=== PATIENT | female | born 1960 | race Caucasian/White ===

== ENCOUNTER 2022-10-23 11:01 | Emergency (ER) | payer OTHER, SELFPAY ==
[2022-10-23] VITALS (22 sets, daily range): BP systolic 88–121; BP diastolic 58–75; PULSE 78–121; RESP 14–24; O2SAT 92–97; BMI 24.0
--- NOTE | 2022-10-23 11:11 | ED_ITS ---
Documented by User: Flakito Monahan MD 11/04/22 01:55 HPI - Nausea/Vomiting/Diarrhea General: Chief complaint: Nausea/Vomiting/Diarrhea Stated complaint: weakness Time Seen by Provider: 10/23/22 11:06 History of Present Illness: Ms Vega is a 62-year-old lady with significant past medical history of colon cancer status post colon resection with ileostomy (reported date of service 10/11/22 LAR w DLI, positive lymph nodes, Dr Ant Gary MD [facility]) presenting to the emergency department for nausea and vomiting with generalized malaise. She reports somewhat complicated postoperative course. Shortly after her discharge she had nausea and vomiting with decreased ostomy and urine output and required return visit to the ER and was kept in the clinical decision unit for a few days for hydration. She had been doing improved however yesterday saw surgeon for staple removal and was given a oxycodone. She was doing well on the way home however subsequently developed nausea and vomiting again associated with generalized malaise and d ecreased urine output. Ostomy output has been on the higher end however had very very little yesterday prior to overnight. Intensity symptoms is moderate. Course has worsened. No other specific changes in health, exacerbating, or alleviating factors identified. Onset (ago): hour(s) Description of vomiting: watery Description of diarrhea: watery (ostomy) Associated nausea: Yes Associated abdominal pain: Yes (mild, unchanged) Location of pain: Diffuse Pain consistency: intermittent Severity: mild Quality: cramping and aching Context: recent surgery/procedure Associated symtoms: Reports fatigue, nausea, weakness and other Review of Systems 2 General: Reports: 10 or more systems reviewed and unremarkable except in HPI and below Const: Reports: fatigue GI: Reports: nausea PFSH ED PFSH: Medical History (Updated 11/01/22 @ 00:00 by IRMA Mayorga) Colon cancer Surgical History (Updated 10/23/22 @ 20:45 by Flakito Monahan MD) S/P colon resection S/P ileostomy Physical Exam Const: COMMON NORMALS: alert GENERAL APPEARANCE: cooperative, well developed and ill appearing (Somewhat) HENMT: COMMON NORMALS: normocephalic and atraumatic HEAD & SCALP: normocephalic and atraumatic Eye: COMMON NORMALS: conjunctivae normal CONJUNCTIVA: Yes conjunctivae normal SCLERA: sclerae normal Neck/C-Spine: COMMON NORMALS: supple GENERAL: Yes trachea midline Resp: COMMON NORMALS: clear to auscultation bilaterally EFFORT & INSPECTION: Yes able to speak in complete sentences AUSCULTATION: clear to auscultation bilaterally Cardio: COMMON NORMALS: regular rhythm RATE: tachycardic RHYTHM: regular rhythm GI: COMMON NORMALS: Soft to palpation PALPATION: Yes Soft to palpation, Yes Tenderness to palpation present (GI) (Mildly tender without evidence of peritonitis.), No Guarding due to palpation present (GI) and No Rigid due to palpation PERCUSSION: normal to percussion OTHER: Surgical incisions appear well-healing Extremity: GENERAL: Yes normal exam except as noted and No edema Neuro: COMMON NORMALS: moves all extremities SENSORIUM/ORIENTATION: Yes alert and No Orientation impaired Psych: COMMON NORMALS: mental status grossly normal and Normal thought process present THOUGHT PROCESS: Normal thought process present Course Vital Signs: Vital signs: Vital Signs Pulse Rate 69 10/24/22 11:13 Respiratory Rate 18 10/24/22 11:13 Blood Pressure 95/62 10/24/22 11:13 Pulse Oximetry 96 10/24/22 11:13 Oxygen Delivery Me thod 10/24/22 09:33 MDM - Nausea/Vomiting/Diarrhea Medical Decision Making 62-year-old lady with recent complex history of colon cancer s/p LAR with DLI on 10/11/2022. Patient had complicated postoperative course including requirement for hospitalization secondary to electrolyte abnormality and dehydration with JURGEN. Discharged yesterday feeling somewhat improved however worsened overnight. She endorses fairly significant volume of water output from her ostomy and on initial exam he is tachycardic. There is no evidence of acute surgical abdomen, and ostomy output is watery and volume is. Actual ostomy tissue appears pink and well-perfused. IV fluids ordered. Antiemetic ordered. Labs notable for leukocytosis, hemoconcentration with hemoglobin of 17.8, mild t hrombocytosis. Metabolic panel with evidence of metabolic stress including hyponatremia, decreased bicarb, increased anion gap, elevated creatinine and elevated lactic acid. No evidence of urinary tract infection CT imaging ordered with oral contrast and not IV contrast given renal function with reportedly normal baseline yesterday. There is proximal fluid-filled dilated bowel loops as well as extensive subcutaneous air. Surgical incisions appear well-healing as above without evidence of abdominal wall cellulitis. I discussed the case with Dr. Gary. Given overall clinical appearance and new leukocytosis as well as dehydration with JURGEN I believe that the patient requires inpatient observation for lab trending and symptom management as well as rehydration. Patient tentatively accepted as a transfer however no beds available at this time. We will continue to treat patient pending bed availability. Additional fluids and antibiotics ordered. Plan to repeat labs in the morning and we discussed with colorectal surgery regarding disposition if no bed becomes available. Most likely etiology of symptoms is unclear, may be related to high ostomy output. Given dramatic change in white blood cell count infection remains a consideration patient will be continued on IV antibiotics. Patient care handed off to Dr. Price overnight. Medical Records I reviewed the patient's medical records. Lab Data I reviewed the patient's lab results. 10/23/22 11:43 10/23/22 11:43 Radiology Impressions Abdomen/Pelvis CT 10/23/22 12:27 IMPRESSION: 1. Recent partial colectomy with ileostomy in the RIGHT lower quadrant. 2. Small bowel obstruction with transition point at the ileostomy at the level of the abdominal wall. Exiting small bowel loops are decompressed. 3. Extensive subcutaneous air in the lower chest wall and intercostal musculature and abdominal wall. This extends into the lower abdominal and pelvic soft tissues likely due to recent surgery. No significant intraperitoneal free air or portal venous air. 4. Small amount of free fluid in the pelvis. 5. No other acute findings. Notified Flakito Monahan MD at 10/23/2022 2:05 PM. Laboratory Results WBC 6.4 10^3/uL (4.0-10.0) 10/24/22 04:33 RBC 5.22 10^6/uL (4.1-5.3) 10/24/22 04:33 Hgb 14.9 g/dL (11.5-15.3) 10/24/22 04:33 Hct 43.9 % (37.0-47.0) 10/24/22 04:33 MCV 84.1 fl (81-99) 10/24/22 04:33 MCH 28.5 pg (28.0-34.0) 10/24/22 04:33 MCHC 33.9 g/dL (30.0-36.0) 10/24/22 04:33 RDW 12.0 % (12.1-15.1) L 10/24/22 04:33 Plt Count 315 10^3/cmm (130-400) 10/24/22 04:33 MPV 11.0 fL (7.4-10.4) H 10/24/22 04:33 Neut % (Auto) 67.5 % 10/24/22 04:33 Lymph % (Auto) 21.8 % 10/24/22 04:33 [place] % (Auto) 8.8 % 10/24/22 04:33 Eos % (Auto) 1.4 % 10/24/22 04:33 Baso % (Auto) 0.3 % 10/24/22 04:33 Neut # (Auto) 4.30 10^3/uL (1.8-7.7) 10/24/22 04:33 Lymph # (Auto) 1.4 10^3/uL (0.8-4.8) 10/24/22 04:33 [place] # (Auto) 0.6 10^3/uL (0.2-0.9) 10/24/22 04:33 Eos # (Auto) 0.1 10^3/uL (0.0-0.8) 10/24/22 04:33 Baso # (Auto) 0.0 10^3/uL (0.0-0.1) 10/24/22 04:33 Nucleated RBC % (auto) 0 % 10/24/22 04:33 Nucleated RBCs # 0.0 /100WBC 10/24/22 04:33 ESR 59 mm/hr (0-15) H 10/23/22 11:15 Sodium 128 mmol/L (136-145) L 10/24/22 04:33 Potassium 4.1 mmol/L (3.5-5.1) 10/24/22 04:33 Chloride 101 mmol/L (98-107) 10/24/22 04:33 Carbon Dioxide 16 mmol/L (22-29) L 10/24/22 04:33 Anion Gap 15.1 (5-19) 10/24/22 04:33 BUN 23 mg/dL (8-23) 10/24/22 04:33 Creatinine 1.2 mg/dL (0.5-0.9) H 10/24/22 04:33 GFR Calculation 45.5 mL/min (90-130) L 10/24/22 04:33 Glucose 119 mg/dL (65-115) H 10/24/22 04:33 Calculated Osmolality 271 mOsm/kg (285-295) L 10/24/22 04:33 Lactic Acid 3.0 mmol/L (0.5-2.2) H 10/23/22 12:25 Calcium 8.6 mg/dL (8.5-10.5) 10/24/22 04:33 Magnesium 1.9 mg/dL (1.7-2.3) 10/23/22 11:43 Total Bilirubin 0.4 mg/dL (0.15-1.2) 10/23/22 11:43 AST 17 U/L (0-32) 10/23/22 11:43 ALT 47 U/L (0-33) H 10/23/22 11:43 Alkaline Phosphatase 96 U/L (35-105) 10/23/22 11:43 C-Reactive Protein 3.5 mg/L (0.0-4.9) 10/23/22 11:15 Total Protein 8.6 g/dL (6.6-8.7) 10/23/22 11:43 Albumin 5.0 g/dL (3.5-5.2) 10/23/22 11:43 Globulin 3.6 g/dL (1.3-4.6) 10/23/22 11:43 Urine Color Dark yellow (Yellow) 10/23/22 14:01 Urine Appearance Hazy (CLEAR) A 10/23/22 14:01 Urine pH 5 (5-7) 10/23/22 14:01 Ur Specific [place] 1.020 (1.005-1.030) 10/23/22 14:01 Urine Protein 1+ (Negative) H 10/23/22 14:01 Urine Glucose (UA) Norm (Normal) 10/23/22 14:01 Urine Ketones 1+ (Negative) H 10/23/22 14:01 Urine Blood Neg (Negative) 10/23/22 14:01 Urine Nitrate Negative (Negative) 10/23/22 14:01 Urine Bilirubin 1+ (Negative) H 10/23/22 14:01 Urine Urobilinogen 1 mg/dL (Negative) H 10/23/22 14:01 Ur Leukocyte Esterase 2+ (Negative) H 10/23/22 14:01 Urine RBC Rare /hpf (0-2) 10/23/22 14:01 Urine WBC 0-4 /hpf (0-5) H 10/23/22 14:01 Ur Squamous Epith Cells 0-4 /hpf (0-5) H 10/23/22 14:01 Ur Renal Epithelial Cell 0-4 /hpf 10/23/22 14:01 Amorphous Sediment 2+ /hpf 10/23/22 14:01 Urine Bacteria 1+ /hpf (NONE) H 10/23/22 14:01 Hyaline Casts 5-10 /lpf H 10/23/22 14:01 Fine Granular Casts 5-10 /lpf H 10/23/22 14:01 Urine Mucus 2+ /hpf 10/23/22 14:01 Discharge Plan Discharge Patient Disposition: Xfer Short-Term Hosp Clinical Impression: JURGEN (acute kidney injury), Colon cancer, S/P colon resection, S/P ileostomy, Leukocytosis, Acidosis, lactic, Acute dehydration, Hyponatremia Condition: Stable Referrals: Shyann Tobias FNP [Primary Care Provider] - Coding Level of Care Code ED Optometrist President/Practice Owner for Chg Fwd Documented by User: Elie Copeland DO 11/04/22 07:04 HPI - Nausea/Vomiting/Diarrhea General: Chief complaint: Nausea/Vomiting/Diarrhea Stated complaint: weakness Time Seen by Provider: 10/23/22 11:06 PFSH ED PFSH: Medical History (Updated 11/01/22 @ 00:00 by IRMA Mayorga) Colon cancer Surgical History (Updated 10/23/22 @ 20:45 by Flakito Monahan MD) S/P colon resection S/P ileostomy Course Vital Signs: Vital signs: Vital Signs Pulse Rate 69 10/24/22 11:13 Respiratory Rate 18 10/24/22 11:13 Blood Pressure 95/62 10/24/22 11:13 Pulse Oximetry 96 10/24/22 11:13 Oxygen Delivery Me thod 10/24/22 09:33 MDM - Nausea/Vomiting/Diarrhea Medical Decision Making 62-year-old lady with recent complex history of colon cancer s/p LAR with DLI on 10/11/2022. Patient had complicated postoperative course including requirement for hospitalization secondary to electrolyte abnormality and dehydration with JURGEN. Discharged yesterday feeling somewhat improved however worsened overnight. She endorses fairly significant volume of water output from her ostomy and on initial exam he is tachycardic. There is no evidence of acute surgical abdomen, and ostomy output is watery and volume is. Actual ostomy tissue appears pink and well-perfused. IV fluids ordered. Antiemetic ordered. Labs notable for leukocytosis, hemoconcentration with hemoglobin of 17.8, mild thrombocytosis. Metabolic panel with evidence of metabolic stress including hyponatremia, decreased bicarb, increased anion gap, elevated creatinine and elevated lactic acid. No evidence of urinary tract infection CT imaging ordered with oral contrast and not IV contrast given renal function with reportedly normal baseline yesterday. There is proximal fluid-filled dilated bowel loops as well as extensive subcutaneous air. Surgical incisions appear well-healing as above without evidence of abdominal wall cellulitis. I discussed the case with Dr. Gary. Given overall clinical appearance and new leukocytosis as well as dehydration with JURGEN I believe that the patient requires inpatient observation for lab trending and symptom management as well as rehydration. Patient tentatively accepted as a transfer however no beds available at this time. We will continue to treat patient pending bed availability. Additional fluids and antibiotics ordered. Plan to repeat labs in the morning and we discussed with colorectal surgery regarding disposition if no bed becomes available. Most likely etiology of symptoms is unclear, may be related to high ostomy output. Given dramatic change in white blood cell count infection remains a consideration patient will be continued on IV antibiotics. Patient care handed off to Dr. Price overnight. Care assumed at change of shift. We are still waiting for bed placement. Dr. Price tells me they have accepted the patient at [facility] and we are waiting for a call for bed assignment before transferring. Later in the shift Dr. Lerma who had seen the patient last evening came back on shift and provided care and effective transfer. Lab Data 10/23/22 11:43 10/23/22 11:43 Radiology Impressions Abdomen/Pelvis CT 10/23/22 12:27 IMPRESSION: 1. Recent partial colectomy with ileostomy in the RIGHT lower quadrant. 2. Small bowel obstruction with transition point at the ileostomy at the level of the abdominal wall. Exiting small bowel loops are decompressed. 3. Extensive subcutaneous air in the lower chest wall and intercostal musculature and abdominal wall. This extends into the lower abdominal and pelvic soft tissues likely due to recent surgery. No significant intraperitoneal free air or portal venous air. 4. Small amount of free fluid in the pelvis. 5. No other acute findings. Notified Flakito Monahan MD at 10/23/2022 2:05 PM. Laboratory Results WBC 6.4 10^3/uL (4.0-10.0) 10/24/22 04:33 RBC 5.22 10^6/uL (4.1-5.3) 10/24/22 04:33 Hgb 14.9 g/dL (11.5-15.3) 10/24/22 04:33 Hct 43.9 % (37.0-47.0) 10/24/22 04:33 MCV 84.1 fl (81-99) 10/24/22 04:33 MCH 28.5 pg (28.0-34.0) 10/24/22 04:33 MCHC 33.9 g/dL (30.0-36.0) 10/24/22 04:33 RDW 12.0 % (12.1-15.1) L 10/24/22 04:33 Plt Count 315 10^3/cmm (130-400) 10/24/22 04:33 MPV 11.0 fL (7.4-10.4) H 10/24/22 04:33 Neut % (Auto) 67.5 % 10/24/22 04:33 Lymph % (Auto) 21.8 % 10/24/22 04:33 [place] % (Auto) 8.8 % 10/24/22 04:33 Eos % (Auto) 1.4 % 10/24/22 04:33 Baso % (Auto) 0.3 % 10/24/22 04:33 Neut # (Auto) 4.30 10^3/uL (1.8-7.7) 10/24/22 04:33 Lymph # (Auto) 1.4 10^3/uL (0.8-4.8) 10/24/22 04:33 [place] # (Auto) 0.6 10^3/uL (0.2-0.9) 10/24/22 04:33 Eos # (Auto) 0.1 10^3/uL (0.0-0.8) 10/24/22 04:33 Baso # (Auto) 0.0 10^3/uL (0.0-0.1) 10/24/22 04:33 Nucleated RBC % (auto) 0 % 10/24/22 04:33 Nucleated RBCs # 0.0 /100WBC 10/24/22 04:33 ESR 59 mm/hr (0-15) H 10/23/22 11:15 Sodium 128 mmol/L (136-145) L 10/24/22 04:33 Potassium 4.1 mmol/L (3.5-5.1) 10/24/22 04:33 Chloride 101 mmol/L (98-107) 10/24/22 04:33 Carbon Dioxide 16 mmol/L (22-29) L 10/24/22 04:33 Anion Gap 15.1 (5-19) 10/24/22 04:33 BUN 23 mg/dL (8-23) 10/24/22 04:33 Creatinine 1.2 mg/dL (0.5-0.9) H 10/24/22 04:33 GFR Calculation 45.5 mL/min (90-130) L 10/24/22 04:33 Glucose 119 mg/dL (65-115) H 10/24/22 04:33 Calculated Osmolality 271 mOsm/kg (285-295) L 10/24/22 04:33 Lactic Acid 3.0 mmol/L (0.5-2.2) H 10/23/22 12:25 Calcium 8.6 mg/dL (8.5-10.5) 10/24/22 04:33 Magnesium 1.9 mg/dL (1.7-2.3) 10/23/22 11:43 Total Bilirubin 0.4 mg/dL (0.15-1.2) 10/23/22 11:43 AST 17 U/L (0-32) 10/23/22 11:43 ALT 47 U/L (0-33) H 10/23/22 11:43 Alkaline Phosphatase 96 U/L (35-105) 10/23/22 11:43 C-Reactive Protein 3.5 mg/L (0.0-4.9) 10/23/22 11:15 Total Protein 8.6 g/dL (6.6-8.7) 10/23/22 11:43 Albumin 5.0 g/dL (3.5-5.2) 10/23/22 11:43 Globulin 3.6 g/dL (1.3-4.6) 10/23/22 11:43 Urine Color Dark yellow (Yellow) 10/23/22 14:01 Urine Appearance Hazy (CLEAR) A 10/23/22 14:01 Urine pH 5 (5-7) 10/23/22 14:01 Ur Specific [place] 1.020 (1.005-1.030) 10/23/22 14:01 Urine Protein 1+ (Negative) H 10/23/22 14:01 Urine Glucose (UA) Norm (Normal) 10/23/22 14:01 Urine Ketones 1+ (Negative) H 10/23/22 14:01 Urine Blood Neg (Negative) 10/23/22 14:01 Urine Nitrate Negative (Negative) 10/23/22 14:01 Urine Bilirubin 1+ (Negative) H 10/23/22 14:01 Urine Urobilinogen 1 mg/dL (Negative) H 10/23/22 14:01 Ur Leukocyte Esterase 2+ (Negative) H 10/23/22 14:01 Urine RBC Rare /hpf (0-2) 10/23/22 14:01 Urine WBC 0-4 /hpf (0-5) H 10/23/22 14:01 Ur Squamous Epith Cells 0-4 /hpf (0-5) H 10/23/22 14:01 Ur Renal Epithelial Cell 0-4 /hpf 10/23/22 14:01 Amorphous Sediment 2+ /hpf 10/23/22 14:01 Urine Bacteria 1+ /hpf (NONE) H 10/23/22 14:01 Hyaline Casts 5-10 /lpf H 10/23/22 14:01 Fine Granular Casts 5-10 /lpf H 10/23/22 14:01 Urine Mucus 2+ /hpf 10/23/22 14:01 Discharge Plan Discharge Patient Disposition: Xfer Short-Term Hosp Clinical Impression: JURGEN (acute kidney injury), Colon cancer, S/P colon resection, S/P ileostomy, Leukocytosis, Acidosis, lactic, Acute dehydration, Hyponatremia Condition: Stable Referrals: Shyann Tobias FNP [Primary Care Provider] - Coding Level of Care Code ED Optometrist President/Practice Owner for Miguel Fournier
--- NOTE | 2022-10-23 11:28 | ECG_ITS ---
[facility] Test Date: 2022-10-23 Pat Name: John Vega Department: Room: Gender: Female Capacity Management Specialist: : 1960 Requested By: Elie Martínez Order Number: [id number] Danyelle MD: Ej Sosa M.D. Measurements Intervals [place] Rate: 105 P: 53 UT: 131 QRS: 80 QRSD: 78 T: 63 QT: 325 QTc: 431 Interpretive Statements SINUS TACHYCARDIA POSSIBLE RIGHT VENTRICULAR CONDUCTION DELAY [RSR (QR) IN V1/V2] ABNORMAL RHYTHM ECG No previous ECG available for comparison Electronically Signed On 10-24-2022 0:06:34 DIGITAL CONTENT MARKETING MANAGER by Ej Sosa M.D. [email or web address]
[2022-10-23 11:54] LABS: Basophils # 0.1 10^3/uL (0.0-0.1); Basophils % 0.2 %; Hematocrit 51.3 % (37.0-47.0); Hemoglobin 17.8 g/dL (11.5-15.3); Lymphocytes # 0.8 10^3/uL (0.8-4.8); Lymphocytes % 3.7 %; Mean Corpuscular HGB Conc 34.7 g/dL (30.0-36.0); Mean Corpuscular Hemoglobin 28.7 pg (28.0-34.0); Mean Corpuscular Volume 82.7 fl (81-99); Mean Platelet Volume 11.1 fL (7.4-10.4); Monocytes # 0.8 10^3/uL (0.2-0.9); Monocytes % 3.4 %; Neutrophils # 20.55 10^3/uL (1.8-7.7); Neutrophils % 92.4 %; Nucleated Red Blood Cells % 0 %; Platelet Count 435 10^3/cmm (130-400); Red Cell Distribution Width 12.1 % (12.1-15.1); White Blood Count 22.2 10^3/uL (4.0-10.0)
[2022-10-23] MEDS: sodium chloride 0.9% 1,000 ML 999 ML IV ×2 (12:02→14:08)
[2022-10-23] MEDS: ondansetron 2 mg/ML SDV 2 mL 4 MG IVP ×2 (12:02→23:44)
[2022-10-23 12:15] LABS: Alanine Aminotransferase 47 U/L (0-33); Alkaline Phosphatase 96 U/L (35-105); Anion Gap 25.7 (5-19); Aspartate Amino Transferase 17 U/L (0-32); Blood Urea Nitrogen 21 mg/dL (8-23); Calcium 10.3 mg/dL (8.5-10.5); Carbon Dioxide 16 mmol/L (22-29); Chloride 93 mmol/L (98-107); Globulin 3.6 g/dL (1.3-4.6); Glomerular Filtration Rate 30.5 mL/min (90-130); Glucose 194 mg/dL (65-115); Magnesium 1.9 mg/dL (1.7-2.3); Osmolality Calculated 278 mOsm/kg (285-295); Potassium 4.7 mmol/L (3.5-5.1); Sodium 130 mmol/L (136-145); Total Bilirubin 0.4 mg/dL (0.15-1.2); Total Protein 8.6 g/dL (6.6-8.7)
--- NOTE | 2022-10-23 12:27 | CT_ITS ---
WS: [id number] CT ABDOMEN PELVIS TECHNIQUE: Noncontrast CT of the abdomen and pelvis with coronal and sagittal reformatted images. CLINICAL INFORMATION: n/v, leukocytosis, tachycardia COMPARISON: None. DLP: 492.[address] scans at [facility] use at least one of these dose optimization techniques: automated e xposure control; mA and/or kV adjustment per patient size (includes targeted exams where dose is matc hed to clinical indication); or iterative reconstruction. FINDINGS: History of recent partial colectomy with ileostomy in the RIGHT lower quadrant. Ileostomy loop is dec ompressed. Small bowel obstruction with dilated fluid-filled small bowel loops with air-fluid levels. Small estrada l loops measure up to 3.3 CM. Small amount of free fluid in the pelvis. Oral contrast remains in the stomach and duodenum extending into the proximal jejunum. Transition point to decompressed small estrada l at the abdominal wall ileostomy. Bowel loops in the loop ileostomy are decompressed. Exiting small bowel loops are decompressed. Extensive subcutaneous abdominal wall air is visualized likely due to recent surgery. No significant intraperitoneal air. No portal venous air. Lung bases are well aerated. Noncontrast liver and gallbla dder are normal. Splenic granulomas. Glands are normal. Normal caliber abdominal aorta. Disc space na rrowing worse L5-S1. CT/CT abdomen pelvis wo con [id number] IMPRESSION: 1. Recent partial colectomy with ileostomy in the RIGHT lower quadrant. 2. Small bowel obstruction with transition point at the ileostomy at the level of the abdominal wall. Exiting small bowel loops are decompressed. 3. Extensive subcutaneous air in the lower chest wall and intercostal musculat ure and abdominal wall. This extends into the lower abdominal and pelvic soft t issues likely due to recent surgery. No significant intraperitoneal free air or portal venous air. 4. Small amount of free fluid in the pelvis. 5. No other acute findings. Notified Flakito Monahan MD at 10/23/2022 2:05 PM.
[2022-10-23] MEDS: iohexol 350 mg/mL 500 mL Btl (per mL) PO (12:34)
--- NOTE | 2022-10-23 14:13 | PC.NURSE ---
750ML OUTPUT ILLEOSTOMY
--- NOTE | 2022-10-23 14:13 | PC.NURSE ---
PT PLACED ON CONTINUOUS NIBP, SPO2, AND CM
[2022-10-23 14:21] LABS: Reflex Lactate Order REFLEX LACTIC ORDERD
[2022-10-23 14:25] LABS: Erythrocyte Sedimentation Rate 59 mm/hr (0-15)
[2022-10-23 14:44] LABS: Add Urine Microscopic? YES; Bilirubin Urine 1+ (Negative); Blood Urine Neg (Negative); Glucose Urine UA Norm (Normal); Ketones Urine 1+ (Negative); Leukocyte Esterase Urine 2+ (Negative); Mucus Urine 2+ /hpf; Nitrate Urine Negative (Negative); Protein Urine 1+ (Negative); RBC Urine RARE /hpf (0-2); Squamous Epithelial Cell Urine 0-4 /hpf (0-5); Urine Appearance Hazy (CLEAR); Urine Color Dark Yellow (Yellow); Urobilinogen Urine 1 mg/dL (Negative); WBC Urine 0-4 /hpf (0-5); pH Urine 5 (5-7)
[2022-10-23 14:45] LABS: Amorphous Sediment Urine 2+ /hpf; Bacteria Urine 1+ /hpf; Renal Epithelial Cells Urine 0-4 /hpf
[2022-10-23 14:46] LABS: Add Urine Culture? No
[2022-10-23 14:50] LABS: C Reactive Protein 3.5 mg/L (0.0-4.9)
[2022-10-23] MEDS: cefepime 2,000 MG in sodium chloride 0.9% (plus) 50 ML 100 MG IV (16:06)
[2022-10-23] MEDS: sodium chloride 0.9% 1,000 ML 125 ML IV ×2 (16:06→23:45)
[2022-10-23] MEDS: loperamide 2 mg Capsule PO (16:06)
[2022-10-23] MEDS: vancomycin 1,500 MG/300 ML PIGGYBACK 200 MG IV (16:43)
--- NOTE | 2022-10-23 17:00 | PC.NURSE ---
650ML OUTPUT FROM ILLEOSTOMY
--- NOTE | 2022-10-23 18:13 | PC.NURSE ---
250ML OUTPUT BY ILLEOSTOMY
[2022-10-23] MEDS: psyllium powder Pkt 1 PACKET PO (20:52)
[2022-10-23] MEDS: enoxaparin 30 mg/0.3 mL Syringe SUBCUT (20:52)
--- NOTE | 2022-10-23 21:00 | PC.NURSE ---
Pt resting in bed. Pt's ileostomy bag emptied, and bedside commode emptied. Pt denies any other needs at this time. Son in law at bedside.
--- NOTE | 2022-10-23 22:47 | PC.NURSE ---
Pt asleep in bed. Pt's son in law at bedside, denies any needs for patient at this time.
[2022-10-24] VITALS (7 sets, daily range): BP systolic 89–102; BP diastolic 62–69; PULSE 64–76; RESP 18; O2SAT 93–97
--- NOTE | 2022-10-24 00:47 | PC.NURSE ---
Pt up to bedside commode with daughter at bedside. Pt is steady on her feet. Nurse emptied ileostomy bag.
[2022-10-24] MEDS: cefepime 2,000 MG in sodium chloride 0.9% (plus) 50 ML 100 MG IV (03:45)
[2022-10-24 04:38] LABS: Basophils % 0.3 %; Eosinophils # 0.1 10^3/uL (0.0-0.8); Eosinophils % 1.4 %; Hematocrit 43.9 % (37.0-47.0); Hemoglobin 14.9 g/dL (11.5-15.3); Lymphocytes # 1.4 10^3/uL (0.8-4.8); Lymphocytes % 21.8 %; Mean Corpuscular HGB Conc 33.9 g/dL (30.0-36.0); Mean Corpuscular Hemoglobin 28.5 pg (28.0-34.0); Mean Corpuscular Volume 84.1 fl (81-99); Monocytes # 0.6 10^3/uL (0.2-0.9); Monocytes % 8.8 %; Neutrophils % 67.5 %; Nucleated Red Blood Cells % 0 %; Platelet Count 315 10^3/cmm (130-400); Red Blood Count 5.22 10^6/uL (4.1-5.3); White Blood Count 6.4 10^3/uL (4.0-10.0)
[2022-10-24 04:55] LABS: Anion Gap 15.1 (5-19); Blood Urea Nitrogen 23 mg/dL (8-23); Calcium 8.6 mg/dL (8.5-10.5); Carbon Dioxide 16 mmol/L (22-29); Chloride 101 mmol/L (98-107); Glomerular Filtration Rate 45.5 mL/min (90-130); Glucose 119 mg/dL (65-115); Osmolality Calculated 271 mOsm/kg (285-295); Potassium 4.1 mmol/L (3.5-5.1); Sodium 128 mmol/L (136-145)
[2022-10-24 04:57] LABS: Creatinine Clr Calc Pharmacy 44.6767
[2022-10-24] MEDS: sodium chloride 0.9% 1,000 ML 125 ML IV ×2 (08:25→15:45)
[2022-10-24] MEDS: pantoprazole DR 40 mg Tablet PO (08:26)
[2022-10-24] MEDS: loperamide 2 mg Capsule PO (12:19)
--- NOTE | 2022-10-24 17:33 | PC.NURSE ---
Patients requests to transport his via POV to [facility]. Per bel Kidd to transport via POV with peripheral IV intact.
== END 2022-10-24 17:00 | disposition short-term general hospital (02) ==
PROVIDERS: Family Medicine; Emergency Provider Emergency Medicine; PCP Nurse Practitioner
DX: N17.9 Acute kidney failure, unspecified (principal); C18.9 Malignant neoplasm of colon, unspecified; D72.829 Elevated white blood cell count, unspecified; E87.20 Acidosis, unspecified; E86.0 Dehydration; E87.1 Hypo-osmolality and hyponatremia
CPT/HCPCS: 36415; 74176; 80048; 80053; 81001; 83605; 83735; 85025; 85651; 86140; 87040; 93005; 96365; 96367; 96372; 96375; 96376; 99285; J0692; J1650; J2405; J3370; J7030; Q9967

== ENCOUNTER 2022-11-27 10:24 | Day surgery (SDC) | payer OTHER, SELFPAY ==
[2022-11-26 08:24] VITALS: BMI 21.9
[2022-11-27] VITALS (9 sets, daily range): BP systolic 82–106; BP diastolic 50–73; PULSE 74–107; RESP 12–18; TEMP 36.2–36.4; O2SAT 93–99
--- NOTE | 2022-11-27 | XRR_ITS ---
PROCEDURE INFORMATION: Exam: XR Chest Exam date and time: 11/27/2022 1:09 PM Age: 62 years old Clinical indication: Device placement; Other: Port; Prior surgery; Surgery date: Post-operative (0-2 days); Additional info: Post op port TECHNIQUE: Imaging protocol: Radiologic exam of the chest. Views: 1 view. COMPARISON: OT XR chest 1V portable [id number] 11/27/2022 1:03 PM FINDINGS: Tubes, catheters and devices: Left chest port terminates in the proximal right atrium. Lungs: Unremarkable. No consolidation. Pleural spaces: Unremarkable. No pleural effusion. No pneumothorax. Heart/Mediastinum: Unremarkable. No cardiomegaly. Bones/joints: Unremarkable. XR/XR chest 1V portable [id number] IMPRESSION: Left chest port placement which terminates in the proximal right atrium. No acute findings.
--- NOTE | 2022-11-27 10:28 | XR_ITS ---
WS: [id number] XR chest 1V portable [id number] REASON FOR EXAM: postop mediport FINDINGS: Left chest chemotherapy port with left subclavian vein catheter. Tip at the catheter is beyond the ex tent of the image. No pneumothorax identified.
--- NOTE | 2022-11-27 10:28 | SC_ITS ---
WS: [id number] XR chest 1V portable [id number] REASON FOR EXAM: postop mediport FINDINGS: Left chest chemotherapy port with left subclavian vein catheter. Tip at the catheter is beyond the ex tent of the image. No pneumothorax identified. SC/C-arm FL for CVA [id number] IMPRESSION: Port placement as above.
[2022-11-27] MEDS: sodium chloride 0.9% 1,000 ML 30 ML IV (11:09)
--- NOTE | 2022-11-27 12:27 | W.PM.OPSUD ---
Surgery/Procedure H&P Update DATE OF PROCEDURE: November 27, 2022 DATE H&P PERFORMED: 11/15/22 H&P UPDATE INFORMATION: I have reviewed H&P completed within last 30 days, I have examined patient prior to procedure and No changes to prior documentation PREOP DIAGNOSIS: Colon Cancer PLANNED PROCEDURE: Operation Date: 11/27/22 12:00 Proposed Procedures p [id number] port placement C18.7(Not Applicable) - Juan Manuel Smith, DO
[2022-11-27] MEDS: ceFAZolin 2,000 MG in sodium chloride 0.9% (plus) 50 ML 100 MG IV (13:27)
[2022-11-27] MEDS: lidocaine-epi 2% 20 mL INJ INJECTION (13:39)
[2022-11-27] MEDS: heparin, porcine 1,000 unit/mL INJ 10 mL 10000 UNIT XX (13:57)
--- NOTE | 2022-11-27 14:01 | PM.OP ---
Operative Report Date of procedure: November 27, 2022 Pre-op diagnosis: Preop Diagnosis Colon Cancer Post-op diagnosis: same Procedure done: Mediport insertion Implants: PowerPort Surgeon: Dr. Juan Manuel Smith, DO Anesthesia: MAC Estimated blood loss (mL): 5 Complications: None apparent Brief History: Is a very pleasant 62-year-old female who was diagnosed with colon cancer. Chemotherapy access was required. The risks and benefits of Mediport insertion were explained and documented. Procedure: They put another order I will do right now things the patient was taken to the operating room and placed supine on the operating room table. All bony prominences were padded. She was given IV sedation and monitored throughout the case by the anesthesia personnel. SCDs were placed and turned on. The arms were tucked to the side. Patient received Ancef 2 g preoperatively IV. The bilateral chest wall was prepped and draped in usual sterile fashion using chlorhexidine base prep. Sterile drapes were applied. We did procedure pause prior to beginning. An 18 gauge needle was placed in the left subclavian vein. Dark, nonpulsatile blood was aspirated. A guidewire was placed through the needle centrally toward the atrial/vena caval junction. Fluoroscopy visualized good placement. The needle was removed and the guidewire was clipped to the drape with a hemostat. Further local anesthetic was infiltrated in the soft tissues of the left chest wall and a #15 blade was used to make a horizontal skin incision. A subcutaneous Mediport pocket was created using Bovie cautery, dissecting down through the skin and subcutaneous tissues. Meticulous hemostasis was achieved. The Mediport was sutured in position using 3-0 vicryl suture x2 stitches. A #15 blade was used to make a small skin miguel angel around the guidewire insertion area. The Mediport tubing was tunneled through the subcutaneous tissues up to the needle insertion location. A dilator with a peel-away sheath was placed over the guidewire and placed centrally. After measuring the Mediport tubing was cut to length so that the tip would end at the atrial/vena caval junction. The inner cannula and the guidewire were removed, leaving the dilator sheath in place. The Mediport was flushed. The tip of the catheter was inserted through the peel-away sheath and the peel-away sheath removed in the standard fashion. The Mediport was accessed with a straight Diaz needle and dark, nonpulsatile blood was aspirated and flushed using heparinized saline to hep-lock the Mediport. Final fluoroscopy visualization showed no kink in the catheter and the tip of the Mediport tubing near the atrial/vena caval junction. Both skin incisions were thoroughly irrigated and suctioned dry. Meticulous hemostasis noted. The dermis was approximated with 3-0 Vicryl in an interrupted fashion. Skin was closed with Dermabond. Patient was awakened from anesthesia and transferred via her cart to the recovery room in stable condition. All needle, sponge, and instrument counts were correct per the operating personnel x2 counts.
--- NOTE | 2022-11-27 14:27 | PC.NURSE ---
BP low on arrival. fluid bolus per COMMUNICATIONS INTERN. BP stable. Patient alert and oriented. Stated her BP does run in the 80s/50s. Xray completed @ bedside
--- NOTE | 2022-11-27 15:29 | P.ANESASSM_ITS ---
Pre-Anesthetic Assessment Height/Weight: Height 1.63 m Weight 58.06 kg Temp Pulse Resp BP Pulse Ox O2 Del Method 97.6 F 76 18 106/72 99 11/27/22 14:55 11/27/22 14:55 11/27/22 14:55 11/27/22 14:55 11/27/22 14:55 11/27/22 14:55 Preop Diagnosis: Colon Cancer Operation Date: 11/27/22 12:00 Proposed Procedures p 31305 port placement C18.7(Not Applicable) - Juan Manuel Smith DO Familial anesthetic complications: none Was Beta John taken within 24 hours: N/A Was Clonidine taken within 24 hours: N/A Last intake: Intake Last Liquid Date 11/26/22 Last Liquid Time 11:30 Last Solid Date 11/26/22 Last Solid Time 20:00 Social No alcohol and No tobacco Exam alert, oriented x 3, clear to auscultation bilaterally and regular rate & rhythm Airway Submandibular: within normal limits Cervical ROM: within normal limits Mallampati: Class II Dentition: false Pulmonary Chronic Obstructive Pulmonary Disease GI colon CA Anesthetic Plan ASA status: 3 Anesthesia: MAC Medications/Allergies Home Medications Medication Instructions Recorded Confirmed Last Taken Type oxycodone 5 mg tablet 5 mg PO Q6H PRN Pain 10/23/22 11/26/22 3 Weeks Ago History ~11/05/22 diphenoxylate-atropine 2.5 1 tab PO DAILY PRN Diarrhea 11/13/22 11/26/22 1 Week Ago History mg-0.025 mg tablet (Lomotil) ~11/19/22 loperamide 2 mg tablet (Imodium 2 mg PO BID PRN Diarrhea 11/13/22 11/26/22 1 Week Ago History A-D) ~11/19/22 wheat dextrin 3 gram/3.5 gram oral 1 packet PO DAILY PRN Diarrhea 11/13/22 11/26/22 11/26/22 History powder packet (Benefiber Clear Sugar Free(dextrin)) Allergies Allergy/AdvReac Type Severity Reaction Status Date / Time No Known Allergies Allergy Verified 11/26/22 08:19 [facility] Anesthesia Medical History Cancer of sigmoid colon Colon cancer Surgical History S/P colon resection S/P ileostomy Family History Father Cancer Lung Diabetes Lung disease Mother Dementia Denies family history of CAD (coronary artery disease) Clotting disorder Hyperlipidemia Psychiatric illness Chronic kidney disease (CKD) Suicide Anesthesia complication Bleeding disorder Hypertension Stroke Social History Smoking and tobacco status: former smoker Quit status (tobacco): has quit using tobacco Former quit date comment: smoked x 30 years Data Anesthesia Cardiac Studies: No Data to Display
--- NOTE | 2022-11-27 15:30 | ANE.PACU2 ---
Inpatient post-anesthesia follow up: Airway intact: Yes Vital signs: Temperature 97.6 F Pulse Rate 76 Respiratory Rate 18 Blood Pressure 106/72 Pulse Oximetry 99 Oxygen Delivery Me thod Room Air Oxygen Flow Rate Fraction of Inspir ed Oxygen Hydration adequate: Yes Nausea and vomiting: No Pain level: 2 Mental status: Baseline
== END 2022-11-27 15:11 | disposition home or self-care (01) ==
PROVIDERS: PCP Family Medicine; Visit Provider Surgery
PROC: (CPT 36561; principal; 2022-11-27 12:00)
DX: C18.7 Malignant neoplasm of sigmoid colon (principal); J44.9 Chronic obstructive pulmonary disease, unspecified; Z93.2 Ileostomy status; Z87.891 Personal history of nicotine dependence
CPT/HCPCS: 36561; 71045; 77001; C1788; J0690; J1644; J7030

== ENCOUNTER 2022-12-27 09:00 | Oncology outpatient (recurring) (ONCR) | payer OTHER, SELFPAY ==
[2022-12-26 11:19] VITALS: BP 104/68; PULSE 60; RESP 16; TEMP 36.5; O2SAT 99; BMI 22.8
[2022-12-26] MEDS: sodium chloride 0.9% 1,000 ML 500 ML IV (11:41)
[2022-12-26 13:46] VITALS: BP 122/76; PULSE 59; RESP 16; TEMP 36.7; O2SAT 99
[2022-12-27 09:36] VITALS: BP 90/54; PULSE 67; RESP 18; TEMP 37.1; O2SAT 97
[2022-12-27] MEDS: sodium chloride 0.9% 1,000 ML 500 ML IV (09:46)
[2022-12-27 11:56] VITALS: BP 103/60; PULSE 62; RESP 18; TEMP 36.6; O2SAT 99
== END 2023-01-12 23:59 | disposition home or self-care (01) ==
PROVIDERS: PCP Family Medicine; Visit Provider Internal Medicine Hematology & Oncology
DX: C18.7 Malignant neoplasm of sigmoid colon (principal); D64.9 Anemia, unspecified; R93.2 Abnormal findings on diagnostic imaging of liver and biliary tract; N83.202 Unspecified ovarian cyst, left side; R91.8 Other nonspecific abnormal finding of lung field
CPT/HCPCS: 96360; 96361; J7030

== ENCOUNTER 2023-02-07 09:01 | Outpatient (CLI) | payer OTHER, SELFPAY ==
--- NOTE | 2023-02-07 09:15 | USCV_ITS ---
Locke John Age: 62 Gender: F : 1960 Exam Date: 02/07/2023 09:50 Ordering Phys: Marcelo Escobar MD Technologist: CRISSY [place] [facility] [place]: Leg Swelling HISTORY: Lower extremity swelling. DVT. PROCEDURES: Venous duplex imaging was performed in only the left lower extremity. The following venous structures were evaluated: common femoral vein, profunda vein, proximal portion of the greater saphenous vein, superficial femoral vein, and the popliteal vein. In addition, the posterior tibial and peroneal trunk were evaluated. Serial compression, augmentation maneuvers, and spectral Doppler flow evaluation were performed. FINDINGS: DVT beginning in Lt pop through peroneals. CONCLUSIONS Partially occlusive DVT left popliteal extending into peroneal veins. Popliteal thrombus is somewhat echogenic and may be subacute but is partially occlusive and recommend anticoagulation if clinically appropriate. Peroneal thrombus has a more subacute to chronic appearance. Remainder of LLE veins are patent. Findings discussed with Nurse Chen at Dr. Charlton office [id number] on 02/07/23 Denny Herrera MD (Electronically Signed) Final Date: 07 Feb 2023 16:31 S
== END 2023-02-07 09:02 | disposition home or self-care (01) ==
PROVIDERS: PCP Family Medicine; Visit Provider Internal Medicine
DX: I82.432 Acute embolism and thrombosis of left popliteal vein (principal); I82.452 Acute embolism and thrombosis of left peroneal vein; R60.0 Localized edema; Z86.718 Personal history of other venous thrombosis and embolism
CPT/HCPCS: 93971

== ENCOUNTER 2023-02-07 10:00 | Oncology outpatient (recurring) (ONCR) | payer OTHER, SELFPAY ==
[2023-01-17] MEDS: sodium chloride 0.9% 1,000 ML 300 ML IV (08:56)
[2023-01-17 13:25] VITALS: BP 93/58; PULSE 61; TEMP 36.5; O2SAT 99
[2023-01-30 14:40] VITALS: BP 103/57; PULSE 55; RESP 16; TEMP 36.1; O2SAT 99
[2023-01-30] MEDS: sodium chloride 0.9% 1,000 ML 525 ML IV (14:44)
[2023-01-30 14:47] VITALS: BMI 22.4
[2023-01-30 16:49] VITALS: BP 118/72; PULSE 60; RESP 16; TEMP 36.1; O2SAT 99
[2023-01-31 08:05] VITALS: BP 86/52; PULSE 60; RESP 18; TEMP 36.4; O2SAT 92
[2023-01-31] MEDS: sodium chloride 0.9% 1,000 ML 500 ML IV (08:11)
[2023-01-31 10:28] VITALS: BP 110/64; PULSE 57; RESP 18; TEMP 36.2; O2SAT 97
[2023-02-03 12:42] VITALS: BP 85/56; PULSE 56; RESP 18; TEMP 36.6; O2SAT 95
[2023-02-03] MEDS: sodium chloride 0.9% 1,000 ML 999 ML IV (12:51)
[2023-02-03 14:04] VITALS: BP 134/70; PULSE 56; RESP 16; TEMP 36.6; O2SAT 99
[2023-02-07] MEDS: sodium chloride 0.9% 1,000 ML 999 ML IV (10:51)
[2023-02-07 11:08] VITALS: BP 89/50; PULSE 48; RESP 16; TEMP 36.3; O2SAT 98
[2023-02-07 12:32] VITALS: BP 117/67; PULSE 52; RESP 18; TEMP 36.6; O2SAT 98
[2023-02-07 12:50] VITALS: BP 117/78; PULSE 78; RESP 18; TEMP 36.1; O2SAT 98
== END 2023-02-12 23:59 | disposition home or self-care (01) ==
PROVIDERS: PCP Family Medicine; Visit Provider Internal Medicine Hematology & Oncology
DX: Z85.038 Personal history of other malignant neoplasm of large intestine (principal); R91.8 Other nonspecific abnormal finding of lung field; N83.202 Unspecified ovarian cyst, left side; R93.2 Abnormal findings on diagnostic imaging of liver and biliary tract; D64.9 Anemia, unspecified; E83.42 Hypomagnesemia; E86.0 Dehydration; N17.9 Acute kidney failure, unspecified
CPT/HCPCS: 96360; 96361; 96374; J1642; J3475; J7030

== ENCOUNTER 2023-03-11 14:54 | Oncology outpatient (recurring) (ONCR) | payer OTHER, SELFPAY ==
[2023-02-14 10:15] VITALS: BP 107/56; PULSE 61; RESP 16; TEMP 36.3; O2SAT 99
[2023-02-14] MEDS: sodium chloride 0.9% 1,000 ML 999 ML IV (10:34)
[2023-02-14 11:54] VITALS: BP 116/72; PULSE 61; RESP 16; TEMP 36.4; O2SAT 99
[2023-02-28] MEDS: sodium chloride 0.9% 1,000 ML 999 ML IV (10:51)
[2023-02-28 12:20] VITALS: BP 123/66; PULSE 56; TEMP 36.8; O2SAT 100
== END 2023-03-14 23:59 | disposition home or self-care (01) ==
PROVIDERS: PCP Family Medicine; Visit Provider Internal Medicine Hematology & Oncology
DX: C18.7 Malignant neoplasm of sigmoid colon (principal); C77.8 Secondary and unspecified malignant neoplasm of lymph nodes of multiple regions; Z90.49 Acquired absence of other specified parts of digestive tract; I82.432 Acute embolism and thrombosis of left popliteal vein; Z79.01 Long term (current) use of anticoagulants; Z79.899 Other long term (current) drug therapy; D70.1 Agranulocytosis secondary to cancer chemotherapy; T45.1X5A Adverse effect of antineoplastic and immunosuppressive drugs, initial encounter
CPT/HCPCS: 96360; 96361; 99214; J1642; J7030

== ENCOUNTER → 2023-03-26 07:35 | Outpatient (BNVA) | payer OTHER, SELFPAY | PROVIDERS: PCP Family Medicine; Visit Provider Nurse Practitioner Family | DX: C18.7 Malignant neoplasm of sigmoid colon (principal); Z90.49 Acquired absence of other specified parts of digestive tract; C77.8 Secondary and unspecified malignant neoplasm of lymph nodes of multiple regions; D70.1 Agranulocytosis secondary to cancer chemotherapy; T45.1X5A Adverse effect of antineoplastic and immunosuppressive drugs, initial encounter; Z79.899 Other long term (current) drug therapy; Z87.891 Personal history of nicotine dependence | CPT/HCPCS: 99214 ==

== ENCOUNTER → 2023-04-07 07:36 | Outpatient (BNVA) | payer OTHER, SELFPAY | PROVIDERS: PCP Family Medicine; Visit Provider Internal Medicine Hematology & Oncology | DX: Z53.9 Procedure and treatment not carried out, unspecified reason (principal) | CPT/HCPCS: 99214 ==

== ENCOUNTER 2023-04-10 11:00 | Oncology outpatient (recurring) (ONCR) | payer OTHER, SELFPAY ==
[2023-03-20 09:21] VITALS: BP 112/83; PULSE 61; RESP 18; TEMP 36; O2SAT 100
[2023-03-20 09:34] LABS: Basophils % 0.6 %; Eosinophils # 0.1 10^3/uL (0.0-0.8); Eosinophils % 2.5 %; Hematocrit 37.7 % (37.0-47.0); Hemoglobin 12.4 g/dL (11.5-15.3); Lymphocytes # 1.2 10^3/uL (0.8-4.8); Lymphocytes % 25.1 %; Mean Corpuscular HGB Conc 32.9 g/dL (30.0-36.0); Mean Corpuscular Hemoglobin 30.5 pg (28.0-34.0); Mean Corpuscular Volume 92.6 fl (81-99); Monocytes # 0.2 10^3/uL (0.2-0.9); Neutrophils # 3.22 10^3/uL (1.8-7.7); Neutrophils % 67.2 %; Nucleated Red Blood Cells % 0 %; Platelet Count 142 10^3/cmm (130-400); Red Blood Count 4.07 10^6/uL (4.1-5.3); Red Cell Distribution Width 15.6 % (12.1-15.1); White Blood Count 4.8 10^3/uL (4.0-10.0)
[2023-03-20 09:52] LABS: Alanine Aminotransferase 44 U/L (0-33); Albumin Level 4.4 g/dL (3.5-5.2); Alkaline Phosphatase 91 U/L (35-105); Anion Gap 17.5 (5-19); Aspartate Amino Transferase 44 U/L (0-32); Blood Urea Nitrogen 31 mg/dL (8-23); Calcium 9.5 mg/dL (8.5-10.5); Carbon Dioxide 21 mmol/L (22-29); Chloride 103 mmol/L (98-107); Glomerular Filtration Rate 41.4 mL/min (90-130); Glucose 114 mg/dL (65-115); Lactate Dehydrogenase 150 U/L (135-214); Magnesium 1.9 mg/dL (1.7-2.3); Osmolality Calculated 291 mOsm/kg (285-295); Potassium 4.5 mmol/L (3.5-5.1); Sodium 137 mmol/L (136-145); Total Bilirubin 0.3 mg/dL (0.15-1.2); Total Protein 7.4 g/dL (6.6-8.7)
[2023-03-26 07:56] VITALS: BP 100/67; PULSE 72; RESP 18; TEMP 36.7; O2SAT 98
[2023-03-26 08:08] LABS: Basophils % 0.3 %; Eosinophils # 0.2 10^3/uL (0.0-0.8); Eosinophils % 6.4 %; Hematocrit 32.3 % (37.0-47.0); Hemoglobin 10.7 g/dL (11.5-15.3); Lymphocytes # 1.3 10^3/uL (0.8-4.8); Lymphocytes % 39.8 %; Mean Corpuscular HGB Conc 33.1 g/dL (30.0-36.0); Mean Corpuscular Hemoglobin 30.5 pg (28.0-34.0); Mean Platelet Volume 10.4 fL (7.4-10.4); Monocytes # 0.3 10^3/uL (0.2-0.9); Monocytes % 8.9 %; Neutrophils % 44.6 %; Nucleated Red Blood Cells % 0 %; Platelet Count 101 10^3/cmm (130-400); Red Blood Count 3.51 10^6/uL (4.1-5.3); White Blood Count 3.1 10^3/uL (4.0-10.0)
[2023-03-26 08:29] LABS: Alanine Aminotransferase 27 U/L (0-33); Albumin Level 4.1 g/dL (3.5-5.2); Alkaline Phosphatase 83 U/L (35-105); Anion Gap 14.3 (5-19); Aspartate Amino Transferase 28 U/L (0-32); Blood Urea Nitrogen 20 mg/dL (8-23); Calcium 9.4 mg/dL (8.5-10.5); Carbon Dioxide 22 mmol/L (22-29); Chloride 102 mmol/L (98-107); Globulin 2.7 g/dL (1.3-4.6); Glomerular Filtration Rate 45.4 mL/min (90-130); Glucose 117 mg/dL (65-115); Osmolality Calculated 282 mOsm/kg (285-295); Potassium 4.3 mmol/L (3.5-5.1); Sodium 134 mmol/L (136-145); Total Bilirubin 0.2 mg/dL (0.15-1.2); Total Protein 6.8 g/dL (6.6-8.7)
[2023-03-31 08:08] VITALS: BP 94/62; PULSE 62; RESP 18; TEMP 36.3; O2SAT 95
[2023-03-31 08:24] LABS: Basophils % 1.1 %; Eosinophils # 0.2 10^3/uL (0.0-0.8); Eosinophils % 8.9 %; Hematocrit 34.9 % (37.0-47.0); Hemoglobin 11.3 g/dL (11.5-15.3); Lymphocytes % 53.7 %; Mean Corpuscular HGB Conc 32.4 g/dL (30.0-36.0); Mean Corpuscular Hemoglobin 31.3 pg (28.0-34.0); Mean Corpuscular Volume 96.7 fl (81-99); Monocytes # 0.3 10^3/uL (0.2-0.9); Monocytes % 16.8 %; Nucleated Red Blood Cells % 0 %; Platelet Count 143 10^3/cmm (130-400); Red Blood Count 3.61 10^6/uL (4.1-5.3); Red Cell Distribution Width 16.5 % (12.1-15.1); White Blood Count 1.9 10^3/uL (4.0-10.0)
[2023-03-31 08:40] LABS: Alanine Aminotransferase 28 U/L (0-33); Albumin Level 3.7 g/dL (3.5-5.2); Alkaline Phosphatase 69 U/L (35-105); Anion Gap 12.2 (5-19); Aspartate Amino Transferase 30 U/L (0-32); Blood Urea Nitrogen 23 mg/dL (8-23); Carbon Dioxide 25 mmol/L (22-29); Chloride 104 mmol/L (98-107); Globulin 2.8 g/dL (1.3-4.6); Glomerular Filtration Rate 45.4 mL/min (90-130); Glucose 110 mg/dL (65-115); Osmolality Calculated 288 mOsm/kg (285-295); Potassium 4.2 mmol/L (3.5-5.1); Sodium 137 mmol/L (136-145); Total Bilirubin 0.2 mg/dL (0.15-1.2); Total Protein 6.5 g/dL (6.6-8.7)
[2023-03-31 09:12] LABS: Slide Review Slide Review Perform
[2023-03-31 09:13] LABS: Neutrophils # 0.36 10^3/uL (1.8-7.7)
[2023-03-31 10:28] LABS: Basophils % 0.5 %; Eosinophils # 0.1 10^3/uL (0.0-0.8); Eosinophils % 6.9 %; Hematocrit 34.3 % (37.0-47.0); Hemoglobin 11.2 g/dL (11.5-15.3); Lymphocytes % 50.5 %; Mean Corpuscular HGB Conc 32.7 g/dL (30.0-36.0); Mean Corpuscular Hemoglobin 31.3 pg (28.0-34.0); Mean Corpuscular Volume 95.8 fl (81-99); Mean Platelet Volume 11.4 fL (7.4-10.4); Monocytes # 0.4 10^3/uL (0.2-0.9); Monocytes % 19.1 %; Neutrophils % 22.5 %; Nucleated Red Blood Cells % 0 %; Platelet Count 157 10^3/cmm (130-400); Red Blood Count 3.58 10^6/uL (4.1-5.3); Red Cell Distribution Width 16.3 % (12.1-15.1)
[2023-03-31 10:36] LABS: Neutrophils # 0.46 10^3/uL (1.8-7.7)
[2023-03-31] MEDS: filgrastim-sndz 300 mcg/0.5 mL Syringe SUBCUT (10:57)
[2023-04-01 14:37] VITALS: BP 118/66; PULSE 54; RESP 16; TEMP 36.5; O2SAT 100
[2023-04-01] MEDS: filgrastim-sndz 300 mcg/0.5 mL Syringe SUBCUT (14:45)
[2023-04-02] MEDS: filgrastim-sndz 300 mcg/0.5 mL Syringe SUBCUT (14:09)
[2023-04-02 14:10] VITALS: BP 106/69; PULSE 70; RESP 16; TEMP 36.7; O2SAT 99
[2023-04-07 07:43] VITALS: BMI 21.8
[2023-04-07 07:44] VITALS: BP 106/72; PULSE 70; RESP 18; TEMP 36.3; O2SAT 98
[2023-04-07 08:10] LABS: Basophils # 0.1 10^3/uL (0.0-0.1); Basophils % 0.9 %; Eosinophils # 0.1 10^3/uL (0.0-0.8); Eosinophils % 1.7 %; Hematocrit 37.4 % (37.0-47.0); Hemoglobin 11.9 g/dL (11.5-15.3); Lymphocytes # 1.8 10^3/uL (0.8-4.8); Lymphocytes % 26.5 %; Mean Corpuscular HGB Conc 31.8 g/dL (30.0-36.0); Mean Corpuscular Hemoglobin 30.4 pg (28.0-34.0); Mean Corpuscular Volume 95.7 fl (81-99); Mean Platelet Volume 11.2 fL (7.4-10.4); Monocytes # 0.9 10^3/uL (0.2-0.9); Neutrophils # 3.79 10^3/uL (1.8-7.7); Neutrophils % 55.3 %; Nucleated Red Blood Cells % 0 %; Platelet Count 186 10^3/cmm (130-400); Red Blood Count 3.91 10^6/uL (4.1-5.3); Red Cell Distribution Width 16.1 % (12.1-15.1); White Blood Count 6.9 10^3/uL (4.0-10.0)
[2023-04-07 08:49] LABS: Carcinoembryonic Antigen 1.3 ng/mL (0.0-4.7)
[2023-04-07 09:00] LABS: Alanine Aminotransferase 31 U/L (0-33); Alkaline Phosphatase 95 U/L (35-105); Anion Gap 15.3 (5-19); Aspartate Amino Transferase 34 U/L (0-32); Blood Urea Nitrogen 26 mg/dL (8-23); Calcium 9.3 mg/dL (8.5-10.5); Carbon Dioxide 25 mmol/L (22-29); Chloride 102 mmol/L (98-107); Globulin 2.5 g/dL (1.3-4.6); Glucose 96 mg/dL (65-115); Osmolality Calculated 291 mOsm/kg (285-295); Potassium 4.3 mmol/L (3.5-5.1); Sodium 138 mmol/L (136-145); Total Bilirubin 0.2 mg/dL (0.15-1.2); Total Protein 6.5 g/dL (6.6-8.7)
[2023-04-07] MEDS: palonosetron 0.25 mg/5 mL SDV IVP (10:24)
[2023-04-07] MEDS: dextrose 5% 250 ML 75 ML IV (10:24)
[2023-04-07] MEDS: leucovorin 650 MG in dextrose 5% 250 ML 78.75 MG IV (10:50)
[2023-04-07] MEDS: fluorouraciL 50 mg/ml MDV 100 mL 650 MG IVP (14:05)
[2023-04-07] MEDS: fluorouraciL 3,900 MG, elastomeric pump 1 PUMP in sodium chloride 0.9% (100 ml) 14 ML IV (14:15)
[2023-04-08 08:05] VITALS: BP 120/76; PULSE 75; RESP 18; TEMP 36.2; O2SAT 98
[2023-04-08] MEDS: sodium chloride 0.9% 1,000 ML 730 ML IV (08:20)
[2023-04-08] MEDS: LORazepam 2 mg/mL INJ 1 mL 1 MG IVP (08:21)
[2023-04-08 10:00] VITALS: BP 116/73; PULSE 76; RESP 16; TEMP 36.2; O2SAT 96
[2023-04-09] MEDS: sodium chloride 0.9% 1,000 ML 999 ML IV (13:05)
[2023-04-09] MEDS: LORazepam 2 mg/mL INJ 1 mL 1 MG IVP (13:06)
[2023-04-09 14:45] VITALS: BP 146/80; PULSE 77; TEMP 36.9; O2SAT 97
[2023-04-10] MEDS: pegfilgrastim-bmez 6 mg/0.6 mL SYR SUBCUT (11:37)
== END 2023-04-14 23:59 | disposition home or self-care (01) ==
PROVIDERS: Internal Medicine; Nurse Practitioner Family; PCP Family Medicine; Visit Provider Internal Medicine Hematology & Oncology
DX: D70.1 Agranulocytosis secondary to cancer chemotherapy (principal); C18.7 Malignant neoplasm of sigmoid colon
CPT/HCPCS: 36591; 80053; 82378; 83615; 83735; 85025; 96360; 96361; 96367; 96368; 96372; 96374; 96375; 96413; 96415; 96416; 96523; 99214; J0640; J1100; J1642; J2060; J2469; J7030; J7060; J9190; J9263; Q5101; Q5120

== ENCOUNTER 2023-05-14 09:30 | Oncology outpatient (recurring) (ONCR) | payer OTHER, SELFPAY ==
[2023-04-15 08:40] VITALS: BP 116/72; PULSE 74; RESP 18; TEMP 36.1; O2SAT 97
[2023-04-15] MEDS: sodium chloride 0.9% 1,000 ML 999 ML IV (09:15)
[2023-04-15 10:26] VITALS: BP 117/74; PULSE 76; RESP 18; TEMP 35.9; O2SAT 99
[2023-04-21 08:08] VITALS: BP 92/61; PULSE 69; RESP 18; TEMP 36.6; O2SAT 98
[2023-04-21 08:09] VITALS: BMI 21.1
[2023-04-21 08:32] LABS: Basophils # 0.1 10^3/uL (0.0-0.1); Basophils % 0.5 %; Eosinophils # 0.3 10^3/uL (0.0-0.8); Hematocrit 37.9 % (37.0-47.0); Hemoglobin 12.3 g/dL (11.5-15.3); Lymphocytes % 18.6 %; Mean Corpuscular HGB Conc 32.5 g/dL (30.0-36.0); Mean Corpuscular Hemoglobin 30.3 pg (28.0-34.0); Mean Corpuscular Volume 93.3 fl (81-99); Mean Platelet Volume 11.3 fL (7.4-10.4); Monocytes # 0.8 10^3/uL (0.2-0.9); Monocytes % 7.2 %; Neutrophils # 7.43 10^3/uL (1.8-7.7); Neutrophils % 68.6 %; Nucleated Red Blood Cells % 0 %; Platelet Count 155 10^3/cmm (130-400); Red Blood Count 4.06 10^6/uL (4.1-5.3); Red Cell Distribution Width 14.8 % (12.1-15.1); White Blood Count 10.8 10^3/uL (4.0-10.0)
[2023-04-21 08:53] LABS: Alanine Aminotransferase 35 U/L (0-33); Albumin Level 4.2 g/dL (3.5-5.2); Alkaline Phosphatase 127 U/L (35-105); Anion Gap 15.5 (5-19); Aspartate Amino Transferase 41 U/L (0-32); Blood Urea Nitrogen 21 mg/dL (8-23); Calcium 9.8 mg/dL (8.5-10.5); Carbon Dioxide 26 mmol/L (22-29); Chloride 100 mmol/L (98-107); Globulin 2.8 g/dL (1.3-4.6); Glomerular Filtration Rate 32.6 mL/min (90-130); Glucose 110 mg/dL (65-115); Osmolality Calculated 288 mOsm/kg (285-295); Potassium 4.5 mmol/L (3.5-5.1); Sodium 137 mmol/L (136-145); Total Bilirubin 0.2 mg/dL (0.15-1.2)
[2023-04-21] MEDS: sodium chloride 0.9% 1,000 ML 999 ML IV (10:15)
[2023-04-21 11:23] VITALS: BP 90/52; PULSE 56; RESP 18; TEMP 36.6; O2SAT 98
[2023-04-22 13:10] VITALS: BP 106/66; PULSE 56; RESP 16; TEMP 36.8; O2SAT 97
[2023-04-22] MEDS: sodium chloride 0.9% 1,000 ML 999 ML IV (13:15)
[2023-04-22 14:25] VITALS: BP 140/70; PULSE 53; RESP 16; TEMP 36.6; O2SAT 99
[2023-04-23 08:14] VITALS: BP 93/61; PULSE 70; RESP 18; TEMP 36.3; O2SAT 97
[2023-04-23 08:18] VITALS: BMI 21.9
[2023-04-23 08:23] LABS: Basophils # 0.1 10^3/uL (0.0-0.1); Basophils % 0.5 %; Eosinophils # 0.3 10^3/uL (0.0-0.8); Eosinophils % 2.8 %; Hematocrit 33.9 % (37.0-47.0); Hemoglobin 11.3 g/dL (11.5-15.3); Lymphocytes # 1.5 10^3/uL (0.8-4.8); Lymphocytes % 14.8 %; Mean Corpuscular HGB Conc 33.3 g/dL (30.0-36.0); Mean Corpuscular Hemoglobin 32.1 pg (28.0-34.0); Mean Corpuscular Volume 96.3 fl (81-99); Mean Platelet Volume 10.8 fL (7.4-10.4); Monocytes # 0.6 10^3/uL (0.2-0.9); Monocytes % 5.8 %; Neutrophils # 7.71 10^3/uL (1.8-7.7); Neutrophils % 74.6 %; Nucleated Red Blood Cells % 0 %; Platelet Count 113 10^3/cmm (130-400); Red Blood Count 3.52 10^6/uL (4.1-5.3); Red Cell Distribution Width 15.1 % (12.1-15.1); White Blood Count 10.3 10^3/uL (4.0-10.0)
[2023-04-23 08:53] LABS: Alanine Aminotransferase 32 U/L (0-33); Albumin Level 3.7 g/dL (3.5-5.2); Alkaline Phosphatase 97 U/L (35-105); Anion Gap 14.9 (5-19); Aspartate Amino Transferase 34 U/L (0-32); Blood Urea Nitrogen 21 mg/dL (8-23); Calcium 8.9 mg/dL (8.5-10.5); Carbon Dioxide 24 mmol/L (22-29); Chloride 103 mmol/L (98-107); Globulin 2.2 g/dL (1.3-4.6); Glomerular Filtration Rate 35.1 mL/min (90-130); Glucose 187 mg/dL (65-115); Osmolality Calculated 294 mOsm/kg (285-295); Potassium 3.9 mmol/L (3.5-5.1); Sodium 138 mmol/L (136-145); Total Bilirubin 0.2 mg/dL (0.15-1.2); Total Protein 5.9 g/dL (6.6-8.7)
[2023-04-23] MEDS: sodium chloride 0.9% 1,000 ML 999 ML IV (10:43)
[2023-04-23 11:50] VITALS: BP 119/70; PULSE 47; RESP 18; TEMP 36.6; O2SAT 99
[2023-04-24 07:55] VITALS: BP 87/62; PULSE 61; RESP 17; TEMP 36.1; O2SAT 99; BMI 21.6
[2023-04-24] MEDS: sodium chloride 0.9% 1,000 ML 999 ML IV (08:06)
[2023-04-24 09:02] VITALS: BP 124/73; PULSE 58; RESP 18; TEMP 36.6; O2SAT 98
[2023-04-25 09:38] VITALS: BP 126/69; PULSE 61; RESP 17; TEMP 36.3; O2SAT 97
[2023-04-25] MEDS: sodium chloride 0.9% 1,000 ML 999 ML IV (09:46)
[2023-04-25 11:00] VITALS: BP 134/77; PULSE 53; RESP 16; TEMP 36.4; O2SAT 99
[2023-04-28 08:25] VITALS: BP 90/60; PULSE 68; RESP 18; TEMP 36.4; O2SAT 97
[2023-04-28 08:27] VITALS: BMI 21.9
[2023-04-28 08:44] LABS: Basophils % 0.5 %; Eosinophils # 0.1 10^3/uL (0.0-0.8); Eosinophils % 2.1 %; Hematocrit 34.4 % (37.0-47.0); Hemoglobin 11.1 g/dL (11.5-15.3); Lymphocytes # 1.2 10^3/uL (0.8-4.8); Lymphocytes % 20.8 %; Mean Corpuscular HGB Conc 32.3 g/dL (30.0-36.0); Mean Corpuscular Hemoglobin 30.7 pg (28.0-34.0); Mean Corpuscular Volume 95.3 fl (81-99); Mean Platelet Volume 11.8 fL (7.4-10.4); Monocytes # 0.5 10^3/uL (0.2-0.9); Monocytes % 8.2 %; Neutrophils # 3.97 10^3/uL (1.8-7.7); Neutrophils % 68.2 %; Nucleated Red Blood Cells % 0 %; Platelet Count 149 10^3/cmm (130-400); Red Blood Count 3.61 10^6/uL (4.1-5.3); Red Cell Distribution Width 15.2 % (12.1-15.1); White Blood Count 5.8 10^3/uL (4.0-10.0)
[2023-04-28 09:01] LABS: Alanine Aminotransferase 70 U/L (0-33); Albumin Level 3.6 g/dL (3.5-5.2); Alkaline Phosphatase 93 U/L (35-105); Anion Gap 13.5 (5-19); Aspartate Amino Transferase 75 U/L (0-32); Blood Urea Nitrogen 13 mg/dL (8-23); Calcium 9.1 mg/dL (8.5-10.5); Carbon Dioxide 29 mmol/L (22-29); Chloride 102 mmol/L (98-107); Globulin 2.7 g/dL (1.3-4.6); Glomerular Filtration Rate 45.4 mL/min (90-130); Glucose 101 mg/dL (65-115); Osmolality Calculated 290 mOsm/kg (285-295); Potassium 4.5 mmol/L (3.5-5.1); Sodium 140 mmol/L (136-145); Total Bilirubin 0.2 mg/dL (0.15-1.2); Total Protein 6.3 g/dL (6.6-8.7)
[2023-04-28] MEDS: sodium chloride 0.9% 1,000 ML 999 ML IV (12:05)
[2023-04-28] MEDS: palonosetron 0.25 mg/5 mL SDV IVP (12:05)
[2023-04-28] MEDS: fosaprepitant 150 MG in sodium chloride 0.9% 50 ML, sodium chloride 0.9% (100 ml) 100 ML 300 MG IV (12:50)
[2023-04-28] MEDS: dextrose 5% 250 ML 75 ML IV (13:59)
[2023-04-28] MEDS: leucovorin 650 MG in dextrose 5% 250 ML 62.5 MG IV (14:02)
[2023-04-28] MEDS: fluorouraciL 50 mg/ml MDV 100 mL 650 MG IVP (17:27)
[2023-04-28] MEDS: fluorouraciL 3,900 MG, elastomeric pump 1 PUMP in sodium chloride 0.9% (100 ml) 14 ML IV (17:31)
[2023-04-28 17:55] VITALS: BP 123/79; PULSE 65; RESP 18; TEMP 36.1; O2SAT 96
--- OUTSIDE RECORDS SUMMARY | 2023-04-30 14:30 | XMS_ITS | Continuity of Care Document ---
Author Name Unknown Organization [facility] Address [address] [place] [address]- Care Team Providers Care Cigar Sorter Name Role Phone Ant Gary MD Primary Care Physician [phone] Encounter [employer] Number [id number] Date(s): 10/24/22 - 11/01/22 [facility] [address] [place] [address] [phone] Encounter Diagnosis Dehydration(Discharge Diagnosis) - 10/25/22 Ileostomy dysfunction(Discharge Diagnosis) - 11/01/22 Discharge Disposition: .Discharge to Home (Routine) Attending Physician: Anika Thomas MD Admitting Physician: Ant Gary MD Allergies, Adverse Reactions, Alerts No Known Allergies Assessment and Plan Extracted from: Title:Instructions to Patients Author:Gladys Alatorre RN Date:11/01/22 [facility] Rehydration, Adult Rehydration is the replacement of body fluids, salts, and minerals (electrolytes) that are lost during dehydration. Dehydration is when there is not enough water or other fluids in the body. This happens when you lose more fluids than you take in. Common causes of dehydration include: ? ? Not drinking enough fluids. This can occur when you are ill or doing activities that require a lot of energy, especially in hot weather. ? ? Conditions that cause loss of water or other fluids, such as diarrhea, vomiting, sweating, or urinating a lot. ? ? Other illnesses, such as fever or infection. ? ? Certain medicines, such as those that remove excess fluid from the body (diuretics). Symptoms of mild or moderate dehydration may include thirst, dry lips and mouth, and dizziness. Symptoms of severe dehydration may include increased heart rate, confusion, fainting, and not urinating. For severe dehydration, you may need to get fluids through an IV at the hospital. For mild or moderate dehydration, you can usually rehydrate at home by drinking certain fluids as told by your health care provider. What are the risks? Generally, rehydration is safe. However, taking in too much fluid (overhydration) can be a problem. This is rare. Overhydration can cause an electrolyte imbalance, kidney failure, or a decrease in salt (sodium) levels in the body. Supplies needed You will need an oral rehydration solution (ORS) if your health care provider tells you to use one. This is a drink to treat dehydration. It can be found in pharmacies and retail stores. How to rehydrate Fluids Follow instructions from your health care provider for rehydration. The kind of fluid and the amount you should drink depend on your condition. In general, you should choose drinks that you prefer. ? ? If told by your health care provider, drink an ORS. ? ? Make an ORS by following instructions on the package. ? ? Start by drinking small amounts, about ?? cup (120 mL) every 5? 10 minutes. ? ? Slowly increase how much you drink until you have taken the amount recommended by your health care provider. ? ? Drink enough clear fluids to keep your urine pale yellow. If you were told to drink an ORS, finish it first, then start slowly drinking other clear fluids. Drink fluids such as: ? ? Water. This includes sparkling water and flavored water. Drinking only water can lead to having too little sodium in your body (hyponatremia). Follow the advice of your health care provider. ? ? Water from ice chips you suck on. ? ? Fruit juice with water you add to it (diluted). ? ? Sports drinks. ? ? Hot or cold herbal teas. ? ? Broth-based soups. ? ? Milk or milk products. Food Follow instructions from your health care provider about what to eat while you rehydrate. Your health care provider may recommend that you slowly begin eating regular foods in small amounts. ? ? Eat foods that contain a healthy balance of electrolytes, such as bananas, oranges, potatoes, tomatoes, and spinach. ? ? Avoid foods that are greasy or contain a lot of sugar. In some cases, you may get nutrition through a feeding tube that is passed through your nose and into your stomach (nasogastric tube, or NG tube). This may be done if you have uncontrolled vomiting or diarrhea. Beverages to avoid Certain beverages may make dehydration worse. While you rehydrate, avoid drinking alcohol. How to tell if you are recovering from dehydration You may be recovering from dehydration if: ? ? You are urinating more often than before you started rehydrating. ? ? Your urine is pale yellow. ? ? Your energy level improves. ? ? You vomit less frequently. ? ? You have diarrhea less frequently. ? ? Your appetite improves or returns to normal. ? ? You feel less dizzy or less light-headed. ? ? Your skin tone and color start to look more normal. Follow these instructions at home: ? ? Take phze-kye-wgfbtqh and prescription medicines only as told by your health care provider. ? ? Do not take sodium tablets. Doing this can lead to having too much sodium in your body (hypernatremia). Contact a health care provider if: ? ? You continue to have symptoms of mild or moderate dehydration, such as: ? ? Thirst. ? ? Dry lips. ? ? Slightly dry mouth. ? ? Dizziness. ? ? Dark urine or less urine than normal. ? ? Muscle cramps. ? ? You continue to vomit or have diarrhea. Get help right away if you: ? ? Have symptoms of dehydration that get worse. ? ? Have a fever. ? ? Have a severe headache. ? ? Have been vomiting and the following happens: ? ? Your vomiting gets worse or does not go away. ? ? Your vomit includes blood or green matter (bile). ? ? You cannot eat or drink without vomiting. ? ? Have problems with urination or bowel movements, such as: ? ? Diarrhea that gets worse or does not go away. ? ? Blood in your stool (feces). This may cause stool to look black and tarry. ? ? Not urinating, or urinating only a small amount of very dark urine, within 6? 8 hours. ? ? Have trouble breathing. ? ? Have symptoms that get worse with treatment. These symptoms may represent a serious problem that is an emergency. Do not wait to see if the symptoms will go away. Get medical help right away. Call your local emergency services (911 in the [place] Do not drive yourself to the hospital. Summary ? ? Rehydration is the replacement of body fluids and minerals (electrolytes) that are lost during dehydration. ? ? Follow instructions from your health care provider for rehydration. The kind of fluid and amount you should drink depend on your condition. ? ? Slowly increase how much you drink until you have taken the amount recommended by your health care provider. ? ? Contact your health care provider if you continue to show signs of mild or moderate dehydration. This information is not intended to replace advice given to you by your health care provider. Make sure you discuss any questions you have with your health care provider. Document Revised: 11/01/2020 Document Reviewed: 09/11/2020 [employer] Patient Education ?? 2021 [email or web address] Hypomagnesemia Hypomagnesemia is a condition in which the level of magnesium in the blood is too low. Magnesium is a mineral that is found in many foods. It is used in many different processes in the body. Hypomagnesemia can affect every organ in the body. In severe cases, it can cause life-threatening problems. What are the causes? This condition may be caused by: ? ? Not getting enough magnesium in your diet or not having enough healthy foods to eat (malnutrition). ? ? Problems with magnesium absorption in the intestines. ? ? Dehydration. ? ? Excessive use of alcohol. ? ? Vomiting. ? ? Severe or long-term (chronic) diarrhea. ? ? Some medicines, including medicines that make you urinate more often (diuretics). ? ? Certain diseases, such as kidney disease, diabetes, celiac disease, and overactive thyroid. What are the signs or symptoms? Symptoms of this condition include: ? ? Loss of appetite, nausea, and vomiting. ? ? Involuntary shaking or trembling of a body part (tremor). ? ? Muscle weakness or tingling in the arms and legs. ? ? Sudden tightening of muscles (muscle spasms). ? ? Confusion. ? ? Psychiatric issues, such as: ? ? Depression and irritability. ? ? Psychosis. ? ? A feeling of fluttering of the heart (palpitations). ? ? Seizures. These symptoms are more severe if magnesium levels drop suddenly. How is this diagnosed? This condition may be diagnosed based on: ? ? Your symptoms and medical history. ? ? A physical exam. ? ? Blood and urine tests. How is this treated? Treatment depends on the cause and the severity of the condition. It may be treated by: ? ? Taking a magnesium supplement. This can be taken in pill form. If the condition is severe, magnesium is usually given through an IV. ? ? Making changes to your diet. You may be directed to eat foods that have a lot of magnesium, such as green leafy vegetables, peas, beans, and nuts. ? ? Not drinking alcohol. If you are struggling not to drink, ask your health care provider for help. Follow these instructions at home: Eating and drinking ? ? Make sure that your diet includes foods with magnesium. Foods that have a lot of magnesium in them include: ? ? Green leafy vegetables, such as spinach and broccoli. ? ? Beans and peas. ? ? Nuts and seeds, such as almonds and sunflower seeds. ? ? Whole grains, such as whole grain bread and fortified cereals. ? ? Drink fluids that contain salts and minerals (electrolytes), such as sports drinks, when you are active. ? ? Do not drink alcohol. General instructions ? ? Take nbpb-nxh-chqdobq and prescription medicines only as told by your health care provider. ? ? Take magnesium supplements as directed if your health care provider tells you to take them. ? ? Have your magnesium levels monitored as told by your health care provider. ? ? Keep all follow-up visits. This is important. Contact a health care provider if: ? ? You get worse instead of better. ? ? Your symptoms return. Get help right away if: ? ? You develop severe muscle weakness. ? ? You have trouble breathing. ? ? You feel that your heart is racing. These symptoms may represent a serious problem that is an emergency. Do not wait to see if the symptoms will go away. Get medical help right away. Call your local emergency services (911 in the [place] Do not drive yourself to the hospital. Summary ? ? Hypomagnesemia is a condition in which the level of magnesium in the blood is too low. ? ? Hypomagnesemia can affect every organ in the body. ? ? Treatment may include eating more foods that contain magnesium, taking magnesium supplements, and not drinking alcohol. ? ? Have your magnesium levels monitored as told by your health care provider. This information is not intended to replace advice given to you by your health care provider. Make sure you discuss any questions you have with your health care provider. Document Revised: 01/29/2022 Document Reviewed: 01/29/2022 [employer] Patient Education ?? 2021 [employer] Hyponatremia Hyponatremia is when the amount of salt (sodium) in a person's blood is too low. When sodium levels are low, the cells absorb extra water, which causes them to swell. The swelling happens throughout the body, but it mostly affects the brain. What are the causes? This condition may be caused by: ? ? Certain medical conditions, such as: ? ? Heart, kidney, or liver problems. ? ? Thyroid problems. ? ? Adrenal gland problems. ? ? Metabolic conditions, such as Bryan's disease or syndrome of inappropriate antidiuresis (SIAD). ? ? Excessive vomiting, diarrhea, or sweating. ? ? Certain medicines or illegal drugs. ? ? Fluids given through an IV. What increases the risk? You are more likely to develop this condition if you: ? ? Have certain medical conditions such as heart, kidney, or liver failure. ? ? Have a medical condition that causes frequent or excessive diarrhea. ? ? Participate in intense physical activities, such as marathon running. ? ? Take certain medicines that affect the sodium and fluid balance in the blood. Some of these medicine types include: ? ? Diuretics. ? ? NSAIDs, such as ibuprofen. ? ? Some opioid pain medicines. ? ? Some antidepressants. ? ? Some seizure prevention medicines. What are the signs or symptoms? Symptoms of this condition include: ? ? Headache. ? ? Nausea and vomiting. ? ? Being very tired (lethargic). ? ? Muscle weakness and cramping. ? ? Loss of appetite. ? ? Feeling weak or light-headed. Severe symptoms of this condition include: ? ? Confusion. ? ? Agitation. ? ? Having a rapid heart rate. ? ? Fainting. ? ? Seizures. ? ? Coma. How is this diagnosed? This condition is diagnosed based on: ? ? A physical exam. ? ? Your medical history. ? ? Tests, including: ? ? Blood tests. ? ? Urine tests. How is this treated? Treatment for this condition depends on the cause. Treatment may include: ? ? Getting fluids through an IV that is inserted into one of your veins. ? ? Medicines to correct the sodium imbalance. If medicines are causing the condition, the medicines will need to be adjusted. ? ? Limiting your water or fluid intake to get the correct sodium balance, in certain cases. ? ? Monitoring in the hospital to closely watch your symptoms for improvement. Follow these instructions at home: ? ? Take qrtx-qai-qsqstte and prescription medicines only as told by your health care provider. Many medicines can make this condition worse. Talk with your health care provider about any medicines that you are currently taking. ? ? Do not drink alcohol. ? ? Keep all follow-up visits. This is important. Contact a health care provider if: ? ? You develop worsening nausea, fatigue, headache, confusion, or weakness. ? ? Your symptoms go away and then return. Get help right away if: ? ? You have a seizure. ? ? You faint. ? ? You have ongoing diarrhea or vomiting. Summary ? ? Hyponatremia is when the amount of salt (sodium) in your blood is too low. ? ? When sodium levels are low, your cells absorb extra water, which causes them to swell. ? ? The swelling happens throughout the body, but it mostly affects the brain. ? ? Treatment for this condition depends on the cause. It may include receiving IV fluids, taking or adjusting medicines, limiting fluid intake, and monitoring in the hospital. This information is not intended to replace advice given to you by your health care provider. Make sure you discuss any questions you have with your health care provider. Document Revised: 03/12/2022 Document Reviewed: 03/12/2022 [email or web address] Patient Education ?? 2021 [employer]. Dehydration, Adult Dehydration is a condition in which there is not enough water or other fluids in the body. This happens when a person loses more fluids than he or she takes in. Important organs, such as the kidneys, brain, and heart, cannot function without a proper amount of fluids. Any loss of fluids from the body can lead to dehydration. Dehydration can be mild, moderate, or severe. It should be treated right away to prevent it from becoming severe. What are the causes? Dehydration may be caused by: ? ? Conditions that cause loss of water or other fluids, such as diarrhea, vomiting, or sweating or urinating a lot. ? ? Not drinking enough fluids, especially when you are ill or doing activities that require a lot of energy. ? ? Other illnesses and conditions, such as fever or infection. ? ? Certain medicines, such as medicines that remove excess fluid from the body (diuretics). ? ? Lack of safe drinking water. ? ? Not being able to get enough water and food. What increases the risk? The following factors may make you more likely to develop this condition: ? ? Having a long-term (chronic) illness that has not been treated properly, such as diabetes, heart disease, or kidney disease. ? ? Being 65 years of age or older. ? ? Having a disability. ? ? Living in a place that is high in altitude, where thinner, drum drier air causes more fluid loss. ? ? Doing exercises that put stress on your body for a long time (endurance sports). What are the signs or symptoms? Symptoms of dehydration depend on how severe it is. Mild or moderate dehydration ? ? Thirst. ? ? Dry lips or dry mouth. ? ? Dizziness or light-headedness, especially when standing up from a seated position. ? ? Muscle cramps. ? ? Dark urine. Urine may be the color of tea. ? ? Less urine or tears produced than usual. ? ? Headache. Severe dehydration ? ? Changes in skin. Your skin may be cold and clammy, blotchy, or pale. Your skin also may not return to normal after being lightly pinched and released. ? ? Little or no tears, urine, or sweat. ? ? Changes in vital signs, such as rapid breathing and low blood pressure. Your pulse may be weak or may be faster than 100 beats a minute when you are sitting still. ? ? Other changes, such as: ? ? Feeling very thirsty. ? ? Sunken eyes. ? ? Cold hands and feet. ? ? Confusion. ? ? Being very tired (lethargic) or having trouble waking from sleep. ? ? Short-term weight loss. ? ? Loss of consciousness. How is this diagnosed? This condition is diagnosed based on your symptoms and a physical exam. You may have blood and urine tests to help confirm the diagnosis. How is this treated? Treatment for this condition depends on how severe it is. Treatment should be started right away. Do not wait until dehydration becomes severe. Severe dehydration is an emergency and needs to be treated in a hospital. ? ? Mild or moderate dehydration can be treated at home. You may be asked to: ? ? Drink more fluids. ? ? Drink an oral rehydration solution (ORS). This drink helps restore proper amounts of fluids and salts and minerals in the blood (electrolytes). ? ? Severe dehydration can be treated: ? ? With IV fluids. ? ? By correcting abnormal levels of electrolytes. This is often done by giving electrolytes through a tube that is passed through your nose and into your stomach (nasogastric tube, or NG tube). ? ? By treating the underlying cause of dehydration. Follow these instructions at home: Oral rehydration solution If told by your health care provider, drink an ORS: ? ? Make an ORS by following instructions on the package. ? ? Start by drinking small amounts, about ?? cup (120 mL) every 5? 10 minutes. ? ? Slowly increase how much you drink until you have taken the amount recommended by your health care provider. Eating and drinking ? ? Drink enough clear fluid to keep your urine pale yellow. If you were told to drink an ORS, finish the ORS first and then start slowly drinking other clear fluids. Drink fluids such as: ? ? Water. Do not drink only water. Doing that can lead to hyponatremia, which is having too little salt (sodium) in the body. ? ? Water from ice chips you suck on. ? ? Fruit juice that you have added water to (diluted fruit juice). ? ? Low-calorie sports drinks. ? ? Eat foods that contain a healthy balance of electrolytes, such as bananas, oranges, potatoes, tomatoes, and spinach. ? ? Do not drink alcohol. ? ? Avoid the following: ? ? Drinks that contain a lot of sugar. These include high-calorie sports drinks, fruit juice that is not diluted, and soda. ? ? Caffeine. ? ? Foods that are greasy or contain a lot of fat or sugar. General instructions ? ? Take kabj-ihc-ccspeza and prescription medicines only as told by your health care provider. ? ? Do not take sodium tablets. Doing that can lead to having too much sodium in the body (hypernatremia). ? ? Return to your normal activities as told by your health care provider. Ask your health care provider what activities are safe for you. ? ? Keep all follow-up visits as told by your health care provider. This is important. Contact a health care provider if: ? ? You have muscle cramps, pain, or discomfort, such as: ? ? Pain in your abdomen and the pain gets worse or stays in one area (localizes). ? ? Stiff neck. ? ? You have a rash. ? ? You are more irritable than usual. ? ? You are sleepier or have a harder time waking than usual. ? ? You feel weak or dizzy. ? ? You feel very thirsty. Get help right away if you have: ? ? Any symptoms of severe dehydration. ? ? Symptoms of vomiting, such as: ? ? You cannot eat or drink without vomiting. ? ? Vomiting gets worse or does not go away. ? ? Vomit includes blood or green matter (bile). ? ? Symptoms that get worse with treatment. ? ? A fever. ? ? A severe headache. ? ? Problems with urination or bowel movements, such as: ? ? Diarrhea that gets worse or does not go away. ? ? Blood in your stool (feces). This may cause stool to look black and tarry. ? ? Not urinating, or urinating only a small amount of very dark urine, within 6? 8 hours. ? ? Trouble breathing. These symptoms may represent a serious problem that is an emergency. Do not wait to see if the symptoms will go away. Get medical help right away. Call your local emergency services (911 in the [place] Do not drive yourself to the hospital. Summary ? ? Dehydration is a condition in which there is not enough water or other fluids in the body. This happens when a person loses more fluids than he or she takes in. ? ? Treatment for this condition depends on how severe it is. Treatment should be started right away. Do not wait until dehydration becomes severe. ? ? Drink enough clear fluid to keep your urine pale yellow. If you were told to drink an oral rehydration solution (ORS), finish the ORS first and then start slowly drinking other clear fluids. ? ? Take qrwe-jwo-vaqjofi and prescription medicines only as told by your health care provider. ? ? Get help right away if you have any symptoms of severe dehydration. This information is not intended to replace advice given to you by your health care provider. Make sure you discuss any questions you have with your health care provider. Document Revised: 04/13/2020 Document Reviewed: 04/13/2020 [email or web address] Patient Education ?? 2021 [email or web address] Ileus Ileus is a condition that happens when the intestines, which are also called bowels, stop working correctly. The intestines are hollow organs that digest food after the food leaves the stomach. These organs are long, muscular tubes that connect the stomach to the rectum. When ileus occurs, the muscular contractions that cause food to move through the intestines do not happen as they normally would. If the intestines stop working, food cannot pass through to get digested. This condition is a serious problem that usually requires hospitalization. It can cause symptoms such as nausea, abdominal pain, and bloating. Ileus can last from a few hours to a few days. What are the causes? This condition may be caused by: ? ? Surgery on the abdomen. ? ? An infection or inflammation in the abdomen. This includes inflammation of the lining of the abdomen (peritonitis). ? ? Infection or inflammation in other parts of the body, such as pneumonia or pancreatitis. ? ? Passage of gallstones or kidney stones. ? ? Damage to the nerves or blood vessels that go to the intestines. ? ? A collection of blood within the abdominal cavity. ? ? Imbalance in the salts in the blood (electrolytes). ? ? Injury to the brain or spinal cord. ? ? Medicines. Many medicines, including strong pain medicines, can cause ileus or make it worse. If the intestines stop working because of a blockage, that is a different condition that is called a bowel obstruction. What are the signs or symptoms? Symptoms of this condition include: ? ? Bloating of the abdomen. ? ? Pain or discomfort in the abdomen. ? ? Poor appetite. ? ? Nausea and vomiting. ? ? Lack of normal bowel sounds, such as growling in the stomach. How is this diagnosed? This condition may be diagnosed with: ? ? A physical exam and medical history. ? ? X-rays or a CT scan of the abdomen. You may also have other tests to help find the cause of the condition. How is this treated? This condition may be treated by: ? ? Resting the intestines until they start to work again. This is often done by: ? ? Stopping oral intake of food and drink. You will be given fluid through an IV to prevent dehydration. ? ? Placing a small tube (nasogastric tube or NG tube) that is passed through your nose and into your stomach. The tube is attached to a suction device and keeps the stomach emptied out. This allows the bowels to rest and helps to reduce nausea and vomiting. ? ? Correcting any electrolyte imbalance by giving supplements in the IV fluid. ? ? Stopping any medicines that might make ileus worse. ? ? Treating any condition that may have caused ileus. Follow these instructions at home: Eating and drinking ? ? Follow instructions from your health care provider about: ? ? What to eat and drink. You may be told to start eating a bland diet. Over time, you may slowly resume a more normal, healthy diet. ? ? How much to eat and drink. You should eat small meals often and stop eating when you feel full. ? ? Avoid alcohol. General instructions ? ? Take [id number] and prescription medicines only as told by your health care provider. ? ? Rest as told by your health care provider. ? ? Avoid sitting for a long time without moving. Get up to take short walks every 1? 2 hours. Ask for help if you feel weak or unsteady. ? ? Keep all follow-up visits as told by your health care provider. This is important. Contact a health care provider if: ? ? You have nausea, vomiting, or abdominal discomfort. ? ? You have a fever. Get help right away if: ? ? You have severe abdominal pain or bloating. ? ? You cannot eat or drink without vomiting. Summary ? ? Ileus is a condition that happens when the intestines, which are also called bowels, stop working correctly. ? ? When ileus occurs, the muscular contractions that cause food to move through the intestines do not happen as they normally would. ? ? Ileus can cause symptoms such as nausea, abdominal pain, and bloating. ? ? Treatment may involve getting IV fluids and having a nasogastric tube placed to keep your stomach emptied out until the intestines start working again. This information is not intended to replace advice given to you by your health care provider. Make sure you discuss any questions you have with your health care provider. Document Revised: 03/13/2022 Document Reviewed: 03/13/2022 [email or web address] Patient Education ?? 2021 Viewsy. Medication Leaflets: Accessing??Just around Us??Express??Patient??Portal Access medications, test results, radiology reports, and more through [employer] secure patient portal. Please be patient if waiting on lab results, as these can take several days to process. [place] online at??[email or web address]??Use your community medical record number (CMRN) located below to verify your identity on the Self-Enrollment form.We also offer the ability for you to securely connect other health management apps to your health record. See the Health [facility] Connection link on the website above for more details. Watch [employer] Patient Education Videos and Access Resources anytime online! Visit [email or web address] Extracted from: Title:Discharge Summary (Just around Us) Author:Ant Gary MD Date:11/01/22 Discharge Information Discharge Summary Information: Discharge Information Admit date:10/24/2022 Discharge date:11/01/2022 Primary Care Physician:Atn Gary MD Admitting Physician:Ant Gary MD . Discharge diagnosis: Medical Diagnosis Dehydration , Ileostomy dysfunction - [id number] K94.13. Operations and procedures: No qualifying data available.. Discharge medications: Home Medications (7) Active enoxaparin 30 mg/0.3 mL subcutaneous solution 30 mg = 0.3 mL, SubQ, Daily guar gum oral powder for reconstitution 4 g, By mouth, Daily Imodium A-D 2 mg oral tablet 2 mg, PRN, By mouth, Q6H ostomy supplies See Instructions oxyCODONE 5 mg oral tablet 5 mg = 1 tab, PRN, By mouth, Q6H pantoprazole 40 mg oral delayed release tablet 40 mg = 1 tab, By mouth, Daily Zofran ODT 4 mg oral tablet, disintegrating 4 mg = 1 tab, PRN, By mouth, Q6H . Discharge Plan Discharge Summary Plan Discharge orders: . Extracted from: Title:Colorectal Surgery Author:Ant Gary MD Date:10/25/22 Impression and Plan Diagnosis Dehydration - [id number] E86.0. 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 She was resuscitated with IV fluids and was transferred to [facility] for further management. On examination abdomen is soft, nondistended nontender, ileostomy healthy viable semi-solid stool in bag. Her labs are essentially normal with normal WBC count noted mild hyponatremia of 134. I will admit for observation, start her on soft low residue diet, repeat labs in a.m. ostomy teaching possible discharge tomorrow. Future Appointments Appointment Date:11/07/2022 10:40:00 AM Scheduled Provider:Ant Gary MD [facility]:Established Patient Medications enoxaparin 30 mg/0.3 mL subcutaneous solution 30 mg = 0.3 mL, SubQ, Daily, X 21 Days, # 6.3 mL, Refill(s) 0, Pharmacy: [facility], [id number], INJ, 0.3 mL SUBQ Daily,x21 Days, 68.1, 10/11/22 10:11:00 FLORAL ASSISTANT, kg, Weight Start Date: 10/17/22 Stop Date: 11/07/22 Status: Ordered guar gum oral powder for reconstitution 4 = g, By mouth, Daily, # 155 g, Refill(s) 0, Route to Pharmacy Electronically, Pharmacy: [facility], [id number], POWDER, 4 g By mouth Daily, 68.1, 10/11/22 10:11:00 FLORAL ASSISTANT, kg, Weight Start Date: 10/16/22 Status: Ordered Imodium A-D 2 mg oral tablet 2 mg, By mouth, Q6H, PRN Diarrhea/Loose Stool, # 100 tab, Refill(s) 0, Pharmacy: [facility], [id number], TAB, 2 mg By mouth Q6H,PRN:Diarrhea/Loose Stool, 68.1, 10/11/22 10:11:00 FLORAL ASSISTANT, kg, Weight Start Date: 10/16/22 Status: Ordered ostomy supplies ostomy supplies, See Instructions, Demetra: barrier ring 0615 Pouch [address] [place] [address] odor drops 7850 adapt no sting wipes 7917 adhesive remover wipes 7760, # 1 EA, Refills(s) 99, Print Requisition, Supply Start Date: 10/16/22 Status: Ordered oxyCODONE 5 mg oral tablet 5 mg, = 1 tab, By mouth, Q6H, PRN Pain Moderate, 24 tab, 0, 0, Substitution Permitted, [facility], 64, Height, 10/11/22 10:11:00 FLORAL ASSISTANT, in, 68.1, Weight, 10/11/22 10:11:00 FLORAL ASSISTANT, kg Start Date: 10/16/22 Status: Ordered pantoprazole 40 mg oral delayed release tablet 40 mg = 1 tab, By mouth, Daily, # 30 tab, Refill(s) 0, Pharmacy: [facility], [id number], TAB, 1 tab By mouth Daily, 63.4, 10/20/22 1:44:00 FLORAL ASSISTANT, kg, Weight Start Date: 10/21/22 Status: Ordered Zofran ODT 4 mg oral tablet, disintegrating 4 mg = 1 tab, By mouth, Q6H, PRN for nausea & vomiting, # 20 tab, Refill(s) 0, Pharmacy: [facility], [id number], 1 tab By mouth Q6H,PRN:for nausea & vomiting, 68.1, 10/11/22 10:11:00 FLORAL ASSISTANT, kg, Weight Start Date: 10/18/22 Status: Ordered Problem List Condition Confirmation Course Effective Dates Status Health St atus Informant Dehydration Confirmed Active Ileostomy dysfunction Confirmed Active Ileostomy dysfunction Confirmed Active Ex-smoker Confirmed Active patient Tobacco use Confirmed Active Procedures Procedure Date Related Diagnosis Body Site Status Robotic Assisted Low Anterio r w/ Ileostomy - Cookie 10/11/22 Completed Flexible Sigmoidoscopy 1 10/07/22 Completed COLONOSCOPY FLX W/ENDOSCOPIC MUCOSAL RESECTION 2 Completed 1auto-populated from documented surgical case 2Done 09/05/2022 Results Laboratory List Name Date BMP 11/01/22 CBC-d 11/01/22 Magnesium Serum (Mg Serum) 11/01/22 Phosphorus 11/01/22 zCBC Automated Diff 11/01/22 BMP 10/31/22 CBC-d 10/31/22 Magnesium Serum (Mg Serum) 10/31/22 Phosphorus 10/31/22 zCBC Automated Diff 10/31/22 BMP 10/29/22 Magnesium Serum (Mg Serum) 10/29/22 Phosphorus 10/29/22 Hemogram (CBC(Hemogram)) 10/28/22 zCBC Automated Diff 10/25/22 Most recent to oldest [Reference Range]: 1 2 3 Bedside Glucose 93 mg/dL 1 (10/31/22 9:52 PM) 118 mg/dL 2 (10/31/22 5:06 PM) 90 mg/dL 3 (10/31/22 11:38 AM) Anion Gap [2-15 mEq/L] 3 mEq/L (11/01/22 12:52 AM) 7 mEq/L (10/31/22 12:52 AM) 14 mEq/L (10/29/22 8:18 AM) Glucose, Serum/Plasma [70-10 0 mg/dL] 94 mg/dL (11/01/22 12:52 AM) 78 mg/dL (10/31/22 12:52 AM) 112 mg/dL *HI* (10/29/22 8:18 AM) WBC [4.8-10.8 Thous/mm3] 6.5 Thous/mm3 (11/01/22 12:52 AM) 7.1 Thous/mm3 (10/31/22 12:52 AM) 8.2 Thous/mm3 (10/28/22 6:10 AM) Hct [37.0-47.0 %] 35.6 % *LOW* (11/01/22 12:52 AM) 34.3 % *LOW* (10/31/22 12:52 AM) 35.2 % *LOW* (10/28/22 6:10 AM) Hgb [12.0-16.0 g/dL] 11.8 g/dL *LOW* (11/01/22 12:52 AM) 11.2 g/dL *LOW* (10/31/22 12:52 AM) 11.9 g/dL *LOW* (10/28/22 6:10 AM) RBC [4.20-5.40 Million/mm3] 4.16 Million /mm3 *LOW* (11/01/22 12:52 AM) 3.94 Million/mm3 *LOW* (10/31/22 12:52 AM) 4.15 Million/mm3 *LOW* (10/28/22 6:10 AM) MCV [80.0-100.0 fl] 85.6 fl (11/01/22 12:52 AM) 87.1 fl (10/31/22 12:52 AM) 84.8 fl (10/28/22 6:10 AM) MCH [26.0-34.0 pg] 28.4 pg (11/01/22 12:52 AM) 28.4 pg (10/31/22 12:52 AM) 28.7 pg (10/28/22 6:10 AM) MCHC [31.0-36.5 g/dL] 33.1 g/dL (11/01/22 12:52 AM) 32.7 g/dL (10/31/22 12:52 AM) 33.8 g/dL (10/28/22 6:10 AM) RDW [10.4-14.4 %] 12.0 % (11/01/22 12:52 AM) 12.1 % (10/31/22 12:52 AM) 12.0 % (10/28/22 6:10 AM) Platelets [130-440 Thous/mm3] 255 Thous/ mm3 (11/01/22 12:52 AM) 258 Thous/mm3 (10/31/22 12:52 AM) 289 Thous/mm3 (10/28/22 6:10 AM) MPV [9.4-12.4 fl] 10.8 fl (11/01/22 12:52 AM) 11.2 fl (10/31/22 12:52 AM) 11.1 fl (10/28/22 6:10 AM) AutoNeutrophil [43.0-78.0 %] 58.2 % (11/01/22 12:52 AM) 57.4 % (10/31/22 12:52 AM) 44.5 % (10/25/22 6:30 AM) AutoLymphs [20.0-40.0 %] 29.0 % (11/01/22 12:52 AM) 29.5 % (10/31/22 12:52 AM) 38.6 % (10/25/22 6:30 AM) AutoMono [2.0-10.0 %] 7.3 % (11/01/22 12:52 AM) 7.6 % (10/31/22 12:52 AM) 9.9 % (10/25/22 6:30 AM) AutoEo [0.0-7.0 %] 4.6 % (11/01/22 12:52 AM) 4.8 % (10/31/22 12:52 AM) 6.3 % (10/25/22 6:30 AM) Sodium [136-145 mEq/L] 134 mEq/L *LOW* (11/01/22 12:52 AM) 134 mEq/L *LOW* (10/31/22 12:52 AM) 137 mEq/L (10/29/22 8:18 AM) Potassium [3.5-5.1 mEq/L] 3.4 mEq/L *LOW* (11/01/22 12:52 AM) 3.4 mEq/L *LOW* (10/31/22 12:52 AM) 3.6 mEq/L (10/29/22 8:18 AM) Chloride [98-107 mEq/L] 97 mEq/L *LOW* (11/01/22 12:52 AM) 94 mEq/L *LOW* (10/31/22 12:52 AM) 94 mEq/L *LOW* (10/29/22 8:18 AM) AbsNeut [2.0-8.0 Thous/mm3] 3.8 Thous/mm 3 (11/01/22 12:52 AM) 4.1 Thous/mm3 (10/31/22 12:52 AM) 2.7 Thous/mm3 (10/25/22 6:30 AM) CO2 [21-32 mEq/L] 34 mEq/L *HI* (11/01/22 12:52 AM) 33 mEq/L *HI* (10/31/22 12:52 AM) 29 mEq/L (10/29/22 8:18 AM) BUN [7-18 mg/dL] 7 mg/dL (11/01/22 12:52 AM) 14 mg/dL (10/31/22 12:52 AM) 11 mg/dL (10/29/22 8:18 AM) Creatinine [0.51-0.95 mg/dL] 0.86 mg/dL (11/01/22 12:52 AM) 0.88 mg/dL (10/31/22 12:52 AM) 1.00 mg/dL *HI* (10/29/22 8:18 AM) AbsLymph [1.0-4.0 Thous/mm3] 1.9 Thous/m m3 (11/01/22 12:52 AM) 2.1 Thous/mm3 (10/31/22 12:52 AM) 2.4 Thous/mm3 (10/25/22 6:30 AM) AbsMono [0.1-1.0 Thous/mm3] 0.5 Thous/mm 3 (11/01/22 12:52 AM) 0.5 Thous/mm3 (10/31/22 12:52 AM) 0.6 Thous/mm3 (10/25/22 6:30 AM) AbsEo [0.0-0.5 Thous/mm3] 0.3 Thous/mm3 (11/01/22 12:52 AM) 0.3 Thous/mm3 (10/31/22 12:52 AM) 0.4 Thous/mm3 (10/25/22 6:30 AM) AbsBaso [0.0-0.2 Thous/mm3] 0.0 Thous/mm 3 (11/01/22 12:52 AM) 0.0 Thous/mm3 (10/31/22 12:52 AM) 0.0 Thous/mm3 (10/25/22 6:30 AM) AutoBaso [0.0-2.5 %] 0.6 % (11/01/22 12:52 AM) 0.4 % (10/31/22 12:52 AM) 0.5 % (10/25/22 6:30 AM) Calcium [8.3-10.6 mg/dL] 8.1 mg/dL *LOW* (11/01/22 12:52 AM) 8.4 mg/dL (10/31/22 12:52 AM) 9.4 mg/dL (10/29/22 8:18 AM) Phosphorus [2.4-5.1 mg/dL] 2.9 mg/dL (11/01/22 12:52 AM) 3.4 mg/dL (10/31/22 12:52 AM) 3.6 mg/dL (10/29/22 8:18 AM) Magnesium [1.8-2.4 mg/dL] 2.3 mg/dL (11/01/22 12:52 AM) 1.6 mg/dL *LOW* (10/31/22 12:52 AM) 2.3 mg/dL (10/29/22 8:18 AM) eGFR [>=60 mL/min/1.73 m2] 67 mL/min/1.7 3 m2 (11/01/22 12:52 AM) 65 mL/min/1.73 m2 (10/31/22 12:52 AM) 56 mL/min/1.73 m2 *LOW* (10/29/22 8:18 AM) eGFR if [>= 60 mL/min/1.73 m2] 81 mL/min/1.73 m2 (11/01/22 12:52 AM) 79 mL/min/1.73 m2 (10/31/22 12:52 AM) 68 mL/min/1.73 m2 (10/29/22 8:18 AM) Imm. Grans % [0-5 %] <5 % (11/01/22 12:52 AM) <5 % (10/31/22 12:52 AM) <5 % (10/25/22 6:30 AM) Imm. Grans # [0.0-0.5 Thous/mm3] <0.5 Thous/mm3 (11/01/22 12:52 AM) <0.5 Thous/mm3 (10/31/22 12:52 AM) <0.5 Thous/mm3 (10/25/22 6:30 AM) ANC-AbsNeutCount 3.8 Thous/mm3 *NA* (11/01/22 12:52 AM) 4.1 Thous/mm3 *NA* (10/31/22 12:52 AM) 2.8 Thous/mm3 *NA* (10/25/22 6:30 AM) 1Result Comment: Notify RN/ Performed at:[address], [address] Reference Ranges: Age 0 - 24 hours: 45 - 115 mg/dL Age 24 hours - 30 days: 55 - 115 mg/dL Age > 30 days: 70 - 100 mg/dL Critical Results Requiring Immediate Notification: Age <72 Hours: <40 or >350 mg/dL Age >72 Hours: <50 or >400 mg/dL 2Result Comment: Notify RN/ Performed at:[facility], [address] [place] [address], [address] Reference Ranges: Age 0 - 24 hours: 45 - 115 mg/dL Age 24 hours - 30 days: 55 - 115 mg/dL Age > 30 days: 70 - 100 mg/dL Critical Results Requiring Immediate Notification: Age <72 Hours: <40 or >350 mg/dL Age >72 Hours: <50 or >400 mg/dL 3Result Comment: Notify RN/DR Performed at:[address], [address] Reference Ranges: Age 0 - 24 hours: 45 - 115 mg/dL Age 24 hours - 30 days: 55 - 115 mg/dL Age > 30 days: 70 - 100 mg/dL Critical Results Requiring Immediate Notification: Age <72 Hours: <40 or >350 mg/dL Age >72 Hours: <50 or >400 mg/dL Radiology Reports * Exam Date Time Procedure Performing Provider Status 10/31/22 10:17 AM US VL Venous LE Bilateral Alina Bustamante; Auth (Verified) Notes: (US VL Venous LE Bilateral) Reason For Exam: LLE calf pain, assess for dvt US VL Venous LE Bilateral READING LOCATION: [address] [address] PROCEDURE: US VL Venous LE Bilateral DIAGNOSIS CODES:E86.0 Dehydration CLINICAL HISTORY: LLE calf pain, assess for dvt, . COMPARISON: None FINDINGS: The deep veins are all completely compressible. There is no evidence for DVT. There is normal response to Valsalva. Phasicity and augmentation are normal. There is a short segment of occlusive thrombus in a superficial vein in the left calf. IMPRESSION: Negative for DVT. There is a short section of occlusive thrombus in a superficial vein in the left calf. Electronically signed by: Dr Akshat Garcia 10/31/2022 10:30 AM Akshat Garcia MD Signed 10/31/22 10:30:41 (Electronic Signature) Technologist BP REPORT * Exam Date Time Procedure Performing Provider Status 10/29/22 8:04 AM FL Small Bowel Series [place] RT(R) (CT ), Kianna; Auth (Verified) Notes: (FL Small Bowel Series) Reason For Exam: small bowel obstruction REPORT FL Small Bowel Series Reading location: [place] [address] \T\ [address] CLINICAL HISTORY: small bowel obstruction. Diagnosis Codes: E86.0 Dehydration COMPARISON: None FINDINGS: Survey image of the abdomen reveals an ostomy ring in the right lower quadrant. There are a couple loops of abnormally gas-distended small bowel in the mid and left abdomen. An NG tube extends into the stomach. At 20 minutes, there is filling of normal-appearing and normal-sized proximal jejunal bowel loops. These have a normal mucosal pattern. At 40 minutes, there is opacification of several abnormally distended small bowel loops in the leftlower abdomen and pelvis with slight progression of bowel distention on the 1 hour image. The largest loops measuring about 4.3 cm. At 1.5 hours, slight further opacification of abnormally dilated ileal bowel loops measuring a maximum of approximately 4.5 cm. At 2.5 hours and 4 hours 15 minutes, no significant change from the prior image with persistent mild diffuse dilatation of small bowel loops. At 11 hours, the pattern of diffuse abnormal distention of small bowel throughout the abdomen and pelvis is relatively unchanged with the largest segment of small bowel measuring about 4.3 cm. No definite contrast in the ostomy bag out to 22 hours. Reportedly, the patient had limited output from the ostomy bag. No transition zone identified over 22 hours to suggest a focal bowel obstruction. IMPRESSION: 1. Diffuse abnormal distention of small bowel loops throughout the abdomen and pelvis without a transition point identified to suggest small bowel obstruction. Markedly delayed transit through the small bowel. No definite contrast in the ostomy bag on the final 22 hour image. Although marked adynamic ileus is favored, the absence of contrast in the ostomy bag raises concern for small bowel obstruction near the ostomy site. If clinically indicated, a water soluble retrograde small bowel study through the ostomy site may be helpful in further evaluation. Further clinical information was provided by Dr. Sutton. Although the patient's output from the ostomy had decreased, she had been vomiting which would explain the decreased output. Apparently, the ostomy was functioning normally after surgery. Considering her surgery was within the last month, diffuse adynamic ileus is thought to be most likely. Consider follow-up KUBs as clinically indicated. If there is progressive clinical concern for small bowel obstruction at the ostomy site, a retrograde small bowel study through the ostomy may be helpful. If a retrograde study is performed, it wouldbe helpful to inform the radiologist performing the study that the area of concern is at the level of the ostomy site. Radiologist: Dr Attila Arroyo , 10/28/2022 10:32 AM / Edited by: Chelsea [id number] Rinku , :51 AM Electronically signed by: Dr Attila Arroyo 10/29/2022 12:53 PM Radiologist Attila Arroyo MD Signed 10/29/22 12:53:55 (Electronic Signature) Technologist CH,KRS,SLF,TC,CD * Exam Date Time Procedure Performing Provider Status 10/27/22 2:28 PM XR Abd AP and Up and or Decub and PA Lisa Anika Thomas MD; Modified Notes: (XR Abd AP and Up and or Decub and PA Lisa) Reason For Exam: nausea, vomiting XR Abd AP and Up and or Decub and PA Chest PROCEDURE INFORMATION: Exam: XR Complete Acute Abdomen Series Including Chest Exam date and time: 10/27/2022 2:28 PM Age: 62 years old Clinical indication: Dehydration; Nausea and vomiting; Additional info: Nausea, vomiting, abd distention , vomiting TECHNIQUE: Imaging protocol: Radiologic exam. Complete acute abdomen series, including 2 or more views of the abdomen and a single view chest. COMPARISON: CR XR Abd AP and Up and or Decub and PA Chest 10/20/2022 5:36 AM FINDINGS: Lungs: Normal. No consolidation. Pleural spaces: Normal. No pleural effusions. No pneumothorax. Heart/Mediastinum: Normal. No cardiomegaly. Gastrointestinal tract: That the there are multiple gas-filled distended loops of small bowel with air-fluid level of concern for small bowel obstruction. . there is an ostomy in the right mid abdomen. Intraperitoneal space: No free air seen in the abdomen. Bones/joints: Normal. No acute fracture. Soft tissues: Normal. IMPRESSION: 1. That the there are multiple gas-filled distended loops of small bowel with air-fluid level of concern for small bowel obstruction. 2. There is an ostomy in the right mid abdomen. 3. No free air seen in the abdomen. Electronically signed by: Jono Radford MD, [facility], 10/27/2022 14:49 Jono Radford MD Signed 10/27/22 14:49:59 (Electronic Signature) Technologist PER XR Abd AP and Up and or Decub and PA Chest Addendum Begin Findings were discussed with Anika Thomas at 10/27/2022 3:00 PM FLORAL ASSISTANT. Addendum End Jono Radford MD Signed 10/27/22 15:00:08 (Electronic Signature) Technologist PER REPORT Vital Signs Most recent to oldest [Reference Range]: 1 2 3 Blood Pressure 97/66mmHg (11/01/22 7:10 AM) 102/64mmHg (11/01/22 3:16 AM) 92/56mmHg (10/31/22 7:36 PM) Height (inches) (Clinical) 64 in (10/24/22 8:21 PM) Weight (kg) (Clinical) 66 kg (10/24/22 8:21 PM) BMI (Clinical) 24.9 kg/m2 (10/24/22 8:21 PM) Social History Social History Type Response Smoking Status Former smoker; Smoke less tobacco use: Never; Former smoker last 30 days Former smoker < 30 days; Has the patient smoked in the last 365 days, even once? No entered on: 10/20/22 Sex Female Implantable Device List Procedure Provider Procedure Date Device Type Site Unknown Unknown 10/11/22 Unknown Ureter, Right Device Identifier Serial Number Lot or Batch Number Manufacturing Date Expiration Date Distinct Identification Code MRI Safety Implantable Status 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 [id number] Unknown [id number] Unknown 07/08/25 Unknown Unknown Active GS1 [id number] Unknown [id number] Unknown 07/29/25 Unknown Unknown Active GS1 Hospital Discharge Instructions Patient Education 11/01/2022 09:22:22 Rehydration, Adult Rehydration, Adult Rehydration is the replacement of body fluids, salts, and minerals (electrolytes) that are lost during dehydration. Dehydration is when there is not enough water or other fluids in the body. This happens when you lose more fluids than you take in. Common causes of dehydration include: ??? Not drinking enough fluids. This can occur when you are ill or doing activities that require a lot of energy, especially in hot weather. ??? Conditions that cause loss of water or other fluids, such as diarrhea, vomiting, sweating, or urinating a lot. ??? Other illnesses, such as fever or infection. ??? Certain medicines, such as those that remove excess fluid from the body (diuretics). Symptoms of mild or moderate dehydration may include thirst, dry lips and mouth, and dizziness. Symptoms of severe dehydration may include increased heart rate, confusion, fainting, and not urinating. For severe dehydration, you may need to get fluids through an IV at the hospital. For mild or moderate dehydration, you can usually rehydrate at home by drinking certain fluids as told by your healthcare provider. What are the risks? Generally, rehydration is safe. However, taking in too much fluid (overhydration) can be a problem.This is rare. Overhydration can cause an electrolyte imbalance, kidney failure, or a decrease in salt (sodium) levels in the body. Supplies needed You will need an oral rehydration solution (ORS) if your health care provider tells you to use one.This is a drink to treat dehydration. It can be found in pharmacies and retail stores. How to rehydrate Fluids Follow instructions from your health care provider for rehydration. The kind of fluid and the amount you should drink depend on your condition. In general, you should choose drinks that you prefer. ??? If told by your health care provider, drink an ORS. ??? Make an ORS by following instructions on the package. ??? Start by drinking small amounts, about ?? cup (120 mL) every 5???10 minutes. ??? Slowly increase how much you drink until you have taken the amount recommended by your health care provider. ??? Drink enough clear fluids to keep your urine pale yellow. If you were told to drink an ORS, finish it first, then start slowly drinking other clear fluids. Drink fluids such as: ??? Water. This includes sparkling water and flavored water. Drinking only water can lead to havingtoo little sodium in your body (hyponatremia). Follow the advice of your health care provider. ??? Water from ice chips you suck on. ??? Fruit juice with water you add to it (diluted). ??? Sports drinks. ??? Hot or cold herbal teas. ??? Broth-based soups. ??? Milk or milk products. Food Follow instructions from your health care provider about what to eat while you rehydrate. Your health care provider may recommend that you slowly begin eating regular foods in small amounts. ??? Eat foods that contain a healthy balance of electrolytes, such as bananas, oranges, potatoes, tomatoes, and spinach. ??? Avoid foods that are greasy or contain a lot of sugar. In some cases, you may get nutrition through a feeding tube that is passed through your nose and into your stomach (nasogastric tube, or NG tube). This may be done if you have uncontrolled vomiting or diarrhea. Beverages to avoid Certain beverages may make dehydration worse. While you rehydrate, avoid drinking alcohol. How to tell if you are recovering from dehydration You may be recovering from dehydration if: ??? You are urinating more often than before you started rehydrating. ??? Your urine is pale yellow. ??? Your energy level improves. ??? You vomit less frequently. ??? You have diarrhea less frequently. ??? Your appetite improves or returns to normal. ??? You feel less dizzy or less light-headed. ??? Your skin tone and color start to look more normal. Follow these instructions at home: ??? Take sety-ivz-owonxho and prescription medicines only as told by your health care provider. ??? Do not take sodium tablets. Doing this can lead to having too much sodium in your body (hypernatremia). Contact a health care provider if: ??? You continue to have symptoms of mild or moderate dehydration, such as: ??? Thirst. ??? Dry lips. ??? Slightly dry mouth. ??? Dizziness. ??? Dark urine or less urine than normal. ??? Muscle cramps. ??? You continue to vomit or have diarrhea. Get help right away if you: ??? Have symptoms of dehydration that get worse. ??? Have a fever. ??? Have a severe headache. ??? Have been vomiting and the following happens: ??? Your vomiting gets worse or does not go away. ??? Your vomit includes blood or green matter (bile). ??? You cannot eat or drink without vomiting. ??? Have problems with urination or bowel movements, such as: ??? Diarrhea that gets worse or does not go away. ??? Blood in your stool (feces). This may cause stool to look black and tarry. ??? Not urinating, or urinating only a small amount of very dark urine, within 6???8 hours. ??? Have trouble breathing. ??? Have symptoms that get worse with treatment. These symptoms may represent a serious problem that is an emergency. Do not wait to see if the symptoms will go away. Get medical help right away. Call your local emergency services (911 in the [place] Do not drive yourself to the hospital. Summary ??? Rehydration is the replacement of body fluids and minerals (electrolytes) that are lost during dehydration. ??? Follow instructions from your health care provider for rehydration. The kind of fluid and amount you should drink depend on your condition. ??? Slowly increase how much you drink until you have taken the amount recommended by your health care provider. ??? Contact your health care provider if you continue to show signs of mild or moderate dehydration. This information is not intended to replace advice given to you by your health care provider. Make sure you discuss any questions you have with your health care provider. Document Revised: 11/01/2020 Document Reviewed: 09/11/2020 [email or web address] Patient Education ?? 2021 [email or web address] 11/01/2022 09:22:22 Hypomagnesemia Hypomagnesemia Hypomagnesemia is a condition in which the level of magnesium in the blood is too low. Magnesium yordy mineral that is found in many foods. It is used in many different processes in the body. Hypomagnesemia can affect every organ in the body. In severe cases, it can cause life-threatening problems. What are the causes? This condition may be caused by: ??? Not getting enough magnesium in your diet or not having enough healthy foods to eat (malnutrition). ??? Problems with magnesium absorption in the intestines. ??? Dehydration. ??? Excessive use of alcohol. ??? Vomiting. ??? Severe or long-term (chronic) diarrhea. ??? Some medicines, including medicines that make you urinate more often (diuretics). ??? Certain diseases, such as kidney disease, diabetes, celiac disease, and overactive thyroid. What are the signs or symptoms? Symptoms of this condition include: ??? Loss of appetite, nausea, and vomiting. ??? Involuntary shaking or trembling of a body part (tremor). ??? Muscle weakness or tingling in the arms and legs. ??? Sudden tightening of muscles (muscle spasms). ??? Confusion. ??? Psychiatric issues, such as: ??? Depression and irritability. ??? Psychosis. ??? A feeling of fluttering of the heart (palpitations). ??? Seizures. These symptoms are more severe if magnesium levels drop suddenly. How is this diagnosed? This condition may be diagnosed based on: ??? Your symptoms and medical history. ??? A physical exam. ??? Blood and urine tests. How is this treated? Treatment depends on the cause and the severity of the condition. It may be treated by: ??? Taking a magnesium supplement. This can be taken in pill form. If the condition is severe, magnesium is usually given through an IV. ??? Making changes to your diet. You may be directed to eat foods that have a lot of magnesium, such as green leafy vegetables, peas, beans, and nuts. ??? Not drinking alcohol. If you are struggling not to drink, ask your health care provider for help. Follow these instructions at home: Eating and drinking ??? Make sure that your diet includes foods with magnesium. Foods that have a lot of magnesium in them include: ??? Green leafy vegetables, such as spinach and broccoli. ??? Beans and peas. ??? Nuts and seeds, such as almonds and sunflower seeds. ??? Whole grains, such as whole grain bread and fortified cereals. ??? Drink fluids that contain salts and minerals (electrolytes), such as sports drinks, when you are active. ??? Do not drink alcohol. General instructions ??? Take tvlw-dwe-jrbrbho and prescription medicines only as told by your health care provider. ??? Take magnesium supplements as directed if your health care provider tells you to take them. ??? Have your magnesium levels monitored as told by your health care provider. ??? Keep all follow-up visits. This is important. Contact a health care provider if: ??? You get worse instead of better. ??? Your symptoms return. Get help right away if: ??? You develop severe muscle weakness. ??? You have trouble breathing. ??? You feel that your heart is racing. These symptoms may represent a serious problem that is an emergency. Do not wait to see if the symptoms will go away. Get medical help right away. Call your local emergency services (911 in the [place] Do not drive yourself to the hospital. Summary ??? Hypomagnesemia is a condition in which the level of magnesium in the blood is too low. ??? Hypomagnesemia can affect every organ in the body. ??? Treatment may include eating more foods that contain magnesium, taking magnesium supplements, and not drinking alcohol. ??? Have your magnesium levels monitored as told by your health care provider. This information is not intended to replace advice given to you by your health care provider. Make sure you discuss any questions you have with your health care provider. Document Revised: 01/29/2022 Document Reviewed: 01/29/2022 [email or web address] Patient Education ?? 2021 [employer] 11/01/2022 09:22:22 Hyponatremia Hyponatremia Hyponatremia is when the amount of salt (sodium) in a person's blood is too low. When sodium levelsare low, the cells absorb extra water, which causes them to swell. The swelling happens throughout the body, but it mostly affects the brain. What are the causes? This condition may be caused by: ??? Certain medical conditions, such as: ??? Heart, kidney, or liver problems. ??? Thyroid problems. ??? Adrenal gland problems. ??? Metabolic conditions, such as Bliss's disease or syndrome of inappropriate antidiuresis (SIAD). ??? Excessive vomiting, diarrhea, or sweating. ??? Certain medicines or illegal drugs. ??? Fluids given through an IV. What increases the risk? You are more likely to develop this condition if you: ??? Have certain medical conditions such as heart, kidney, or liver failure. ??? Have a medical condition that causes frequent or excessive diarrhea. ??? Participate in intense physical activities, such as marathon running. ??? Take certain medicines that affect the sodium and fluid balance in the blood. Some of these medicine types include: ??? Diuretics. ??? NSAIDs, such as ibuprofen. ??? Some opioid pain medicines. ??? Some antidepressants. ??? Some seizure prevention medicines. What are the signs or symptoms? Symptoms of this condition include: ??? Headache. ??? Nausea and vomiting. ??? Being very tired (lethargic). ??? Muscle weakness and cramping. ??? Loss of appetite. ??? Feeling weak or light-headed. Severe symptoms of this condition include: ??? Confusion. ??? Agitation. ??? Having a rapid heart rate. ??? Fainting. ??? Seizures. ??? Coma. How is this diagnosed? This condition is diagnosed based on: ??? A physical exam. ??? Your medical history. ??? Tests, including: ??? Blood tests. ??? Urine tests. How is this treated? Treatment for this condition depends on the cause. Treatment may include: ??? Getting fluids through an IV that is inserted into one of your veins. ??? Medicines to correct the sodium imbalance. If medicines are causing the condition, the medicines will need to be adjusted. ??? Limiting your water or fluid intake to get the correct sodium balance, in certain cases. ??? Monitoring in the hospital to closely watch your symptoms for improvement. Follow these instructions at home: ??? Take apzn-iua-mptdvqy and prescription medicines only as told by your health care provider. Many medicines can make this condition worse. Talk with your health care provider about any medicines that you are currently taking. ??? Do not drink alcohol. ??? Keep all follow-up visits. This is important. Contact a health care provider if: ??? You develop worsening nausea, fatigue, headache, confusion, or weakness. ??? Your symptoms go away and then return. Get help right away if: ??? You have a seizure. ??? You faint. ??? You have ongoing diarrhea or vomiting. Summary ??? Hyponatremia is when the amount of salt (sodium) in your blood is too low. ??? When sodium levels are low, your cells absorb extra water, which causes them to swell. ??? The swelling happens throughout the body, but it mostly affects the brain. ??? Treatment for this condition depends on the cause. It may include receiving IV fluids, taking or adjusting medicines, limiting fluid intake, and monitoring in the hospital. This information is not intended to replace advice given to you by your health care provider. Make sure you discuss any questions you have with your health care provider. Document Revised: 03/12/2022 Document Reviewed: 03/12/2022 [email or web address] Patient Education ?? 2021 [employer]. 11/01/2022 09:22:22 Dehydration, Adult Dehydration, Adult Dehydration is a condition in which there is not enough water or other fluids in the body. This happens when a person loses more fluids than he or she takes in. Important organs, such as the kidneys,brain, and heart, cannot function without a proper amount of fluids. Any loss of fluids from the body can lead to dehydration. Dehydration can be mild, moderate, or severe. It should be treated right away to prevent it from becoming severe. What are the causes? Dehydration may be caused by: ??? Conditions that cause loss of water or other fluids, such as diarrhea, vomiting, or sweating orurinating a lot. ??? Not drinking enough fluids, especially when you are ill or doing activities that require a lot of energy. ??? Other illnesses and conditions, such as fever or infection. ??? Certain medicines, such as medicines that remove excess fluid from the body (diuretics). ??? Lack of safe drinking water. ??? Not being able to get enough water and food. What increases the risk? The following factors may make you more likely to develop this condition: ??? Having a long-term (chronic) illness that has not been treated properly, such as diabetes, heart disease, or kidney disease. ??? Being 65 years of age or older. ??? Having a disability. ??? Living in a place that is high in altitude, where thinner, drum drier air causes more fluid loss. ??? Doing exercises that put stress on your body for a long time (endurance sports). What are the signs or symptoms? Symptoms of dehydration depend on how severe it is. Mild or moderate dehydration ??? Thirst. ??? Dry lips or dry mouth. ??? Dizziness or light-headedness, especially when standing up from a seated position. ??? Muscle cramps. ??? Dark urine. Urine may be the color of tea. ??? Less urine or tears produced than usual. ??? Headache. Severe dehydration ??? Changes in skin. Your skin may be cold and clammy, blotchy, or pale. Your skin also may not return to normal after being lightly pinched and released. ??? Little or no tears, urine, or sweat. ??? Changes in vital signs, such as rapid breathing and low blood pressure. Your pulse may be weak or may be faster than 100 beats a minute when you are sitting still. ??? Other changes, such as: ??? Feeling very thirsty. ??? Sunken eyes. ??? Cold hands and feet. ??? Confusion. ??? Being very tired (lethargic) or having trouble waking from sleep. ??? Short-term weight loss. ??? Loss of consciousness. How is this diagnosed? This condition is diagnosed based on your symptoms and a physical exam. You may have blood and urine tests to help confirm the diagnosis. How is this treated? Treatment for this condition depends on how severe it is. Treatment should be started right away. Do not wait until dehydration becomes severe. Severe dehydration is an emergency and needs to be treated in a hospital. ??? Mild or moderate dehydration can be treated at home. You may be asked to: ??? Drink more fluids. ??? Drink an oral rehydration solution (ORS). This drink helps restore proper amounts of fluids andsalts and minerals in the blood (electrolytes). ??? Severe dehydration can be treated: ??? With IV fluids. ??? By correcting abnormal levels of electrolytes. This is often done by giving electrolytes through a tube that is passed through your nose and into your stomach (nasogastric tube, or NG tube). ??? By treating the underlying cause of dehydration. Follow these instructions at home: Oral rehydration solution If told by your health care provider, drink an ORS: ??? Make an ORS by following instructions on the package. ??? Start by drinking small amounts, about ?? cup (120 mL) every 5???10 minutes. ??? Slowly increase how much you drink until you have taken the amount recommended by your health care provider. Eating and drinking ??? Drink enough clear fluid to keep your urine pale yellow. If you were told to drink an ORS, finish the ORS first and then start slowly drinking other clear fluids. Drink fluids such as: ??? Water. Do not drink only water. Doing that can lead to hyponatremia, which is having too littlesalt (sodium) in the body. ??? Water from ice chips you suck on. ??? Fruit juice that you have added water to (diluted fruit juice). ??? Low-calorie sports drinks. ??? Eat foods that contain a healthy balance of electrolytes, such as bananas, oranges, potatoes, tomatoes, and spinach. ??? Do not drink alcohol. ??? Avoid the following: ??? Drinks that contain a lot of sugar. These include high-calorie sports drinks, fruit juice that is not diluted, and soda. ??? Caffeine. ??? Foods that are greasy or contain a lot of fat or sugar. General instructions ??? Take luda-gzl-bdxpniy and prescription medicines only as told by your health care provider. ??? Do not take sodium tablets. Doing that can lead to having too much sodium in the body (hypernatremia). ??? Return to your normal activities as told by your health care provider. Ask your health care provider what activities are safe for you. ??? Keep all follow-up visits as told by your health care provider. This is important. Contact a health care provider if: ??? You have muscle cramps, pain, or discomfort, such as: ??? Pain in your abdomen and the pain gets worse or stays in one area (localizes). ??? Stiff neck. ??? You have a rash. ??? You are more irritable than usual. ??? You are sleepier or have a harder time waking than usual. ??? You feel weak or dizzy. ??? You feel very thirsty. Get help right away if you have: ??? Any symptoms of severe dehydration. ??? Symptoms of vomiting, such as: ??? You cannot eat or drink without vomiting. ??? Vomiting gets worse or does not go away. ??? Vomit includes blood or green matter (bile). ??? Symptoms that get worse with treatment. ??? A fever. ??? A severe headache. ??? Problems with urination or bowel movements, such as: ??? Diarrhea that gets worse or does not go away. ??? Blood in your stool (feces). This may cause stool to look black and tarry. ??? Not urinating, or urinating only a small amount of very dark urine, within 6???8 hours. ??? Trouble breathing. These symptoms may represent a serious problem that is an emergency. Do not wait to see if the symptoms will go away. Get medical help right away. Call your local emergency services (911 in the [place] Do not drive yourself to the hospital. Summary ??? Dehydration is a condition in which there is not enough water or other fluids in the body. Thishappens when a person loses more fluids than he or she takes in. ??? Treatment for this condition depends on how severe it is. Treatment should be started right away. Do not wait until dehydration becomes severe. ??? Drink enough clear fluid to keep your urine pale yellow. If you were told to drink an oral rehydration solution (ORS), finish the ORS first and then start slowly drinking other clear fluids. ??? Take flnr-rfl-kagegov and prescription medicines only as told by your health care provider. ??? Get help right away if you have any symptoms of severe dehydration. This information is not intended to replace advice given to you by your health care provider. Make sure you discuss any questions you have with your health care provider. Document Revised: 04/13/2020 Document Reviewed: 04/13/2020 [email or web address] Patient Education ?? 2021 [employer]. 11/01/2022 09:22:22 Ileus Ileus Ileus is a condition that happens when the intestines, which are also called bowels, stop working correctly. The intestines are hollow organs that digest food after the food leaves the stomach. Theseorgans are long, muscular tubes that connect the stomach to the rectum. When ileus occurs, the muscular contractions that cause food to move through the intestines do not happen as they normally would. If the intestines stop working, food cannot pass through to get digested. This condition is a serious problem that usually requires hospitalization. It can cause symptoms such as nausea, abdominal pain, and bloating. Ileus can last from a few hours to a few days. What are the causes? This condition may be caused by: ??? Surgery on the abdomen. ??? An infection or inflammation in the abdomen. This includes inflammation of the lining of the abdomen (peritonitis). ??? Infection or inflammation in other parts of the body, such as pneumonia or pancreatitis. ??? Passage of gallstones or kidney stones. ??? Damage to the nerves or blood vessels that go to the intestines. ??? A collection of blood within the abdominal cavity. ??? Imbalance in the salts in the blood (electrolytes). ??? Injury to the brain or spinal cord. ??? Medicines. Many medicines, including strong pain medicines, can cause ileus or make it worse. If the intestines stop working because of a blockage, that is a different condition that is called a bowel obstruction. What are the signs or symptoms? Symptoms of this condition include: ??? Bloating of the abdomen. ??? Pain or discomfort in the abdomen. ??? Poor appetite. ??? Nausea and vomiting. ??? Lack of normal bowel sounds, such as growling in the stomach. How is this diagnosed? This condition may be diagnosed with: ??? A physical exam and medical history. ??? X-rays or a CT scan of the abdomen. You may also have other tests to help find the cause of the condition. How is this treated? This condition may be treated by: ??? Resting the intestines until they start to work again. This is often done by: ??? Stopping oral intake of food and drink. You will be given fluid through an IV to prevent dehydration. ??? Placing a small tube (nasogastric tube or NG tube) that is passed through your nose and into your stomach. The tube is attached to a suction device and keeps the stomach emptied out. This allows the bowels to rest and helps to reduce nausea and vomiting. ??? Correcting any electrolyte imbalance by giving supplements in the IV fluid. ??? Stopping any medicines that might make ileus worse. ??? Treating any condition that may have caused ileus. Follow these instructions at home: Eating and drinking ??? Follow instructions from your health care provider about: ??? What to eat and drink. You may be told to start eating a bland diet. Over time, you may slowly resume a more normal, healthy diet. ??? How much to eat and drink. You should eat small meals often and stop eating when you feel full. ??? Avoid alcohol. General instructions ??? Take fdyu-hmt-iszxpzm and prescription medicines only as told by your health care provider. ??? Rest as told by your health care provider. ??? Avoid sitting for a long time without moving. Get up to take short walks every 1???2 hours. Askfor help if you feel weak or unsteady. ??? Keep all follow-up visits as told by your health care provider. This is important. Contact a health care provider if: ??? You have nausea, vomiting, or abdominal discomfort. ??? You have a fever. Get help right away if: ??? You have severe abdominal pain or bloating. ??? You cannot eat or drink without vomiting. Summary ??? Ileus is a condition that happens when the intestines, which are also called bowels, stop working correctly. ??? When ileus occurs, the muscular contractions that cause food to move through the intestines do not happen as they normally would. ??? Ileus can cause symptoms such as nausea, abdominal pain, and bloating. ??? Treatment may involve getting IV fluids and having a nasogastric tube placed to keep your stomach emptied out until the intestines start working again. This information is not intended to replace advice given to you by your health care provider. Make sure you discuss any questions you have with your health care provider. Document Revised: 03/13/2022 Document Reviewed: 03/13/2022 [email or web address] Patient Education ?? 2021 [employer] Follow Up Care 10/23/2022 19:15:36 With:Ant Gary Address: [address] [place] [id number] (2) When:11/07/2022 10:40:00 Progress note * Ant Gary MD: PERFORM, SIGN, VERIFY Event Display: Progress Notes Authored Date: Patient: MELVA CROUCH Age: 62 years Sex: Female : 1960 Associated Diagnoses: None Author: Ant Gary MD 10/07/22 - Robotic LAR, DLI 10/20/22 - Readmit dehydration 10/25/22 - Readmit FT Ostomy working very well, tolerated liquid diet, denies nausea or emesis Denies abdominal pain Afebrile ROS: Cardiac- no chest pain or palpitations Pulmonary- no shortness of breath or wheezing AF, VSS Hypomagnesemia, hypokalemia Exam: Alert, NAD Chest: non-labored, no distress Abd/Rectal: soft, NTND, ostomy semi-solid stool in bag Labs/Diagnostic results: Reviewed IMPRESSION: Rectosigmoid junction cancer Ileostomy dysfunction Dehydration Hyponatremia Hypomagnesemia PLAN: Regular diet Replete magnesium and potassium Out of bed, ambulation, incentive spirometer Discharge planning Electronically signed by:Ant Gary MD 10/31/22 11:19 * Ant Gary MD: PERFORM, SIGN, VERIFY Event Display: Progress Notes Authored Date: [id number] Patient: MELVA CROUCH Age: 62 years Sex: Female : 1960 Associated Diagnoses: None Author: Ant Gary MD 10/07/22 - Robotic LAR, DLI 10/20/22 - Readmit dehydration 10/25/22 - Readmit FT Feels much better, ostomy working, NG output reduced Denies abdominal pain Afebrile ROS: Cardiac- no chest pain or palpitations Pulmonary- no shortness of breath or wheezing AF, VSS Hypomagnesemia Exam: Alert, NAD Chest: non-labored, no distress Abd/Rectal: soft, NTND, ostomy thin output, red rubber catheter in situ in the ileostomy Labs/Diagnostic results: Reviewed IMPRESSION: Rectosigmoid junction cancer Ileostomy dysfunction Dehydration Hyponatremia Hypomagnesemia PLAN: Reglan 10 mg IV t.i.d. Clamp NG tube for 4 hours check residual if less than 100 cc remove NG tube and give clear liquid diet Out of bed, ambulation, incentive spirometer DVT prophylaxis A.m. labs Electronically signed by:Ant Gary MD 10/30/22 11:49 * Ant Gary MD: PERFORM, SIGN, VERIFY Event Display: Progress Notes Authored Date: [id number] Patient: MELVA CROUCH Age: 62 years Sex: Female : 1960 Associated Diagnoses: None Author: Ant Gary MD 10/07/22 - Robotic LAR, DLI 10/20/22 - Readmit dehydration 10/25/22 - Readmit FT Small-bowel follow-through no evidence of mechanical obstruction, ileus pattern Minimal ostomy output Continues to be nauseous Denies abdominal pain Afebrile ROS: Cardiac- no chest pain or palpitations Pulmonary- no shortness of breath or wheezing AF, VSS Hypomagnesemia Exam: Alert, NAD Chest: non-labored, no distress Abd/Rectal: soft, NTND, ostomy thin output Labs/Diagnostic results: Reviewed IMPRESSION: Rectosigmoid junction cancer Ileostomy dysfunction Dehydration Hyponatremia Hypomagnesemia PLAN: Reglan 10 mg IV t.i.d. NG tube to low intermittent wall suction Out of bed, ambulation, incentive spirometer DVT prophylaxis A.m. labs Electronically signed by:Ant Gary MD 10/29/22 09:07 History and physical note * Ant Gary MD: PERFORM, SIGN, VERIFY Event Display: History and Physicals Authored Date: Patient: MELVA CROUCH Age: 62 years Sex: Female : 1960 Associated Diagnoses: None Author: Ant Gary MD History of Present Illness 62-year-old female with rectosigmoid junction cancer status post robotic assisted low anterior resection with diverting loop ileostomy by me on 10/11/2022, discharged home on 10/16/2022 readmitted for observation on 10/20/2022 after she presented with decreased ileostomy output and dehydration, shewas adequately resuscitated with electrolyte replacement tolerated soft diet and was discharged home on 10/23/2022. After reaching home she took oxycodone following that she developed nausea and multiple episodes of emesis. She was taken to [facility], evaluation with CT scan of the abdomen pelvis did not show any acute process, she was noted to have hyponatremia and dehydration she was treated with IV fluids. Her ileostomy was functioning well. Patient was transferred to [facility] as hospitalist there are not comfortable taking care of this patient. She denies any fever chills. Upon arrival here the labs were normal, ileostomy functioning. Review of Systems Constitutional: Weakness, Fatigue. Eye: Negative. Ear/Nose/Mouth/Throat: Negative. Respiratory: Negative. Cardiovascular: Negative. Gastrointestinal: Negative except as documented in history of present illness. Genitourinary: Negative. Hematology/Lymphatics: Negative. Endocrine: Negative. Immunologic: Negative. Musculoskeletal: Negative. Integumentary: Negative. Neurologic: Negative. Psychiatric: Negative. Health Status Allergies: Allergic Reactions (Selected) No Known Allergies, Allergies (1) Active Severity Reaction No Known Allergies None Documented Current medications: (Selected) Inpatient Medications Ordered Lactated Ringers Injection intravenous solution 1,000 mL: Route: IV, Routine, Start Date: 10/23/22 19:28:00 FLORAL ASSISTANT, 90 Days, Stop date 01/21/23 19:27:00 CDT, Rate= 125 ml/hr, hr, Total Vol ml = 1,000, Disp Location: [address] NS, Populate Charting Weight From Order, GEN HALE, 1.7, m2 Normal Saline Flush: 5 mL, INJ, Route: IVP, Q10Min, PRN, See Comment Note, Start Date: 10/23/22 19:28:00 FLORAL ASSISTANT, Duration: 90 Days, Stop date: 01/21/23 20:27:00 CDT, Routine, Disp Location: [facility], GEN DISP Normal Saline Flush: 5 mL, INJ, Route: IVP, Q12H, Start Date: 10/23/22 21:00:00 FLORAL ASSISTANT, Duration: 90 Days, Stop date: 01/21/23 9:00:00 CDT, Routine, Disp Location: [facility], GEN GEOFFREY acetaminophen-hydrocodone 325 mg-5 mg oral tablet: 1 tab, TAB, By mouth, Q4H, PRN, Pain Moderate, Start Date: 10/23/22 19:28:00 FLORAL ASSISTANT, Duration: 14 Days, Stop date: 11/06/22 19:27:00 FLORAL ASSISTANT, Routine, DispLocation: [address] GEOFFREY diphenhydrAMINE: 25 mg = 0.5 mL, INJ, IVP, Q6H, PRN, See Comment Note, Start Date: 10/23/22 19:28:00 FLORAL ASSISTANT, Duration: 90 Days, Stop date 01/21/23 19:27:00 CDT, Routine, Disp Location: [address] diphenhydrAMINE: 25 mg = 1 cap, CAP, PO/per tube, Q6H, PRN, See Comment Note, Start Date: 10/23/22 19:28:00 FLORAL ASSISTANT, Duration: 90 Days, Stop date 01/21/23 19:27:00 CDT, Routine, Disp Location: [address] metoclopramide: 10 mg = 2 mL, INJ, IVP, Q6H, PRN, Nausea, Start Date: 10/23/22 19:28:00 FLORAL ASSISTANT, Duration: 90 Days, Stop date 01/21/23 19:27:00 CDT, Routine, Disp Location: [address] morphine INJ: 2 mg = 0.5 mL, INJ, IVP, Q1Hr, PRN, Pain Severe, Start Date: 10/23/22 19:28:00 FLORAL ASSISTANT, Stop date 10/26/22 8:00:00 FLORAL ASSISTANT, Routine, Disp Location: [address] ondansetron: 4 mg = 2 mL, INJ, IVP, Q8H, PRN, Nausea, Start Date: 10/23/22 19:28:00 FLORAL ASSISTANT, Duration: 90 Days, Stop date 01/21/23 19:27:00 CDT, Routine, Disp Location: [address] Prescriptions Prescribed Imodium A-D 2 mg oral tablet: 2 mg, By mouth, Q6H, PRN Diarrhea/Loose Stool, # 100 tab, Refill(s) 0, Pharmacy: [facility], [id number], TAB, 2 mg By mouth Q6H,PRN:Diarrhea/Loose Stool, 68.1, 10/11/22 10:11:00 FLORAL ASSISTANT, kg, Weight Zofran ODT 4 mg oral tablet, disintegratin mg = 1 tab, By mouth, Q6H, PRN for nausea & vomiting, # 20 tab, Refill(s) 0, Pharmacy: [facility], [id number], 1 tab By mouth Q6H,PRN:for nausea & vomiting, 68.1, 10/11/22 10:11:00 FLORAL ASSISTANT, kg, Weight enoxaparin 30 mg/0.3 mL subcutaneous solution: 30 mg = 0.3 mL, SubQ, Daily, X 21 Days, # 6.3 mL, Refill(s) 0, Pharmacy: [facility], [id number], INJ,0.3 mL SUBQ Daily,x21 Days, 68.1, 10/11/22 10:11:00 FLORAL ASSISTANT, kg, Weight guar gum oral powder for reconstitution: 4 = g, By mouth, Daily, # 155 g, Refill(s) 0, Route to Pharmacy Electronically, Pharmacy: [facility], [id number], POWDER, 4g By mouth Daily, 68.1, 10/11/22 10:11:00 FLORAL ASSISTANT, kg, Weight ostomy supplies: ostomy supplies, See Instructions, Demetra: barrier ring 8815 Pouch [address] [place] Wafer [address] odor drops 7850 adapt no sting wipes 7917 adhesive remover wipes 7760, # 1 EA, Refills(s) 99, Print Requisition, Supply oxyCODONE 5 mg oral tablet: 5 mg, = 1 tab, By mouth, Q6H, PRN Pain Moderate, 24 tab, 0, 0, Substitution Permitted, [facility], 64, Height, 10/11/22 10:11:00 FLORAL ASSISTANT, in, 68.1, Weight, 10/11/22 10:11:00 FLORAL ASSISTANT, kg pantoprazole 40 mg oral delayed release tablet: 40 mg = 1 tab, By mouth, Daily, # 30 tab, Refill(s)0, Pharmacy: [facility], [id number], TAB, 1 tab By mouth Daily, 63.4, 10/20/22 1:44:00 FLORAL ASSISTANT, kg, Weight Problem list: All Problems Ileostomy dysfunction / SNOMED CT 03529495 / Confirmed Ex-smoker / SNOMED CT 51953680 / Confirmed Tobacco use / SNOMED CT 0973497527 / Confirmed, Active Problems (3) Ex-smoker Ileostomy dysfunction Tobacco use Histories Family History: No family history items have been selected or recorded. Procedure history: Robotic Assisted Low Anterior w/ Ileostomy - Cookie on 10/11/2022 at 62 Years. Flexible Sigmoidoscopy on 10/07/2022 at 62 Years. Comments: 10/07/2022 11:49 Adwoa Luu RN auto-populated from documented surgical case COLONOSCOPY FLX W/ENDOSCOPIC MUCOSAL RESECTION ([id number]). Comments: 10/07/2022 10:29 VERONICA Lloyd RN, Jaja Ortega Done 09/05/2022 Social History Social & Psychosocial Habits Tobacco 10/20/2022 Smoking Status Former smoker Smokeless tobacco use: Never Former smoker last 30 days Former smoker < 30 days Has the patient smoked in the last 365 days, even once? No . Physical Examination General: Alert and oriented, No acute distress. Eye: Pupils are equal, round and reactive to light, Extraocular movements are intact, Normal conjunctiva, Vision unchanged. HENT: Normocephalic, Normal hearing, Oral mucosa is moist. Neck: Supple, Non-tender, No carotid bruit, No jugular venous distention, No lymphadenopathy, No thyromegaly. Trachea: Midline. Respiratory: Lungs are clear to auscultation, Respirations are non-labored, Breath sounds are equal, Symmetrical chest wall expansion, No chest wall tenderness. Cardiovascular: Normal rate, Regular rhythm, No murmur, No gallop, Good pulses equal in all extremities, Normal peripheral perfusion, No edema. Gastrointestinal: Soft, Non-tender, Non-distended, Normal bowel sounds, Ileostomy healthy viable, semi-solid stool in bag, incision sites clean and dry. m. Lymphatics: No lymphadenopathy neck, axilla, groin. Musculoskeletal Normal range of motion. Normal strength. No tenderness. No swelling. No deformity. Normal gait. Integumentary: Warm, [place]. Neurologic: Alert, Oriented, Normal sensory, Normal motor function, No focal deficits, Cranial Nerves II-XII are grossly intact, Normal deep tendon reflexes. Cognition and Speech: Oriented, Speech clear and coherent, Functional cognition intact. Psychiatric: Cooperative, Appropriate mood & affect, Normal judgment. Impression and Plan Diagnosis Dehydration - [id number]-[id number] E86.0. 62-year-old female with rectosigmoid junction cancer status post robotic assisted low anterior resection with diverting loop ileostomy on 10/11/2022, final pathology T4 a N2b, readmitted for observation after she presented with ileostomy dysfunction on 10/20/2022, discharged home after full resuscitation and she tolerated diet on 10/23/2022, developed nausea and emesis after she took oxycodone athome visited [facility] at [place], evaluation with CT scan of the abdomen pelvis did not show any acute process. She was resuscitated with IV fluids and was transferred to [facility] for further management. On examination abdomen is soft, nondistended nontender, ileostomy healthy viable semi-solid stool in bag. Her labs are essentially normal with normal WBC count noted mild hyponatremia of 134. I will admit for observation, start her on soft low residue diet,repeat labs in a.m. ostomy teaching possible discharge tomorrow. Electronically signed by:Ant Gary MD 10/25/22 11:16 Discharge summary * Ant Gary MD: VERIFY, PERFORM, SIGN Event Display: Discharge Summary Authored Date: [id number] Patient: MELVA CROUCH Age: 62 years Sex: Female : 1960 Associated Diagnoses: None Author: Ant Gary MD Discharge Information Discharge Summary Information: Discharge Information Admit date:10/24/2022 Discharge date:11/01/2022 Primary Care Physician:Ant Gary MD Admitting Physician:Ant Gary MD . Discharge diagnosis: Medical Diagnosis Dehydration , Ileostomy dysfunction - MYQ10-EP K94.13. Operations and procedures: No qualifying data available.. Discharge medications: Home Medications (7) Active enoxaparin 30 mg/0.3 mL subcutaneous solution 30 mg = 0.3 mL, SubQ, Daily guar gum oral powder for reconstitution 4 g, By mouth, Daily Imodium A-D 2 mg oral tablet 2 mg, PRN, By mouth, Q6H ostomy supplies See Instructions oxyCODONE 5 mg oral tablet 5 mg = 1 tab, PRN, By mouth, Q6H pantoprazole 40 mg oral delayed release tablet 40 mg = 1 tab, By mouth, Daily Zofran ODT 4 mg oral tablet, disintegrating 4 mg = 1 tab, PRN, By mouth, Q6H . Hospital Course 62-year-old female with rectosigmoid junction cancer status post robotic assisted low anterior resection with diverting loop ileostomy on 10/11/2022 was discharged home on 10/16/2022, she was discharged home with dehydration and ileostomy dysfunction on 10/20/2022 discharged home after resuscitation on 10/23/2022. She developed nausea and emesis after she took pain medication once she reached home and was taken to [facility] at [place], she underwent CT scan of the abdomen pelvisat that facility she did not show any acute process in the abdomen. She was transferred to [facility] for further management, she was admitted and resuscitated with IV fluids and electrolyte replacements bowel rest with NG tube placement. She underwent small- bowel follow-through with water-soluble contrast on 10/29/2021 showed ileus pattern. She improved with non operative management her NG output reduced, ileostomy started functioning. She was initially given liquid diet then advanced to regular diet which he tolerated. She is being discharged home on 11/01/2022 with instructions forileostomy care. She is advised to rehydrate herself take fiber supplementation and Imodium as needed to control the ileostomy output. She will follow up with Dr. Gary at colorectal surgery office in1 week. Physical Examination Vital Signs (last 24 hrs) Last Charted Minimum Maximum Temp 98.3 (NOV 01 07:10) 98 (OCT 31 19:36) 98.3 (NOV 01:16) Heart Rate 72 (NOV 01 07:10) 65 (NOV 01:16) 72 (NOV 01 07:10) Resp Rate 18 (NOV 01 07:10) 18 (B 16 15:10) 20 (B 16 19:36) SBP 97 (NOV 01 07:10) 91 (OCT 31 15:10) 102 (B 16 10:40) DBP 66 (NOV 01 07:10) 56 (B 16 19:36) 67 (B 16 10:40) SpO2 94 (NOV 01 07:10) 93 (NOV 01 03:16) 98 (OCT 16 10:40) O2 Room a (NOV 01 07:10) Room a (OCT 31 09:00) Room a (OCT 31 09:00) General: Alert and oriented, No acute distress. Respiratory: Lungs are clear to auscultation, Respirations are non-labored, Breath sounds are equal, Symmetrical chest wall expansion, No chest wall tenderness. Cardiovascular: Normal rate, Regular rhythm, No murmur, No gallop, Good pulses equal in all extremities, Normal peripheral perfusion, No edema. Gastrointestinal: Soft, Non-tender, Non-distended, Normal bowel sounds, No organomegaly, Ileostomy healthy viable semi-solid stool in bag.. Neurologic: Alert, Oriented, Normal sensory, Normal motor function, No focal deficits, Cranial Nerves II-XII are grossly intact, Gag reflex normal, Normal deep tendon reflexes. Discharge Plan Discharge Summary Plan Discharge orders: . Electronically signed by:Ant Gary MD 11/01/22 08:52 Note * Akshta Garcia MD: PERFORM, TRANSCRIBE, VERIFY, VERIFY Event Display: [employer] Read Authored Date: [id number] READING LOCATION: [address] [address] PROCEDURE: US VL Venous LE Bilateral DIAGNOSIS CODES:E86.0 Dehydration CLINICAL HISTORY: LLE calf pain, assess for dvt, . COMPARISON: None FINDINGS: The deep veins are all completely compressible. There is no evidence for DVT. There is normal response to Valsalva. Phasicity and augmentation are normal. There is a short segment of occlusive thrombus in a superficial vein in the left calf. IMPRESSION: Negative for DVT. There is a short section of occlusive thrombus in a superficial vein in the left calf. Electronically signed by: Dr Akshat Garcia 10/31/2022 10:30 AM Akshat Garcia MD Signed 10/31/22 10:30:41 (Electronic Signature) Technologist BP * Akshat Garcia MD: TRANSCRIBE, PERFORM, VERIFY, VERIFY Event Display: Report Authored Date: [id number] * Cruz ROMERO, Attila: PERFORM, VERIFY Cruz ROMERO, Attila: VERIFY, VERIFY Cruz ROMERO, Attila: VERIFY Chelsea Larson: TRANSCRIBE, TRANSCRIBE Chelsea Larson: TRANSCRIBE Event Display: [employer] Read Authored Date: [id number] Reading location: [place] [address] \T\ [address] CLINICAL HISTORY: small bowel obstruction. Diagnosis Codes: E86.0 Dehydration COMPARISON: None FINDINGS: Survey image of the abdomen reveals an ostomy ring in the right lower quadrant. There are a couple loops of abnormally gas-distended small bowel in the mid and left abdomen. An NG tube extends into the stomach. At 20 minutes, there is filling of normal-appearing and normal-sized proximal jejunal bowel loops. These have a normal mucosal pattern. At 40 minutes, there is opacification of several abnormally distended small bowel loops in the leftlower abdomen and pelvis with slight progression of bowel distention on the 1 hour image. The largest loops measuring about 4.3 cm. At 1.5 hours, slight further opacification of abnormally dilated ileal bowel loops measuring a maximum of approximately 4.5 cm. At 2.5 hours and 4 hours 15 minutes, no significant change from the prior image with persistent mild diffuse dilatation of small bowel loops. At 11 hours, the pattern of diffuse abnormal distention of small bowel throughout the abdomen and pelvis is relatively unchanged with the largest segment of small bowel measuring about 4.3 cm. No definite contrast in the ostomy bag out to 22 hours. Reportedly, the patient had limited output from the ostomy bag. No transition zone identified over 22 hours to suggest a focal bowel obstruction. IMPRESSION: 1. Diffuse abnormal distention of small bowel loops throughout the abdomen and pelvis without a transition point identified to suggest small bowel obstruction. Markedly delayed transit through the small bowel. No definite contrast in the ostomy bag on the final 22 hour image. Although marked adynamic ileus is favored, the absence of contrast in the ostomy bag raises concern for small bowel obstruction near the ostomy site. If clinically indicated, a water soluble retrograde small bowel study through the ostomy site may be helpful in further evaluation. Further clinical information was provided by Dr. Sutton. Although the patient's output from the ostomy had decreased, she had been vomiting which would explain the decreased output. Apparently, the ostomy was functioning normally after surgery. Considering her surgery was within the last month, diffuse adynamic ileus is thought to be most likely. Consider follow-up KUBs as clinically indicated. If there is progressive clinical concern for small bowel obstruction at the ostomy site, a retrograde small bowel study through the ostomy may be helpful. If a retrograde study is performed, it wouldbe helpful to inform the radiologist performing the study that the area of concern is at the level of the ostomy site. Radiologist: Dr Attila Arroyo , 10/28/2022 10:32 AM / Edited by: Chelsea [id number] Rinku , 38:51 AM Electronically signed by: Dr Attila Arroyo 10/29/2022 12:53 PM Radiologist Attila Arroyo MD Signed 10/29/22 12:53:55 (Electronic Signature) Technologist CH,KRS,SLF,TC,CD * Prabhakar ROMEROJono: PERFORM, VERIFY, VERIFY Event Display: [employer] Read Authored Date: PROCEDURE INFORMATION: Exam: XR Complete Acute Abdomen Series Including Chest Exam date and time: 10/27/2022 2:28 PM Age: 62 years old Clinical indication: Dehydration; Nausea and vomiting; Additional info: Nausea, vomiting, abd distention , vomiting TECHNIQUE: Imaging protocol: Radiologic exam. Complete acute abdomen series, including 2 or more views of the abdomen and a single view chest. COMPARISON: CR XR Abd AP and Up and or Decub and PA Chest 10/20/2022 5:36 AM FINDINGS: Lungs: Normal. No consolidation. Pleural spaces: Normal. No pleural effusions. No pneumothorax. Heart/Mediastinum: Normal. No cardiomegaly. Gastrointestinal tract: That the there are multiple gas-filled distended loops of small bowel with air-fluid level of concern for small bowel obstruction. . there is an ostomy in the right mid abdomen. Intraperitoneal space: No free air seen in the abdomen. Bones/joints: Normal. No acute fracture. Soft tissues: Normal. IMPRESSION: 1. That the there are multiple gas-filled distended loops of small bowel with air-fluid level of concern for small bowel obstruction. 2. There is an ostomy in the right mid abdomen. 3. No free air seen in the abdomen. Electronically signed by: Jono Radford MD, [employer], 10/27/2022 14:49 Jono Radford MD Signed 10/27/22 14:49:59 (Electronic Signature) Technologist PER * Jono Radford MD: PERFORM, VERIFY, MODIFY Event Display: [place] Addendum Authored Date: Addendum Begin Findings were discussed with Anika Thomas at 10/27/2022 3:00 PM FLORAL ASSISTANT. Addendum End Jono Radford MD Signed 10/27/22 15:00:08 (Electronic Signature) Technologist PER * Jono Radford MD: PERFORM, VERIFY, VERIFY Event Display: Report Authored Date: RF Small bowel Views W contrast PO * Attila Arroyo MD: PERFORM, VERIFY Attila Arroyo MD: VERIFY, VERIFY Attila Arroyo MD: VERIFY Chelsea Larson: TRANSCRIBE Event Display: Report Authored Date: [id number] Patient Care team information Care Team Personnel Name: Ant Gary MD Position: PX Physician - Colorectal Surgery Member Role: Primary Care Physician Address: Address: [address] Care Team Related Persons Name: PRIMO CROUCH Name: Gary Ba Name: MATILDE SCOTT Name: MATILDE NAVARRO Address: home [address] [place] [address] [place] [phone] [place] Address: mailing [address] [place], [place] [id number] [place] [address]
--- OUTSIDE RECORDS SUMMARY | 2023-04-30 14:30 | XMS_ITS | Continuity of Care Document ---
Author Name Unknown Organization [facility] Address [address] [place] [address]- Care Team Providers Care Railway Signal Technician Name Role Phone Cookie ROMERO, Ant Primary Care Physician Encounter [facility] Number [id number] Date(s): 01/23/23 - 01/25/23 [facility] [address] [place] [address]- Discharge Disposition: .Discharge to Home (Routine) Attending Physician: Irma Alves Allergies, Adverse Reactions, Alerts Substance Reaction Severity Status codeine Kidney Vomit Moderate Active Medications atorvastatin 40 mg oral tablet 40 mg = 1 tab, By mouth, QPM (every evening), # 30 tab, Refill(s) 0, Pharmacy: [facility], [id number], TAB, 1 tab By mouth QPM (every evening), 56.2, 12/18/22 9:56:00 CDT, kg, Weight Start Date: 12/22/22 Status: Ordered Cavilon Durable Barrier topical cream See Instructions, Topical, apply 2 - 3 times a week with appliance changes, # 30 g, Refill(s) 0, Route to Pharmacy Electronically, Pharmacy: [facility], [id number],Instructions Replace Required Details, Topical, reinaldo... Start Date: 11/22/22 Status: Ordered guar gum oral powder for reconstitution 4 = g, By mouth, Daily, # 155 g, Refill(s) 0, Route to Pharmacy Electronically, Pharmacy: [facility], [id number], POWDER, 4 g By mouth Daily, 68.1, 10/11/22 10:11:00 APPLICATIONS DEVELOPER, kg, Weight Start Date: 10/16/22 Status: Ordered Lomotil oral tablet 1 tab, By mouth, QID, PRN for loose stool, 24 tab, 0, 0, Substitution Permitted, [facility], 64, Height, 11/04/22 0:31:00 APPLICATIONS DEVELOPER, in, 61.9, Weight, 11/03/22 15:28:00 APPLICATIONS DEVELOPER, kg Start Date: 11/11/22 Status: Ordered loperamide 2 mg oral capsule 2 mg = 1 cap, By mouth, Q6H, Refill(s) 0, CAP Start Date: 12/22/22 Status: Ordered midodrine 5 mg oral tablet 10 mg = 2 tab, By mouth, TID, # 180 tab, Refill(s) 0, Pharmacy: [facility], [id number], TAB, 2 tab By mouth TID, 56.2, 12/18/22 9:56:00 CDT, kg, Weight Start Date: 12/22/22 Status: Ordered ondansetron 4 mg oral tablet, disintegrating = 1 tab, By mouth, Q6H, PRN NEEDED FOR NAUSEA AND VOMITING, # 20 tab, Refill(s) 0, Pharmacy: [facility], [id number], DISSOLVE 1 TABLET IN MOUTH EVERY 6 HOURS NEEDED FOR NAUSEA AND VOMITING, 56.2, 12/18/22 9:56:... Start Date: 01/13/23 Status: Ordered Ostomy supplies Ostomy supplies, See Instructions, Soft convex barrier wafer 69263, [id number], Adapt rings 7815, stoma powder 7906, 3M Cavilon skin barrier wipes. Adhesive remover 7737., # 1 pkt, Refills(s) 99, Print Requisition, Supply Start Date: 11/26/22 Status: Ordered ostomy supplies ostomy supplies, See Instructions, [place]: barrier ring 8815 Pouch 53669 [place] Wafer 15587 odor drops 7850 adapt no sting wipes 7917 adhesive remover wipes 7760, # 1 EA, Refills(s) 99, Print Requisition, Supply Start Date: 10/16/22 Status: Ordered oxyCODONE 5 mg oral tablet 5 mg, = 1 tab, By mouth, Q6H, PRN Pain Moderate, 24 tab, 0, 0, Substitution Permitted, [facility], 64, Height, 10/11/22 10:11:00 APPLICATIONS DEVELOPER, in, 68.1, Weight, 10/11/22 10:11:00 APPLICATIONS DEVELOPER, kg Start Date: 10/16/22 Status: Ordered pantoprazole 40 mg oral delayed release tablet 40 mg = 1 tab, By mouth, Daily, # 30 tab, Refill(s) 0, Pharmacy: [facility], [id number], TAB, 1 tab By mouth Daily, 63.4, 10/20/22 1:44:00 APPLICATIONS DEVELOPER, kg, Weight Start Date: 10/21/22 Status: Ordered sodium chloride 1 g oral tablet 1 g = 1 tab, By mouth, Daily, # 30 tab, Refill(s) 0, Pharmacy: [facility], [id number], TAB, 1 tab By mouth Daily, 56.2, 12/18/22 9:56:00 CDT, kg, Weight Start Date: 12/22/22 Status: Ordered Problem List Condition Confirmation Course Effective Dates Status H ealth Status Informant Dehydration Confirmed Active Ileostomy dysfunction Confirmed Active Ileostomy dysfunction Confirmed Active Ex-smoker Confirmed Active patient Increased stool volume Confirmed Active Ileostomy status Confirmed Active Hypoalbuminemia Confirmed Active Colon cancer Confirmed Active Tobacco use Confirmed Active Procedures Procedure Date Related Diagnosis Body Site Status Ileostomy Revision with Smal l Bowel Resection - Cookie 1 11/06/22 Completed Robotic Assisted Low Anterio r w/ Ileostomy - Cookie 10/11/22 Completed Flexible Sigmoidoscopy 2 10/07/22 Completed COLONOSCOPY FLX W/ENDOSCOPIC MUCOSAL RESECTION 3 Completed 1Ileostomy revision with small bowel resection. 2auto-populated from documented surgical case 3Done 09/05/2022 Results Radiology Reports * Exam Date Time Procedure Performing Provider Status 01/23/23 4:35 PM XR Chest PA Lateral Left Routine Francesca PAPER REWINDER OPERATOR, Irma L; Auth (Verified) Notes: (XR Chest PA Lateral Left Routine) Reason For Exam: Pain on inhalation, cough REPORT XR Chest PA Lateral Left Routine PROCEDURE INFORMATION: Exam: XR Chest Exam date and time: 01/23/2023 4:11 PM Age: 62 years old Clinical indication: Chest wall pain and left-sided; Prior surgery; Surgery date: 1-6 months; Surgery type: Port placed x2 months ago; Patient HX: Pain of left lateral chest wall on inhalation, SOB. PT denies cough. ; Additional info: Pain on inhalation, cough TECHNIQUE: Imaging protocol: Radiologic exam of the chest. Views: 2 views. COMPARISON: DX XR Chest 1 View 12/18/2022 10:41 AM FINDINGS: Tubes, catheters and devices: Port catheter tip remains in the lower superior vena cava. Lungs: Unremarkable. No consolidation. Pleural spaces: Unremarkable. No pleural effusion. No pneumothorax. Heart/Mediastinum: Unremarkable. No cardiomegaly. Bones/joints: Unremarkable. IMPRESSION: No acute findings. No change. Electronically signed by: Taurus Ceja MD, [facility], 01/24/2023 15:31 Taurus Ceja MD Signed 01/24/23 15:31:05 (Electronic Signature) Technologist KW Social History Social History Type Response Smoking Status Former smoker; Smoke less tobacco use: Never; Former smoker last 30 days Former smoker > 30 days; Has the patient smoked in the last 365 days, even once? Yes entered on: 12/18/22 Sex Female Implantable Device List Procedure Provider Procedure Date Device Type Site Unknown Unknown 10/11/22 Unknown Ureter, Right Device Identifier Serial Number Lot or Batch Number Manufacturing Date Expiration Date Distinct Identification Code MRI Safety Implantable Status 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 [id number] Unknown [id number] Unknown 07/08/25 Unknown Unknown Active GS1 [id number] 214 Unknown [id number] Unknown 07/29/25 Unknown Unknown Active GS1 XR Chest PA and Lateral * Taurus Ceja MD: PERFORM, VERIFY, VERIFY Event Display: Report Authored Date: [id number] Note * Taurus Ceja MD: PERFORM, VERIFY, VERIFY Event Display: Powerscribe Read Authored Date: PROCEDURE INFORMATION: Exam: XR Chest Exam date and time: 01/23/2023 4:11 PM Age: 62 years old Clinical indication: Chest wall pain and left-sided; Prior surgery; Surgery date: 1-6 months; Surgery type: Port placed x2 months ago; Patient HX: Pain of left lateral chest wall on inhalation, SOB. PT denies cough. ; Additional info: Pain on inhalation, cough TECHNIQUE: Imaging protocol: Radiologic exam of the chest. Views: 2 views. COMPARISON: DX XR Chest 1 View 12/18/2022 10:41 AM FINDINGS: Tubes, catheters and devices: Port catheter tip remains in the lower superior vena cava. Lungs: Unremarkable. No consolidation. Pleural spaces: Unremarkable. No pleural effusion. No pneumothorax. Heart/Mediastinum: Unremarkable. No cardiomegaly. Bones/joints: Unremarkable. IMPRESSION: No acute findings. No change. Electronically signed by: Taurus Ceja MD, [facility], 01/24/2023 15:31 Taurus Ceja MD Signed 01/24/23 15:31:05 (Electronic Signature) Technologist KW Patient Care team information Care Team Personnel Name: Samanta ROBERT, Joel Hatfield Position: Inpatient-Midlevel Member Role: Nurse Practitioner Address: Address: [address] Name: Radha Gary MDh Position: Physician - Colorectal Surgery Member Role: Primary Care Physician Address: Address: [address] Care Team Related Persons Name: PRIMO CROUCH Name: Gary Ba Name: MATILDE SCOTT Name: MATILDE NAVARRO Address: home [address] [place] [phone] [facility] Address: mailing [address] [place] [address] [address] [place] [phone] [place]
--- OUTSIDE RECORDS SUMMARY | 2023-04-30 14:30 | XMS_ITS | Continuity of Care Document ---
Author Name Unknown Organization [facility] Address [address] [place] [address]- Care Team Providers Care Dial Refinisher Name Role Phone Cookie ROMERO, [facility] Primary Care Physician [phone] Encounter [facility] Number [id number] Date(s): 12/11/22 - 12/13/22 [facility] [address] [place], [place] [address] Discharge Disposition: .Discharge to Home (Routine) Attending Physician: Luz ROMERO, Marcelo Allergies, Adverse Reactions, Alerts Substance Reaction Severity Status codeine Kidney Vomit Moderate Active Medications Cavilon Durable Barrier topical cream See Instructions, Topical, apply 2 - 3 times a week with appliance changes, # 30 g, Refill(s) 0, Route to Pharmacy Electronically, Pharmacy: [facility], [id number],Instructions Replace Required Details, Topical, reinaldo... Start Date: 11/22/22 Status: Ordered guar gum oral powder for reconstitution 4 = g, By mouth, Daily, # 155 g, Refill(s) 0, Route to Pharmacy Electronically, Pharmacy: [facility], [id number], POWDER, 4 g By mouth Daily, 68.1, 10/11/22 10:11:00 DEVULCANIZER OPERATOR, kg, Weight Start Date: 10/16/22 Status: Ordered Imodium A-D 2 mg oral tablet 2 mg, By mouth, Q6H, PRN Diarrhea/Loose Stool, # 100 tab, Refill(s) 0, Pharmacy: [facility], [id number], TAB, 2 mg By mouth Q6H,PRN:Diarrhea/Loose Stool, 68.1, 10/11/22 10:11:00 DEVULCANIZER OPERATOR, kg, Weight Start Date: 10/16/22 Status: Ordered Lomotil oral tablet 1 tab, By mouth, QID, PRN for loose stool, 24 tab, 0, 0, Substitution Permitted, [facility], 64, Height, 11/04/22 0:31:00 DEVULCANIZER OPERATOR, in, 61.9, Weight, 11/03/22 15:28:00 DEVULCANIZER OPERATOR, kg Start Date: 11/11/22 Status: Ordered Ostomy supplies Ostomy supplies, See Instructions, Soft convex barrier wafer 48323, [id number], Adapt rings 7815, stoma powder 7906, 3M Cavilon skin barrier wipes. Adhesive remover 7737., # 1 pkt, Refills(s) 99, Print Requisition, Supply Start Date: 11/26/22 Status: Ordered ostomy supplies ostomy supplies, See Instructions, [place]: barrier ring 8815 Pouch [address]140 [place] Wafer 38864 odor drops 7850 adapt no sting wipes 7917 adhesive remover wipes 7760, # 1 EA, Refills(s) 99, Print Requisition, Supply Start Date: 10/16/22 Status: Ordered oxyCODONE 5 mg oral tablet 5 mg, = 1 tab, By mouth, Q6H, PRN Pain Moderate, 24 tab, 0, 0, Substitution Permitted, [facility], 64, Height, 10/11/22 10:11:00 DEVULCANIZER OPERATOR, in, 68.1, Weight, 10/11/22 10:11:00 DEVULCANIZER OPERATOR, kg Start Date: 10/16/22 Status: Ordered pantoprazole 40 mg oral delayed release tablet 40 mg = 1 tab, By mouth, Daily, # 30 tab, Refill(s) 0, Pharmacy: [facility], [id number], TAB, 1 tab By mouth Daily, 63.4, 10/20/22 1:44:00 DEVULCANIZER OPERATOR, kg, Weight Start Date: 10/21/22 Status: Ordered Zofran ODT 4 mg oral tablet, disintegrating 4 mg = 1 tab, By mouth, Q6H, PRN for nausea & vomiting, # 20 tab, Refill(s) 0, Pharmacy: [facility], [id number], 1 tab By mouth Q6H,PRN:for nausea & vomiting, 68.1, 10/11/22 10:11:00 DEVULCANIZER OPERATOR, kg, Weight Start Date: 10/18/22 Status: Ordered [...] from documented surgical case 2Done 09/05/2022 Results Most recent to oldest [Reference Range]: 1 Bedside Glucose 99 mg/dL 1 (12/11/22 12:43 PM) 1Result Comment: Notify RN/DR Performed at:[facility], [facility] [place], [address] Reference Ranges: Age 0 - 24 hours: 45 - 115 mg/dL Age 24 hours - 30 days: 55 - 115 mg/dL Age > 30 days: 70 - 100 mg/dL Critical Results Requiring Immediate Notification: Age <72 Hours: <40 or >350 mg/dL Age >72 Hours: <50 or >400 mg/dL Radiology Reports * Exam Date Time Procedure Performing Provider Status 12/11/22 2:10 PM NM PET Initial Strat egy Eyes-Thighs Rock Dash; Auth (Verified) Notes: (NM PET Initial Strategy Eyes-Thighs) Reason For Exam: colon cancer REPORT Radiologist Cheng Michael MD Signed 12/11/22 16:01:37 (Electronic Signature) Information Technology Auditor WDS Technologist SAI,COOPER NM PET Initial Strategy Eyes-Thighs Radionuclide FDG PET-CT Imaging: Exam: NM PET Initial Strategy Eyes-Thighs Date/Time of Exam: 12/11/2022 2:10 PM CLINICAL HISTORY: colon cancer. Subsequent treatment strategy. Treatment History: Colonoscopy late August 2022 showed a large mass involving the rectum. Biopsy showed sigmoid colon cancer. Resection of mass was performed September 2022. In October 2022 ileostomy was revised. Patient is currently being evaluated for chemotherapy Diagnosis Codes: COMPARISON: MRI pelvis, 10/07/2022. CT chest abdomen and pelvis 10/07/2022. CT abdomen pelvis, 10/23/2022 and 11/03/2022. Reading Location: [place] [address] \T\ [address] RADIONUCLIDE: F-18 fluorodeoxyglucose (FDG) DOSE: 9.87 mCi IV TECHNIQUE: Following IV administration of FDG, synchronous PET/CT imaging was performed from orbitsto mid-thigh. The patient's blood glucose level at the time of this study was 99 mg/dL. Attenuationcorrected planar 3-D images and volumetric tomographic images in the coronal, transaxial, and parasagittal projections were reviewed. A low dose, noncontrast CT scan was performed as part of this examination primarily for the purposes of attenuation correction and anatomic localization. The qualityof this study is acceptable with regards to count density, processed images, data display and lack of important artifacts (including, but not limited to, motion and attenuation artifacts). Any series/slice references in the report below relate to the CT portion of today's study unless otherwise specified. SUV measurements are in units of g/ml, normalized to patient's body weight. FINDINGS: Head and Neck: Brain: Tracer uptake in visualized portions of the inferior brain is normal. Nasopharynx \T\ Oropharynx: Normal oropharyngeal mucosal uptake and salivary gland uptake is seen. Lymph Nodes: No abnormal lymph node uptake or mass uptake is seen. Chest: Lungs: No focal opacities, masses, or abnormalities. No abnormal pulmonary parenchymal uptake is seen. Prior noted lung nodules not readily apparent on this study. Heart and Mediastinum: Heart size normal. No adenopathy, masses, nor fluid collections.No abnormal lymph node uptake is seen. Left subclavian central venous catheter is seen with tip in the expected position of the SVC without complicating feature. Pleural Spaces: No pleural fluid nor pneumothorax. Chest Wall/MSK: No adenopathy nor masses. Bony structures intact. Degenerative disc and facet disease in the thoracic spine identified. Abdomen/Pelvis: Peritoneal Spaces: No free fluid nor gas. Retroperitoneum/Mesentery: Normally sized vascular structures. No adenopathy, mass, nor fluid collection. No abnormal retroperitoneal lymph node or mass uptake identified. Stomach/Bowel: Bowel excretion of tracer is normal. No obstruction. No focal inflammation. Appendixis not definitively seen but there is no focal inflammation in the cecal/right lower quadrant area.Ostomy right lower quadrant without complicating feature. Liver: Normal appearance. Liver distribution of tracer is normal. GB/Biliary: No inflammation nor biliary dilatation. Spleen: Normal appearance. Spleen distribution of tracer is normal. Pancreas: Normal appearance. Adrenals: Normal appearance. Kidneys, Ureters, Bladder: Normal appearance. Renal excretion of tracer is normal. Pelvis: Urinary bladder has normal configuration. Rectum shows evidence of tumor resection with rectal remnant. No complicating features. No masses nor adenopathy. No focal fluid collections. MSK/Bones: Normal appearance. Degenerative disc and facet disease in the lumbar spine identified. IMPRESSION: No evidence for metabolically active malignancy. Postsurgical changes involving pelvis/rectum consistent with tumor resection. Other incidental/non-acute findings are as described above. Electronically signed by: Dr. Cheng Michael 12/11/2022 4:01 PM Radiologist Cheng Michael MD Signed 12/11/22 16:01:37 (Electronic Signature) Information Technology Auditor WDS Technologist COOPER GIBBS Social History Social History Type Response Smoking [...] Code MRI Safety Implantable Status 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 [id number] 214 Unknown [id number] Unknown 07/08/25 Unknown Unknown Active GS1 [id number] 214 Unknown [id number] Unknown 07/29/25 Unknown Unknown Active GS1 Note * Cheng Michael MD: PERFORM, TRANSCRIBE, VERIFY, VERIFY Event Display: Report Authored Date: Radiologist Cheng Michael MD Signed 12/11/22 16:01:37 (Electronic Signature) Information Technology Auditor WDS Technologist COOPER GIBBS * Cheng Michael MD: PERFORM, TRANSCRIBE, VERIFY, VERIFY Event Display: Powerscribe Read Authored Date: [id number] Radionuclide FDG PET-CT Imaging: Exam: NM PET Initial Strategy Eyes-Thighs Date/Time of Exam: 12/11/2022 2:10 PM CLINICAL HISTORY: colon cancer. Subsequent treatment strategy. Treatment History: Colonoscopy late August 2022 showed a large mass involving the rectum. Biopsy showed sigmoid colon cancer. Resection of mass was performed September 2022. In October 2022 ileostomy was revised. Patient is currently being evaluated for chemotherapy Diagnosis Codes: COMPARISON: MRI pelvis, 10/07/2022. CT chest abdomen and pelvis 10/07/2022. CT abdomen pelvis, 10/23/2022 and 11/03/2022. Reading Location: [place] [address] \T\ [address] RADIONUCLIDE: F-18 fluorodeoxyglucose (FDG) DOSE: 9.87 mCi IV TECHNIQUE: Following IV administration of FDG, synchronous PET/CT imaging was performed from orbitsto mid-thigh. The patient's blood glucose level at the time of this study was 99 mg/dL. Attenuationcorrected planar 3-D images and volumetric tomographic images in the coronal, transaxial, and parasagittal projections were reviewed. A low dose, noncontrast CT scan was performed as part of this examination primarily for the purposes of attenuation correction and anatomic localization. The qualityof this study is acceptable with regards to count density, processed images, data display and lack of important artifacts (including, but not limited to, motion and attenuation artifacts). Any series/slice references in the report below relate to the CT portion of today's study unless otherwise specified. SUV measurements are in units of g/ml, normalized to patient's body weight. FINDINGS: Head and Neck: Brain: Tracer uptake in visualized portions of the inferior brain is normal. Nasopharynx \T\ Oropharynx: Normal oropharyngeal mucosal uptake and salivary gland uptake is seen. Lymph Nodes: No abnormal lymph node uptake or mass uptake is seen. Chest: Lungs: No focal opacities, masses, or abnormalities. No abnormal pulmonary parenchymal uptake is seen. Prior noted lung nodules not readily apparent on this study. Heart and Mediastinum: Heart size normal. No adenopathy, masses, nor fluid collections.No abnormal lymph node uptake is seen. Left subclavian central venous catheter is seen with tip in the expected position of the SVC without complicating feature. Pleural Spaces: No pleural fluid nor pneumothorax. Chest Wall/MSK: No adenopathy nor masses. Bony structures intact. Degenerative disc and facet disease in the thoracic spine identified. Abdomen/Pelvis: Peritoneal Spaces: No free fluid nor gas. Retroperitoneum/Mesentery: Normally sized vascular structures. No adenopathy, mass, nor fluid collection. No abnormal retroperitoneal lymph node or mass uptake identified. Stomach/Bowel: Bowel excretion of tracer is normal. No obstruction. No focal inflammation. Appendixis not definitively seen but there is no focal inflammation in the cecal/right lower quadrant area.Ostomy right lower quadrant without complicating feature. Liver: Normal appearance. Liver distribution of tracer is normal. GB/Biliary: No inflammation nor biliary dilatation. Spleen: Normal appearance. Spleen distribution of tracer is normal. Pancreas: Normal appearance. Adrenals: Normal appearance. Kidneys, Ureters, Bladder: Normal appearance. Renal excretion of tracer is normal. Pelvis: Urinary bladder has normal configuration. Rectum shows evidence of tumor resection with rectal remnant. No complicating features. No masses nor adenopathy. No focal fluid collections. MSK/Bones: Normal appearance. Degenerative disc and facet disease in the lumbar spine identified. IMPRESSION: No evidence for metabolically active malignancy. Postsurgical changes involving pelvis/rectum consistent with tumor resection. Other incidental/non-acute findings are as described above. Electronically signed by: Dr. Cheng Michael 12/11/2022 4:01 PM Radiologist Cheng Michael MD Signed 12/11/22 16:01:37 (Electronic Signature) Information Technology Auditor WDS Technologist SAI,COOPER Patient Care team information Care Team Personnel Name: Ant Gary MD Position: PX Physician - Colorectal Surgery Member Role: Primary Care Physician Address: Address: [facility] [address] [place], [place] [id number] [place] [address] Care Team Related Persons Name: PRIMO CROUCH Name: Gary Ba Name: MATILDE SCOTT Name: MATILDE NAVARRO Address: home [address] [place] [phone] [facility] Address: mailing [address] [place] [phone] [place]
--- OUTSIDE RECORDS SUMMARY | 2023-04-30 14:30 | XMS_ITS | Continuity of Care Document ---
Author Name Unknown Organization [facility] Address [address] [place] [address]- Care Team Providers Care Park Recreation Manager Name Role Phone Ant Gary MD Primary Care Physician Encounter 11/07/22 - 11/08/22 [facility] [address] [place] [address]- [place] Attending Physician: Ant Gary MD Allergies, Adverse Reactions, Alerts Substance Reaction Severity Status codeine Kidney Vomit Moderate Active Medications guar gum oral powder for reconstitution 4 = g, By mouth, Daily, # 155 g, Refill(s) 0, Route to Pharmacy Electronically, Pharmacy: [facility], [id number], POWDER, 4 g By mouth Daily, 68.1, 10/11/22 10:11:00 CONSULTING ANALYST, kg, Weight Start Date: 10/16/22 Status: Ordered Imodium A-D 2 mg oral tablet 2 mg, By mouth, Q6H, PRN Diarrhea/Loose Stool, # 100 tab, Refill(s) 0, Pharmacy: [facility], [id number], TAB, 2 mg By mouth Q6H,PRN:Diarrhea/Loose Stool, 68.1, 10/11/22 10:11:00 CONSULTING ANALYST, kg, Weight Start Date: 10/16/22 Status: Ordered ostomy supplies ostomy supplies, See Instructions, Demetra: barrier ring 8815 Pouch 45310 Demetra Wafer 11049 odor drops 7850 adapt no sting wipes 7917 adhesive remover wipes 7760, # 1 EA, Refills(s) 99, Print Requisition, Supply Start Date: 10/16/22 Status: Ordered oxyCODONE 5 mg oral tablet 5 mg, = 1 tab, By mouth, Q6H, PRN Pain Moderate, 24 tab, 0, 0, Substitution Permitted, [facility], 64, Height, 10/11/22 10:11:00 CONSULTING ANALYST, in, 68.1, Weight, 10/11/22 10:11:00 CONSULTING ANALYST, kg Start Date: 10/16/22 Status: Ordered pantoprazole 40 mg oral delayed release tablet 40 mg = 1 tab, By mouth, Daily, # 30 tab, Refill(s) 0, Pharmacy: [facility], [id number], TAB, 1 tab By mouth Daily, 63.4, 10/20/22 1:44:00 CONSULTING ANALYST, kg, Weight Start Date: 10/21/22 Status: Ordered Zofran ODT 4 mg oral tablet, disintegrating 4 mg = 1 tab, By mouth, Q6H, PRN for nausea & vomiting, # 20 tab, Refill(s) 0, Pharmacy: [facility], [id number], 1 tab By mouth Q6H,PRN:for nausea & vomiting, 68.1, 10/11/22 10:11:00 CONSULTING ANALYST, kg, Weight Start Date: 10/18/22 Status: Ordered [...] 1auto-populated from documented surgical case 2Done 09/05/2022 Social History Social History Type Response Smoking [...] Code MRI Safety Implantable Status 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 [id number] 214 Unknown [id number] Unknown 07/08/25 Unknown Unknown Active GS1 [id number] 214 Unknown [id number] Unknown 07/29/25 Unknown Unknown Active GS1 Patient Care team information Care Team Personnel Name: Ant Gary MD Position: PX Physician - Colorectal Surgery Member Role: Primary Care Physician Address: Address: [address] [place] [address] Care Team Related Persons Name: PRIMO CROUCH Name: Gary Ba Name: MATILDE SCOTT Name: MATILDE NAVARRO Address: home [address] [place] [address] [address] [place] [phone] [place] Address: mailing [address] [place], [place] [phone] [place] [address]
--- OUTSIDE RECORDS SUMMARY | 2023-04-30 14:30 | XMS_ITS | Continuity of Care Document ---
Author Name Unknown Organization [facility] Address [address] 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 Role Phone Ant Gary MD Primary Care Physician Encounter [facility] Number [id number] Date(s): 11/03/22 - 11/11/22 [facility] [address] [place] [facility] [place] [address]- [phone] Encounter Diagnosis Small bowel obstruction(Discharge Diagnosis) - 11/03/22 Discharge Disposition: .Discharge to Home (Routine) Attending Physician: Ant Gary MD Admitting Physician: Herberth Woo MD Allergies, Adverse Reactions, Alerts Substance Reaction Severity Status codeine Kidney Vomit Moderate Active Assessment and Plan Extracted from: Title:Instructions to Patients Author:Puja Morrison RN Date:11/11/22 [facility] New Ileostomy Guide Your Ostomy Resource Team Your Surgeon: Surgeon? s Office: [facility] Ostomy Nurse: [phone] [facility] Nutrition: [phone] [facility] Ostomy Family Support Group: Contact a Volunteer Sarah Dan [phone] or Jos Aquino [phone] What is an ileostomy? An ileostomy empties stool that comes from the bowel What will my stool look like? After surgery it will be watery, yellow/green stool. Over time, the stool will thicken and become more paste-like. Emptying Your Pouch ?Your pouch should be emptied when it is ? to ?? full ?Hold the pouch up and unclamp or un-Velcro the closed end while standing over the measuring cup given to you. ?Slowly empty contents into the measuring cup. ?Dry the bottom of the pouch & close the pouch ?Rinsing the inside of the pouch is not needed. How often should I change my pouch? ? ? The pouching system wear time is between 3-7 days. ? ? If the pouch is leaking you will need to change it to prevent the skin around your stoma from becoming irritated Ostomy Care Supplies ? ? You should always have 3 pouching systems available. ? ? Supplies are ordered from a surgical supply store/distributor. ? ? If you go home with Home Health Care Services, your Home Health Nurse can assist you in ordering your supplies. Bathing or Showering ?Water will not enter your stoma? think of it as a one-way pipe. ?Avoid bath oils and moisturizing soaps as this may prevent the pouching system from sticking to your skin ?You may bathe with your pouch on or off, be sure to towel dry the tape and skin around the pouching system afterward. Discharge from the Rectum Depending on your surgery, you may have left over stool, mucous or blood that passes from your rectum; this is normal. If you see a large amount of blood, please contact your surgeon. Adjusting to Life with an Ileostomy Each person? s adjustment to living with an ostomy is different. Allow yourself time to recover from surgery and not need help to take care of yourself. At first, you may feel scared or sad; there are no right or wrong feelings and most often people do feel better with time. This will happen as you feel better from surgery and get used to how your ostomy looks and how you care for it. You are not alone; thousands of people every year have ostomy surgery. You may want to talk to a family member, friend, professional counselor, or attend an ostomy support group in your area. Nutrition Tips to Prevent Complications ?Sip on liquids all day long to prevent dehydration. ?Each time you empty your ostomy, try drinking a cup of fluid. ?Avoid high fiber foods for the first 4-6 weeks after surgery. ?Low fiber foods will be more easily digested and may reduce your risk for developing a blockage or obstruction. ?Chew your food well. This will help prevent a blockage. ?Try eating 3 meals and 2-3 snacks to get enough calories to heal and prevent weight loss. ?Eat a source of protein at each meal and snack like meat, cheese, eggs, or yogurt. ?A chewable multivitamin supplement may be recommended. ?Foods like cauliflower, asparagus, fish, Brussel sprouts, cheeses, beans, broccoli, onions, cabbage and spicy foods may cause stool to have a strong odor. ?Eating foods with probiotics like yogurt each day may help to decrease odor. ?Avoid gas-causing foods like beans, broccoli, cauliflower, Brussel sprouts, onions & cabbage. ?Space your meals out every few hours during the day to help decrease gas. Signs of Blockage or Obstruction ? ? Intense cramping ? ? Stoma/stomach swelling or pain ? ? Nausea ? ? Vomiting ? ? No stoma output ? ? Increase in watery output from your stoma When Should You Call Your Doctor? ? ? Temperature over 101.0? Decrease in urine output ? Increase in nausea or vomiting ? ? Decrease in appetite ? ? Ostomy output over 1000mL after taking Imodium Skin Irritation It is important to keep the skin around your stoma healthy. The stool from your ostomy contains enzymes that can irritate your skin. ?Measure your stoma often to ensure the skin barrier opening fits close, but not on your stoma. ?Change the pouching system regularly, generally every 4-5 days. Do not wait until it leaks. ?If leaks do occur, change the pouching system. Do not attempt to patch with tape. Skin barrier is cut too large leaving too much skin exposed Skin barrier is cut to fit close but not on the stoma Additional Support & Resources ? ? Wound, Ostomy, Continence Nurses Society www.wocn.org ? ? Crohn? s & Colitis Foundation of [place] www.ccfa.org ? ? Cancer Care, [facility] www.ccfa.org ? ? [employer] Ost[employer] [place] www.uoaa.org Recommended Liquids to Keep Hydrated ? ? Water ? ? Flavored Water ? ? Gatorade ? ? Pediatric Electrolyte Solution ? ? Ensure High Protein Preventing Dehydration: Leading Cause of Complications with a New Ileostomy Signs and Symptoms of Dehydration ? ? Dry Mouth ? ? Increased Thirst ? ? Low Urine Output ? ? Feeling Tired ? ? Nausea ? ? Decreased Appetite Common Causes of Diarrhea & How Your Diet Can Help ??The thickness or thinness of your ostomy output depends on where your stoma is. Some foods may cause your output to be waterier which could lead to dehydration. ??Foods & Drinks That Thin Output Juice High Fiber Food Large Meals Hot Drinks Chocolate Spicy foods Soup Licorice Coffee Don? t drink more than 4 ounces of liquids with added sugars like juice, lemonade and sweet tea per day ??Foods That Help Thicken Output Applesauce White Rice Bananas Peanut Butter Yogurt Pasta Marshmallows Cheese Bread Take [id number] Imodium (loperamide) every 4-6 hours if your ostomy output is more than 1000 milliliters of in 24 hours. Tips for Preventing Dehydration ? ? Track your ostomy output everyday on the paper that is given to you. ? ? Drink at least 8-10 cups (64-80 ounces) of liquid each day, with half being something other than water. Talk to your doctor if you have been told to eat a low sodium or low potassium diet. ? ? Avoid alcohol, soda & fizzy drinks. ? ? Limit caffeine to one cup (8oz) per day - try decaf teas and coffees. If you have more than 1000 milliliters of output from your ostomy after taking Imodium (loperamide) as told: ? ? Call your surgeon? s office ? ? Measure ostomy output and drink more liquids ? ? Drink Gatorade, Pediatric Electrolyte Solution or an oral rehydration solution. ? ? Do not take more than 8 doses in 24 hours. Oral Rehydration Solution Recipes Mix all ingredients and chill *Do not add ice, this paulson it down Recipe 1 ?? 1 cup unsweet, no pulp orange juice ?? 1/2 teaspoon baking soda ?? 8 teaspoons sugar ?? 4 1/2 cups water Recipe 2 ?? 3/4 teaspoon salt ?? 1 tablespoon sugar ?? 1 teaspoon sugar ?? 16 ounces Sprite Zero ?? 1 envelope sugar free drink mix Recipe 3 ?? 1 cup apple juice ?? 3 cups water ?? 1/2 teaspoon salt Recipe 4 ?? 2 cups Gatorade ?? 2 cups water ?? 1/2 teaspoon salt Nutrition Guidelines for Patients with a New Ileostomy Foods for the First 4-6 Weeks after Surgery Group Recommended Foods Foods to Avoid Fruits Canned or Cooked fruits: fruit cocktail Applesauce, ripe bananas, honeydew & cantaloupe Raw or Canned fruits with seeds like: strawberries, blackberries or raspberries; dried fruit & coconut Vegetables Canned or Well-Cooked vegetables without seeds/skin. Cooked white or sweet potatoes, without skin Vegetable juice Raw vegetables or those with skin/seeds like: tomatoes, squash, or cucumbers. Breads, Cereals & Grains White rolls, muffins, biscuits, breads, crackers, waffles, pancakes, plain pastries, white rice & pastas. Refined cooked cereals: grits & cream of wheat. Refined cold cereals: Rice Krispies, puffed rice & wheat Canned or raw peas, corn or popcorn. Desserts Plain cakes and cookies, baked pastries Pies or jelly made with recommended fruits. Plain sherbet, fruit ice, frozen pops, yogurt, gelatin, custard Plain hard candy, and marshmallows Gas-causing raw or cooked vegetables like beans, broccoli, cauliflower, brussels sprouts, onions & cabbage Meats & Proteins Soft cooked chicken, beef, turkey, fish, pork, ground meats. Eggs & cheese; Smooth nut butters Whole-grain, bran, or rye breads Dairy Milk, cheese, cottage cheese, yogurt Try lactose free milk if you can? t tolerate regular milk Whole grain crackers or cereals After 4-6 weeks, foods from the avoid list may be added back into your diet in small amounts, one new food at a time and increase slowly as tolerated. June 2021 Ileostomy Output Log NOTE: Ileostomy output over 1 liter (1,000 mL) needs to be reported to the surgeon. Even with taking Imodium as/if prescribed. Incrase fluid intake with high ostomy output to prevent dehyddration and kidney failure. Monitor output until first visit with your surgeon. Call your surgeon's office, nurrsing station, or Ostomy Nurses ([phone]) for any questions. June 2021 Low-Fiber Eating Plan Fiber is found in fruits, vegetables, whole grains, and beans. Eating a diet low in fiber helps to reduce how often you have bowel movements and the amount of stool you produce. A low-fiber eating plan may help your digestive system heal if you: ? ? Have certain conditions, such as Crohn's disease, diverticulitis, or irritable bowel syndrome (IBS), and are having a flare-up. ? ? Recently had radiation therapy on your pelvis or bowel. ? ? Recently had intestinal surgery. ? ? Have a new surgical opening in your abdomen (colostomy or ileostomy). ? ? Have an intestine that has narrowed (stricture). Your health care provider will tell you how long to stay on this diet and may recommend that you work with a dietitian. What are tips for following this plan? Reading food labels ? ? Check the nutrition facts label on food products for the amount of dietary fiber. ? ? Choose foods that have less than 2 grams (g) of fiber per serving. Cooking ? ? Use white flour for baking and cooking. ? ? Cook meat using methods that keep it tender, such as braising or poaching. ? ? Cook eggs until the yolk is completely solid. ? ? Cook with healthy oils, such as olive oil or canola oil. Meal planning ? ? Eat 5? 6 small meals throughout the day instead of 3 large meals. ? ? If you are lactose intolerant: ? ? Choose low-lactose dairy foods. ? ? Do not eat dairy foods if told by your health care provider or dietitian. ? ? Limit fats and oils to less than 8 teaspoons (39 mL) a day. ? ? Eat small portions of desserts. ? ? Limit acidic, spicy, or fried foods to reduce gas, bloating, and discomfort. General information ? ? Follow instructions from your health care provider or dietitian about how much fiber you should have each day. ? ? Most people on a low-fiber eating plan should eat less than 10 g of fiber a day. Your daily fiber goal is g. ? ? Take vitamin and mineral supplements as told by your health care provider or dietitian. Chewable or liquid forms are best when on this eating plan. A gummy vitamin is not recommended. What foods should I eat? Fruits Soft-cooked or canned fruits without skin and seeds. Ripe banana. Applesauce. Fruit juice without pulp. Vegetables Well-cooked or canned vegetables without skin, seeds, or stems. Cooked potatoes without skins. Vegetable juice. Grains All bread and crackers made with white flour. Waffles, pancakes, and [place] toast. Bagels. Pretzels. Nini toast, zwieback, and matzoh. Cooked and dried cereals that do not have whole grains, added fiber, seeds, or dried fruit. [place]. Hot and cold cereals made with refined corn, rice, or oats. Plain pasta and noodles. White rice. Meats and other proteins Ground meat. Tender cuts of meat or poultry. Eggs. Fish, seafood, and shellfish. Smooth nut butters. Tofu. Dairy All milk products and drinks. Lactose-free milk, including rice, soy, and almond milk. Yogurt without fruit, nuts, chocolate, or granola mixed in. Sour cream. Cottage cheese. Cheese. Fats and oils [place] oil, canola oil, sunflower oil, flaxseed oil, avocado oil, and grapeseed oil. Mayonnaise. Cream cheese. Margarine. Butter. Beverages Decaf coffee. Fruit and vegetable juices. Smoothies (in small amounts, with no pulp or skins, and with fruits from the recommended list). Sports drinks. Herbal tea. Water. Sweets and desserts Plain cakes. Cookies. Cream pies and pies made with recommended fruits. Pudding. Custard. Fruit gelatin. Sherbet. Ice pops. Ice cream without nuts. Hard candy. Honey. Jelly. Molasses. Syrups. Chocolate. Marshmallows. Gumdrops. Seasonings and condiments Ketchup. Mild mustard. Mild salad dressings. Plain gravies. Vinegar. Spices in moderation. Salt. Sugar. Other foods Bouillon. Broth. Cream and strained soups made from recommended foods. Casseroles made with recommended foods. The items listed above may not be a complete list of foods and beverages you can eat. Contact a dietitian for more information. What foods should I avoid? Fruits Raw or dried fruit. Berries. Fruit juice with pulp. Prune juice. Vegetables Potato skins. Raw or undercooked vegetables. All beans and colon sprouts. Cooked greens. [place]. Peas. Cabbage. Beets. Broccoli. [place] sprouts. Cauliflower. Mushrooms. Onions. Peppers. Parsnips. Okra. Sauerkraut. Grains Whole-wheat, whole-grain, or multigrain breads, cereals, or crackers. [place] bread. Cereals with nuts, raisins, or coconut. Bran. Granola. High-fiber cereals. Cornmeal or corn bread. Whole-grain pasta. Wild or brown rice. Quinoa. Popcorn. Buckwheat. Wheat germ. Meats and other proteins Tough, fibrous meats with gristle. Fatty meat. Poultry with skin. Fried meat, poultry, or fish. Precooked or cured meat, such as sausages or meat loaves. [place]. Hot dogs. Nuts and chunky nut butter. Dried peas, beans, and lentils. Hummus. Dairy Yogurt with fruit, nuts, chocolate, or granola mixed in. Full-fat dairy such as whole milk, ice cream, or sour cream. Beverages Caffeinated coffee and teas. Fats and oils Avocado. Coconut. Butter. Sweets and desserts Desserts, cookies, or candies that contain nuts or coconut. Dried fruit. Jams and preserves with seeds. Marmalade. Any dessert made with fruits or grains that are not recommended. Seasonings and condiments Relish. Horseradish. Pickles. Olives. Other foods [place] tortilla chips. Soups made with vegetables or grains that are not recommended. The items listed above may not be a complete list of foods and beverages you should avoid. Contact a dietitian for more information. Summary ? ? Most people on a low-fiber eating plan should eat less than 10 grams of fiber a day. Follow recommendations from your health care provider or dietitian about how much fiber you should have each day. ? ? Always check nutrition facts labels to see the dietary fiber amount in packaged foods. A low-fiber food will have less than 2 grams of fiber per serving. ? ? Try to avoid whole grains, raw fruits and vegetables, dried fruit, tough cuts of meat, nuts, and seeds. ? ? Take a vitamin and mineral supplement as told by your health care provider or dietitian. This information is not intended to replace advice given to you by your health care provider. Make sure you discuss any questions you have with your health care provider. Document Revised: 01/04/2021 Document Reviewed: 01/04/2021 [employer] Patient Education ?? 2021 [employer]. Medication Leaflets: atropine and diphenoxylate (A troe peen and DYE fen OX i late) Chika What is the most important information I should know about atropine and diphenoxylate? Do not use this medicine if you have diarrhea that is caused by bacteria or by taking an antibiotic. You should not use atropine and diphenoxylate if you have a bile duct disorder causing jaundice (yellowing of your skin or eyes). Keep this medicine where a child cannot reach it. An overdose can be fatal to a child. What is atropine and diphenoxylate? Atropine affects the body in many different ways, such as reducing spasms in the bladder, stomach, and intestines. Diphenoxylate is an antidiarrheal medication. Atropine and diphenoxylate is a combination medicine used to treat diarrhea in adults and children who are at least 13 years old. Atropine and diphenoxylate may also be used for purposes not listed in this medication guide. What should I discuss with my healthcare provider before taking atropine and diphenoxylate? You should not use this medicine if you are allergic to atropine or diphenoxylate, or if you have: ? obstructive jaundice (a bile duct disorder that may cause yellowing of your skin or eyes); ? ? diarrhea that is caused by bacteria; or ? ? diarrhea caused by using antibiotic medication. Atropine and diphenoxylate is not approved for use by anyone younger than 6 years old. This medicine has not been proven safe or effective in children younger than 13 years old. Tell your doctor if you have ever had: ? a blockage in your intestines; ? ? ulcerative colitis; ? ? asthma or other breathing problems; ? ? glaucoma; ? ? urination problems; ? ? liver or kidney disease; ? ? Down's syndrome; or ? ? if you are dehydrated. It is not known whether this medicine will harm an unborn baby. Tell your doctor if you are . It may not be safe to breast-feed a baby while you are using this medicine. Ask your doctor about any risks. How should I take atropine and diphenoxylate? Follow all directions on your prescription label and read all medication guides or instruction sheets. Your doctor may occasionally change your dose. Use the medicine exactly as directed. Measure liquid medicine carefully. Use the dosing syringe provided, or use a medicine dose-measuring device (not a kitchen spoon). Drink plenty of liquids to keep from getting dehydrated while you have diarrhea. Your doctor may recommend an electrolyte supplement such as Gatorade or Pedialyte. Carefully follow all care instructions. It may take up to 48 hours before your symptoms improve. Keep using the medication as directed. Call your doctor if you still have diarrhea after 10 days, or if you have a fever. Store at room temperature away from moisture and heat. Keep this medicine where a child cannot reach it. An overdose of atropine and diphenoxylate can be fatal to a child. What happens if I miss a dose? Take the medicine as soon as you can, but skip the missed dose if it is almost time for your next dose. Do not take two doses at one time. What happens if I overdose? Seek emergency medical attention or call the Poison Help line at . An overdose of atropine and diphenoxylate can cause breathing problems and may result in or permanent brain damage. Early overdose symptoms include weakness, blurred vision, slurred speech, feeling hot, fast heartbeats, slowed breathing, fainting, seizure, or coma. Report any early overdose symptoms to your doctor as soon as possible. What should I avoid while taking atropine and diphenoxylate? Avoid driving or hazardous activity until you know how this medicine will affect you. Your reactions could be impaired. Avoid becoming overheated or dehydrated during exercise, in hot weather, or by not drinking enough fluids. Follow your doctor's instructions about the type and amount of liquids you should drink. Drinking alcohol with this medicine can cause side effects. What are the possible side effects of atropine and diphenoxylate? Get emergency medical help if you have signs of an allergic reaction: hives; difficult breathing; swelling of your face, lips, tongue, or throat. Some side effects may occur up to 30 hours after you take this medicine. Stop using this medicine and call your doctor at once if you have: ? severe constipation, stomach pain or bloating; ? ? ongoing or worsening diarrhea; ? ? diarrhea that is watery or bloody; ? ? severe pain in your upper stomach spreading to your back; ? ? fever, flushing (warmth, redness, or tingly feeling); ? ? hallucinations, seizure; ? ? rapid breathing, weak or shallow breathing; ? ? fast heart rate; or ? ? dehydration symptoms--feeling very thirsty or hot, being unable to urinate, heavy sweating, or hot and dry skin. Common side effects may include: ? drowsiness, dizziness, feeling restless; ? ? headache; ? ? numbness in your hands or feet; ? ? depression, not feeling well; ? ? confusion, feelings of extreme happiness; ? ? red or swollen gums; ? ? dry mouth, nose, or throat; ? ? nausea, vomiting, upset stomach, loss of appetite; or ? ? skin rash, dryness, or itching. This is not a complete list of side effects and others may occur. Call your doctor for medical advice about side effects. You may report side effects to FDA at 2-267-GSQ-8906. What other drugs will affect atropine and diphenoxylate? Using this medicine with other drugs that make you drowsy can worsen this effect. Ask your doctor before using opioid medication, a sleeping pill, a muscle relaxer, cold or allergy medicine, or medicine for anxiety, depression, or seizures. Tell your doctor about all your other medicines. Some may affect atropine and diphenoxylate, especially: ? medicine to treat Parkinson's disease; ? ? medicine to treat excess stomach acid, stomach ulcer, motion sickness, or irritable bowel syndrome; ? ? bladder or urinary medicines; ? ? a bronchodilator; or ? ? an MAO inhibitor--isocarboxazid, linezolid, methylene blue injection, phenelzine, rasagiline, selegiline, tranylcypromine, and others. This list is not complete. Other drugs may affect atropine and diphenoxylate, including prescription and [id number] medicines, vitamins, and herbal products. Not all possible drug interactions are listed here. Where can I get more information? Your pharmacist can provide more information about atropine and diphenoxylate. Remember, keep this and all other medicines out of the reach of children, never share your medicines with others, and use this medication only for the indication prescribed. Every effort has been made to ensure that the information provided by [employer]. [employer]') is accurate, up-to-date, and complete, but no guarantee is made to that effect. Drug information contained herein may be time sensitive. [employer] information has been compiled for use by healthcare practitioners and consumers in the [place] and therefore [employer] does not warrant that uses outside of the [place] are appropriate, unless specifically indicated otherwise. [employer] drug information does not endorse drugs, diagnose patients or recommend therapy. [employer] drug information is an informational resource designed to assist licensed healthcare practitioners in caring for their patients and/or to serve consumers viewing this service as a supplement to, and not a substitute for, the expertise, skill, knowledge and judgment of healthcare practitioners. The absence of a warning for a given drug or drug combination in no way should be construed to indicate that the drug or drug combination is safe, effective or appropriate for any given patient. [employer] does not assume any responsibility for any aspect of healthcare administered with the aid of information [employer] provides. The information contained herein is not intended to cover all possible uses, directions, precautions, warnings, drug interactions, allergic reactions, or adverse effects. If you have questions about the drugs you are taking, check with your doctor, nurse or pharmacist. Copyright 5740-1492 [employer]. Version: 4.01. Revision Date: 11/26/2017. Accessing??[facility]??Patient??Portal Access medications, test results, radiology reports, and more through [facility] secure patient portal. Please be patient if waiting on lab results, as these can take several days to process. [place] online at??[email or web address].??Use your community medical record number (CMRN) located below to verify your identity on the Self-Enrollment form.We also offer the ability for you to securely connect other health management apps to your health record. See the [facility] Connection link on the website above for more details. Watch [facility] Patient Education Videos and Access Resources anytime online! Visit [email or web address]. Extracted from: Title:Discharge Summary ([facility]) Author:Ant Gary MD Date:11/11/22 Discharge Information Discharge Summary Information: Discharge Information Admit date:11/03/2022 Discharge date:11/11/2022 Primary Care Physician:Ant Gary MD Attending Physician:Ant Gary MD Consulting Physician:Ant Bledsoe MD Admitting Physician:Herberth Woo MD . Discharge diagnosis: Medical Diagnosis Diarrhea Ileostomy obstruction Ileostomy dysfunction Acute kidney injury . Operations and procedures: SN - SgP - Procedure: Revision Ileostomy (11/06/22) Sn - SgP - Surgeon Preferred Procedure: with Resection of Small Bowel (11/06/22). Discharge medications: Home Medications (6) Active guar gum oral powder for reconstitution 4 [...] Discharge orders: . 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 readmitted with ileostomy dysfunction on 11/03/2022- ileostomy revision with small-bowel resection- Cookie 11/06 Feeling much better today; 1800 ostomy output, however only received 2 doses of Imodium Afebrile now, temp of 102.5 yesterday afternoon ROS: Cardiac - No CP or Palpitations Pulm - No SOB or Wheezing Exam: AF / VSS Alert / NAD Resp - Non-labored Abd - Soft / Non- distended, ileostomy healthy viable Labs / Diagnostics - reviewed Hypomagnesemia Impression: Rectosigmoid junction cancer Ileostomy dysfunction Dehydration Hypotension Hypomagnesemia Plan: Cont diet Imodium TID DC IVF Increase activity/SMI Supportive care Impression and Plan Orders Orders Pharmacy: magnesium sulfate (Order): 2 g, IVPB, IVPB, ONCE, Start Date: 11/10/2022 11:30 ELEVATOR ATTENDANT, Stop date 11/10/2022 11:30 ELEVATOR ATTENDANT, Routine, Infuse over: 2 hr D5 1/2NS 1000ml & 20mEq KCL 1000 mL (Discontinue): 11/10/2022 11:03 ELEVATOR ATTENDANT Patient Care: Saline Lock (Order): 11/10/2022 11:03 ELEVATOR ATTENDANT, When taking PO fluids Professional Fees: [facility] Post Operative Care [id number] (Order): 11/10/2022 11:02 ELEVATOR ATTENDANT, [facility], Small bowel obstruction. Addendum by Ramesh ROMERO, [facility] on November 10, 2022 12:01 ELEVATOR ATTENDANT I have seen, examined, and discussed the patient with Tammie Franco NP.?? I helped formulate and agree with the assessment and plan. 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 readmitted with ileostomy dysfunction on 11/03/2022- ileostomy revision with small-bowel resection- Cookie 11/06 Pushing PO intake; 2500 out of ostomy, no Imodium yesterday, but had Benefiber; some crampy pain right before output; febrile yesterday afternoon Afebrile now, temp of 102.5 yesterday afternoon ROS: Cardiac - No CP or Palpitations Pulm - No SOB or Wheezing Exam: AF / VSS Alert / NAD Resp - Non-labored Abd - Soft / Non- distended, ileostomy healthy viable thin stool in bag Labs / Diagnostics - reviewed Hypomagnesemia Impression: Rectosigmoid junction cancer Ileostomy dysfunction Dehydration Hypotension Hypomagnesemia Plan: Cont diet Scheduled Imodium, TID Cont Benefiber Cont IVF Increase activity/OOB Shower Supportive care Impression and Plan Orders Orders Pharmacy: D5 1/2NS 1000ml & 20mEq KCL 1,000 mL (Order): Route: IV, Routine, Start Date: 11/09/2022 11:16 ELEVATOR ATTENDANT, 90 Days, Stop date 02/07/2023 11:15 CDT, Rate= 75 ml/hr, hr, Total Vol ml = 1,000, 1.68, m2 Lactated Ringers Injection intravenous solution 1000 mL (Discontinue): 11/09/2022 11:16 ELEVATOR ATTENDANT Imodium A-D (Order): 2 mg, CAP, By mouth, TID, Start Date: 11/09/2022 14:00 ELEVATOR ATTENDANT, Duration: 90 Days, Stop date 02/07/2023 9:00 CDT, Routine Laboratory: Phosphorus (Order): Blood, Early AM, 11/10/2022 3:00 ELEVATOR ATTENDANT, Routine, 24, hr, 11/11/2022 2:59 ELEVATOR ATTENDANT, pp_rslts_call_set_order_encntr Magnesium Serum (Order): Blood, Early AM, 11/10/2022 3:00 ELEVATOR ATTENDANT, Routine, 24, hr, 11/11/2022 2:59 ELEVATOR ATTENDANT, pp_rslts_call_set_order_encntr CBC(Hemogram) (Order): Blood, Early AM, 11/10/2022 3:00 ELEVATOR ATTENDANT, Routine, 24, hr, 11/11/2022 2:59 ELEVATOR ATTENDANT, pp_rslts_call_set_order_encntr BMP (Order): Blood, Early AM, 11/10/2022 3:00 ELEVATOR ATTENDANT, Routine, 24, hr, 11/11/2022 2:59 ELEVATOR ATTENDANT, pp_rslts_call_set_order_encntr Patient Care: Shower (Order): 11/09/2022 11:15 ELEVATOR ATTENDANT, PRN Order Professional Fees: [facility] Post Operative Care [id number] (Order): 11/09/2022 11:14 ELEVATOR ATTENDANT, [facility], Small bowel obstruction. Addendum by Frank Chandler MD on November 09, 2022 12:21 ELEVATOR ATTENDANT I have reviewed his objective data and discussed with Tammie Franco NP. ??We collaborated to create the above mentioned assessment and plan. 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 readmitted with ileostomy dysfunction on 11/03/2022 Continues to have high ileostomy output, off pressors, tolerating soft diet Denies abdominal pain nausea or emesis Afebrile ROS: Cardiac - No CP or Palpitations Pulm - No SOB or Wheezing Exam: AF / VSS Alert / NAD Resp - Non-labored Abd - Soft / Non- distended, ileostomy healthy viable Major catheter in situ, semi-solid stool in bag Labs / Diagnostics - reviewed Hypomagnesemia Impression: Rectosigmoid junction cancer Ileostomy dysfunction Dehydration Hypotension Hypomagnesemia Plan: Continue IV fluid resuscitation Soft diet Ileostomy care Benefiber b.i.d. Imodium 2 mg p.o. q.6 hours Lomotil 2.5 mg p.o. q.6 hours Addendum by Ant Gray MD on November 06, 2022 16:26 ELEVATOR ATTENDANT Patient complained of abdominal distensi on and crampy abdominal pain with decreased ileostomy output piece after noon, intubated Major catheter would repeatedly clog resulting in decreased ostomy output. I had extensive discussion with the patient and her daughter regarding her condition considering she has recurrent of ileostomy likely at the fascial level. I advised her to undergo ileostomy revision under anesthesia. I discussed risks of the operation including but not limited to bleeding, perforation, heart attack, possible need for laparotomy, adjacent organ injury. Patient voiced understanding I will go ahead and schedule her for her ileostomy revision. Extracted from: Title:Colorectal Surgery Author:Ant Gary MD Date:11/04/22 Impression and Plan Diagnosis Diarrhea - PNED [id number]. Small bowel obstruction - [id number] K56.609. 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 On examination abdomen is soft nondistended nontender ileostomy healthy viable liquid stool in bag. Have independently reviewed her CT scan imaging and lab reports. Will remove her NG tube Q her full liquid diet advanced to soft diet as tolerated, patient is educated about intubation of stoma with red rubber catheter if she backs up. Repeat a.m. labs. Extracted from: Title:Diarrhea ED Author:Jeffrey Alfonso MD Date:11/03 Impression and Plan Diagnosis Small bowel obstruction ([id number] K56.609) Plan Condition: Improved. Disposition: Admit to Inpatient Unit, Herberth Woo MD. Counseled: Patient, Family, Regarding diagnosis, Regarding diagnostic results. Future Appointments Appointment Date:12/05/2022 11:40:00 AM Scheduled Provider:Ant Gary MD Location:-[facility] Appointment Type:Established Patient Medications guar gum oral powder for reconstitution 4 = g, By mouth, Daily, # 155 g, Refill(s) 0, Route to Pharmacy Electronically, Pharmacy: [facility], [id number], POWDER, 4 g By mouth Daily, 68.1, 10/11/22 10:11:00 ELEVATOR ATTENDANT, kg, Weight Start Date: 10/16/22 Status: Ordered Imodium A-D 2 mg oral tablet 2 mg, By mouth, Q6H, PRN Diarrhea/Loose Stool, # 100 tab, Refill(s) 0, Pharmacy: [facility], [id number], TAB, 2 mg By mouth Q6H,PRN:Diarrhea/Loose Stool, 68.1, 10/11/22 10:11:00 ELEVATOR ATTENDANT, kg, Weight Start Date: 10/16/22 Status: Ordered Lomotil oral tablet 1 tab, By mouth, QID, PRN for loose stool, 24 tab, 0, 0, Substitution Permitted, [facility], 64, Height, 11/04/22 0:31:00 ELEVATOR ATTENDANT, in, 61.9, Weight, 11/03/22 15:28:00 ELEVATOR ATTENDANT, kg Start Date: 11/11/22 Status: Ordered ostomy supplies ostomy supplies, See Instructions, Demetra: barrier ring 8815 Pouch [address] [place] 11930 odor drops 7850 adapt no sting wipes 7917 adhesive remover wipes 7760, # 1 EA, Refills(s) 99, Print Requisition, Supply Start Date: 10/16/22 Status: Ordered oxyCODONE 5 mg oral tablet 5 mg, = 1 tab, By mouth, Q6H, PRN Pain Moderate, 24 tab, 0, 0, Substitution Permitted, [facility], 64, Height, 10/11/22 10:11:00 ELEVATOR ATTENDANT, in, 68.1, Weight, 10/11/22 10:11:00 ELEVATOR ATTENDANT, kg Start Date: 10/16/22 Status: Ordered pantoprazole 40 mg oral delayed release tablet 40 mg = 1 tab, By mouth, Daily, # 30 tab, Refill(s) 0, Pharmacy: [facility], [id number], TAB, 1 tab By mouth Daily, 63.4, 10/20/22 1:44:00 ELEVATOR ATTENDANT, kg, Weight Start Date: 10/21/22 Status: Ordered Zofran ODT 4 mg oral tablet, disintegrating 4 mg = 1 tab, By mouth, Q6H, PRN for nausea & vomiting, # 20 tab, Refill(s) 0, Pharmacy: [facility], [id number], 1 tab By mouth Q6H,PRN:for nausea & vomiting, 68.1, 10/11/22 10:11:00 ELEVATOR ATTENDANT, kg, Weight Start Date: 10/18/22 Status: Ordered Problem List Condition Confirmation Course Effective Dates Status Health St atus Informant Dehydration Confirmed Active Ileostomy dysfunction Confirmed Active Ileostomy dysfunction Confirmed Active Ex-smoker Confirmed Active patient Tobacco use Confirmed Active Procedures Procedure Date Related Diagnosis Body Site Status REVJ ILEOSTOMY SIMPLE RLS GUTHRIE PERFICIAL SCAR SPX 11/06/22 Completed Robotic Assisted Low Anterio r w/ Ileostomy - Cookie 10/11/22 Completed Flexible Sigmoidoscopy 1 10/07/22 Completed COLONOSCOPY FLX W/ENDOSCOPIC MUCOSAL RESECTION 2 Completed 1auto-populated from documented surgical case 2Done 09/05/2022 Results Laboratory List Name Date BMP 11/10/22 Hemogram (CBC(Hemogram)) 11/10/22 Magnesium Serum (Mg Serum) 11/10/22 Phosphorus 11/10/22 BMP 11/09/22 CBC-d 11/09/22 zCBC Automated Diff 11/09/22 BMP 11/07/22 Magnesium Serum (Mg Serum) 11/07/22 Phosphorus 11/07/22 TSABS auto 11/06/22 TSType 11/06/22 Coronavirus (Ref Lab) 11/06/22 Magnesium Serum (Mg Serum) 11/06/22 CBC-d 11/05/22 Phosphorus 11/05/22 zCBC Automated Diff 11/05/22 zCBC Automated Diff 11/04/22 Urinalysis w/ microscopy (UA w/ micro) CMP 11/03/22 Lipase 11/03/22 Most recent to oldest [Reference Range]: 1 2 3 Type and RH Interp A Positive *Unknown* (11/06/22 4:56 PM) Bedside Glucose 94 mg/dL 1 (11/06/22 3:59 PM) 97 mg/dL 2 (11/05/22 3:56 PM) 98 mg/dL 3 (11/05/22 11:50 AM) Antibody Screen Interp a Negative (11/06/22 4:56 PM) Anion Gap [2-15 mEq/L] 7 mEq/L (11/10/22 5:41 AM) 7 mEq/L (11/09/22 12:45 AM) 8 mEq/L (11/07/22 4:31 AM) RTE Casts None Seen (11/03/22 3:42 PM) RTEs None Seen (11/03/22 3:42 PM) COVID-19 PCR Fischer Negative 4 *NA* (11/06/22 12:45 PM) Glucose, Serum/Plasma [70-10 0 mg/dL] 96 mg/dL (11/10/22 5:41 AM) 102 mg/dL *HI* (11/09/22 12:45 AM) 128 mg/dL *HI* (11/07/22 4:31 AM) WBC [4.8-10.8 Thous/mm3] 5.2 Thous/mm3 (11/10/22 5:41 AM) 7.4 Thous/mm3 (11/09/22 12:45 AM) 5.1 Thous/mm3 (11/05/22 2:09 AM) Hct [37.0-47.0 %] 33.9 % *LOW* (11/10/22 5:41 AM) 31.4 % *LOW* (11/09/22 12:45 AM) 35.7 % *LOW* (11/05/22 2:09 AM) Hgb [12.0-16.0 g/dL] 10.9 g/dL *LOW* (11/10/22 5:41 AM) 10.3 g/dL *LOW* (11/09/22 12:45 AM) 11.5 g/dL *LOW* (11/05/22 2:09 AM) RBC [4.20-5.40 Million/mm3] 3.83 Million /mm3 *LOW* (11/10/22 5:41 AM) 3.60 Million/mm3 *LOW* (11/09/22 12:45 AM) 4.06 Million/mm3 *LOW* (11/05/22 2:09 AM) MCV [80.0-100.0 fl] 88.5 fl (11/10/22 5:41 AM) 87.2 fl (11/09/22 12:45 AM) 87.9 fl (11/05/22 2:09 AM) MCH [26.0-34.0 pg] 28.5 pg (11/10/22 5:41 AM) 28.6 pg (11/09/22 12:45 AM) 28.3 pg (11/05/22 2:09 AM) MCHC [31.0-36.5 g/dL] 32.2 g/dL (11/10/22 5:41 AM) 32.8 g/dL (11/09/22 12:45 AM) 32.2 g/dL (11/05/22 2:09 AM) RDW [10.4-14.4 %] 12.9 % (11/10/22 5:41 AM) 12.8 % (11/09/22 12:45 AM) 12.2 % (11/05/22 2:09 AM) Platelets [130-440 Thous/mm3] 269 Thous/ mm3 (11/10/22 5:41 AM) 206 Thous/mm3 (11/09/22 12:45 AM) 221 Thous/mm3 (11/05/22 2:09 AM) MPV [9.4-12.4 fl] 11.5 fl (11/10/22:41 AM) 11.4 fl (11/09/22:45 AM) 11.3 fl (11/05/22 2:09 AM) AutoNeutrophil [43.0-78.0 %] 71.2 % (11/09/22 12:45 AM) 51.6 % (11/05/22 2:09 AM) 60.6 % (11/04/22 3:30 AM) AutoLymphs [20.0-40.0 %] 16.5 % *LOW* (11/09/22 12:45 AM) 35.7 % (11/05/22 2:09 AM) 27.1 % (11/04/22 3:30 AM) AutoMono [2.0-10.0 %] 8.2 % (11/09/22 12:45 AM) 8.4 % (11/05/22 2:09 AM) 8.6 % (11/04/22 3:30 AM) AutoEo [0.0-7.0 %] 3.4 % (11/09/22 12:45 AM) 3.9 % (11/05/22 2:09 AM) 2.8 % (11/04/22 3:30 AM) Sodium [136-145 mEq/L] 136 mEq/L (11/10/22 5:41 AM) 137 mEq/L (11/09/22 12:45 AM) 134 mEq/L *LOW* (11/07/22 4:31 AM) Potassium [3.5-5.1 mEq/L] 4.3 mEq/L (11/10/22 5:41 AM) 3.9 mEq/L (11/09/22 12:45 AM) 4.1 mEq/L (11/07/22 4:31 AM) Chloride [98-107 mEq/L] 101 mEq/L (11/10/22 5:41 AM) 101 mEq/L (11/09/22 12:45 AM) 100 mEq/L (11/07/22 4:31 AM) AbsNeut [2.0-8.0 Thous/mm3] 5.3 Thous/mm 3 (11/09/22 12:45 AM) 2.6 Thous/mm3 (11/05/22 2:09 AM) 3.5 Thous/mm3 (11/04/22 3:30 AM) CO2 [21-32 mEq/L] 28 mEq/L (11/10/22 5:41 AM) 29 mEq/L (11/09/22 12:45 AM) 26 mEq/L (11/07/22 4:31 AM) BUN [7-18 mg/dL] 5 mg/dL *LOW* (11/10/22 5:41 AM) 10 mg/dL (11/09/22 12:45 AM) 6 mg/dL *LOW* (11/07/22 4:31 AM) Creatinine [0.51-0.95 mg/dL] 0.84 mg/dL (11/10/22 5:41 AM) 0.83 mg/dL (11/09/22 12:45 AM) 0.77 mg/dL (11/07/22 4:31 AM) AbsLymph [1.0-4.0 Thous/mm3] 1.2 Thous/m m3 (11/09/22 12:45 AM) 1.8 Thous/mm3 (11/05/22 2:09 AM) 1.6 Thous/mm3 (11/04/22 3:30 AM) AbsMono [0.1-1.0 Thous/mm3] 0.6 Thous/mm 3 (11/09/22 12:45 AM) 0.4 Thous/mm3 (11/05/22 2:09 AM) 0.5 Thous/mm3 (11/04/22 3:30 AM) Bilirubin, Total [0.2-1.0 mg/dL] 0.7 mg/dL (11/03/22 3:38 PM) AbsEo [0.0-0.5 Thous/mm3] 0.2 Thous/mm3 (11/09/22 12:45 AM) 0.2 Thous/mm3 (11/05/22 2:09 AM) 0.2 Thous/mm3 (11/04/22 3:30 AM) AbsBaso [0.0-0.2 Thous/mm3] 0.0 Thous/mm 3 (11/09/22 12:45 AM) 0.0 Thous/mm3 (11/05/22 2:09 AM) 0.0 Thous/mm3 (11/04/22 3:30 AM) AutoBaso [0.0-2.5 %] 0.4 % (11/09/22 12:45 AM) 0.2 % (11/05/22 2:09 AM) 0.7 % (11/04/22 3:30 AM) Calcium [8.3-10.6 mg/dL] 9.0 mg/dL (11/10/22 5:41 AM) 8.5 mg/dL (11/09/22 12:45 AM) 8.6 mg/dL (11/07/22 4:31 AM) Protein Total [6.4-8.5 g/dL] 8.0 g/dL (11/03/22 3:38 PM) Albumin [3.4-5.0 g/dL] 4.5 g/dL (11/03/22 3:38 PM) AST [15-37 U/L] 74 U/L *HI* (11/03/22 3:38 PM) Alk Phos [45-117 U/L] 83 U/L (11/03/22 3:38 PM) Phosphorus [2.4-5.1 mg/dL] 4.3 mg/dL (11/10/22 5:41 AM) 4.5 mg/dL (11/07/22 4:31 AM) 3.6 mg/dL (11/05/22 2:09 AM) Magnesium [1.8-2.4 mg/dL] 1.7 mg/dL *LOW* (11/10/22 5:41 AM) 1.7 mg/dL *LOW* (11/07/22 4:31 AM) 2.2 mg/dL (11/06/22 12:29 AM) ALT [10-49 U/L] 128 U/L *HI* (11/03/22 3:38 PM) Appearance [Clear] Cloudy *ABN* (11/03/22 3:42 PM) Color [Yellow] Dark Yellow *NA* (11/03/22 3:42 PM) Sp. [place] [1.001-1.035] 1.012 (11/03/22 3:42 PM) Ketones [Negative] Trace *ABN* (11/03/22 3:42 PM) Glucose [Negative] Negative (11/03/22 3:42 PM) Protein [Negative] 1+ *ABN* (11/03/22 3:42 PM) Blood [Negative] Negative (11/03/22 3:42 PM) Nitrites UA [Negative] Negative (11/03/22 3:42 PM) Lipase, Serum/Plasma [12-53 U/L] 54 U/L *HI* (11/03/22 3:38 PM) Bilirubin UA [Negative] Negative (11/03/22 3:42 PM) Urobilinogen [1.0 mg/dL] 1.0 mg/dL (11/03/22 3:42 PM) Leuko Esterase UA [Negative] Trace (11/03/22 3:42 PM) pH UA [5.0-9.0] 5.0 (11/03/22 3:42 PM) RBC [0-2/hpf] 0-2/hpf (11/03/22 3:42 PM) WBC [0-5/hpf] 0-5/hpf (11/03/22 3:42 PM) Hyaline Casts [0-2/lpf] >20/lpf *ABN* (11/03/22 3:42 PM) Bacteria [None Seen] None Seen (11/03/22 3:42 PM) Crystals Ca Oxalate Present *ABN* (11/03/22 3:42 PM) Epithelium [None Seen] 1+ *ABN* (11/03/22 3:42 PM) Mucous Threads Present *NA* (11/03/22 3:42 PM) eGFR [>=60 mL/min/1.73 m2] 69 mL/min/1.7 3 m2 (11/10/22 5:41 AM) 70 mL/min/1.73 m2 (11/09/22 12:45 AM) 76 mL/min/1.73 m2 (11/07/22 4:31 AM) eGFR if [>=60 mL/min/1.73 m2] 83 mL/min/1.73 m2 (11/10/22 5:41 AM) 84 mL/min/1.73 m2 (11/09/22 12:45 AM) 92 mL/min/1.73 m2 (11/07/22 4:31 AM) Volume 3 mL *NA* (11/03/22 3:42 PM) Imm. Grans % [0-5 %] <5 % (11/09/22 12:45 AM) <5 % (11/05/22 2:09 AM) <5 % (11/04/22 3:30 AM) Imm. Grans # [0.0-0.5 Thous/mm3] <0.5 Thous/mm3 (11/09/22 12:45 AM) <0.5 Thous/mm3 (11/05/22 2:09 AM) <0.5 Thous/mm3 (11/04/22 3:30 AM) ANC-AbsNeutCount 5.3 Thous/mm3 *NA* (11/09/22 12:45 AM) 2.6 Thous/mm3 *NA* (11/05/22 2:09 AM) 3.5 Thous/mm3 *NA* (11/04/22 3:30 AM) 1Result Comment: Notify RN/DR Performed at:[facility], [facility] [address] [facility], [place], [address] Reference Ranges: Age 0 - 24 hours: 45 - 115 mg/dL Age 24 hours - 30 days: 55 - 115 mg/dL Age > 30 days: 70 - 100 mg/dL Critical Results Requiring Immediate Notification: Age <72 Hours: <40 or >350 mg/dL Age >72 Hours: <50 or >400 mg/dL 2Result Comment: Notify RN/DR Performed at:[facility], [facility] [place], [address] Reference Ranges: Age 0 - 24 hours: 45 - 115 mg/dL Age 24 hours - 30 days: 55 - 115 mg/dL Age > 30 days: 70 - 100 mg/dL Critical Results Requiring Immediate Notification: Age <72 Hours: <40 or >350 mg/dL Age >72 Hours: <50 or >400 mg/dL 3Result Comment: Notify RN/DR Performed at:[facility], [facility] [place], [address] Reference Ranges: Age 0 - 24 hours: 45 - 115 mg/dL Age 24 hours - 30 days: 55 - 115 mg/dL Age > 30 days: 70 - 100 mg/dL Critical Results Requiring Immediate Notification: Age <72 Hours: <40 or >350 mg/dL Age >72 Hours: <50 or >400 mg/dL 4Result Comment: Negative result based on Instrument result Negative result based on Instrument result Radiology Reports * Exam Date Time Procedure Performing Provider Status 11/03/22 5:[address] Abd Pelvis wo Contrast Contributor_ system, [facility]; Modified Notes: (CT Abd Pelvis wo Contrast) Reason For Exam: vomiting REPORT CT Abd Pelvis wo Contrast PROCEDURE INFORMATION: Exam: CT Abdomen And Pelvis Without Contrast Exam date and time: 11/03/2022 5:12 PM Age: 62 years old Clinical indication: Vomiting TECHNIQUE: Imaging protocol: Computed tomography of the abdomen and pelvis without contrast. Radiation optimization: All CT scans at this facility use at least one of these dose optimization techniques: automated exposure control; mA and/or kV adjustment per patient size (includes targeted exams where dose is matched to clinical indication); or iterative reconstruction. Other protocol: This patient has received 2 known CTs and 0 known cardiac nuclear medicine studies in the 12 months prior to the current study. COMPARISON: CT Chest Abd Pelvis w Contrast 10/07/2022 9:27 AM FINDINGS: Lungs: There is subpleural atelectasis of the dependent portions of the lungs. Liver: Unremarkable.No mass. Gallbladder and bile ducts: Normal. No calcified stones. No ductal dilation. Pancreas: The pancreas is normal. Spleen: The spleen is normal. Adrenal glands: The adrenal glands are normal. Kidneys and ureters: Normal. No hydronephrosis. Stomach and bowel: There is an ostomy exiting the right lower quadrant. Postoperative changes of partial colectomy and anastomosis in the pelvis is noted. There are dilated loops of small bowel with air-fluid levels compatible with a partial small bowel obstruction with the greatest transverse measurement of the dilated loops of small bowel measuring 4.4 cm. The stomach is partially collapsed in the duodenum and proximal jejunum are not distended. There is a swirled appearance to the mesenteric vessels and a collapsed loop of small bowel at the right lower quadrant ostomy site. Small bowel feces sign is noted in the left abdomen. No pneumatosis or free intraperitoneal air. Appendix: No evidence of appendicitis. A normal appendix is identified. Intraperitoneal space: No free air. No significant fluid collection. No abscess. Vasculature: No portal venous gas. The aorta is normal. Lymph nodes: Unremarkable.No enlarged lymph nodes. Urinary bladder: Unremarkable as visualized. Reproductive: Unremarkable as visualized. Incidental 1.6 cm left ovarian cyst. The uterus and right ovary are unremarkable. Bones/joints: Unremarkable. No acute fracture. Soft tissues: There is subcutaneous emphysema along the bilateral abdominal wall. Other findings: There is haziness of the presacral fat compatible with postoperative/post therapeutic changes. IMPRESSION: Closed loop obstruction. Stomach, duodenum and proximal jejunum are not distended and distal loops of small bowel are collapsed. There are dilated loops of small bowel with air-fluid levels compatible with a partial small bowel obstruction with the greatest transverse measurement of the dilated loops of small bowel measuring 4.4 cm. Electronically signed by: Macie Vazquez MD, [facility], 11/03/2022 17:40 Radiologist Macie Vazquez MD Signed 11/03/22 17:40:35 (Electronic Signature) Technologist CT Abd Pelvis wo Contrast Addendum Begin THIS REPORT CONTAINS FINDINGS THAT MAY BE CRITICAL TO PATIENT CARE. The findings were acknowledged by Jeffrey Alfonso at 5:53 PM ELEVATOR ATTENDANT on 11/03/2022. Addendum End Radiologist Macie Vazquez MD Signed 11/03/22 17:53:59 (Electronic Signature) Technologist Vital Signs Most recent to oldest [Reference Range]: 1 2 3 Blood Pressure 121/73mmHg (11/11/22 11:08 AM) 111/71mmHg (11/11/22 6:55 AM) 113/60mmHg (11/11/22 3:17 AM) Height (inches) (Clinical) 64 in (11/10/22 8:00 PM) 64 in (11/09/22 10:00 AM) 64 in (11/08/22 12:00 PM) Weight (kg) (Clinical) 60.9 kg (11/10/22 8:00 PM) 64.5 kg (11/09/22 10:00 AM) 64.5 kg (11/08/22 12:00 PM) BMI (Clinical) 23 kg/m2 (11/10/22 8:00 PM) 24.4 kg/m2 (11/09/22 10:00 AM) 24.4 kg/m2 (11/08/22 12:00 PM) Scale Type Bed (11/08/22 12:00 PM) Bed (11/07/22 6:00 PM) Bed (11/06/22 5:00 AM) Social History Social History Type Response Smoking [...] Code MRI Safety 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 Eating a diet low in fiber helps to reduce how often you have bowel movements and the amount of stool you produce. A low-fiber eating plan may help your digestive system heal if you: ??? Have certain conditions, such as Crohn's disease, diverticulitis, or irritable bowel syndrome (IBS), and are having a flare-up. ??? Recently had radiation therapy on your pelvis or bowel. ??? Recently had intestinal surgery. ??? Have a new surgical opening in your abdomen (colostomy or ileostomy). ??? Have an intestine that has narrowed (stricture). Your health care provider will tell you how long to stay on this diet and may recommend that you work with a dietitian. What are tips for following this plan? Reading food labels ??? Check the nutrition facts label on food products for the amount of dietary fiber. ??? Choose foods that have less than 2 grams (g) of fiber per serving. Cooking ??? Use white flour for baking and cooking. ??? Cook meat using methods that keep it tender, such as braising or poaching. ??? Cook eggs until the yolk is completely solid. ??? Cook with healthy oils, such as olive oil or canola oil. Meal planning ??? Eat 5???6 small meals throughout the day instead of 3 large meals. ??? If you are lactose intolerant: ??? Choose low-lactose dairy foods. ??? Do not eat dairy foods if told by your health care provider or dietitian. ??? Limit fats and oils to less than 8 teaspoons (39 mL) a day. ??? Eat small portions of desserts. ??? Limit acidic, spicy, or fried foods to reduce gas, bloating, and discomfort. General information ??? Follow instructions from your health care provider or dietitian about how much fiber you shouldhave each day. ??? Most people on a low-fiber eating plan should eat less than 10 g of fiber a day. Your daily fiber goal is g. ??? Take vitamin and mineral supplements as told by your health care provider or dietitian. Chewable or liquid forms are best when on this eating plan. A gummy vitamin is not recommended. What foods should I eat? Fruits Soft-cooked or canned fruits without skin and seeds. Ripe banana. Applesauce. Fruit juice without pulp. Vegetables Well-cooked or canned vegetables without skin, seeds, or stems. Cooked potatoes without skins. Vegetable juice. Grains All bread and crackers made with white flour. Waffles, pancakes, and [place] toast. Bagels. Pretzels. Nini toast, zwieback, and matzoh. Cooked and dried cereals that do not have whole grains, added fiber, seeds, or dried fruit. [place]. Hot and cold cereals made with refined corn, rice, or oats. Plain pasta and noodles. White rice. Meats and other proteins Ground meat. Tender cuts of meat or poultry. Eggs. Fish, seafood, and shellfish. Smooth nut butters. Tofu. Dairy All milk products and drinks. Lactose-free milk, including rice, soy, and almond milk. Yogurt without fruit, nuts, chocolate, or granola mixed in. Sour cream. Cottage cheese. Cheese. Fats and oils [place] oil, canola oil, sunflower oil, flaxseed oil, avocado oil, and grapeseed oil. Mayonnaise. Cream cheese. Margarine. Butter. Beverages Decaf coffee. Fruit and vegetable juices. Smoothies (in small amounts, with no pulp or skins, and with fruits from the recommended list). Sports drinks. Herbal tea. Water. Sweets and desserts Plain cakes. Cookies. Cream pies and pies made with recommended fruits. Pudding. Custard. Fruit gelatin. Sherbet. Ice pops. Ice cream without nuts. Hard candy. Honey. Jelly. Molasses. Syrups. Chocolate. Marshmallows. Gumdrops. Seasonings and condiments Ketchup. Mild mustard. Mild salad dressings. Plain gravies. Vinegar. Spices in moderation. Salt. Sugar. Other foods Bouillon. Broth. Cream and strained soups made from recommended foods. Casseroles made with recommended foods. The items listed above may not be a complete list of foods and beverages you can eat. Contact a dietitian for more information. What foods should I avoid? Fruits Raw or dried fruit. Berries. Fruit juice with pulp. Prune juice. Vegetables Potato skins. Raw or undercooked vegetables. All beans and colon sprouts. Cooked greens. [place]. Peas.Cabbage. Beets. Broccoli. [place] sprouts. Cauliflower. Mushrooms. Onions. Peppers. Parsnips. Okra. Sauerkraut. Grains Whole-wheat, whole-grain, or multigrain breads, cereals, or crackers. [place] bread. Cereals with nuts,raisins, or coconut. Bran. Granola. High-fiber cereals. Cornmeal or corn bread. Whole-grain pasta. Wild or brown rice. Quinoa. Popcorn. Buckwheat. Wheat germ. Meats and other proteins Tough, fibrous meats with gristle. Fatty meat. Poultry with skin. Fried meat, poultry, or fish. Precooked or cured meat, such as sausages or meat loaves. [place]. Hot dogs. Nuts and chunky nut butter. Dried peas, beans, and lentils. Hummus. Dairy Yogurt with fruit, nuts, chocolate, or granola mixed in. Full-fat dairy such as whole milk, ice cream, or sour cream. Beverages Caffeinated coffee and teas. Fats and oils Avocado. Coconut. Butter. Sweets and desserts Desserts, cookies, or candies that contain nuts or coconut. Dried fruit. Jams and preserves with seeds. Marmalade. Any dessert made with fruits or grains that are not recommended. Seasonings and condiments Relish. Horseradish. Pickles. Olives. Other foods [place] tortilla chips. Soups made with vegetables or grains that are not recommended. The items listed above may not be a complete list of foods and beverages you should avoid. Contact a dietitian for more information. Summary ??? Most people on a low-fiber eating plan should eat less than 10 grams of fiber a day. Follow recommendations from your health care provider or dietitian about how much fiber you should have each day. ??? Always check nutrition facts labels to see the dietary fiber amount in packaged foods. A low-fiber food will have less than 2 grams of fiber per serving. ??? Try to avoid whole grains, raw fruits and vegetables, dried fruit, tough cuts of meat, nuts, and seeds. ??? Take a vitamin and mineral supplement as told by your health care provider or dietitian. This information is not intended to replace advice given to you by your health care provider. Make sure you discuss any questions you have with your health care provider. Document Revised: 01/04/2021 Document Reviewed: 01/04/2021 [employer] Patient Education ?? 2021 [employer]. 11/11/2022 12:57:04 New Ileostomy Guide 2020 (Custom) New Ileostomy Guide Your Ostomy Resource Team Your Surgeon: Surgeon???s Office: Aaliyah Sumner Ostomy Nurse: [phone] Aaliyah Sumner Nutrition: [phone] [place] Family Support Group: Contact a Volunteer Sarah Dan [phone] or Jos Aquino [phone] What is an ileostomy? An ileostomy empties stool that comes from the bowel What will my stool look like? After surgery it will be watery, yellow/green stool. Over time, the stool will thicken and become more paste-like. Emptying Your Pouch ?Your pouch should be emptied when it is ??? to ?? full ?Hold the pouch up and unclamp or un-Velcro the closed end while standing over the measuring cup given to you. ?Slowly empty contents into the measuring cup. ?Dry the bottom of the pouch & close the pouch ?Rinsing the inside of the pouch is not needed. How often should I change my pouch? The pouching system wear time is between 3-7 days. ??? If the pouch is leaking you will need to change it to prevent the skin around your stoma from becoming irritated Ostomy Care Supplies ??? You should always have 3 pouching systems available. ??? Supplies are ordered from a surgical supply store/distributor. ??? If you go home with Home Health Care Services, your Home Health Nurse can assist you in ordering your supplies. Bathing or Showering ?Water will not enter your stoma???think of it as a one-way pipe. ?Avoid bath oils and moisturizing soaps as this may prevent the pouching system from sticking to your skin ?You may bathe with your pouch on or off, be sure to towel dry the tape and skin around the pouching system afterward. Discharge from the Rectum Depending on your surgery, you may have left over stool, mucous or blood that passes from your rectum; this is normal. If you see a large amount of blood, please contact your surgeon. Adjusting to Life with an Ileostomy Each person???s adjustment to living with an ostomy is different. Allow yourself time to recover from surgery and not need help to take care of yourself. At first, you may feel scared or sad; there are no right or wrong feelings and most often people do feel better with time. This will happen as you feel better from surgery and get used to how your ostomy looks and how you care for it. You are not alone; thousands of people every year have ostomy surgery. You may want to talk to a family member, friend, professional counselor, or attend an ostomy support group in your area. Nutrition Tips to Prevent Complications ?Sip on liquids all day long to prevent dehydration. ?Each time you empty your ostomy, try drinking a cup of fluid. ?Avoid high fiber foods for the first 4-6 weeks after surgery. ?Low fiber foods will be more easily digested and may reduce your risk for developing a blockage or obstruction. ?Chew your food well. This will help prevent a blockage. ?Try eating 3 meals and 2-3 snacks to get enough calories to heal and prevent weight loss. ?Eat a source of protein at each meal and snack like meat, cheese, eggs, or yogurt. ?A chewable multivitamin supplement may be recommended. ?Foods like cauliflower, asparagus, fish, Brussel sprouts, cheeses, beans, broccoli, onions, cabbage and spicy foods may cause stool to have a strong odor. ?Eating foods with probiotics like yogurt each day may help to decrease odor. ?Avoid gas-causing foods like beans, broccoli, cauliflower, Brussel sprouts, onions & cabbage. ?Space your meals out every few hours during the day to help decrease gas. Signs of Blockage or Obstruction ???Intense cramping ???Stoma/stomach swelling or pain ???Nausea ???Vomiting ???No stoma output ???Increase in watery output from your stoma When Should You Call Your Doctor?Temperature over 101.0? Decrease in urine output ?Increase in nausea or vomiting ???Decrease in appetite ???Ostomy output over 1000mL after taking Imodium Skin Irritation It is important to keep the skin around your stoma healthy. The stool from your ostomy contains enzymes that can irritate your skin. ?Measure your stoma often to ensure the skin barrier opening fits close, but not on your stoma. ?Change the pouching system regularly, generally every 4-5 days. Do not wait until it leaks. ?If leaks do occur, change the pouching system. Do not attempt to patch with tape. Skin barrier is cut too large leaving too much skin exposed Skin barrier is cut to fit close but not on the stoma Additional Support & Resources ??? Wound, Ostomy, Continence Nurses Society www.wocn.org ? ? Crohn? s & Colitis Foundation of [place] www.ccfa.org ??? [employer] www.ccfa.org ??? [employer] [place] www.uoaa.org Recommended Liquids to Keep Hydrated ??? Water ??? Flavored Water ??? Gatorade ??? Pediatric Electrolyte Solution ??? Ensure High Protein Preventing Dehydration: Leading Cause of Complications with a New Ileostomy Signs and Symptoms of Dehydration ??? Dry Mouth ??? Increased Thirst ??? Low Urine Output ??? Feeling Tired ??? Nausea ??? Decreased Appetite Common Causes of Diarrhea & How Your Diet Can Help ??The thickness or thinness of your ostomy output depends on where your stoma is. Some foods may cause your output to be waterier which could lead to dehydration. ??Foods & Drinks That Thin Output Juice High Fiber Food Large Meals Hot Drinks Chocolate Spicy foods Soup Licorice Coffee Don???t drink more than 4 ounces of liquids with added sugars like juice, lemonade and sweet tea per day ??Foods That Help Thicken Output Applesauce White Rice Bananas Peanut Butter Yogurt Pasta Marshmallows Cheese Bread Take [id number] Imodium (loperamide) every 4-6 hours if your ostomy output is more than 1000 milliliters of in 24 hours. Tips for Preventing Dehydration ??? Track your ostomy output everyday on the paper that is given to you. ??? Drink at least 8-10 cups (64-80 ounces) of liquid each day, with half being something other than water. Talk to your doctor if you have been told to eat a low sodium or low potassium diet. ? ? Avoid alcohol, soda & fizzy drinks. ??? Limit caffeine to one cup (8oz) per day - try decaf teas and coffees. If you have more than 1000 milliliters of output from your ostomy after taking Imodium (loperamide)as told: ??? Call your surgeon???s office ??? Measure ostomy output and drink more liquids ??? Drink Gatorade, Pediatric Electrolyte Solution or an oral rehydration solution. ??? Do not take more than 8 doses in 24 hours. Oral Rehydration Solution Recipes Mix all ingredients and chill *Do not add ice, this paulson it down Recipe 1 ?? 1 cup unsweet, no pulp orange juice ?? 1/2 teaspoon baking soda ?? 8 teaspoons sugar ?? 4 1/2 cups water Recipe 2 ?? 3/4 teaspoon salt ?? 1 tablespoon sugar ?? 1 teaspoon sugar ?? 16 ounces Sprite Zero ?? 1 envelope sugar free drink mix Recipe 3 ?? 1 cup apple juice ?? 3 cups water ?? 1/2 teaspoon salt Recipe 4 ?? 2 cups Gatorade ?? 2 cups water ?? 1/2 teaspoon salt Nutrition Guidelines for Patients with a New Ileostomy Foods for the First 4-6 Weeks after Surgery Group Recommended Foods Foods to Avoid Fruits Canned or Cooked fruits: fruit cocktail Applesauce, ripe bananas, honeydew & cantaloupe Raw or Canned fruits with seeds like: strawberries, blackberries or raspberries; dried fruit & coconut Vegetables Canned or Well-Cooked vegetables without seeds/skin. Cooked white or sweet potatoes, without skin Vegetable juice Raw vegetables or those with skin/seeds like: tomatoes, squash, or cucumbers. Breads, Cereals & Grains White rolls, muffins, biscuits, breads, crackers, waffles, pancakes, plain pastries, white rice & pastas. Refined cooked cereals: grits & cream of wheat. Refined cold cereals: Rice Krispies, puffed rice & wheat Canned or raw peas, corn or popcorn. Desserts Plain cakes and cookies, baked pastries Pies or jelly made with recommended fruits. Plain sherbet, fruit ice, frozen pops, yogurt, gelatin,custard Plain hard candy, and marshmallows Gas-causing raw or cooked vegetables like beans, broccoli, cauliflower, brussels sprouts, onions & cabbage Meats & Proteins Soft cooked chicken, beef, turkey, fish, pork, ground meats. Eggs & cheese; Smooth nut butters Whole-grain, bran, or rye breads Dairy Milk, cheese, cottage cheese, yogurt Try lactose free milk if you can???t tolerate regular milk Whole grain crackers or cereals After 4-6 weeks, foods from the avoid list may be added back into your diet in small amounts, one new food at a time and increase slowly as tolerated. June 2021 11/11/2022 12:57:04 Ileostomy output log 2020 (Custom) Ileostomy Output Log NOTE: Ileostomy output over 1 liter (1,000 mL) needs to be reported to the surgeon. Even with taking Imodium as/if prescribed. Incrase fluid intake with high ostomy output to prevent dehyddration and kidney failure. Monitor output until first visit with your surgeon. Call your surgeon's office, nurrsing station, or Ostomy Nurses ([phone]) for any questions. 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 readmitted with ileostomy dysfunction on 11/03/2022- ileostomy revision with small-bowel resection- Cookie 11/06 Feeling much better today; 1800 ostomy output, however only received 2 doses of Imodium Afebrile now, temp of 102.5 yesterday afternoon ROS: Cardiac - No CP or Palpitations Pulm - No SOB or Wheezing Exam: AF / VSS Alert / NAD Resp - Non-labored Abd - Soft / Non- distended, ileostomy healthy viable Labs / Diagnostics - reviewed Hypomagnesemia Impression: Rectosigmoid junction cancer Ileostomy dysfunction Dehydration Hypotension Hypomagnesemia Plan: Cont diet Imodium TID DC IVF Increase activity/SMI Supportive care Impression and Plan Orders Orders Pharmacy: magnesium sulfate (Order): 2 g, IVPB, IVPB, ONCE, Start Date: 11/10/2022 11:30 ELEVATOR ATTENDANT, Stop date 11/10/2022 11:30 ELEVATOR ATTENDANT, Routine, Infuse over: 2 hr D5 1/2NS 1000ml & 20mEq KCL 1000 mL (Discontinue): 11/10/2022 11:03 ELEVATOR ATTENDANT Patient Care: Saline Lock (Order): 11/10/2022 11:03 ELEVATOR ATTENDANT, When taking PO fluids Professional Fees: [facility] Post Operative Care [id number] (Order): 11/10/2022 11:02 ELEVATOR ATTENDANT, [facility], Hospital, Small bowel obstruction. Electronically signed by:Tammie Kramer 11/10/22 11:03 * Jacob Chandler MD: PERFORM Event Display: Progress Notes Authored Date: I have seen, examined, and discussed the patient with Tammie Franco, JAKOB.?? I helped formulate and agree with the assessment and plan. 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 readmitted with ileostomy dysfunction on 11/03/2022- ileostomy revision with small-bowel resection- Cookie 11/06 Pushing PO intake; 2500 out of ostomy, no Imodium yesterday, but had Benefiber; some crampy pain right before output; febrile yesterday afternoon Afebrile now, temp of 102.5 yesterday afternoon ROS: Cardiac - No CP or Palpitations Pulm - No SOB or Wheezing Exam: AF / VSS Alert / NAD Resp - Non-labored Abd - Soft / Non- distended, ileostomy healthy viable thin stool in bag Labs / Diagnostics - reviewed Hypomagnesemia Impression: Rectosigmoid junction cancer Ileostomy dysfunction Dehydration Hypotension Hypomagnesemia Plan: Cont diet Scheduled Imodium, TID Cont Benefiber Cont IVF Increase activity/OOB Shower Supportive care Impression and Plan Orders Orders Pharmacy: D5 1/2NS 1000ml & 20mEq KCL 1,000 mL (Order): Route: IV, Routine, Start Date: 11/09/2022 11:16 ELEVATOR ATTENDANT, 90 Days, Stop date 02/07/2023 11:15 CDT, Rate= 75 ml/hr, hr, Total Vol ml = 1,000, 1.68, m2 Lactated Ringers Injection intravenous solution 1000 mL (Discontinue): 11/09/2022 11:16 ELEVATOR ATTENDANT Imodium A-D (Order): 2 mg, CAP, By mouth, TID, Start Date: 11/09/2022 14:00 ELEVATOR ATTENDANT, Duration: 90 Days, Stop date 02/07/2023 9:00 CDT, Routine Laboratory: Phosphorus (Order): Blood, Early AM, 11/10/2022 3:00 ELEVATOR ATTENDANT, Routine, 24, hr, 11/11/2022 2:59 ELEVATOR ATTENDANT, pp_rslts_call_set_order_encntr Magnesium Serum (Order): Blood, Early AM, 11/10/2022 3:00 ELEVATOR ATTENDANT, Routine, 24, hr, 11/11/2022 2:59 ELEVATOR ATTENDANT, pp_rslts_call_set_order_encntr CBC(Hemogram) (Order): Blood, Early AM, 11/10/2022 3:00 ELEVATOR ATTENDANT, Routine, 24, hr, 11/11/2022 2:59 ELEVATOR ATTENDANT, pp_rslts_call_set_order_encntr BMP (Order): Blood, Early AM, 11/10/2022 3:00 ELEVATOR ATTENDANT, Routine, 24, hr, 11/11/2022 2:59 ELEVATOR ATTENDANT, pp_rslts_call_set_order_encntr Patient Care: Shower (Order): 11/09/2022 11:15 ELEVATOR ATTENDANT, PRN Order Professional Fees: [facility] Post Operative Care [id number] (Order): 11/09/2022 11:14 ELEVATOR ATTENDANT, [facility] Providers, Hospital, Small bowel obstruction. Electronically signed by:Tammie Kramer 11/09/22 11:18 * Jacob Chandler MD: PERFORM Event Display: Progress Notes Authored Date: I have reviewed his objective data and discussed with Tammie Franco, JAKOB. ??We collaborated to create the above mentioned assessment and plan. 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 intake, cannot chew solid food lack of denture Denies abdominal pain nausea or emesis Afebrile ROS: Cardiac - No CP or Palpitations Pulm - No SOB or Wheezing Exam: AF / VSS Alert / NAD Resp - Non-labored Abd - Soft / Non- distended, ileostomy healthy viable semi-solid stool in bag Labs / Diagnostics - reviewed Hypomagnesemia Impression: Rectosigmoid junction cancer Ileostomy dysfunction Dehydration Hypotension Hypomagnesemia Plan: Soft diet Ileostomy care Benefiber b.i.d. Imodium 2 mg p.o. q.6 hours Lomotil 2.5 mg p.o. q.6 hours p.r.n. high ostomy output Replete magnesium Stays weekend Electronically signed by:Ant Gary MD 11/08/22 07:28 Surgical operation note * Event Display: Operative Report Authored Date: [facility] Name: MELVA CROUCH Admitted: 11/03/2022 : 1960 Provider: Ant Gary MD No: [id number] Unit: [id number] DATE OF PROCEDURE: 11/06/2022 SURGEON: Ant Gary MD PREOPERATIVE DIAGNOSIS: Ileostomy obstruction. POSTOPERATIVE DIAGNOSIS: Ileostomy obstruction. PROCEDURE: Ileostomy revision with small bowel resection. RECOVERY ANALYST: injection molding technician. ANESTHESIA: General. ESTIMATED BLOOD LOSS: Minimal. COUNTS: Correct. COMPLICATIONS: None. SPECIMEN: Resected small bowel with ileostomy. FINDINGS: Ileostomy obstruction with adhesive band below the fascia, ileostomy revision with small bowel resection. INDICATION FOR SURGERY: This is a 62-year-old female with a history of rectosigmoid junction cancer, status post robotic-assisted low anterior resection with diverting loop ileostomy, presented with recurrent ileostomy dysfunction. CT scan of the abdomen, pelvis, and small bowel follow-through showed ileus pattern. The patient would complain of recurrent decreased ileostomy output. She was noted to have tightness at the fascia level. The patient is here for ileostomy revision. DESCRIPTION OF PROCEDURE: After obtaining informed consent, preop antibiotics were administered in the preop holding area. Then, the patient was brought to the operating room, correct patient was identified. The patient was placed supine on the operating table. Bilateral lower extremity SCDs were placed. General anesthesia was safely induced after endotracheal tube intubation. Now, parts were prepped and draped in sterile fashion. Appropriate timeout was taken. Using electrocautery, a circular incision was made at the previous ileostomy site. The incision wastaken down to the fascia. Afferent and efferent loop of ileostomy was mobilized from the abdominal wall. I noted adhesive band obstructing the efferent loop just below the fascia. The band was cut and the obstructed part of the ileostomy was transected with electrocautery. The mesentery was taken with the EnSeal device. Resected small bowel was passed off the table for histopathological examination. Now, the ileostomy was matured with 3-0 Vicryl pop-off suture in usual fashion. After making sure that there was good hemostasis, the ostomy appliance was applied at the ostomy site. The patient tolerated the procedure well. There were no complications. Needle, instrument, and sponge count was correct at the end of the procedure. The patient was extubated in the OR and then rolled to recovery in stable condition. Ant Gary MD Voice Job ID#: [id number] AQuity Copy to: Ant Gary MD Electronically signed by:Ant Gary MD 11/07/22 16:20 * Ant Gary MD: VERIFY, PERFORM, SIGN Event Display: Operative Report Authored Date: [id number] Patient: MELVA CROUCH Age: 62 years Sex: Female : 1960 Associated Diagnoses: None Author: Ant Gary MD Postoperative Information Preoperative Diagnosis: Preop Dx (ST) SN - GCD - Preop Diagnosis: Ileostomy Dysfunction (11/06/22 18:58:53). Postoperative Diagnosis: Postop Dx (ST) SN - GCD - Post Op Diagnosis: Ileostomy obstruction (11/06/22 18:58:53). Procedure: Procedure (ST) SN - SgP - Procedure: Revision Ileostomy (11/06/22) Sn - SgP - Surgeon Preferred Procedure: with Resection of Small Bowel (11/06/22). Performed by: Primary Surgeon (ST) Surgeon - Primary: Ant Gary MD . B2B Sales Professional: Physician's B2B Sales Professional (ST) No Conference Services Director Found . Anesthetic Used: Anesthesia Type (ST) SN - SgP - Anesthesia Type: 3-General (11/06/22). Findings: Ileostomy obstruction secondary to adhesion band below the fascia, ileostomy revision with small-bowel resection. Specimens Removed: Specimens (ST) SN - CS - Comments: Small bowel (11/06/22 19:27:16). Estimated Blood Loss: Minimal. Complications: None. Description of Techniques: Standard. Wound Class: Wound Class (ST) Sn - SgP - Wound Class: 3-Contaminated (11/06/22). Implants/Grafts: Implant (ST) No Implants/Grafts Used. Final Count Verification: SN - FCV (ST) SN - FCV - Instruments (Count Correct): Yes (11/06/22 19:32:44) SN - FCV - Sharps/Kiefer (Count Corre: Yes (11/06/22 19:32:44) SN - FCV - Sponges (Count Correct): Yes (11/06/22 19:32:44). 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 Upon evaluation in the emergency department with CT scan of the abdomen pelvis she was noted to have dilated small bowel loop concerning for partial small-bowel obstruction. After intubation of the ostomy with red rubber catheter 700 cc of enteric content was evacuated and patient's symptoms improved. After fluid resuscitation she was admitted to colorectal service for observation Review of Systems Constitutional: Negative. Eye: Negative. Ear/Nose/Mouth/Throat: Negative. Respiratory: Negative. Cardiovascular: Negative. Gastrointestinal: Negative except as documented in history of present illness. Genitourinary: Negative. Hematology/Lymphatics: Negative. Endocrine: Negative. Immunologic: Negative. Musculoskeletal: Negative. Integumentary: Negative. Neurologic: Negative. Psychiatric: Negative. Health Status Allergies: Allergic Reactions (Selected) Moderate Codeine- Vomit and kidney., Allergies (1) Active Severity Reaction codeine Moderate Vomit, Kidney Current medications: (Selected) Inpatient Medications Ordered Lactated Ringers Injection intravenous solution 1,000 mL: Route: IV, Routine, Start Date: 11/03/22 21:34:00 ELEVATOR ATTENDANT, 90 Days, Stop date 02/01/23 21:33:00 CDT, Rate= 150 ml/hr, hr, Total Vol ml = 1,000, Disp Location: ED CDU NS, Populate Charting Weight From Order, DISP, 1.68, m2 Normal Saline Flush: 5 mL, INJ, Route: IVP, Q10Min, PRN, See Comment Note, Start Date: 11/03/22 21:34:00 ELEVATOR ATTENDANT, Duration: 90 Days, Stop date: 02/01/23 22:33:00 CDT, Routine, Disp [facility] GEN Vamsi [facility] Normal Saline Flush: 5 mL, INJ, Route: IVP, Q12H, Start Date: 11/03/22 21:34:00 ELEVATOR ATTENDANT, Duration: 90 Days, Stop date: 02/01/23 9:00:00 CDT, Routine, Disp [facility] GEN Vamsi [facility] acetaminophen-hydrocodone 325 mg-5 mg oral tablet: 1 tab, TAB, By mouth, Q4H, PRN, Pain Moderate, Start Date: 11/03/22 21:34:00 ELEVATOR ATTENDANT, Duration: 14 Days, Stop date: 11/17/22 21:33:00 ELEVATOR ATTENDANT, Routine, DispLocation: [facility] acetaminophen: 650 mg = 2 tab, TAB, By mouth, Q4H, PRN, Pain Mild, Start Date: 11/03/22 21:34:00 ELEVATOR ATTENDANT, Duration: 90 Days, Stop date 02/01/23 21:33:00 CDT, Routine, Disp Location: [facility] [place] enoxaparin: 30 mg = 0.3 mL, INJ, SubQ, Daily, Start Date: 11/03/22 21:34:00 ELEVATOR ATTENDANT, Duration: 90 Days,Stop date 01/31/23 9:00:00 CDT, Routine, Disp Location: [facility] morphine INJ: 2 mg = 0.5 mL, INJ, IVP, Q1Hr, PRN, Pain Severe, Start Date: 11/03/22 21:34:00 ELEVATOR ATTENDANT, Stop date 11/06/22 8:00:00 ELEVATOR ATTENDANT, Routine, Disp Location: [facility] [place] ondansetron: 4 mg = 2 mL, INJ, IVP, Q8H, PRN, Nausea, Start Date: 11/03/22 21:34:00 ELEVATOR ATTENDANT, Duration: 90 Days, Stop date 02/01/23 21:33:00 CDT, Routine, Disp Location: [facility] [place] Prescriptions Prescribed Imodium A-D 2 mg oral tablet: 2 mg, By mouth, Q6H, PRN Diarrhea/Loose Stool, # 100 tab, Refill(s) 0, Pharmacy: [facility], [id number], TAB, 2 mg By mouth Q6H,PRN:Diarrhea/Loose Stool, 68.1, 10/11/22 10:11:00 ELEVATOR ATTENDANT, kg, Weight Zofran ODT 4 mg oral tablet, disintegratin mg = 1 tab, By mouth, Q6H, PRN for nausea & vomiting, # 20 tab, Refill(s) 0, Pharmacy: [facility], [id number], 1 tab By mouth Q6H,PRN:for nausea & vomiting, 68.1, 10/11/22 10:11:00 ELEVATOR ATTENDANT, kg, Weight enoxaparin 30 mg/0.3 mL subcutaneous solution: 30 mg = 0.3 mL, SubQ, Daily, X 21 Days, # 6.3 mL, Refill(s) 0, Pharmacy: [facility], [id number], INJ,0.3 mL SUBQ Daily,x21 Days, 68.1, 10/11/22 10:11:00 ELEVATOR ATTENDANT, kg, Weight guar gum oral powder for reconstitution: 4 = g, By mouth, Daily, # 155 g, Refill(s) 0, Route to Pharmacy Electronically, Pharmacy: [facility], [id number], POWDER, 4g By mouth Daily, 68.1, 10/11/22 10:11:00 ELEVATOR ATTENDANT, kg, Weight ostomy supplies: ostomy supplies, See Instructions, Demetra: barrier ring 8815 Pouch [address] [place] [address] odor drops 7850 adapt no sting wipes 7917 adhesive remover wipes 7760, # 1 EA, Refills(s) 99, Print Requisition, Supply oxyCODONE 5 mg oral tablet: 5 mg, = 1 tab, By mouth, Q6H, PRN Pain Moderate, 24 tab, 0, 0, Substitution Permitted, [facility], 64, Height, 10/11/22 10:11:00 ELEVATOR ATTENDANT, in, 68.1, Weight, 10/11/22 10:11:00 ELEVATOR ATTENDANT, kg pantoprazole 40 mg oral delayed release tablet: 40 mg = 1 tab, By mouth, Daily, # 30 tab, Refill(s)0, Pharmacy: [facility], [id number], TAB, 1 tab By mouth Daily, 63.4, 10/20/22 1:44:00 ELEVATOR ATTENDANT, kg, Weight Problem list: All Problems Dehydration / SNOMED CT 02230708 / Confirmed Ileostomy dysfunction / SNOMED CT 29244814 / Confirmed Ileostomy dysfunction / SNOMED CT 31721450 / Confirmed Ex-smoker / SNOMED CT 85987003 / Confirmed Tobacco use / SNOMED CT 9000951513 / Confirmed, Active Problems (5) Dehydration Ex-smoker Ileostomy dysfunction Ileostomy dysfunction Tobacco use Histories Family History: No family history items have been selected or recorded. Procedure history: Robotic Assisted Low Anterior w/ Ileostomy - Cookie on 10/11/2022 at 62 Years. Flexible Sigmoidoscopy on 10/07/2022 at 62 Years. Comments: 10/07/2022 11:49 Adwoa Luu RN auto-populated from documented surgical case COLONOSCOPY FLX W/ENDOSCOPIC MUCOSAL RESECTION (10130). Comments: 10/07/2022 10:29 VERONICA Lloyd RN, Jaja [...] Non-tender, Non-distended, Normal bowel sounds, Ileostomy healthy viable liquid brown stool in bag. Lymphatics: No lymphadenopathy neck, axilla, groin. Musculoskeletal Normal range of motion. Normal strength. No tenderness. No swelling. No deformity. Normal gait. Integumentary: Warm, [place]. Neurologic: Alert, Oriented, Normal sensory, Normal motor function, No focal deficits, Cranial Nerves II-XII are grossly intact, Normal deep tendon reflexes. Cognition and Speech: Oriented, Speech clear and coherent, Functional cognition intact. Psychiatric: Cooperative, Appropriate mood & affect, Normal judgment. Impression and Plan Diagnosis Diarrhea - PNED [id number]. Small bowel obstruction - [id number] K56.609. 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 On examination abdomen is soft nondistended nontender ileostomy healthy viable liquid stool in bag. Have independently reviewed her CT scan imaging and lab reports. Will remove her NG tube Q her full liquid diet advanced to soft diet as tolerated, patient is educated about intubation of stoma with red rubber catheter if she backs up. Repeat a.m. labs. Electronically signed by:Atn Gary MD 11/04/22 10:33 Discharge summary * Ant Gary MD: PERFORM, SIGN, VERIFY Event Display: Discharge Summary Authored Date: [id number] Patient: MELVA CROUCH Age: 62 years Sex: Female : 1960 Associated Diagnoses: None Author: Ant Gary MD Discharge Information Discharge Summary Information: Discharge Information Admit date:11/03/2022 Discharge date:11/11/2022 Primary Care Physician:Ant Gary MD Attending Physician:Ant Gary MD Consulting Physician:Ant Bledsoe MD Admitting Physician:Herberth Woo MD . Discharge diagnosis: Medical Diagnosis Diarrhea Ileostomy obstruction Ileostomy dysfunction Acute kidney injury . Operations and procedures: SN - SgP - Procedure: Revision Ileostomy (11/06/22) Sn - SgP - Surgeon Preferred Procedure: with Resection of Small Bowel (11/06/22). Discharge medications: Home Medications (6) Active guar gum oral powder for reconstitution 4 [...] with diverting loop ileostomy by me on 10/11/2021 was readmitted to times with ileostomy dysfunction requiring IV fluid resuscitation and electrolyte repletion. She was readmitted again on 11/03/2022 with nausea vomiting and decreased ileostomy output, acute kidney injury. CT scan of the abdomen pelvis showed dilated small bowel loops concerning for partial obstruction. Following resuscitation with IV fluids patient was not progressing very well. She was briefly transferred to ICU for hypotension, required intermittent was a pressors in adhesion to fluids. She underwent uneventful ileostomy revision on 11/06/2022, postoperatively patient was transferred to the floor she was given clearliquid diet, her pain was controlled, ileostomy was functioning well . She is tolerating regular diet comfortable taking care of her ileostomy. She is being discharged home on 11/11/2022 with instructions for ileostomy care. She is advised to take b.i.d. Benefiber, Imodium 1-2 tablets p.o. q.6 hours as needed for high ileostomy output. She can also take Lomotil 1 tablet p.o. q.6 hours as needed if there is high ileostomy output. He will follow up with Dr. Gray at colorectal surgery office in 2-3 weeks. She will follow up with her oncologist at [place]. Physical Examination Vital Signs (last 24 hrs) Last Charted Minimum Maximum Temp 97.7 (NOV 11 06:55) 97.7 (NOV 11 06:55) 99.1 (NOV 10 14:57) Heart Rate 63 (NOV 11 06:55) 63 (NOV 11 06:55) 74 (NOV 10 14:57) Resp Rate 18 (NOV 11 06:55) 16 (NOV 10 14:57) 18 (NOV 10 11:11) SBP 111 (NOV 11 06:55) 105 (NOV 10 23:27) 138 (NOV 10 19:57) DBP 71 (NOV 11 06:55) 56 (NOV 10:27) 75 (NOV 10 14:57) SpO2 97 (NOV 11 06:55) 91 (NOV 10 11:11) 97 (NOV 10 19:57) O2 Room a (NOV 11 07:40) Room a (NOV 10 11:11) Room a (NOV 10 11:11) Weight 60.9 (NOV 10 20:00) 60.9 (NOV 10 20:00) 60.9 (NOV 10:00) General: Alert and oriented, No acute distress. Respiratory: Lungs are clear to auscultation, Respirations are non-labored, Breath sounds are equal, Symmetrical chest wall expansion, No chest wall tenderness. Cardiovascular: Normal rate, Regular rhythm, No murmur, No gallop, Good pulses equal in all extremities, Normal peripheral perfusion, No edema. Gastrointestinal: Soft, Non-tender, Non-distended, Normal bowel sounds, No organomegaly, Ileostomy healthy viable semi-solid stool in bag. . Neurologic: Alert, Oriented, Normal sensory, Normal motor function, No focal deficits, Cranial Nerves II-XII are grossly intact, Gag reflex normal, Normal deep tendon reflexes. Discharge Plan Discharge Summary Plan Discharge orders: . Electronically signed by:Cookie ROMERO Rakesh 11/11/22 09:55 CT Abdomen and Pelvis WO contrast * Macie Vazquez MD: PERFORM, VERIFY, VERIFY Event Display: Report Authored Date: Note * Macie Vazquez MD: PERFORM, VERIFY, VERIFY Event Display: Powers[employer] Read Authored Date: PROCEDURE INFORMATION: Exam: CT Abdomen And Pelvis Without Contrast Exam date and time: 11/03/2022 5:12 PM Age: 62 years old Clinical indication: Vomiting TECHNIQUE: Imaging protocol: Computed tomography of the abdomen and pelvis without contrast. Radiation optimization: All CT scans at this facility use at least one of these dose optimization techniques: automated exposure control; mA and/or kV adjustment per patient size (includes targeted exams where dose is matched to clinical indication); or iterative reconstruction. Other protocol: This patient has received 2 known CTs and 0 known cardiac nuclear medicine studies in the 12 months prior to the current study. COMPARISON: CT Chest Abd Pelvis w Contrast 10/07/2022 9:27 AM FINDINGS: Lungs: There is subpleural atelectasis of the dependent portions of the lungs. Liver: Unremarkable.No mass. Gallbladder and bile ducts: Normal. No calcified stones. No ductal dilation. Pancreas: The pancreas is normal. Spleen: The spleen is normal. Adrenal glands: The adrenal glands are normal. Kidneys and ureters: Normal. No hydronephrosis. Stomach and bowel: There is an ostomy exiting the right lower quadrant. Postoperative changes of partial colectomy and anastomosis in the pelvis is noted. There are dilated loops of small bowel with air-fluid levels compatible with a partial small bowel obstruction with the greatest transverse measurement of the dilated loops of small bowel measuring 4.4 cm. The stomach is partially collapsed in the duodenum and proximal jejunum are not distended. There is a swirled appearance to the mesenteric vessels and a collapsed loop of small bowel at the right lower quadrant ostomy site. Small bowel feces sign is noted in the left abdomen. No pneumatosis or free intraperitoneal air. Appendix: No evidence of appendicitis. A normal appendix is identified. Intraperitoneal space: No free air. No significant fluid collection. No abscess. Vasculature: No portal venous gas. The aorta is normal. Lymph nodes: Unremarkable.No enlarged lymph nodes. Urinary bladder: Unremarkable as visualized. Reproductive: Unremarkable as visualized. Incidental 1.6 cm left ovarian cyst. The uterus and right ovary are unremarkable. Bones/joints: Unremarkable. No acute fracture. Soft tissues: There is subcutaneous emphysema along the bilateral abdominal wall. Other findings: There is haziness of the presacral fat compatible with postoperative/post therapeutic changes. IMPRESSION: Closed loop obstruction. Stomach, duodenum and proximal jejunum are not distended and distal loops of small bowel are collapsed. There are dilated loops of small bowel with air-fluid levels compatible with a partial small bowel obstruction with the greatest transverse measurement of the dilated loops of small bowel measuring 4.4 cm. Electronically signed by: Macie Vazquez MD, [employer], 11/03/2022 17:40 Radiologist Macie Vazquez MD Signed 11/03/22 17:40:35 (Electronic Signature) Technologist SS * Macie Vazquez MD: PERFORM, VERIFY, MODIFY Event Display: [employer] Addendum Authored Date: [id number] Addendum Begin THIS REPORT CONTAINS FINDINGS THAT MAY BE CRITICAL TO PATIENT CARE. The findings were acknowledged by Jeffrey Alfonso at 5:53 PM ELEVATOR ATTENDANT on 11/03/2022. Addendum End Radiologist Taylor ROMERO, Macie Eldridge Signed 11/03/22 17:53:59 (Electronic Signature) Technologist SS Patient Care team information Care Team Personnel Name: Ant Gary MD Position: PX Physician - Colorectal Surgery Member Role: Primary Care Physician Address: Address: [address] [place] [address]- Name: Gwen Barnes RN Position: ED-Clinical LP Member Role: ED Clinical Staff Name: Ashtyn Haynes Position: ED-Clinical LP Member Role: Emergency Room Nurse Name: Bettye Caraballo RN Position: Nurse (MAR) Member Role: Nurse Name: Jeffrey Alfonso MD Position: Physician-Emergency LP Member Role: Emergency Room Physician Address: Address: [address] [place] [address]- Care Team Related Persons Name: PRIMO CROUCH Name: Gary Ba Name: MATILDE SCOTT Name: MATILDE NAVARRO Address: home [address] [place] [phone] [place] Address: mailing [address] [place] [address] [phone] [place]
--- OUTSIDE RECORDS SUMMARY | 2023-04-30 14:31 | XMS_ITS | Continuity of Care Document ---
Author Name Unknown Organization [facility] Address [address] [place] [address]- Care Team Providers Care Patent Prosecution Paralegal Name Role Phone Cookie ROMERO, Ant Primary Care Physician Encounter [facility] Number [id number] Date(s): 12/18/22 - 12/22/22 [facility] [address] [place] [phone]- [phone] Encounter Diagnosis JURGEN (acute kidney injury)(Discharge Diagnosis) - 12/18/22 Ileostomy status(Discharge Diagnosis) - 12/18/22 Hypotension(Discharge Diagnosis) - 12/18/22 Metabolic acidemia(Discharge Diagnosis) - 12/18/22 Colon cancer(Discharge Diagnosis) - 12/18/22 Near syncope(Discharge Diagnosis) - 12/18/22 Acute renal failure(Discharge Diagnosis) - 12/18/22 Acute hyponatremia(Discharge Diagnosis) - 12/18/22 Hyponatremia(Discharge Diagnosis) - 12/18/22 Hyponatremia(Discharge Diagnosis) - 12/18/22 Volume depletion(Discharge Diagnosis) - 12/18/22 Hypoalbuminemia(Discharge Diagnosis) - 12/20/22 Increased stool volume(Discharge Diagnosis) - 12/20/22 Discharge Disposition: .Discharge to Home (Routine) Attending Physician: Lexi Olmos DO Admitting Physician: Bon Smith DO Allergies, Adverse Reactions, Alerts Substance Reaction Severity Status codeine Kidney Vomit Moderate Active Assessment and Plan Extracted from: Title:Discharge Note Author:Lexi Olmos DO Date:12/22/22 Discharge 12/22/22 7:23:00 CDT, Home/Self Care Discharge Follow Up 12/22/22 7:23:00 CDT, Provider/Time: PCP in 3-5 days. Oncology follow up with [facility] in 1-2 days, repeat BMP at that time to recheck sodium and kidney function Discharge Diet 12/22/22 7:23:00 CDT, Discharge Diet: Regular, encourage adequate hydration and sodium intake Discharge Activity 12/22/22 7:23:00 CDT, As tolerated ? Discharge time??greater than 35 minutes spent discussing??with??patient,??placing orders??and providing??documentation.?? Long discussion with??patient about??monitoring??of ostomy??output, urine??output, nutritional intake? Extracted from: Title:Instructions to Patients Author:Magnolia Hobbs RN Date:12/22/22 [facility] Hypotension As your heart beats, it forces blood through your body. This force is called blood pressure. If you have hypotension, you have low blood pressure. When your blood pressure is too low, you may not get enough blood to your brain or other parts of your body. This may cause you to feel weak, light-headed, have a fast heartbeat, or even faint. Low blood pressure may be harmless, or it may cause serious problems. What are the causes? ? ? Blood loss. ? ? Not enough water in the body (dehydration). ? ? Heart problems. ? ? Hormone problems. ? ? . ? ? A very bad infection. ? ? Not having enough of certain nutrients. ? ? Very bad allergic reactions. ? ? Certain medicines. What increases the risk? ? ? Age. The risk increases as you get older. ? ? Conditions that affect the heart or the brain and spinal cord (central nervous system). What are the signs or symptoms? ? ? Feeling: ? ? Weak. ? ? Light-headed. ? ? Dizzy. ? ? Tired (fatigued). ? ? Blurred vision. ? ? Fast heartbeat. ? ? Fainting, in very bad cases. How is this treated? ? ? Changing your diet. This may involve drinking more water or including more salt (sodium) in your diet by eating high-salt foods. ? ? Taking medicines to raise your blood pressure. ? ? Changing how much you take (the dosage) of some of your medicines. ? ? Wearing compression stockings. These stockings help to prevent blood clots and reduce swelling in your legs. In some cases, you may need to go to the hospital to: ? ? Receive fluids through an IV tube. ? ? Receive donated blood through an IV tube (transfusion). ? ? Get treated for an infection or heart problems, if this applies. ? ? Be monitored while medicines that you are taking wear off. Follow these instructions at home: Eating and drinking ? ? Drink enough fluids to keep your pee (urine) pale yellow. ? ? Eat a healthy diet. Follow instructions from your doctor about what you can eat or drink. A healthy diet includes: ? ? Fresh fruits and vegetables. ? ? Whole grains. ? ? Low-fat (lean) meats. ? ? Low-fat dairy products. ? ? If told, include more salt in your diet. Do not add extra salt to your diet unless your doctor tells you to. ? ? Eat small meals often. ? ? Avoid standing up quickly after you eat. Medicines ? ? Take lozh-hmp-kssqvcn and prescription medicines only as told by your doctor. ? ? Follow instructions from your doctor about changing how much you take of your medicines, if this applies. ? ? Do not stop or change any of your medicines on your own. General instructions ? ? Wear compression stockings as told by your doctor. ? ? Get up slowly from lying down or sitting. ? ? Avoid hot showers and a lot of heat as told by your doctor. ? ? Return to your normal activities when your doctor says that it is safe. ? ? Do not smoke or use any products that contain nicotine or tobacco. If you need help quitting, ask your doctor. ? ? Keep all follow-up visits. Contact a doctor if: ? ? You vomit. ? ? You have watery poop (diarrhea). ? ? You have a fever for more than 2? 3 days. ? ? You feel more thirsty than normal. ? ? You feel weak and tired. Get help right away if: ? ? You have chest pain. ? ? You have a fast or uneven heartbeat. ? ? You lose feeling (have numbness) in any part of your body. ? ? You cannot move your arms or your legs. ? ? You have trouble talking. ? ? You get sweaty or feel light-headed. ? ? You faint. ? ? You have trouble breathing. ? ? You have trouble staying awake. ? ? You feel mixed up (confused). These symptoms may be an emergency. Get help right away. Call 911. ? ? Do not wait to see if the symptoms will go away. ? ? Do not drive yourself to the hospital. Summary ? ? Hypotension is also called low blood pressure. It is when the force of blood pumping through your body is too weak. ? ? Hypotension may be harmless, or it may cause serious problems. ? ? Treatment may include changing your diet and medicines, and wearing compression stockings. ? ? In very bad cases, you may need to go to the hospital. This information is not intended to replace advice given to you by your health care provider. Make sure you discuss any questions you have with your health care provider. Document Revised: 04/22/2022 Document Reviewed: 04/22/2022 [employer] Patient Education ?? 2021 [employer]. Acute Kidney Injury, Adult Acute kidney injury is a sudden worsening of kidney function. The kidneys are organs that have several jobs. They filter the blood to remove waste products and extra fluid. They also maintain a healthy balance of minerals and hormones in the body, which helps control blood pressure and keep bones strong. With this condition, your kidneys do not do their jobs as well as they should. This condition ranges from mild to severe. Over time, it may develop into long-lasting (chronic) kidney disease. Early detection and treatment may prevent acute kidney injury from developing into a chronic condition. What are the causes? Common causes of this condition include: ? ? A problem with blood flow to the kidneys. This may be caused by: ? ? Low blood pressure (hypotension) or shock. ? ? Blood loss. ? ? Heart and blood vessel (cardiovascular) disease. ? ? Severe joshi. ? ? Liver disease. ? ? Direct damage to the kidneys. This may be caused by: ? ? Certain medicines. ? ? A kidney infection. ? ? Poisoning. ? ? Being around or in contact with toxic substances. ? ? A surgical wound. ? ? A hard, direct hit to the kidney area. ? ? A sudden blockage of urine flow. This may be caused by: ? ? Cancer. ? ? Kidney stones. ? ? An enlarged prostate in males. What increases the risk? You are more likely to develop this condition if you: ? ? Are older than age 65. ? ? Are female. ? ? Are hospitalized, especially if you are in critical condition. ? ? Have certain conditions, such as: ? ? Chronic kidney disease. ? ? Diabetes. ? ? Coronary artery disease and heart failure. ? ? Pulmonary disease. ? ? Chronic liver disease. What are the signs or symptoms? Symptoms of this condition may not be obvious until the condition becomes severe. Symptoms of this condition can include: ? ? Tiredness (lethargy) or difficulty staying awake. ? ? Nausea or vomiting. ? ? Swelling (edema) of the face, legs, ankles, or feet. ? ? Problems with urination, such as: ? ? Pain in the abdomen, or pain along the side of your stomach (flank). ? ? Producing little or no urine. ? ? Passing urine with a weak flow. ? ? Muscle twitches and cramps, especially in the legs. ? ? Confusion or trouble concentrating. ? ? Loss of appetite. ? ? Fever. How is this diagnosed? Your health care provider can diagnose this condition based on your symptoms, medical history, and a physical exam. You may also have other tests, such as: ? ? Blood tests. ? ? Urine tests. ? ? Imaging tests. ? ? A test in which a sample of tissue is removed from the kidneys to be examined under a microscope (kidney biopsy). How is this treated? Treatment for this condition depends on the cause and how severe the condition is. In mild cases, treatment may not be needed. The kidneys may heal on their own. In more severe cases, treatment will involve: ? ? Treating the cause of the kidney injury. This may involve changing any medicines you are taking or adjusting your dosage. ? ? Fluids. You may need specialized IV fluids to balance your body's needs. ? ? Having a catheter placed to drain urine and prevent blockages. ? ? Preventing problems from occurring. This may mean avoiding certain medicines or procedures that can cause further injury to the kidneys. In some cases, treatment may also require: ? ? A procedure to remove toxic wastes from the body (dialysis or continuous renal replacement therapy, CRRT). ? ? Surgery. This may be done to repair a torn kidney or to remove the blockage from the urinary system. Follow these instructions at home: Medicines ? ? Take jljt-wle-hnyudjx and prescription medicines only as told by your health care provider. ? ? Do not take any new medicines without your health care provider's approval. Many medicines can worsen your kidney damage. ? ? Do not take any vitamin and mineral supplements without your health care provider's approval. Many nutritional supplements can worsen your kidney damage. Lifestyle ? ? If your health care provider prescribed changes to your diet, follow them. You may need to decrease the amount of protein you eat. ? ? Achieve and maintain a healthy weight. If you need help with this, ask your health care provider. ? ? Start or continue an exercise plan. Try to exercise at least 30 minutes a day, 5 days a week. ? ? Do not use any products that contain nicotine or tobacco, such as cigarettes, e-cigarettes, and chewing tobacco. If you need help quitting, ask your health care provider. General instructions ? ? Keep track of your blood pressure. Report changes in your blood pressure as told by your health care provider. ? ? Stay up to date with your vaccines. Ask your health care provider which vaccines you need. ? ? Keep all follow-up visits as told by your health care provider. This is important. Where to find more information ? ? [place] [employer] Patients: www.aakp.org ? ? National Kidney Foundation: www.kidney.org ? ? [employer]: www.akfinc.org ? ? [employer] Program: ? ? www.lifeoptions.org ? ? www.kidneyschool.org Contact a health care provider if: ? ? Your symptoms get worse. ? ? You develop new symptoms. Get help right away if: ? ? You develop symptoms of worsening kidney disease, which include: ? ? Headaches. ? ? Abnormally dark or light skin. ? ? Easy bruising. ? ? Frequent hiccups. ? ? Chest pain. ? ? Shortness of breath. ? ? End of menstruation in women. ? ? Seizures. ? ? Confusion or altered mental status. ? ? Abdominal or back pain. ? ? Itchiness. ? ? You have a fever. ? ? Your body is producing less urine. ? ? You have pain or bleeding when you urinate. Summary ? ? Acute kidney injury is a sudden worsening of kidney function. ? ? Acute kidney injury can be caused by problems with blood flow to the kidneys, direct damage to the kidneys, and sudden blockage of urine flow. ? ? Symptoms of this condition may not be obvious until it becomes severe. Symptoms may include edema, lethargy, confusion, nausea or vomiting, and problems passing urine. ? ? This condition can be diagnosed with blood tests, urine tests, and imaging tests. Sometimes a kidney biopsy is done to diagnose this condition. ? ? Treatment for this condition often involves treating the underlying cause. It is treated with fluids, medicines, diet changes, dialysis, or surgery. This information is not intended to replace advice given to you by your health care provider. Make sure you discuss any questions you have with your health care provider. Document Revised: 07/11/2020 Document Reviewed: 07/11/2020 [employer] Patient Education ?? 2021 QWiPS. Medication Leaflets: atorvastatin (a TOR va sta tin) Lipitor What is the most important information I should know about atorvastatin? You should not take atorvastatin if you are or , or if you have liver disease. Tell your doctor about all your current medicines and any you start or stop using. Many drugs can interact, and some drugs should not be used together. Atorvastatin can cause the breakdown of muscle tissue, which can lead to kidney failure. Call your doctor right away if you have unexplained muscle pain, tenderness, or weakness especially if you also have fever, unusual tiredness, or dark urine. What is atorvastatin? Atorvastatin is used together with diet to lower blood levels of 'bad' cholesterol (low-density lipoprotein, or LDL), to increase levels of 'good' cholesterol (high-density lipoprotein, or HDL), and to lower triglycerides (a type of fat in the blood). Atorvastatin is used to treat high cholesterol, and to lower the risk of stroke, heart attack, or other heart complications in people with type 2 diabetes, coronary heart disease, or other risk factors. Atorvastatin is used in adults and children who are at least 10 years old. Atorvastatin may also be used for purposes not listed in this medication guide. What should I discuss with my healthcare provider before taking atorvastatin? You should not use atorvastatin if you are allergic to it, or if you have liver disease. Do not use if you are . This medicine can harm an unborn baby. Use effective control to prevent . Stop taking this medicine and tell your doctor at once if you become . Do not breastfeed while you are taking atorvastatin. Tell your doctor if you have ever had: ? liver problems; ? ? muscle pain or weakness; ? ? kidney disease; ? ? diabetes; ? ? a thyroid disorder; or ? ? if you drink more than 2 alcoholic beverages daily. Atorvastatin can cause the breakdown of muscle tissue, which can lead to kidney failure. This happens more often in women, in older adults, or people who have kidney disease or poorly controlled hypothyroidism (underactive thyroid). Atorvastatin is not approved for use by anyone younger than 10 years old. How should I take atorvastatin? Follow all directions on your prescription label and read all medication guides or instruction sheets. Your doctor may occasionally change your dose. Use the medicine exactly as directed. Take the medicine at the same time each day, with or without food. Do not break an atorvastatin tablet before taking it, unless your doctor has told you to. You may need to stop using atorvastatin for a short time if you have: ? uncontrolled seizures; ? ? an electrolyte imbalance (such as high or low potassium levels in your blood); ? ? severely low blood pressure; ? ? a severe infection or illness; or ? ? surgery or a medical emergency. It may take up to 2 weeks before your cholesterol levels improve, and you may need frequent blood tests. Even if you have no symptoms, tests can help your doctor determine if this medicine is effective. Atorvastatin is only part of a complete treatment program that may also include diet, exercise, and weight control. Follow your doctor's instructions very closely. Store at room temperature away from moisture, heat, and light. What happens if I miss a dose? Use the medicine as soon as you can, but skip the missed dose if you are more than 12 hours late for the dose. Do not use two doses at one time. What happens if I overdose? Seek emergency medical attention or call the Poison Help line at . What should I avoid while taking atorvastatin? Avoid eating foods high in fat or cholesterol, or atorvastatin will not be as effective. Avoid drinking alcohol. It can raise triglyceride levels and may increase your risk of liver damage. Grapefruit may interact with atorvastatin and lead to unwanted side effects. Avoid drinking more than 1 liter of grapefruit juice while taking atorvastatin. What are the possible side effects of atorvastatin? Get emergency medical help if you have signs of an allergic reaction: hives; difficulty breathing; swelling of your face, lips, tongue, or throat. In rare cases, atorvastatin can cause a condition that results in the breakdown of skeletal muscle tissue, leading to kidney failure. Call your doctor right away if you have unexplained muscle pain, tenderness, or weakness especially if you also have fever, unusual tiredness, and dark colored urine. Also call your doctor at once if you have: ? muscle weakness in your hips, shoulders, neck, and back; ? ? trouble lifting your arms, trouble climbing or standing; ? ? liver problems--upper stomach pain, weakness, tired feeling, loss of appetite, dark urine, jaundice (yellowing of the skin or eyes); or ? ? kidney problems--little or no urinating, swelling in your feet or ankles, feeling tired or short of breath. Common side effects may include: ? joint pain; ? ? stuffy nose, sore throat; ? ? diarrhea; or ? ? pain in your arms or legs. This is not a complete list of side effects and others may occur. Call your doctor for medical advice about side effects. You may report side effects to FDA at 5-269-MGR-1193. What other drugs will affect atorvastatin? Certain other drugs can increase your risk of serious muscle problems, and it is very important that your doctor knows if you are using any of them. Tell your doctor about all your current medicines and any you start or stop using, especially: ? other cholesterol-lowering medication; ? ? antibiotic or antifungal medicine; ? ? control pills; ? ? medicine to prevent organ transplant rejection; ? ? heart medication; or ? ? medicine to treat hepatitis C or HIV. This list is not complete and many other drugs may affect atorvastatin. This includes prescription and mcpi-lve-fgglswz medicines, vitamins, and herbal products. Not all possible drug interactions are listed here. Where can I get more information? Your pharmacist can provide more information about atorvastatin. Remember, keep this and all other medicines out of the reach of children, never share your medicines with others, and use this medication only for the indication prescribed. Every effort has been made to ensure that the information provided by [employer] is accurate, up-to-date, and complete, but no guarantee is made to that effect. Drug information contained herein may be time sensitive. [employer] information has been compiled for use by healthcare practitioners and consumers in the [place] and therefore [employer] does not warrant that uses outside of the [place] are appropriate, unless specifically indicated otherwise. [employer]'s drug information does not endorse drugs, diagnose patients or recommend therapy. [employer] drug information is an informational resource designed [...] effective or appropriate for any given patient. [facility] does not assume any responsibility for any aspect of healthcare administered with the aid of information [facility] provides. The information contained herein is not intended to cover all possible uses, directions, precautions, warnings, drug interactions, allergic reactions, or adverse effects. If you have questions about the drugs you are taking, check with your doctor, nurse or pharmacist. Copyright 6373-3426 [employer]. Version: .. Revision Date: 10/24/2020. midodrine (MY bailey drin) What is the most important information I should know about midodrine? You should not use midodrine if you have severe heart disease, overactive thyroid, an adrenal gland tumor, kidney disease, if you are unable to urinate, or if your blood pressure is high even while lying down. Midodrine can increase blood pressure even when you are at rest. This medicine should be used only if you have severely low blood pressure that affects your daily life. Midodrine may not improve your ability to perform daily activities. What is midodrine? Midodrine works by constricting (narrowing) the blood vessels and increasing blood pressure. Midodrine is used to treat low blood pressure (hypotension) that causes severe dizziness or a light-headed feeling, like you might pass out. This medicine is for use only when low blood pressure affects daily life. Midodrine may not improve your ability to perform daily activities. Midodrine may also be used for purposes not listed in this medication guide. What should I discuss with my healthcare provider before taking midodrine? You should not use midodrine if you are allergic to it, or if you have: ? severe heart disease; ? ? kidney disease, or if you are unable to urinate; ? ? pheochromocytoma (tumor of the adrenal gland); ? ? overactive thyroid; or ? ? high blood pressure even while lying down. To make sure midodrine is safe for you, tell your doctor if you have: ? diabetes; ? ? glaucoma or a history of vision problems; ? ? liver disease; or ? ? a history of kidney disease. It is not known whether this medicine will harm an unborn baby. Tell your doctor if you are or plan to become . It is not known whether midodrine passes into breast milk or if it could harm a nursing baby. Tell your doctor if you are breast-feeding a baby. How should I take midodrine? Follow all directions on your prescription label. Do not take this medicine in larger or smaller amounts or for longer than recommended. Midodrine is usually taken 3 times per day, with doses spaced at least 3 hours apart. Take your last dose of the day within 3 or 4 hours before bedtime. You may take midodrine with or without food. Take this medicine during your normal waking hours, when your are most likely to be upright and not lying down or napping. Ask your doctor about how to take this medicine if you normally lie down during the day. Midodrine can increase your blood pressure even while you are lying down or sleeping (when blood pressure is usually lowest). Long-term high blood pressure (hypertension) can lead to serious medical problems. Follow your doctor's instructions about the best way to position your body while you are laying down or sleeping. You may need to keep your head elevated to help prevent high blood pressure. Your blood pressure will need to be checked before and during treatment with midodrine. Check your blood pressure while you are lying down, and check it again with your head elevated. Your kidney and liver function may also need to be checked. Midodrine is only part of a treatment program that may also include lifestyle changes, wearing support stockings on your legs, and possibly special medical care. Follow your doctor's instructions very closely. Store at room temperature away from moisture and heat. What happens if I miss a dose? Take the missed dose as soon as you remember. Skip the missed dose if it is almost time for your next scheduled dose. Do not take extra medicine to make up the missed dose. You may need to skip a dose if you will be resting or lying down for a long period of time during your normal waking hours. Talk to your doctor about how to adjust your dose schedule if needed. What happens if I overdose? Seek emergency medical attention or call the Poison Help line at . Symptoms of a midodrine overdose may include increased blood pressure (flushing, headache, pounding heartbeat, blurred vision), goosebumps, feeling cold, or trouble urinating. What should I avoid while taking midodrine? Avoid taking a dose within less than 3 hours before your normal bedtime. Ask a doctor or pharmacist before using any pmdy-kfz-zssizvn diet pills, or cough/cold medicine that contains phenylephrine or pseudoephedrine. These medicines may raise your blood pressure. What are the possible side effects of midodrine? Get emergency medical help if you have any of these signs of an allergic reaction: hives; difficult breathing; swelling of your face, lips, tongue, or throat. Stop taking midodrine and call your doctor at once if you have: ? severely slowed heart rate--weak pulse, severe dizziness or light-headed feeling; or ? ? dangerously high blood pressure--severe headache, pounding sensation in your ears ('hearing' your heartbeats), blurred vision, buzzing in your ears, anxiety, confusion, chest pain, shortness of breath, uneven heartbeats, seizure. Common side effects may include: ? chills, goosebumps; ? ? numbness, tingling, or itching (especially in your scalp); ? ? headache, dizziness, tired feeling; ? ? nausea; or ? ? increased urination, painful or difficult urination, or sudden urge to urinate. This is not a complete list of side effects and others may occur. Call your doctor for medical advice about side effects. You may report side effects to FDA at 9-079-TKM-6971. What other drugs will affect midodrine? Taking midodrine with other drugs that constrict blood vessels can further increase your blood pressure. Tell your doctor about all your current medicines and any you start or stop using, especially: ? digoxin, digitalis, droxidopa, fludrocortisone ? ? an antidepressant; ? ? asthma medicine; ? ? heart or blood pressure medicine; ? ? migraine headache medicine; ? ? thyroid medicine such as levothyroid or Synthroid; ? ? drugs to treat high blood pressure or a prostate disorder--prazosin, terazosin, or doxazosin; or ? ? an MAO inhibitor--isocarboxazid, linezolid, methylene blue injection, phenelzine, rasagiline, selegiline, tranylcypromine. This list is not complete. Other drugs may interact with midodrine, including prescription and alcx-heo-qhfjmkr medicines, vitamins, and herbal products. Not all possible interactions are listed in this medication guide. Where can I get more information? Your pharmacist can provide more information about midodrine. Remember, keep this and all other medicines out of the reach of children, never share your medicines with others, and use this medication only for the indication prescribed. Every effort has been made to ensure that the information provided by [employer]. [employer]') is accurate, up-to-date, and complete, but no guarantee is made to that effect. Drug information contained herein may be time sensitive. [employer] information has been compiled for use by healthcare practitioners and consumers in the [place] and therefore [employer] does not warrant that uses outside of the [place] are appropriate, unless specifically indicated otherwise. [employer]s drug information does not endorse drugs, diagnose patients or recommend therapy. [employer]s drug information is an informational resource designed [...] effective or appropriate for any given patient. [employer] does not assume any responsibility for any aspect of healthcare administered with the aid of information [employer] provides. The information contained herein is not intended to cover all possible uses, directions, precautions, warnings, drug interactions, allergic reactions, or adverse effects. If you have questions about the drugs you are taking, check with your doctor, nurse or pharmacist. Copyright 0600-3412 [employer]. Version: 4.01. Revision Date: 10/30/2016. sodium chloride (oral) (GERBER hahn) Sodium Chloride What is the most important information I should know about sodium chloride? You should not take sodium chloride if you have ever had an allergic reaction to it, or if you have high sodium levels in your blood. Before you take sodium chloride, tell your doctor if you have high blood pressure, kidney or liver disease, fluid retention (especially around your legs or your lungs), congestive heart failure, preeclampsia of if you are on a low-salt diet, or if you are allergic to any foods or drugs. Tell your doctor if you are or breast-feeding. Stop using sodium chloride and call your doctor at once if you have stomach pain, nausea and vomiting, or swelling in your hands or feet. Call your doctor if your symptoms do not improve, or if they get worse while using sodium chloride. What is sodium chloride? Sodium chloride is the chemical name for salt. Sodium is an electrolyte that regulates the amount of water in your body. Sodium also plays a part in nerve impulses and muscle contractions. Sodium chloride is used to treat or prevent sodium loss caused by dehydration, excessive sweating, or other causes. Sodium chloride may also be used for purposes not listed in this medication guide. What should I discuss with my health care provider before taking sodium chloride? You should not take sodium chloride if you have ever had an allergic reaction to it, or if you have high sodium levels in your blood. To make sure you can safely take sodium chloride, tell your doctor if you have any of these other conditions: ? high blood pressure; ? ? kidney disease; ? ? liver disease (especially cirrhosis); ? ? a buildup of fluid around your lungs (also called pleural effusion); ? ? fluid retention (especially swelling in your ankles or feet ); ? ? congestive heart failure; ? ? if you are and you have high blood pressure and fluid retention (also called preeclampsia); ? ? if you are allergic to any foods or drugs; or ? ? if you are on a low-salt diet. FDA category C. It is not known whether sodium chloride will harm an unborn baby. Tell your doctor if you are or plan to become while using this medication. It is not known whether sodium chloride passes into breast milk or if it could harm a nursing baby. Do not use this medication without telling your doctor if you are breast-feeding a baby. How should I take sodium chloride? Take exactly as prescribed by your doctor. Do not take in larger or smaller amounts or for longer than recommended. Follow the directions on your prescription label. Take this medicine with a full glass (8 ounces) of water. Sodium chloride may be taken with or without food. To be sure this medication is helping your condition, your blood may need to be tested often. Visit your doctor regularly. Do not share this medication with another person, even if they have the same symptoms you have. Call your doctor if your symptoms do not improve, or if they get worse while using sodium chloride. Store at room temperature away from moisture, heat, and light. What happens if I miss a dose? Take the missed dose as soon as you remember. Skip the missed dose if it is almost time for your next scheduled dose. Do not take extra medicine to make up the missed dose. What happens if I overdose? Seek emergency medical attention or call the Poison Help line at . Overdose symptoms may include nausea, vomiting, stomach cramps, diarrhea, fast or uneven heart rate, weakness, swelling in your hands or feet, feeling restless or irritable, slow breathing, feeling short of breath, or seizure (convulsions). What should I avoid while taking sodium chloride? Avoid becoming overheated or dehydrated during exercise and in hot weather. Follow your doctor's instructions about the type and amount of liquids you should drink. In some cases, drinking too much liquid can be as unsafe as not drinking enough. What are the possible side effects of sodium chloride? Get emergency medical help if you have any of these signs of an allergic reaction: hives; difficult breathing; swelling of your face, lips, tongue, or throat. Stop using sodium chloride and call your doctor at once if you have a serious side effect such as: ? nausea and vomiting; ? ? stomach pain; or ? ? swelling in your hands, ankles, or feet. Less serious side effects are more likely, and you may have none at all. This is not a complete list of side effects and others may occur. Call your doctor for medical advice about side effects. You may report side effects to FDA at 6-591-LEP-4289. What other drugs will affect sodium chloride? There may be other drugs that can interact with sodium chloride. Tell your doctor about all medications you use. This includes prescription, cfpm-ain-weugtpy, vitamin, and herbal products. Do not start a new medication without telling your doctor. Where can I get more information? Your pharmacist can provide more information about sodium chloride. Remember, keep this and all other medicines out of the reach of children, never share your medicines with others, and use this medication only for the indication prescribed. Every effort has been made to ensure that the information provided by [employer]. [employer]') is accurate, up-to-date, and complete, but no guarantee is made to that effect. Drug information contained herein may be time sensitive. [employer] information has been compiled for use by healthcare practitioners and consumers in the [place] and therefore [employer] does not warrant that uses outside of the [place] are appropriate, unless specifically indicated otherwise. [employer]'s drug information does not endorse drugs, diagnose patients or recommend therapy. [employer]s drug information is an informational resource designed [...] effective or appropriate for any given patient. [employer] does not assume any responsibility for any aspect of healthcare administered with the aid of information [employer] provides. The information contained herein is not intended to cover all possible uses, directions, precautions, warnings, drug interactions, allergic reactions, or adverse effects. If you have questions about the drugs you are taking, check with your doctor, nurse or pharmacist. Copyright 1420-1240 [employer]. Version: 1.04. Revision Date: 08/09/2013. Accessing??[employer]??Express??Patient??Portal Access medications, test results, radiology reports, and more through [employer] secure patient portal. Please be patient if waiting on lab results, as these can take several days to process. [place] online at??[email or web address].??Use your community medical record number (CMRN) located below to verify your identity on the Self-Enrollment form.We also offer the ability for you to securely connect other health management apps to your health record. See the [facility] Connection link on the website above for more details. Watch [employer] Patient Education Videos and Access Resources anytime online! Visit [email or web address]. Extracted from: Title:Progress SOAP Note Author:Tigre Olmos DO Date:12/21/22 1.??JURGEN (acute kidney injury )(Acute kidney failure, unspecified: N17.9) 2.??Hypotension(Hypotension, unspecified: I95.9) 3.??Ileostomy status(Ileostomy status: Z93.2) 4.??Colon cancer(Malignant neoplasm of colon, unspecified: C18.9) 5.??Near syncope(Syncope and collapse: R55) 6.??Metabolic acidemia(Acidosis, unspecified: E87.20) 7.??Hyponatremia(Hypo-osmolality and hyponatremia: E87.1) 7.??Hyponatremia(Hypo-osmolality and hyponatremia: E87.1) 8.??Acute renal failure(Acute kidney failure, unspecified: N17.9) 9.??Acute hyponatremia(Hypo-osmolality and hyponatremia: E87.1) 10.??Volume depletion(Volume depletion, unspecified: E86.9) 11.??Hypoalbuminemia(Other disorders of plasma-protein metabolism, not elsewhere classified: E88.09) 12.??Increased stool volume(Other fecal abnormalities: R19.5) Acute??renal failure with hyponatremia:??improved, nephrology signed off.?Transfer out of ICU to medical floor ? Hyponatremia:?? Improved ?? Hypotension:?? Midodrine ?? Colon cancer status post??surgery??with??high-output ostomy:?? Lomotil??and Imodium and titrate further medications as indicated. Followed by Dr. Escobar with [facility] ? Diet:??Regular DVT ppx:??Heparin Code status:??Full Code ? Transfer out??of ICU.?? Strongly??encouraged??p.o. intake??and if continued??improvement??in ostomy??output??and??blood pressure stable potential discharge tomorrow ? Extracted from: Title:Progress SOAP Note Author:Karlee Hart MD Date:12/20/22 1.??JURGEN (acute kidney injury )(Acute kidney failure, unspecified: N17.9) 2.??Hypotension(Hypotension, unspecified: I95.9) 3.??Ileostomy status(Ileostomy status: Z93.2) 4.??Colon cancer(Malignant neoplasm of colon, unspecified: C18.9) 5.??Near syncope(Syncope and collapse: R55) 6.??Metabolic acidemia(Acidosis, unspecified: E87.20) 7.??Hyponatremia(Hypo-osmolality and hyponatremia: E87.1) 7.??Hyponatremia(Hypo-osmolality and hyponatremia: E87.1) 8.??Acute renal failure(Acute kidney failure, unspecified: N17.9) 9.??Acute hyponatremia(Hypo-osmolality and hyponatremia: E87.1) 10.??Volume depletion(Volume depletion, unspecified: E86.9) 11.??Hypoalbuminemia(Other disorders of plasma-protein metabolism, not elsewhere classified: E88.09) 12.??Increased stool volume(Other fecal abnormalities: R19.5) ?? Plan ?? Patient doing much better today and off vasopressors. Continue midodrine 10 mg t.i.d. for blood pressure support. Nephrology following for JURGEN, ??volume management and electrolyte abnormalities. Serum sodium normalized and at goal. Discontinue Q2 sodium checks and remove Ponce's catheter. ?? Still with high colostomy output, change to scheduled loperamide. Repeat BMP in a.m..?? Continue to monitor I&Os. Encouraged increase in oral intake. Out of bed, increase activity and PT eval ordered. ?? Recent ileostomy revision with small-bowel resection on 11/07 by colorectal surgery. History of stage IIIC colon cancer treated with diverting loop ileostomy and adjuvant FOLFOX She follows with Dr Escobar of [facility] She was seen in the office on 12/18 with plans of starting FOLFOX for 6 mos Subsequent admission to the hospital for hyponatremia and dehydration with JURGEN 12/18. ?? Stable for transfer out of ICU to the med surgical floor. ?? PCP : Dr Gary CODE : FULL DVT: Heparin ?? Dispo: Home ? in 1-??2 days ? Orders: loperamide, 2 mg = 1 cap, CAP, By mouth, Q6H, Start Date: 12/20/22 12:08:00 CDT, Duration: 3 Days, Stop date 12/23/22 6:00:00 CDT, Routine, Disp Location: [facility], GEN DISP BMP Occupational Therapy Evaluation and Treatment, Generalized weakness Physical Therapy Evaluation and Treatment, Generalized weakness Transfer Bed Request Urinary Catheter Removal, Today Extracted from: Title:Progress Note, Acute Care Author:Giovanni Doan Date:12/20/22 Impression and Plan Orders Orders Pharmacy: sodium chloride 1 g oral tablet (Order): 1 g, TAB, By mouth, BID, Start Date: 12/20/2022 12:30 CDT, Duration: 2 Dose(s), Stop date 12/20/2022 21:00 CDT, Routine Laboratory: CBC-d (Order): Blood, Early AM, 12/21/2022 3:00 CDT, Unit Collect, Routine, 24, hr, 12/22/2022 2:59 CDT, pp_rslts_call_set_order_encntr CMP (Order): Blood, Early AM, 12/21/2022 3:00 CDT, Unit Collect, Routine, 24, hr, 12/22/2022 2:59 CDT, pp_rslts_call_set_order_encntr. Extracted from: Title:Progress SOAP Note Author:Tigre Olmos DO Date:12/19/22 1.??JURGEN (acute kidney injury )(Acute kidney failure, unspecified: N17.9) 2.??Hypotension(Hypotension, unspecified: I95.9) 3.??Ileostomy status(Ileostomy status: Z93.2) 4.??Colon cancer(Malignant neoplasm of colon, unspecified: C18.9) 5.??Near syncope(Syncope and collapse: R55) 6.??Metabolic acidemia(Acidosis, unspecified: E87.20) Acute hyponatremia(Hypo-osmolality and hyponatremia: E87.1) Acute renal failure(Acute kidney failure, unspecified: N17.9) Hyponatremia(Hypo-osmolality and hyponatremia: E87.1) Hyponatremia(Hypo-osmolality and hyponatremia: E87.1) Volume depletion(Volume depletion, unspecified: E86.9) Orders: atropine-diphenoxylate, 2.5 mg, 1 tab, TAB, By mouth, QID, PRN, Diarrhea/Loose Stool, Start Date: 12/19/22 9:21:00 CDT, Duration: 14 Days, Stop date: 01/02/23 9:20:00 CDT, Routine, Disp Location: [facility] 5 CCU, [facility] emollients, topical, 1 application, CREAM, Route: Topical, Daily, PRN, See Comment Note, Start Date: 12/19/22 8:59:00 CDT, Duration: 90 Days, Stop date: 03/19/23 8:58:00 CDT, Routine, Disp Location: [facility] guar gum (Benefiber), 4 g, 1 pkt, POWDER, Route: By mouth, Daily, Start Date: 12/19/22 9:01:00 CDT, Duration: 90 Days, Stop date: 03/19/23 8:59:00 CDT, Routine, Disp Location: [facility] loperamide, 2 mg = 1 cap, CAP, By mouth, Q6H, PRN, as needed for loose stool, Start Date: 12/19/22 8:41:00 CDT, Duration: 90 Days, Stop date 03/19/23 8:40:00 CDT, Routine, Disp Location: [facility] oxyCODONE, 5 mg = 1 tab, TAB, By mouth, Q6H, PRN, Pain Severe, Start Date: 12/19/22 8:41:00 CDT, Duration: 14 Days, Stop date 01/02/23 8:40:00 CDT, Routine, Disp Location: [place] [address] CCU, [facility] pantoprazole, 40 mg = 1 tab, TAB, By mouth, Daily, Gastroesophageal Reflux Disease - Maint, Routine, Start Date: 12/20/22 6:00:00 CDT, Duration: 90 Days, Stop date 03/20/23 5:59:00 CDT, Disp Location: [facility] BMP Acute??renal failure with hyponatremia:?? Renal function improved today. I/O. Appreciate??Nephrology consultation, continue with??IV fluids.?? Allow renal perfusion Transition??from D5W to??NS??today??and continue to monitor serial sodium. ?? Hypotension:?? Midodrine, IV fluids, titrate off??of Levophed is able ?? Colon cancer status post??surgery??with??high-output ostomy:?? Will make??Colorectal surgery aware??of??admission, Dr. Gary.?? Restart??home Lomotil??and Imodium and titrate further medications as indicated. Followed by Dr. Escobar with [facility], has not yet started chemotherapy ? Diet:??Regular ?? DVT ppx:??Heparin ?? Code status:??Full Code ? Extracted from: Title:Progress Note, Acute Care Author:Giovanni Doan Date:12/19/22 Impression and Plan Orders Orders Pharmacy: midodrine (Order): 10 mg, TAB, By mouth, TID, Start Date: 12/19/2022 8:17 CDT, Duration: 90 Days, Stop date 03/18/2023 17:00 CDT, Routine. Orders Pharmacy: [facility] 1,000 mL (Order): Route: IV, Routine, Start Date: 12/19/2022 8:38 CDT, 90 Days, Stop date 03/19/2023 8:37 CDT, Rate= 100 ml/hr, hr, Total Vol ml = 1,000, 1.59, m2 D5W 1000 mL (Discontinue): 12/19/2022 8:38 CDT. Extracted from: Title:Admission H&P Note Author:Samanta ROBERT, Mu martinez I Date:12/18/22 1.??JURGEN (acute kidney injury )(Acute kidney failure, unspecified: N17.9) -increased ostomy??output??in the past few days reported??by the patient -appreciate??Nephrology assistance.?? DrStephanie??Kane??has??seen patient in the emergency department already-await further recommendations. -received??total??1.5 L fluid bolus??so far -hyponatremia-add on??osmolality urine??serum, urine??sodium ? 2.??Hypotension(Hypotension, unspecified: I95.9) -suspect secondary to??dehydration, GI loss -improved status post??IV fluid??bolus in the ED. -monitor in the step-down unit ? 3.??Ileostomy status(Ileostomy status: Z93.2) -noted. functioning ?? 4.??Colon cancer(Malignant neoplasm of colon, unspecified: C18.9) -status post colon??resection??in??September of 2022.?? Following up outpatient??with Dr.??Escobar.?? Has not started??chemotherapy yet ?? 5.??Near syncope(Syncope and collapse: R55) -suspect secondary??to hypotension.?? However,? also reports??right arm weakness??at the near syncopal??event??earlier this morning-that??has resolved??shortly.?? No other neuro deficit. -will go ahead??and check CT head without??contrast -aspirin statin -check lipids -check??echo, ultrasound??carotid ? 6.??Metabolic acidemia(Acidosis, unspecified: E87.20) Orders: CT Head wo Contrast Routine Osmolality Serum Osmolality Urine Sodium Random Urine Code status-discussed with the patient-full??code ?? DVT??prophylaxis-heparin subQ ?? Plan of care in collaboration??with ??Luis ? Addendum by Bon Smith DO on December 18, 2022 14:33:09 CDT Patient seen independently of Diane England ASSET PROTECTION OFFICER. Case and plan discussed and agreed upon. ??Patient resting in bed, currently??eating.?? Does have??intermittent high output ostomy.?? Notes output of around??2 L were greater over??the past??1-2 days.?? Notes??this improved with??p.r.n. Imodium.?? Has also??had issues with motility so p.r.n.??antidiarrheals are??used sparingly.?? Reviewed labs, plan??of treatment, and??interventions at bedside in detail??with patient and family at bedside.?? Upon further discussion??they note??that??the patient did??have some intermittent??unilateral??arm weakness??with her presyncopal??episode.?? Discussed further??workup for this as??well. ?? On exam:?? Patient alert oriented.?? No focal??deficits.?? No focal weakness??noted.?? Heart regular??rate and rhythm.?? Ostomy with output??noted.?? Lungs largely clear to auscultation bilaterally. ? Plan:?Appreciate??nephrology consultation.?? Plan??sodium??check every 2 hours.?? Blood pressure is still soft??so will upgrade to ICU??admission.?Repeat??sodium??has again risen.?? May need??to give??D5W.?? Maintain map??of 60 or above.?? If??not??will need to titrate Levophed.?? P.r.n. as??needed??for high output ostomy.?? Output thus??far today??has been okay.?? Agree with??CT??of the head and echocardiogram due??to syncopal episode??and possible focal??weakness. ? >50% of time spent??in patient care, counseling??at bedside,??chart review, and direction??of care??as above. ?? No changes to above. ?? Extracted from: Title:Hypotension Author:Ketan Amanda MD e:12/18/22 Impression and Plan Diagnosis Hyponatremia (UEQ05-RL E87.1) JURGEN (acute kidney injury) (EON76-LY N17.9) Colon cancer (DEM29-QN C18.9) Hyponatremia (EPK22-KH E87.1) Metabolic acidemia (XFX12-OD E87.20) Plan Condition: Guarded. Disposition: Admit. Medications atorvastatin 40 mg oral tablet 40 mg = 1 tab, By mouth, QPM (every evening), # 30 tab, Refill(s) 0, Pharmacy: [facility], [id number], TAB, 1 tab By mouth QPM (every evening), 56.2, 12/18/22 9:56:00 CDT, kg, Weight Start Date: 12/22/22 Status: Ordered Cavilon Durable Barrier topical cream See Instructions, Topical, apply 2 - 3 times a week with appliance changes, # 30 g, Refill(s) 0, Route to Pharmacy Electronically, Pharmacy: [facility], [id number],Instructions Replace Required Details, Topical, remedios... Start Date: 11/22/22 Status: Ordered guar gum oral powder for reconstitution 4 = g, By mouth, Daily, # 155 g, Refill(s) 0, Route to Pharmacy Electronically, Pharmacy: [facility], [id number], POWDER, 4 g By mouth Daily, 68.1, 10/11/22 10:11:00 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, kg, Weight Start Date: 10/16/22 Status: Ordered Lomotil oral tablet 1 tab, By mouth, QID, PRN for loose stool, 24 tab, 0, 0, Substitution Permitted, [facility], 64, Height, 11/04/22 0:31:00 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, in, 61.9, Weight, 11/03/22 15:28:00 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, kg Start Date: 11/11/22 Status: Ordered loperamide 2 mg oral capsule 2 mg = 1 cap, By mouth, Q6H, Refill(s) 0, CAP Start Date: 12/22/22 Status: Ordered midodrine 5 mg oral tablet 10 mg = 2 tab, By mouth, TID, # 180 tab, Refill(s) 0, [facility] [id number], TAB, 2 tab By mouth TID, 56.2, 12/18/22 9:56:00 CDT, kg, Weight Start Date: 12/22/22 Status: Ordered Ostomy supplies Ostomy supplies, See Instructions, Soft convex barrier wafer [id number], [id number], [employer] rings 7815, stoma powder 7906, 3M Cavilon skin barrier wipes. Adhesive remover 7737., # 1 pkt, Refills(s) 99, Print Requisition, Supply Start Date: 11/26/22 Status: Ordered ostomy supplies ostomy supplies, See Instructions, [place]: barrier ring 8815 Pouch [address] [place] Wafer [address] odor drops 7850 adapt no sting wipes 7917 adhesive remover wipes 7760, # 1 EA, Refills(s) 99, Print Requisition, Supply Start Date: 10/16/22 Status: Ordered oxyCODONE 5 mg oral tablet 5 mg, = 1 tab, By mouth, Q6H, PRN Pain Moderate, 24 tab, 0, 0, Substitution Permitted, [facility], 64, Height, 10/11/22 10:11:00 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, in, 68.1, Weight, 10/11/22 10:11:00 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, kg Start Date: 10/16/22 Status: Ordered pantoprazole 40 mg oral delayed release tablet 40 mg = 1 tab, By mouth, Daily, # 30 tab, Refill(s) 0, Pharmacy: [facility], [id number], TAB, 1 tab By mouth Daily, 63.4, 10/20/22 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, kg, 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 Start Date: 10/21/22 Status: Ordered sodium chloride 1 g oral tablet 1 g = 1 tab, By mouth, Daily, # 30 tab, Refill(s) 0, Pharmacy: [facility], [id number], TAB, 1 tab By mouth Daily, 56.2, 12/18/22 9:56:00 CDT, kg, Weight Start Date: 12/22/22 Status: Ordered Zofran ODT 4 mg oral tablet, disintegrating 4 mg = 1 tab, By mouth, Q6H, PRN for nausea & vomiting, # 20 tab, Refill(s) 0, Pharmacy: [facility], [id number], 1 tab By mouth Q6H,PRN:for nausea & vomiting, 68.1, 10/11/22 10:11:00 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, kg, Weight Start Date: 10/18/22 Status: [...] from documented surgical case 3Done 09/05/2022 Results Laboratory List Name Date BMP 12/22/22 CBC-d 12/21/22 CMP 12/21/22 zCBC Automated Diff 12/21/22 BMP 12/20/22 CMP 12/20/22 Lipid Panel with calculated LDL (lipid p rofile) 12/19/22 Gene Xpert CV-19 (Gene Xpert, Asymptomat ic/Pre-Procedure) (Gene X Pre) 12/18/22 Osmolality Serum (OsmolSerum) 12/18/22 zTroponin I - HS 2 Hr (zTrop I HS 2Hr) Electrolytes Random Urine (LytesUrRandom ) 12/18/22 Osmolality Urine (OsmolUrine) 12/18/22 Sodium Random Urine (Sodium Urine) 3 Urinalysis w/ microscopy (UA w/ micro) CBC-d 12/18/22 CMP 12/18/22 Cortisol Serum (CortisolSerum) 12/18/22 Magnesium Serum (Mg Serum) 12/18/22 TSH w Reflex FT4 (TSH&RfxFT4) 12/18/22 Troponin I - Series High-Sensitivity (Tr op I SeriesHS) 12/18/22 zCBC Automated Diff 12/18/22 Most recent to oldest [Reference Range]: 1 2 3 Bedside Glucose 144 mg/dL 1 (12/18/22 3:18 PM) COVID-19 Fischer PCR [Negative] Negative (12/18/22 1:11 PM) Anion Gap [2-15 mEq/L] 5 mEq/L (12/22/22 4:05 AM) 8 mEq/L (12/21/22 2:40 AM) 6 mEq/L (12/20/22 10:00 AM) Troponin I HS Delta 0-2 hr [<=3 ng/L] 1 ng/L 2 (12/18/22 1:11 PM) Troponin I HS [<=10 ng/L] 10 ng/L (12/18/22 1:11 PM) 9 ng/L (12/18/22 10:43 AM) RTE Casts None Seen (12/18/22 11:30 AM) RTEs None Seen (12/18/22 11:30 AM) hTSH [0.358-3.740 uIU/mL] 1.498 uIU/mL (12/18/22 10:43 AM) Glucose, Serum/Plasma [70-10 0 mg/dL] 96 mg/dL (12/22/22 4:05 AM) 92 mg/dL (12/21/22 2:40 AM) 109 mg/dL *HI* (12/20/22 10:00 AM) WBC [4.8-10.8 Thous/mm3] 8.7 Thous/mm3 (12/21/22 2:40 AM) 8.9 Thous/mm3 (12/18/22 10:43 AM) Hct [37.0-47.0 %] 32.0 % *LOW* (12/21/22 2:40 AM) 32.0 % *LOW* (12/18/22 10:43 AM) Hgb [12.0-16.0 g/dL] 10.7 g/dL *LOW* (12/21/22 2:40 AM) 11.1 g/dL *LOW* (12/18/22 10:43 AM) RBC [4.20-5.40 Million/mm3] 3.83 Million /mm3 *LOW* (12/21/22 2:40 AM) 3.94 Million/mm3 *LOW* (12/18/22 10:43 AM) MCV [80.0-100.0 fl] 83.6 fl (12/21/22 2:40 AM) 81.2 fl (12/18/22 10:43 AM) MCH [26.0-34.0 pg] 27.9 pg (12/21/22 2:40 AM) 28.2 pg (12/18/22 10:43 AM) MCHC [31.0-36.5 g/dL] 33.4 g/dL (12/21/22 2:40 AM) 34.7 g/dL (12/18/22 10:43 AM) RDW [10.4-14.4 %] 12.7 % (12/21/22 2:40 AM) 12.1 % (12/18/22 10:43 AM) Platelets [130-440 Thous/mm3] 293 Thous/ mm3 (12/21/22 2:40 AM) 209 Thous/mm3 (12/18/22 10:43 AM) MPV [9.4-12.4 fl] 10.0 fl (12/21/22 2:40 AM) 10.4 fl (12/18/22 10:43 AM) AutoNeutrophil [43.0-78.0 %] 68.2 % (12/21/22 2:40 AM) 80.8 % *HI* (12/18/22 10:43 AM) AutoLymphs [20.0-40.0 %] 23.4 % (12/21/22 2:40 AM) 13.7 % *LOW* (12/18/22 10:43 AM) AutoMono [2.0-10.0 %] 5.8 % (12/21/22 2:40 AM) 4.9 % (12/18/22 10:43 AM) AutoEo [0.0-7.0 %] 2.1 % (12/21/22 2:40 AM) 0.3 % (12/18/22 10:43 AM) Sodium [136-145 mEq/L] 128 mEq/L *LOW* (12/22/22 4:05 AM) 133 mEq/L *LOW* (12/21/22 2:40 AM) 130 mEq/L *LOW* (12/20/22 10:00 AM) Potassium [3.5-5.1 mEq/L] 4.3 mEq/L (12/22/22 4:05 AM) 4.2 mEq/L (12/21/22 2:40 AM) 4.0 mEq/L (12/20/22 10:00 AM) Chloride [98-107 mEq/L] 100 mEq/L (12/22/22 4:05 AM) 102 mEq/L (12/21/22 2:40 AM) 103 mEq/L (12/20/22 10:00 AM) AbsNeut [2.0-8.0 Thous/mm3] 5.9 Thous/mm 3 (12/21/22 2:40 AM) 7.2 Thous/mm3 (12/18/22 10:43 AM) CO2 [21-32 mEq/L] 23 mEq/L (12/22/22 4:05 AM) 23 mEq/L (12/21/22 2:40 AM) 21 mEq/L (12/20/22 10:00 AM) BUN [7-18 mg/dL] 16 mg/dL (12/22/22 4:05 AM) 16 mg/dL (12/21/22 2:40 AM) 13 mg/dL (12/20/22 10:00 AM) Creatinine [0.55-1.02 mg/dL] 1.15 mg/dL *HI* (12/22/22 4:05 AM) 1.32 mg/dL *HI* (12/21/22 2:40 AM) 1.06 mg/dL *HI* (12/20/22 10:00 AM) AbsLymph [1.0-4.0 Thous/mm3] 2.0 Thous/m m3 (12/21/22 2:40 AM) 1.2 Thous/mm3 (12/18/22 10:43 AM) AbsMono [0.1-1.0 Thous/mm3] 0.5 Thous/mm 3 (12/21/22 2:40 AM) 0.4 Thous/mm3 (12/18/22 10:43 AM) Bilirubin, Total [0.2-1.0 mg/dL] 0.3 mg/dL (12/21/22 2:40 AM) 0.3 mg/dL (12/20/22 3:20 AM) 0.5 mg/dL (12/18/22 10:43 AM) AbsEo [0.0-0.5 Thous/mm3] 0.2 Thous/mm3 (12/21/22 2:40 AM) 0.0 Thous/mm3 (12/18/22 10:43 AM) AbsBaso [0.0-0.2 Thous/mm3] 0.0 Thous/mm 3 (12/21/22 2:40 AM) 0.0 Thous/mm3 (12/18/22 10:43 AM) AutoBaso [0.0-2.5 %] 0.3 % (12/21/22 2:40 AM) 0.1 % (12/18/22 10:43 AM) Calcium [8.3-10.6 mg/dL] 9.1 mg/dL (12/22/22 4:05 AM) 9.5 mg/dL (12/21/22 2:40 AM) 8.6 mg/dL (12/20/22 10:00 AM) Cholesterol Total [<=200 mg/dL] 102 mg/dL (12/19/22 12:30 AM) HDL Chol [>=40 mg/dL] 36 mg/dL *LOW* (12/19/22 12:30 AM) Protein Total [6.4-8.5 g/dL] 6.5 g/dL (12/21/22 2:40 AM) 6.1 g/dL *LOW* (12/20/22 3:20 AM) 6.7 g/dL (12/18/22 10:43 AM) Albumin [3.4-5.0 g/dL] 3.2 g/dL *LOW* (12/21/22 2:40 AM) 3.0 g/dL *LOW* (12/20/22 3:20 AM) 3.5 g/dL (12/18/22 10:43 AM) AST [15-37 U/L] 13 U/L *LOW* (12/21/22 2:40 AM) 16 U/L (12/20/22 3:20 AM) 15 U/L (12/18/22 10:43 AM) Alk Phos [45-117 U/L] 65 U/L (12/21/22 2:40 AM) 65 U/L (12/20/22 3:20 AM) 67 U/L (12/18/22 10:43 AM) Cortisol 22.63 mcg/dL *NA* (12/18/22 10:43 AM) Magnesium [1.8-2.4 mg/dL] 1.8 mg/dL (12/18/22 10:43 AM) ALT [10-49 U/L] 18 U/L (12/21/22 2:40 AM) 21 U/L (12/20/22 3:20 AM) 20 U/L (12/18/22 10:43 AM) Appearance [Clear] Clear (12/18/22 11:30 AM) Color [Yellow] Yellow *NA* (12/18/22: AM) Sp. [place] [1.001-1.035] 1.009 (12/18/22 11: AM) Ketones [Negative] Negative (12/18/22 AM) Glucose [Negative] Negative (12/18/22 AM) Protein [Negative] Negative (12/18/22 AM) Blood [Negative] Negative (12/18/22 AM) Nitrites UA [Negative] Negative (12/18/22) Triglycerides [<=150 mg/dL] 134 mg/dL (12/19/22 12:30 AM) LDL Chol Calculated [<=130 mg/dL] 39 mg/dL (12/19/22 12:30 AM) Osmolality Serum [275-295 mOsm/kg] 276 mOsm/kg (12/18/22 1:11 PM) Sodium Urine <20 mEq/L *NA* (12/18/22 AM) <20 mEq/L *NA* (12/18/22: AM) Bilirubin UA [Negative] Negative (12/18/22) Urobilinogen [1.0 mg/dL] 0.2 mg/dL (12/18/22 11:30 AM) Leuko Esterase UA [Negative] Negative (12/18/22 AM) Potassium Urine 12.6 mEq/L *NA* (12/18/22: AM) pH UA [5.0-9.0] 5.5 (12/18/22 11:30 AM) RBC [0-2/hpf] 0-2/hpf (12/18/22 11:30 AM) WBC [0-5/hpf] 0-5/hpf (12/18/22 11:30 AM) Hyaline Casts [0-2/lpf] 3-5/lpf *ABN* (12/18/22 11:30 AM) Bacteria [None Seen] None Seen (12/18/22 11:30 AM) Chloride Urine <20 mEq/L *NA* (12/18/22 11:30 AM) Epithelium [None Seen] None Seen (12/18/22 11:30 AM) Osmolality Urine [250-900 mOsm/kg] 264 mOsm/kg (12/18/22 11:30 AM) eGFR [>=60 mL/min/1.73 m2] 48 mL/min/1.7 3 m2 *LOW* (12/22/22 4:05 AM) 41 mL/min/1.73 m2 *LOW* (12/21/22 2:40 AM) 53 mL/min/1.73 m2 *LOW* (12/20/22 10:00 AM) eGFR if [>=60 mL/min/1.73 m2] 58 mL/min/1.73 m2 *LOW* (12/22/22 4:05 AM) 49 mL/min/1.73 m2 *LOW* (12/21/22 2:40 AM) 64 mL/min/1.73 m2 (12/20/22 10:00 AM) Volume 3 mL *NA* (12/18/22 11:30 AM) Imm. Grans % [0-5 %] <5 % (12/21/22 2:40 AM) <5 % (12/18/22 10:43 AM) Imm. Grans # [0.0-0.5 Thous/mm3] <0.5 Thous/mm3 (12/21/22 2:40 AM) <0.5 Thous/mm3 (12/18/22 10:43 AM) ANC-AbsNeutCount 5.9 Thous/mm3 *NA* (12/21/22 2:40 AM) 7.2 Thous/mm3 *NA* (12/18/22 10:43 AM) 1Result Comment: Notify RN/DR Performed at:[facility], [address] [place] [address], [place], [address] Reference Ranges: Age 0 - 24 hours: 45 - 115 mg/dL Age 24 hours - 30 days: 55 - 115 mg/dL Age > 30 days: 70 - 100 mg/dL Critical Results Requiring Immediate Notification: Age <72 Hours: <40 or >350 mg/dL Age >72 Hours: <50 or >400 mg/dL 2Result Comment: Calculated by rule: [id number] Radiology Reports * Exam Date Time Procedure Performing Provider Status 12/19/22 9:35 AM US VL Carotid Duplex Doppler Bilateral Magdalena Montana; Auth (Verified) Notes: (US VL Carotid Duplex Doppler Bilateral) Reason For Exam: near syncope US VL Carotid Duplex Doppler Bilateral READING LOCATION: [place], [place] REASON FOR EXAM: near syncope. Diagnosis Codes: E87.1 Hypo-osmolality and hyponatremia E87.1 Hypo-osmolality and hyponatremia N17.9 Acute kidney failure, unspecified E86.9 Volume depletion, unspecified E87.1 Hypo-osmolality and hyponatremia COMPARISON: None TECHNIQUE: Color Doppler and spectral waveform analysis were performed of the carotid and vertebralvasculature. FINDINGS: Minimal atherosclerotic plaque visualized within the right and left common carotid bulbs and the proximal left internal carotid artery. MEASUREMENTS: (Absolute values should be used; +/- relates to transducer position relative to vessel flow. Every field may not be reported on all exams.) RIGHT Vertebral artery flow: antegrade flow Subclavian PSV: cm/s ECA Prox PSV: -112.0 cm/s ECA Prox EDV: -17.1 cm/s CCA Prox PSV: 80.2 cm/s CCA Prox EDV: 18.3 cm/s CCA Mid PSV: cm/s CCA Mid EDV: cm/s CCA Distal PSV: 66.6 cm/s CCA Distal EDV: 14.3 cm/s ICA Prox PSV: -74.1 cm/s ICA Prox EDV: -21.1 cm/s ICA Mid PSV: -76.8 cm/s ICA Mid EDV: -20.4 cm/s ICA Distal PSV: -94.4 cm/s ICA Distal EDV: -27.9 cm/s ICA/CCA Ratio: -1.2 LEFT Vertebral artery flow: antegrade flow Subclavian PSV: cm/s ECA Prox PSV: -90.0 cm/s ECA Prox EDV: 0.0 cm/s CCA Prox PSV: 87.6 cm/s CCA Prox EDV: 18.6 cm/s CCA Mid PSV: cm/s CCA Mid EDV: cm/s CCA Distal PSV: 78.0 cm/s CCA Distal EDV: 19.8 cm/s ICA Prox PSV: -63.0 cm/s ICA Prox EDV: -22.2 cm/s ICA Mid PSV: -79.2 cm/s ICA Mid EDV: -26.4 cm/s ICA Distal PSV: -114.0 cm/s ICA Distal EDV: -36.0 cm/s ICA/CCA Ratio: -1.3 NOTE: Report of measurements also part of image record for this exam. PEAK SYSTOLIC END DIASTOLIC ICA/CCA VELOCITY cm/sec VELOCITY cm/sec RATIO < 125 <45 <2 No hemodynamically significant stenosis NASCET stenosis below 40% 125-170 45-65 2-2.5 No hemodynamically significant stenosis NASCETstenosis is likely in the 40-60% range 170-300 65-90 2.5-4 Suspicious for hemodynamically significant stenosis over 60% > 300 > 90 > 4 Hemodynamically significant stenosis over 60% suggestive of the most severe stenosis over 80% >140 Suggestive of severe stenosis over 80% Estimates of carotid stenosis in this report are determined by the NASCET method. Percentage diameter NASCET stenosis equals (1-A/B) x 100%, where A is the diameter of the residual lumen and B isthe diameter of the normal distal internal carotid artery lumen. IMPRESSION: 1. No hemodynamically significant stenosis in either carotid artery system. The velocities and ratios probably correspond to a NASCET stenosis below 40%. 2. Antegrade flow in both vertebral arteries. 3. Minimal atherosclerosis as described above. Electronically signed by: Dr Gaurang Urbina 12/19/2022 9:39 AM Radiologist Gaurang Urbina MD Signed 12/19/22 09:39:18 (Electronic Signature) Automotive Alignment Specialist FLAVIO Technologist RW REPORT * Exam Date Time Procedure Performing Provider Status 12/18/22 1:[address] Head wo Contrast Yeimi Culver cca; Auth (Verified) Notes: (CT Head wo Contrast) Reason For Exam: near syncope, right-sided weakness transient REPORT CT Head wo Contrast Clinical indication: near syncope, right-sided weakness transient. Syncopal low blood pressure, right-sided weakness. Diagnosis Codes: E87.1 Hypo-osmolality and hyponatremia E87.1 Hypo-osmolality and hyponatremia N17.9 Acute kidney failure, unspecified I95.9 Hypotension, unspecified Z93.2 Ileostomy status READING LOCATION: [place] [address] Comparison:None. Technique:This CT study used one or more of the following dose reduction techniques: Automated exposure control, Adjustment of the mA and/or kV according to patient size, Use of iterative reconstruction technique. Patient radiation dose is recorded for each exam using dose tracking software. Findings: The brain is normal in volume and morphology. Ventricles, sulci, and cisterns are unremarkable. There is no intracranial area of abnormal increased attenuation or mass effect. There is no loss of naylor-white differentiation.. White matter attenuation is homogeneous. Orbits are unremarkable. The paranasal sinuses are unremarkable. Extracranial soft tissues are unremarkable. IMPRESSION: 1. No acute intracranial process identified. Radiologist: Dr Vishal Lynch , 12/18/2022 4:24 PM / Edited by: Maribel [id number] [email or web address] , 12/18/2022 4:30 PM Electronically signed by: Dr Vishal Lynch 12/19/2022 9:16 AM Vishal Lycnh MD Signed 12/19/22 09:16:16 (Electronic Signature) Automotive Alignment Specialist DORI Technologist RS * Exam Date Time Procedure Performing Provider Status 12/18/22 6:05 PM ECHO Adult Complete Contributor_ system, LUMEDX_RESULTS; Auth (Verified) Notes: (ECHO Adult Complete) Reason For Exam: near-syncope [facility] [place] [address] Transthoracic Echocardiogram Patient (Last, First, Middle): MELVA CROUCH H Gender: Female CMRN: [id number] Date of : 1960 [age] Procedure Date: 12/18/2022 Location: Height: 162.00 cm Weight: 56.00 kg BSA: 1.59 m2 Heart Rate: bpm Emt I/85: SHELL Referring MD: Joel England NP [employer] Packer: Robby Jenkins MD Indications: Near sycope Conclusions: - The left ventricular systolic function is normal. The visually estimated ejection fraction is >50%. The calculated ejection fraction is 55% by biplane method. Unable to assess diastolic function on the basis of available data. - There is trace tricuspid valve regurgitation. Findings Left Ventricle Normal left ventricular cavity size. There is normal left ventricular wall thickness. The left ventricular systolic function is normal. The visually estimated ejection fraction is >50%. The calculated ejection fraction is 55% by biplane method. Unable to assess diastolic function on the basis of available data. Right Ventricle Normal right ventricular cavity size and systolic function. Atria The left atrium is normal in size. The right atrium is normal in size. Aortic Valve Normal aortic valve structure and function. Mitral Valve Normal mitral valve structure and function. Pulmonic Valve The pulmonic valve is likely normal. Tricuspid Valve There is trace tricuspid valve regurgitation. Tricuspid regurgitation envelope is inadequate for calculation of right ventricular systolic pressure. Great Vessels No dilatation of the aortic root measuring 2.80 cm and no dilatation of the ascending aorta measuring 3.00 cm. Venous The inferior vena cava was not well visualized. Pericardium/Pleural There is no evidence of pericardial effusion. Measurements 2D Linear Measurements RVIDd: 2.70 RVIDd Mid: 1.60 RVIDd Index: 1.70 IVSd: 0.80 0.6-0.9/0.6-1.0 cm LVIDd: 4.70 3.9-5.3/4.2-5.9 cm LVIDd Index: 2.96 2.4-3.2/2.2-3.1 cm/m2 LVIDs: 2.70 2.0-3.6 cm LVPWd: 0.80 0.7-1.1 cm Ao Root: 2.80 2.1-3.5 cm LA Diam: 2.60 2.7-3.8/3.0-4.0 cm LAIDs Index: 1.64 1.5-2.3 cm/m2 LV Mass: 152.07 67-162/88-224 g LV Mass Index: 95.64 43-95/49-115 g/m2 LVOT Diam: 2.00 3.0+(-)1.3 cm RA Area,s: 11.80 LA Area,s: 10.60 2D Volumes LA ESV BP: 23.40 LA ESV BP Index: 14.70 LA ESV MOD A2C: 23.40 LA ESV MOD A2C Index: 14.70 LA ESV MOD A4C: 20.70 LA ESV MOD A4C Index: 13.00 2D Systolic Function EF 4C: 56.80 >55% EF 2C: 52.90 >55% EF BiP: 55.30 >55% Mitral Valve MV VTI: 0.24 MV Mn Ishaan: 0.40 MV Mn Grad: 0.80 MV Pk E: 0.74 MV PK A: 0.92 MV Decel Time: 262.00 E/A: 0.80 E'Lateral: 9.20 E/E' Lat: 8.00 PHT: 77.00 MVA PHT: 2.86 MVA Continuity: 3.08 Decel Greene: 2.81 Aortic Valve AoV Pk Ishaan: 1.62 AoV Mn Ishaan: 1.02 AoV VTI: 0.30 AoV Pk Grad: 11.00 Aov Mn Grad: 5.00 MARISSA Cont.VTI: 2.40 Dimensionless Index: 0.67 LVOT LVOT Pk Ishaan: 1.13 LVOT Mn Ishaan: 0.73 LVOT VTI: 0.24 LVOT Pk Grad: 5.00 LVOT Mn Grad: 2.00 LVOT Diam: 2.00 LVOT Area: 3.14 Diastolic Function MV Pk E: 0.74 MV Pk A: 0.92 E/A: 0.80 E' Laterial: 9.20 E/E' Lat: 8.00 Tricuspid Valve TR Pk Ishaan: 2.34 TR Pk Grad: 24.00 Great Vessels Aorta Ao Root-2D: 2.80 2.0-3.7 cm Ao Asc: 3.00 2.1-3.4 cm Pulmonary Valve PV Pk Ishaan: 0.89 Peak PV Grad: 3.00 Updated by Robby Jenkins MD on 9:09 PM with Status of Final [id number] electronically signed on 12/18/2022 9:09:19 PM with status of Final * Exam Date Time Procedure Performing Provider Status 12/18/22 2:57 PM US Kidney Bilateral Lul Bustamante; Mee (Verified) Notes: (US Kidney Bilateral) Reason For Exam: ARF REPORT US Kidney Bilateral Diagnosis Codes:E87.1 Hypo-osmolality and hyponatremia,E87.1 Hypo-osmolality and hyponatremia Reading location: [place], [place]. +++++++++++ US Kidney Bilateral Clinical history: ARF COMPARISON: CT exam 11/03/2022Findings: Right kidney: Right renal length 10.0 x width 5.2 x height 5.4 cm. There is a small amount of fluid within the central collecting system/central renal pelvis. Left kidney: Left renal length 9.8 x width 5.2 x 6.8 height cm. There is a small amount of fluid within the central collecting system/central renal pelvis. Urinary bladder: A Ponce catheter is in the bladder which is collapsed and not well evaluated. IMPRESSION: 1. Small amount of fluid within the central collecting system/central renal pelvis. No hydronephrosis. Ponce catheter within the decompressed bladder. Electronically signed by: Dr Concepcion Gallegos 12/18/2022 3:15 PM Concepcion Gallegos MD Signed 12/18/22 15:15:46 (Electronic Signature) Automotive Alignment Specialist CEW Technologist BP * Exam Date Time Procedure Performing Provider Status 12/18/22 11:10 AM XR Chest 1 View Vasiliy ROMERO Ketan; [facility] (Verified) Notes: (XR Chest 1 View) Reason For Exam: hypotension REPORT XR Chest 1 View PROCEDURE INFORMATION: Exam: XR Chest Exam date and time: 12/18/2022 10:41 AM Age: 62 years old Clinical indication: Other: Hypotension; Patient HX: Syncope TECHNIQUE: Imaging protocol: Radiologic exam of the chest. Views: 1 view. COMPARISON: CR XR Abd AP and Up and or Decub and PA Chest 10/27/2022 2:28 PM FINDINGS: Tubes, catheters and devices: Left-sided Port-A-Cath terminates in the region of the superior cavoatrial junction. Lungs: Unremarkable. No consolidation. Pleural spaces: Unremarkable. No pleural effusion. No pneumothorax. Heart/Mediastinum: Unremarkable. No cardiomegaly. Bones/joints: Unremarkable. IMPRESSION: No acute cardiopulmonary abnormality. Electronically signed by: Cindy Alberto MD, [facility], 12/18/2022 11:33 Remy ROMERO, Cindy Ortega Signed 12/18/22 11:33:15 (Electronic Signature) Technologist HB,SY Vital Signs Most recent to oldest [Reference Range]: 1 2 3 Blood Pressure 100/64mmHg (12/22/22 7:11 AM) 99/63mmHg (12/22/22 3:25 AM) 100/59mmHg (12/21/22 11:11 PM) Height (inches) (Clinical) 64 in (12/21/22 5:00 AM) 64 in (12/20/22 5:00 AM) 64 in (12/19/22 5:00 AM) Weight (kg) (Clinical) 57.4 kg (12/21/22 5:00 AM) 57.3 kg (12/20/22 5:00 AM) 58.4 kg (12/19/22 5:00 AM) BMI (Clinical) 21.7 kg/m2 (12/21/22 5:00 AM) 21.6 kg/m2 (12/20/22 5:00 AM) 22.1 kg/m2 (12/19/22 5:00 AM) Scale Type Bed (12/21/22 5:00 AM) Bed (12/20/22 5:00 AM) Bed (12/19/22 5:00 AM) Social History Social History Type [...] Code MRI Safety Implantable Status 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 [id number] Unknown [id number] Unknown 07/08/25 Unknown Unknown Active GS1 [id number] Unknown [id number] Unknown 07/29/25 Unknown Unknown Active GS1 Hospital Discharge Instructions Patient Education 12/22/2022 09:26:33 Hypotension, [id number] Hypotension As your heart beats, it forces blood through your body. This force is called blood pressure. If youhave hypotension, you have low blood pressure. When your blood pressure is too low, you may not get enough blood to your brain or other parts of your body. This may cause you to feel weak, light-headed, have a fast heartbeat, or even faint. Low blood pressure may be harmless, or it may cause serious problems. What are the causes? Blood loss. ??? Not enough water in the body (dehydration). ??? Heart problems. ??? Hormone problems. ??? . ??? A very bad infection. ??? Not having enough of certain nutrients. ??? Very bad allergic reactions. ??? Certain medicines. What increases the risk? Age. The risk increases as you get older. ??? Conditions that affect the heart or the brain and spinal cord (central nervous system). What are the signs or symptoms? Feeling: ??? Weak. ??? Light-headed. ??? Dizzy. ??? Tired (fatigued). ??? Blurred vision. ??? Fast heartbeat. ??? Fainting, in very bad cases. How is this treated? Changing your diet. This may involve drinking more water or including more salt (sodium) in your diet by eating high-salt foods. ??? Taking medicines to raise your blood pressure. ??? Changing how much you take (the dosage) of some of your medicines. ??? Wearing compression stockings. These stockings help to prevent blood clots and reduce swelling in your legs. In some cases, you may need to go to the hospital to: ??? Receive fluids through an IV tube. ??? Receive donated blood through an IV tube (transfusion). ??? Get treated for an infection or heart problems, if this applies. ??? Be monitored while medicines that you are taking wear off. Follow these instructions at home: Eating and drinking ??? Drink enough fluids to keep your pee (urine) pale yellow. ??? Eat a healthy diet. Follow instructions from your doctor about what you can eat or drink. A healthy diet includes: ??? Fresh fruits and vegetables. ??? Whole grains. ??? Low-fat (lean) meats. ??? Low-fat dairy products. ??? If told, include more salt in your diet. Do not add extra salt to your diet unless your doctor tells you to. ??? Eat small meals often. ??? Avoid standing up quickly after you eat. Medicines ??? Take [id number] and prescription medicines only as told by your doctor. ??? Follow instructions from your doctor about changing how much you take of your medicines, if this applies. ??? Do not stop or change any of your medicines on your own. General instructions ??? Wear compression stockings as told by your doctor. ??? Get up slowly from lying down or sitting. ??? Avoid hot showers and a lot of heat as told by your doctor. ??? Return to your normal activities when your doctor says that it is safe. ??? Do not smoke or use any products that contain nicotine or tobacco. If you need help quitting, ask your doctor. ??? Keep all follow-up visits. Contact a doctor if: ??? You vomit. ??? You have watery poop (diarrhea). ??? You have a fever for more than 2???3 days. ??? You feel more thirsty than normal. ??? You feel weak and tired. Get help right away if: ??? You have chest pain. ??? You have a fast or uneven heartbeat. ??? You lose feeling (have numbness) in any part of your body. ??? You cannot move your arms or your legs. ??? You have trouble talking. ??? You get sweaty or feel light-headed. ??? You faint. ??? You have trouble breathing. ??? You have trouble staying awake. ??? You feel mixed up (confused). These symptoms may be an emergency. Get help right away. Call 911. ??? Do not wait to see if the symptoms will go away. ??? Do not drive yourself to the hospital. Summary ??? Hypotension is also called low blood pressure. It is when the force of blood pumping through your body is too weak. ??? Hypotension may be harmless, or it may cause serious problems. ??? Treatment may include changing your diet and medicines, and wearing compression stockings. ??? In very bad cases, you may need to go to the hospital. This information is not intended to replace advice given to you by your health care provider. Make sure you discuss any questions you have with your health care provider. Document Revised: 04/22/2022 Document Reviewed: 04/22/2022 [employer] Patient Education ?? 2021 QWiPS. 12/22/2022 09:26:33 Acute Kidney Injury, Adult Acute Kidney Injury, Adult Acute kidney injury is a sudden worsening of kidney function. The kidneys are organs that have several jobs. They filter the blood to remove waste products and extra fluid. They also maintain a healthy balance of minerals and hormones in the body, which helps control blood pressure and keep bones strong. With this condition, your kidneys do not do their jobs as well as they should. This condition ranges from mild to severe. Over time, it may develop into long- lasting (chronic) kidney disease. Early detection and treatment may prevent acute kidney injury from developing into a chronic condition. What are the causes? Common causes of this condition include: ??? A problem with blood flow to the kidneys. This may be caused by: ??? Low blood pressure (hypotension) or shock. ??? Blood loss. ??? Heart and blood vessel (cardiovascular) disease. ??? Severe joshi. ??? Liver disease. ??? Direct damage to the kidneys. This may be caused by: ??? Certain medicines. ??? A kidney infection. ??? Poisoning. ??? Being around or in contact with toxic substances. ??? A surgical wound. ??? A hard, direct hit to the kidney area. ??? A sudden blockage of urine flow. This may be caused by: ??? Cancer. ??? Kidney stones. ??? An enlarged prostate in males. What increases the risk? You are more likely to develop this condition if you: ??? Are older than age 65. ??? Are female. ??? Are hospitalized, especially if you are in critical condition. ??? Have certain conditions, such as: ??? Chronic kidney disease. ??? Diabetes. ??? Coronary artery disease and heart failure. ??? Pulmonary disease. ??? Chronic liver disease. What are the signs or symptoms? Symptoms of this condition may not be obvious until the condition becomes severe. Symptoms of this condition can include: ??? Tiredness (lethargy) or difficulty staying awake. ??? Nausea or vomiting. ??? Swelling (edema) of the face, legs, ankles, or feet. ??? Problems with urination, such as: ??? Pain in the abdomen, or pain along the side of your stomach (flank). ??? Producing little or no urine. ??? Passing urine with a weak flow. ??? Muscle twitches and cramps, especially in the legs. ??? Confusion or trouble concentrating. ??? Loss of appetite. ??? Fever. How is this diagnosed? Your health care provider can diagnose this condition based on your symptoms, medical history, and a physical exam. You may also have other tests, such as: ??? Blood tests. ??? Urine tests. ??? Imaging tests. ??? A test in which a sample of tissue is removed from the kidneys to be examined under a microscope (kidney biopsy). How is this treated? Treatment for this condition depends on the cause and how severe the condition is. In mild cases, treatment may not be needed. The kidneys may heal on their own. In more severe cases, treatment will involve: ??? Treating the cause of the kidney injury. This may involve changing any medicines you are takingor adjusting your dosage. ??? Fluids. You may need specialized IV fluids to balance your body's needs. ??? Having a catheter placed to drain urine and prevent blockages. ??? Preventing problems from occurring. This may mean avoiding certain medicines or procedures thatcan cause further injury to the kidneys. In some cases, treatment may also require: ??? A procedure to remove toxic wastes from the body (dialysis or continuous renal replacement therapy, CRRT). ??? Surgery. This may be done to repair a torn kidney or to remove the blockage from the urinary system. Follow these instructions at home: Medicines ??? Take lsmy-rba-ffnzajf and prescription medicines only as told by your health care provider. ??? Do not take any new medicines without your health care provider's approval. Many medicines can worsen your kidney damage. ??? Do not take any vitamin and mineral supplements without your health care provider's approval. Many nutritional supplements can worsen your kidney damage. Lifestyle ??? If your health care provider prescribed changes to your diet, follow them. You may need to decrease the amount of protein you eat. ??? Achieve and maintain a healthy weight. If you need help with this, ask your health care provider. ??? Start or continue an exercise plan. Try to exercise at least 30 minutes a day, 5 days a week. ??? Do not use any products that contain nicotine or tobacco, such as cigarettes, e-cigarettes, andchewing tobacco. If you need help quitting, ask your health care provider. General instructions ??? Keep track of your blood pressure. Report changes in your blood pressure as told by your healthcare provider. ??? Stay up to date with your vaccines. Ask your health care provider which vaccines you need. ??? Keep all follow-up visits as told by your health care provider. This is important. Where to find more information ??? [place] [employer]: www.aakp.org ??? National Kidney Foundation: www.kidney.org ??? [employer]: www.akfinc.org ??? [employer] [facility]: ??? www.lifeoptions.org ??? www.kidneyschool.org Contact a health care provider if: ??? Your symptoms get worse. ??? You develop new symptoms. Get help right away if: ??? You develop symptoms of worsening kidney disease, which include: ??? Headaches. ??? Abnormally dark or light skin. ??? Easy bruising. ??? Frequent hiccups. ??? Chest pain. ??? Shortness of breath. ??? End of menstruation in women. ??? Seizures. ??? Confusion or altered mental status. ??? Abdominal or back pain. ??? Itchiness. ??? You have a fever. ??? Your body is producing less urine. ??? You have pain or bleeding when you urinate. Summary ??? Acute kidney injury is a sudden worsening of kidney function. ??? Acute kidney injury can be caused by problems with blood flow to the kidneys, direct damage to the kidneys, and sudden blockage of urine flow. ??? Symptoms of this condition may not be obvious until it becomes severe. Symptoms may include edema, lethargy, confusion, nausea or vomiting, and problems passing urine. ??? This condition can be diagnosed with blood tests, urine tests, and imaging tests. Sometimes a kidney biopsy is done to diagnose this condition. ??? Treatment for this condition often involves treating the underlying cause. It is treated with fluids, medicines, diet changes, dialysis, or surgery. This information is not intended to replace advice given to you by your health care provider. Make sure you discuss any questions you have with your health care provider. Document Revised: 07/11/2020 Document Reviewed: 07/11/2020 [employer] Patient Education ?? 2021 QWiPS. Follow Up Care 12/18/2022 09:49:55 With:Follow up with your PCP in 3-5 days. Follow up with oncology in 1-2 days with [facility], repeat BMP at that time to recheck sodium and kidney function. Address:Unknown When: Unknown Nephrology Consult note * Kane ROMERO, El S: PERFORM, MODIFY Kendal SCIENTIFIC PROCESS OPERATOR, Ashtyn Kennedy: MODIFY Event Display: Sash Installer Consultation Authored Date: Chief Complaint Syncope at home this am, low BP, seen at Oncology. sent for eval . Hx colon CA stage 3 General Information Nurse Intake General Information?? Pain Information Nurse Intake Pain Information?? History of Present Illness Requesting Provider: Dr. Smith Reason for Consultation: Acute renal failure/hyponatremia ?? 62-year-old female with??PMH significant??for colon cancer status post resection with ileostomy,tobacco use, admitted for acute??renal failure, hypertension, syncope,??hyponatremia ?? Baseline serum??creatinine 0.7-0.8 mg/dL with eGFR 60-70 ml/min. ??She presented to Oncologist office on day of admission for scheduled chemotherapy; noted to be hypotensive and outside labs reportedly showing serum sodium 117 mEq/L; received 1L NS at Oncologist office and sent to ER for further evaluation and treatment.??Upon evaluation in ER; SBP 80s.??Repeat labs in ER included serum creatinine??1.7, BUN??42 EGFR 29. Serum sodium??122, chloride??94, CO2 18.??Hemoglobin 11.1. ??UA with bland urine. ??Urine sodium??< 20.??Urine osmolality 264.??Received??500 mL bolus of??normal saline in ER. ?? Today, patient is seen and evaluated at bedside in ER. Reports increasing ostomy output over thelast several days. Near syncopal events at home. ??No fevers??no chills.?? No lower extremity edema, dyspnea, orthopnea. She has noticed slight decrease in urine output; but no dysuria, urgency, etc. Review of Systems GENERAL: +fatigue, dizziness CV: Patient??denies??palpitations, chest pain,??orthopnea, or??worsening??edema. RESP: Patient denies dyspnea or cough. GI: +increased ostomy output : Patient denies dysuria, urinary incontinence or obstruction MS: Patient denies muscle pain, joint pain SKIN: Patient denies new rashes, lesions, or pruritus. Physical Exam Vitals & Measurements T:??98.0?F?? HR:??69?? RR:??16?? BP:??86/51?? SpO2:??92%?? WT:??56.2??kg?? WT:??124??lb?? General: In no acute distress. Alert & oriented x3.?? Skin: Warm and dry. HEENT: Normocephalic. CV: Regular rate and rhythm. Chest: Respirations even and unlabored. Lungs clear to auscultation. No wheezing. ABD: Normoactive bowel sounds. Soft; No tenderness to palpation. Ostomy present. Neurologic: No obvious focal deficit. Cooperative Extremities: No peripheral edema. Assessment/Plan 1.??JURGEN (acute kidney injury)(Acute kidney failure, unspecified: N17.9) 2.??Hypotension(Hypotension, unspecified: I95.9) 3.??Ileostomy status(Ileostomy status: Z93.2) 4.??Colon cancer(Malignant neoplasm of colon, unspecified: C18.9) 5.??Near syncope(Syncope and collapse: R55) 6.??Metabolic acidemia(Acidosis, unspecified: E87.20) Hyponatremia(Hypo-osmolality and hyponatremia: E87.1) Hyponatremia(Hypo-osmolality and hyponatremia: E87.1) ?? 62-year-old female with??PMH significant??for colon cancer status post resection with ileostomy, tobacco use, admitted for acute??renal failure, hypertension,??hyponatremia. Acute renal failure secondary to volume depletion (high ostomy output) and ATN (hypotension). GN unlikely; bland urine sediments. Renal US is pending. ?? Acute??renal failure Volume depletion Azotemia Hypotension Hyponatremia Metabolic Acidosis?? Anemia/colon cancer Presence of ileostomy ?? Plan of acute renal failure: Continue volume resuscitation based upon serum sodium trend/repeat labs Renal ultrasound Avoid NSAIDs, DARIO inhibitors, angiotensin receptor blockers, and IV contrast. Place ponce catheter, strict I's and O's and daily weights Avoid hypotension, maintain MAP >65; start Midodrine as warranted ?? Plan for hyponatremia: Initial labs at [facility] included serum sodium 117 mEq/L at around 8am this morning Received??total of 1.5L NS; repeat labs are pending. Further augmentation??of??IV fluids based upon results of labs High risk for over-correction; check serum sodium q.2 hours in ICU setting Goal serum sodium??124-125 mEq/L by 8:00 a.m. 12/19 Will adjust fluid restriction according to serum Na Other I, Ashtyn Edmonds NP-, am acting as a scribe for Dr. Middleton.?? The patient???s history, exam findings, diagnostics, and a summary of any interventions or procedures were reviewed in detail with my Nurse Practitioner. I have seen this patient and performed history and physical examination independently;?I agree with HPI as documented. My personal exam reveals findings consistent with those documented. All diagnostic studies were reviewed and discussed. I confirm diagnosis as documented by the??ASSET PROTECTION OFFICER. The care plan articulated was made after review of all data and??consistent with our discussion of the patient???s care. ?? El Middleton?MD ? Problem List/Past Medical History Dehydration: ?? Ileostomy dysfunction: ?? Ileostomy dysfunction: ?? Ileostomy status: ?? Colon cancer: ?? Tobacco use: ?? Procedure/Surgical History ???Ileostomy Revision with Small Bowel Resection - Cookie (11/06/2022)???Robotic Assisted Low Anterior w/ Ileostomy - Cookie (10/11/2022)???Flexible Sigmoidoscopy (10/07/2022)???COLONOSCOPY FLX W/ENDOSCOPIC MUCOSAL RESECTION Medications Home Cavilon Durable Barrier topical cream, See Instructions guar gum oral powder for reconstitution, 4 g, By mouth, Daily Imodium A-D 2 mg oral tablet, 2 mg, By mouth, Q6H, PRN Lomotil oral tablet, 1 tab, By mouth, QID, PRN Ostomy supplies, See Instructions, 99 refills ostomy supplies, See Instructions, 99 refills oxyCODONE 5 mg oral tablet, 5 mg= 1 tab, By mouth, Q6H, PRN pantoprazole 40 mg oral delayed release tablet, 40 mg= 1 tab, By mouth, Daily Zofran ODT 4 mg oral tablet, disintegrating, 4 mg= 1 tab, By mouth, Q6H, PRN Allergies codeine??(Kidney, Vomit) Social History Alcohol Denies Tobacco Smoking Status: Former smoker. Smokeless tobacco use: Never. Former smoker last 30 days: Former smoker > 30 days. Has the patient smoked in the last 365 days, even once? Yes. Family History Family history is negative Other Respiratory Oxygen Delivery: Room air Respiratory Effort: Regular, Unlabored, Even, Symmetrical Shortness of Breath: None Left Upper Breath Sounds: Clear, Equal bilaterally Right Upper Breath Sounds: Clear, Equal bilaterally Electronically signed by:El Middleton MD 12/18/22 15:35 Progress note * Lexi Olmos DO: PERFORM Event Display: Progress Notes Authored Date: [id number] Hospital Course Patient is a??62-year-old??female with??medical history??of??stage III colon status post resection with ileostomy??that was??admitted to the hospital due??to concern??for??near syncopal episode, hypotension, acute??renal failure and hyponatremia.?? Patient??admitted to ICU started on Levophed, nephr ology??consult due to concern??for acute??kidney??injury and hyponatremia. Subjective Patient awake??in bed??at??time of exam today.?? Reported the ostomy output??has slowed some, no abdominal pain??or nausea, no fevers??or??chills. ?? RN??at bedside??during??exam, denied any acute concerns??overnight. Review of Systems As above Objective Vitals & Measurements ??Vital Signs (last 24 hrs)?Last Charted?Minimum?Maximum?Temp?98.1 (APR 07:30)?97.7 (DEC 21 02:47)?98.8 (DEC 20 19:45)?Heart Rate?C??48(DEC 21 07:30)?C??47(DEC 21 06:45)?C??129(APR 18:45)?Resp Rate?22 (APR 07:30)?C??11(APR 01:00)?C??44(APR 21:00)?SBP?119 (APR 08 07:00)?C??79(APR 12:00)?119 (DEC 21 06:45)?DBP?59 (APR 08 07:00)?51 (APR 12:00)?67 (APR 19:00)?SpO2?99 (DEC 21 07:30)?90 (APR 12:00)?100 (APR 11:00)?O2?Room a (DEC 21 07:30)?Room a (DEC 20 11:00)?Room a (DEC 20 11:00)?Weight?57.4 (APR 08 05:00)?57.4 (APR 05:00)?57.4 (APR 05:00)?? Physical Exam General:?? Awake??and alert HEENT:?? Head??normocephalic, atraumatic Cardiovascular:?? Regular rate??and rhythm, no appreciable??murmur Respiratory:?? On room air, lungs??clear??auscultation without??wheezing or??rhonchi Abdomen:?? Soft, nontender, ostomy??in place Neurologic:?? Cranial nerves 2-12 grossly intact??without??focal deficit Psychiatric:?? Calm, cooperative Assessment/Plan 1.??JURGEN (acute kidney injury)(Acute kidney failure, unspecified: N17.9) 2.??Hypotension(Hypotension, unspecified: I95.9) 3.??Ileostomy status(Ileostomy status: Z93.2) 4.??Colon cancer(Malignant neoplasm of colon, unspecified: C18.9) 5.??Near syncope(Syncope and collapse: R55) 6.??Metabolic acidemia(Acidosis, unspecified: E87.20) 7.??Hyponatremia(Hypo-osmolality and hyponatremia: E87.1) 7.??Hyponatremia(Hypo-osmolality and hyponatremia: E87.1) 8.??Acute renal failure(Acute kidney failure, unspecified: N17.9) 9.??Acute hyponatremia(Hypo-osmolality and hyponatremia: E87.1) 10.??Volume depletion(Volume depletion, unspecified: E86.9) 11.??Hypoalbuminemia(Other disorders of plasma-protein metabolism, not elsewhere classified: E88.09) 12.??Increased stool volume(Other fecal abnormalities: R19.5) Acute??renal failure with hyponatremia:??improved, nephrology signed off.?Transfer out of ICU tomedical floor ?? Hyponatremia:?? Improved ?? Hypotension:?? Midodrine ?? Colon cancer status post??surgery??with??high-output ostomy:?? Lomotil??and Imodium and titrate further medications as indicated. Followed by Dr. Escobar with [facility] ? Diet:??Regular DVT ppx:??Heparin Code status:??Full Code ?? Transfer out??of ICU.?? Strongly??encouraged??p.o. intake??and if continued??improvement??in ostomy??output??and??blood pressure stable potential discharge tomorrow Medications Medications (7) Active Scheduled: (7) atorvastatin 40 mg TAB ??40 mg 1 tab, By mouth, QPM (every evening) guar gum (BeneFIBer/Nutrisource) 0.14 oz ??PACKET ??4 g 1 pkt, By mouth, Daily HEParin 5,000 units/1 mL INJ ??5,000 Units 1 mL, SubQ, BID loperamide 2 mg CAP ??2 mg 1 cap, By mouth, Q6H midodrine 5 mg TAB ??10 mg 2 tab, By mouth, TID pantoprazole 40 mg TAB ??40 mg 1 tab, By mouth, Daily sodium chloride 0.9% INJ SYR 5 mL ??5 mL, IVP, Q12H Continuous: (0) Lab Results Labs??(Last two charted values on this encounter) WBC 8.7 ??(DEC 21) 8.9 ??(DEC 18) Hgb 10.7 ??(DEC 21) 11.1 ??(DEC 18) Hct 32.0 ??(DEC 21) 32.0 ??(DEC 18) Platelets 293 ??(DEC 21) 209 ??(DEC 18) Na 133 ??(DEC 21) 130 ??(DEC 20) K 4.2 ??(DEC 21) 4.0 ??(DEC 20) Cl 102 ??(DEC 21) 103 ??(DEC 20) CO2 23 ??(DEC 21) 21 ??(DEC 20) BUN 16 ??(DEC 21) 13 ??(DEC 20) Cr 1.32 ??(DEC 21) 1.06 ??(DEC 20) Ca ?9.5 ??(DEC 21) ?8.6 ??(DEC 20) ProteinT ?6.5 ??(DEC 21) ?6.1 ??(DEC 20) Albumin ?3.2 ??(DEC 21) ?3.0 ??(DEC 20) Bilirubin ,Total ??0.3 ??(DEC 21) ??0.3 ??(DEC 20) Alk Phos ?65 ??(DEC 21) ?65 ??(DEC 20) ALT ?18 ??(DEC 21) ?21 ??(DEC 20) AST ?13 ??(DEC 21) ?16 ??(DEC 20) Mag ?1.8 ??(DEC 18) ?? Bedside Glucose 144 ??(DEC 18) ?? Glucose,Plasma 92 ??(DEC 21) 109 ??(DEC 20) Electronically signed by:Lexi Olmos DO 12/21/22 09:13 * Hailey ROMERO, Karlee Christianson: PERFORM Event Display: Progress Notes Authored Date: [id number] Hospital Course Patient is a??62-year-old??female with??medical history??of??stage III colon status post resection with ileostomy??that was??admitted to the hospital due??to concern??for??near syncopal episode, hypotension, acute??renal failure and hyponatremia.?? Patient??admitted to ICU started on Levophed, nephr ology??consult due to concern??for acute??kidney??injury and hyponatremia. Subjective Patient seen and examined today, she is doing okay and has no complaints. Denies abdominal pain, nausea and vomiting. Has been off vasopressors for about 24 hours. High colostomy output about 2.025 L negative balance of 1.174 L. No frequency, urgency or dysuria. Wants to know if she can discontinue the catheter. ATBx??= 0? Review of Systems See HPI. All other ROS reviewed as negative or not pertinent. Objective Vitals & Measurements ??Vital Signs (last 24 hrs)?Last Charted?Minimum?Maximum?Temp?98.4 (DEC 20:)?97.9 (DEC 19:00)?98.4 (DEC 20:)?Heart Rate?53 (DEC 20:00)?C??47(DEC 20:)?71 (DEC 20 05:)?Resp Rate?18 (DEC 20 11:00)?12 (DEC 20 06:)?C??31(DEC 20 08:)?SBP?94 (DEC 20:00)?C??82(DEC 20 04:00)?111 (DEC 19 20:00)?DBP?56 (DEC 20 11:00)?50 (DEC 19 18:00)?73 (DEC 19 20:00)?SpO2?100 (DEC 20 11:00)?92 (DEC 20 03:00)?100 (DEC 19 14:00)?O2?Room a (DEC 20 11:00)?Room a (DEC 19 15:00)?Room a (DEC 19 15:00)?Weight?57.3 (DEC 20 05:00)?57.3 (DEC 20 05:00)?57.3 (DEC 20 05:00)?? Physical Exam ? General: ??Alert and oriented, No acute distress.?HEENT:?PERRL, moist oral mucosa.?Neck: ??Supple ?Respiratory:??Lungs are clear to??auscultation bilaterally, no wheezing, rales or rhonchi ?Cardiovascular: ??Normal S1-S2, regular rate and rhythm. ?Gastrointestinal: ??Soft, Non-tender, Non distended, Normal bowel sounds. ??Colostomy bag??in place with??brown??liquid??stool. ?Musculoskeletal: ??No swelling, No deformity ? : Foleys catheter??in place ?Neurologic: ??Alert, Oriented, Normal sensory, No focal deficits, Cranial Nerves II-XII are grossly intact. ?Psychiatric: ??Cooperative Assessment/Plan 1.??JURGEN (acute kidney injury)(Acute kidney failure, unspecified: N17.9) 2.??Hypotension(Hypotension, unspecified: I95.9) 3.??Ileostomy status(Ileostomy status: Z93.2) 4.??Colon cancer(Malignant neoplasm of colon, unspecified: C18.9) 5.??Near syncope(Syncope and collapse: R55) 6.??Metabolic acidemia(Acidosis, unspecified: E87.20) 7.??Hyponatremia(Hypo-osmolality and hyponatremia: E87.1) 7.??Hyponatremia(Hypo-osmolality and hyponatremia: E87.1) 8.??Acute renal failure(Acute kidney failure, unspecified: N17.9) 9.??Acute hyponatremia(Hypo-osmolality and hyponatremia: E87.1) 10.??Volume depletion(Volume depletion, unspecified: E86.9) 11.??Hypoalbuminemia(Other disorders of plasma-protein metabolism, not elsewhere classified: E88.09) 12.??Increased stool volume(Other fecal abnormalities: R19.5) ?? Plan Patient doing much better today and off vasopressors. Continue midodrine 10 mg t.i.d. for blood pressure support. Nephrology following for JURGEN, ??volume management and electrolyte abnormalities. Serum sodium normalized and at goal. Discontinue Q2 sodium checks and remove Ponce's catheter. ?? Still with high colostomy output, change to scheduled loperamide. Repeat BMP in a.m..?? Continue to monitor I&Os. Encouraged increase in oral intake. Out of bed, increase activity and PT eval ordered. ?? Recent ileostomy revision with small-bowel resection on 11/07 by colorectal surgery. History of stage IIIC colon cancer treated with diverting loop ileostomy and adjuvant FOLFOX She follows with Dr Escobar of [facility] She was seen in the office on 12/18 with plans of starting FOLFOX for 6 mos Subsequent admission to the hospital for hyponatremia and dehydration with JURGEN /5. ?? Stable for transfer out of ICU to the med surgical floor. ?? PCP : Dr Gary CODE : FULL DVT: Heparin ?? Dispo: Home ? in 1-??2 days Orders: loperamide, 2 mg = 1 cap, CAP, By mouth, Q6H, Start Date: 12/20/22 12:08:00 CDT, Duration: 3 Days, Stop date 12/23/22 6:00:00 CDT, Routine, Disp Location: [facility], GEN DISP BMP Occupational Therapy Evaluation and Treatment, Generalized weakness Physical Therapy Evaluation and Treatment, Generalized weakness Transfer Bed Request Urinary Catheter Removal, Today Medications Medications (7) Active Scheduled: (7) atorvastatin 40 mg TAB ??40 mg 1 tab, By mouth, QPM (every evening) guar gum (BeneFIBer/Nutrisource) 0.14 oz ??PACKET ??4 g 1 pkt, By mouth, Daily HEParin 5,000 units/1 mL INJ ??5,000 Units 1 mL, SubQ, BID loperamide 2 mg CAP ??2 mg 1 cap, By mouth, Q6H midodrine 5 mg TAB ??10 mg 2 tab, By mouth, TID pantoprazole 40 mg TAB ??40 mg 1 tab, By mouth, Daily sodium chloride 0.9% INJ SYR 5 mL ??5 mL, IVP, Q12H Continuous: (0) Lab Results Labs??(Last two charted values on this encounter) WBC 8.9 ??(DEC 18) ?? Hgb 11.1 ??(DEC 18) ?? Hct 32.0 ??(DEC 18) ?? Platelets 209 ??(DEC 18) ?? Na 130 ??(DEC 20) 131 ??(DEC 20) K 4.0 ??(DEC 20) 4.0 ??(DEC 20) Cl 103 ??(DEC 20) 103 ??(DEC 20) CO2 21 ??(DEC 20) 21 ??(DEC 20) BUN 13 ??(DEC 20) 16 ??(DEC 20) Cr 1.06 ??(DEC 20) 1.10 ??(DEC 20) Ca ?8.6 ??(DEC 20) ?8.8 ??(DEC 20) ProteinT ?6.1 ??(DEC 20) ?6.7 ??(DEC 18) Albumin ?3.0 ??(DEC 20) ?3.5 ??(DEC 18) Bilirubin ,Total ??0.3 ??(DEC 20) ??0.5 ??(DEC 18) Alk Phos ?65 ??(DEC 20) ?67 ??(DEC 18) ALT ?21 ??(DEC 20) ?20 ??(DEC 18) AST ?16 ??(DEC 20) ?15 ??(DEC 18) Mag ?1.8 ??(DEC 18) ?? Bedside Glucose 144 ??(DEC 18) ?? Glucose,Plasma 109 ??(DEC 20) 108 ??(DEC 20) Electronically signed by:Karlee Hart MD 12/20/22 12:18 * Giovanni Callahan: MODIFY, SIGN, VERIFY, PERFORM, MODIFY, SIGN Timi Sammy Campa MD: SIGN Event Display: Progress Notes Authored Date: [id number] Patient: MELVA CROUCH Age: 62 years Sex: Female : 1960 Associated Diagnoses: None Author: Giovanni Callahan Chief Complaint: Syncope at home this am, low BP, seen at Oncology. sent for eval . Hx colon CA stage 3 Requesting Provider: Dr. Smith Reason for Consultation: Acute renal failure/hyponatremia Admit History: 62-year-old female with PMH significant for colon cancer status post resection with ileostomy, tobacco use, admitted for acute renal failure, hypertension, syncope, hyponatremia Baseline serum creatinine 0.7-0.8 mg/dL with eGFR 60-70 ml/min. She presented to Oncologist office on day of admission for scheduled chemotherapy; noted to be hypotensive and outside labs reportedly showing serum sodium 117 mEq/L; received 1L NS at Oncologist office and sent to ER for further evaluation and treatment. Upon evaluation in ER; SBP 80s. Repeat labs in ER included serum creatinine 1.7, BUN 42 EGFR 29. Serum sodium 122, chloride 94, CO2 18. Hemoglobin 11.1. UA with bland urine. Urinesodium < 20. Urine osmolality 264. Received 500 mL bolus of normal saline in ER. On consult, patient is seen and evaluated at bedside in ER. Reports increasing ostomy output over the last several days. Near syncopal events at home. No fevers no chills. No lower extremity edema, dyspnea, orthopnea. She has noticed slight decrease in urine output; but no dysuria, urgency, etc. TODAY INFO: Chart reviewed; events noted, the patient was seen and evaluated at bedside. --Remains in CCU. Levo weaned off. Midodrine on board --D5W ongoing to ensure appropriate correction of serum Na. --Continued good UOP Basic Information See HPI. All other ROS reviewed as negative or not pertinent. Health Status Allergies: Allergic Reactions (Selected) Moderate Codeine- Vomit and kidney., Allergies (1) Active Severity Reaction codeine Moderate Vomit, Kidney Current medications: (Selected) Inpatient Medications Ordered Cavilon Durable Barrier topical cream: 1 application, CREAM, Route: Topical, Daily, PRN, See Comment Note, Start Date: 12/19/22 8:59:00 CDT, Duration: 90 Days, Stop date: 03/19/23 8:58:00 CDT, Routine, Disp Location: [facility] Critic-Aid Clear: 1 application, OINT, Route: Topical, as needed, PRN, Skin Protection, Start Date:12/18/22 16:07:00 CDT, Duration: 90 Days, Stop date: 03/18/23 16:06:00 CDT, Routine, Disp Location:[facility] D5NS 1,000 mL: Route: IV, Routine, Start Date: 12/19/22 14:22:00 CDT, 90 Days, Stop date 03/19/23 14:21:00 CDT, Rate= 70 ml/hr, hr, Total Vol ml = 1,000, Disp Location: [facility] 5 CCU, Populate Charting Weight From Order, [facility], 1.59, m2 Imodium A-D: 2 mg = 1 cap, CAP, By mouth, Q6H, PRN, as needed for loose stool, Start Date: 238:41:00 CDT, Duration: 90 Days, Stop date 03/19/23 8:40:00 CDT, Routine, Disp Location: [facility] Lomotil: 2.5 mg, 1 tab, TAB, By mouth, QID, PRN, Diarrhea/Loose Stool, Start Date: 12/19/22 9:21:00CDT, Duration: 14 Days, Stop date: 01/02/23 9:20:00 CDT, Routine, Disp Location: [address] Melatonin: 3 mg = 1 tab, TAB, By mouth, at bedtime, PRN, Sleep, Start Date: 12/18/22 16:07:00 CDT, Duration: 90 Days, Stop date 03/18/23 16:06:00 CDT, Routine, Disp Location: [place] [address] CCU, [facility] Norepinephrine (for additive) 4 mg [1 mcg/min] + Premix Diluent D5W Cardiac (t) 250 mL: MAP greaterthan 65, Route: IV, Routine, Start Date: 12/18/22 19:52:00 CDT, 90 Days, Stop date 03/18/23 19:51:00 CDT, Rate= 3.75 ml/hr, hr, Total Vol ml = 250, Disp Location[address], Populate Charting Weight From Order, [facility] Normal Saline Flush: 5 mL, INJ, Route: IVP, Q10Min, PRN, See Comment Note, Start Date: 12/18/22 16:07:00 CDT, Duration: 90 Days, Stop date: 03/18/23 16:06:00 CDT, Routine, Disp Location: [address], [facility] Normal Saline Flush: 5 mL, INJ, Route: IVP, Q12H, Start Date: 12/18/22 21:00:00 CDT, Duration: 90 Days, Stop date: 03/18/23 9:00:00 CDT, Routine, Disp Location: [address], [facility] Senna: 17.2 mg, 2 tab, TAB, Route: By mouth, at bedtime, PRN, Constipation, Start Date: 12/18/22 16:07:00 CDT, Duration: 90 Days, Stop date: 03/18/23 16:06:00 CDT, Routine, Disp Location: [address], [facility] acetaminophen: 650 mg = 2 tab, TAB, PO/per tube, Q6H, PRN, Temp, Mild Pain, Headache, Start Date: 12/18/22 16:07:00 CDT, Duration: 90 Days, Stop date 03/18/23 16:06:00 CDT, Routine, Disp Location: [address], [facility] atorvastatin: 40 mg = 1 tab, TAB, By mouth, QPM (every evening), Start Date: 12/18/22 21:00:00 CDT,Duration: 90 Days, Stop date 03/17/23 21:00:00 CDT, Routine, Disp Location: [facility] guar gum oral powder for reconstitution: 4 g, 1 pkt, POWDER, Route: By mouth, Daily, Start Date: 12/19/22 9:01:00 CDT, Duration: 90 Days, Stop date: 03/19/23 8:59:00 CDT, Routine, Disp Location: [facility] heparin: 5,000 Units = 1 mL, INJ, SubQ, BID, Start Date: 12/18/22 21:00:00 CDT, Duration: 90 Days, Stop date 03/18/23 9:00:00 CDT, Routine, Disp Location: [address] miconazole topical 2% cream (ROSS): 1 application, CREAM, Route: Topical, Q8H, PRN, Skin Protection, Start Date: 12/18/22 16:07:00 CDT, Duration: 90 Days, Stop date: 03/18/23 16:06:00 CDT, Routine, Disp Location: [facility] midodrine: 10 mg = 2 tab, TAB, By mouth, TID, Start Date: 12/19/22 8:31:00 CDT, Duration: 90 Days, Stop date 03/19/23 6:59:00 CDT, Routine, Disp Location: [address] nystatin topical: 1 application, CREAM, Route: Topical, BID, PRN, Skin Protection, Start Date: 12/18/22 16:07:00 CDT, Duration: 90 Days, Stop date: 03/18/23 16:06:00 CDT, Routine, Disp Location: [facility] nystatin topical: 1 application, POWDER, Route: Topical, BID, PRN, Skin Protection, Start Date: 12/18/22 16:07:00 CDT, Duration: 90 Days, Stop date: 03/18/23 16:06:00 CDT, Routine, Disp Location: [address], [facility] ondansetron: 4 mg = 2 mL, INJ, IVP, Q8H, PRN, Nausea and Vomiting, Start Date: 12/18/22 16:07:00 CDT, Duration: 90 Days, Stop date 03/18/23 16:06:00 CDT, Routine, Disp Location: [address], [facility] oxyCODONE 5 mg oral tablet: 5 mg = 1 tab, TAB, By mouth, Q6H, PRN, Pain Severe, Start Date: 12/19/22 8:41:00 CDT, Duration: 14 Days, Stop date 01/02/23 8:40:00 CDT, Routine, Disp Location: [address], [facility] pantoprazole: 40 mg = 1 tab, TAB, By mouth, Daily, Gastroesophageal Reflux Disease - Maint, Routine, Start Date: 12/20/22 6:00:00 CDT, Duration: 90 Days, Stop date 03/20/23 5:59:00 CDT, Disp [facility] polyethylene glycol 3350 (Miralax): 17 g, 1 pkt, POWDER, Route: By mouth, Daily, PRN, Constipation,Start Date: 12/18/22 16:07:00 CDT, Duration: 90 Days, Stop date: 03/18/23 16:06:00 CDT, Routine, Disp Location: [address] sodium chloride nasal 0.65% spray: 1 spray, SPRAY, Route: Both Nostrils, as needed, PRN, Dry Nose/Congestion, Start Date: 12/18/22 16:07:00 CDT, Duration: 90 Days, Stop date: 03/18/23 16:06:00 CDT, Routine, Disp Location: [facility] Prescriptions Prescribed Cavilon Durable Barrier topical cream: See Instructions, Topical, apply 2 - 3 times a week with appliance changes, # 30 g, Refill(s) 0, Route to Pharmacy Electronically, Pharmacy: [facility], [id number], Instructions Replace Required Details, Topical, remedios... Imodium A-D 2 mg oral tablet: 2 mg, By mouth, Q6H, PRN Diarrhea/Loose Stool, # 100 tab, Refill(s) 0, Pharmacy: [facility], [id number], TAB, 2 mg By mouth Q6H,PRN:Diarrhea/Loose Stool, 68.1, 10/11/22 10:11:00 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, kg, Weight Lomotil oral tablet: 1 tab, By mouth, QID, PRN for loose stool, 24 tab, 0, 0, Substitution Permitted, [facility], 64, Height, 11/04/22 0:31:00 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, in, 61.9, Weight, 11/03/22 15:28:00 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, kg Ostomy supplies: Ostomy supplies, See Instructions, Soft convex barrier wafer 57568, [id number], Adapt rings 7815, stoma powder 7906, 3M Cavilon skin barrier wipes. Adhesive remover 7737., # 1 pkt, Refills(s) 99, Print Requisition, Supply Zofran ODT 4 mg oral tablet, disintegratin mg = 1 tab, By mouth, Q6H, PRN for nausea & vomiting, # 20 tab, Refill(s) 0, Pharmacy: [facility], [id number], 1 tab By mouth Q6H,PRN:for nausea & vomiting, 68.1, 10/11/22 10:11:00 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, kg, Weight guar gum oral powder for reconstitution: 4 = g, By mouth, Daily, # 155 g, Refill(s) 0, Route to Pharmacy Electronically, Pharmacy: [facility], [id number], POWDER, 4g By mouth Daily, 68.1, 10/11/22 10:11:00 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, kg, Weight ostomy supplies: ostomy supplies, See Instructions, Demetra: barrier ring 8815 Pouch 24615 Demetra Wafer 44935 odor drops 7850 adapt no sting wipes 7917 adhesive remover wipes 7760, # 1 EA, Refills(s) 99, Print Requisition, Supply oxyCODONE 5 mg oral tablet: 5 mg, = 1 tab, By mouth, Q6H, PRN Pain Moderate, 24 tab, 0, 0, Substitution Permitted, [facility], 64, Height, 10/11/22 10:11:00 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, in, 68.1, Weight, 10/11/22 10:11:00 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, kg pantoprazole 40 mg oral delayed release tablet: 40 mg = 1 tab, By mouth, Daily, # 30 tab, Refill(s)0, Pharmacy: [facility], [id number], TAB, 1 tab By mouth Daily, 63.4, 10/20/22 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, kg, Weight, Medications (23) Active Scheduled: (6) atorvastatin 40 mg TAB 40 mg 1 tab, By mouth, QPM (every evening) guar gum (BeneFIBer/Nutrisource) 0.14 oz PACKET 4 g 1 pkt, By mouth, Daily HEParin 5,000 units/1 mL INJ 5,000 Units 1 mL, SubQ, BID midodrine 5 mg TAB 10 mg 2 tab, By mouth, TID pantoprazole 40 mg TAB 40 mg 1 tab, By mouth, Daily sodium chloride 0.9% INJ SYR 5 mL 5 mL, IVP, Q12H Continuous: (2) IVF Dextrose 5% in 0.9% NaCl 1000ml 1,000 mL 1,000 mL, IV, 70 ml/hr NORepinephrine 4 mg/250 mL D5W (p) 4 mg [1 mcg/min] + Premix Diluent D5 250 mL 250 mL, IV, 3.75 ml/hr PRN: (15) acetaminophen 325 mg TAB 650 mg 2 tab, PO/per tube, Q6H Cavilon/Remedy (dimethicone) durable barrier CREAM 1 EA* 1 application, Topical, Daily diphenoxylate-atropine 2.5 mg-0.025 mg TAB 2.5 mg 1 tab, By mouth, QID loperamide 2 mg CAP 2 mg 1 cap, By mouth, Q6H melatonin 3 mg TAB 3 mg 1 tab, By mouth, at bedtime miconazole nitrate 2% CREAM 1 application, Topical, Q8H nystatin 100,000 units/g topical CREAM 15g 1 application, Topical, BID nystatin 100,000 units/g topical POWDER (1=1 bottle) 1 application, Topical, BID ondansetron 4 mg/2 mL (2 mg/mL) INJ 4 mg 2 mL, IVP, Q8H OxyCODONE IR 5mg TAB 5 mg 1 tab, By mouth, Q6H petrolatum (Critic-Aid Clear) OINT 1 application, Topical, as needed polyethylene glycol 17 g PACKET 17 g 1 pkt, By mouth, Daily senna 8.6 mg TAB 17.2 mg 2 tab, By mouth, at bedtime sodium chloride 0.65% NASAL SPRAY 1 spray, Both Nostrils, as needed sodium chloride 0.9% INJ SYR 5 mL 5 mL, IVP, Q10Min Problem list: All Problems Colon cancer / SNOMED CT 217249886 / Confirmed Dehydration / SNOMED CT 90322211 / Confirmed Ex-smoker / SNOMED CT 33389273 / Confirmed Ileostomy dysfunction / SNOMED CT 75087633 / Confirmed Ileostomy dysfunction / SNOMED CT 08018742 / Confirmed Ileostomy status / SNOMED CT 450810445 / Confirmed Tobacco use / SNOMED CT 8736908486 / Confirmed, Active Problems (7) Colon cancer Dehydration Ex-smoker Ileostomy dysfunction Ileostomy dysfunction Ileostomy status Tobacco use Physical Examination Vital Signs (last 24 hrs) Last Charted Minimum Maximum Temp 98.2 (DEC 20 03:00) 97.9 (DEC 19 23:00) 98.2 (DEC 19 11:00) Heart Rate C 47(DEC 20 07:00) C 47(DEC 20 07:00) 71 (DEC 20 05:00) Resp Rate 13 (DEC 20 07:00) 12 (DEC 20 06:00) C 31(DEC 19 11:00) SBP 107 (DEC 20 07:00) C 82(DEC 20 04:00) 111 (DEC 19 20:00) DBP 58 (DEC 20 07:00) 50 (DEC 19 18:00) 73 (DEC 19 20:00) SpO2 98 (DEC 20 07:00) 92 (DEC 20 03:00) 100 (DEC 19 09:00) O2 Room a (DEC 20:00) Room a (DEC 19:00) Room a (DEC 19:00) Weight 57.3 (DEC 20 05:00) 57.3 (DEC 20 05:00) 57.3 (DEC 20 05:00) Review / Management Results review: Labs (Last four charted values) WBC 8.9 (DEC 18) Hgb L 11.1 (DEC 18) Hct L 32.0 (DEC 18) Plt 209 (DEC 18) Na L 131 (DEC 20) L 132 (DEC 20) L 130 (DEC 20) L 131 (DEC 20) K 4.0 (DEC 20) 4.0 (DEC 20) 4.0 (DEC 20) 4.0 (DEC 20) CO2 21 (DEC 20) L 20 (DEC 20) L 20 (DEC 20) 21 (DEC 20) Cl 103 (DEC 20) 103 (DEC 20) 103 (DEC 20) 103 (DEC 20) Cr H 1.10 (DEC 20) H 1.11 (DEC 20) H 1.09 (DEC 20) H 1.11 (DEC 20) BUN 16 (DEC 20) 16 (DEC 20) 17 (DEC 20) 18 (DEC 20) Glucose Negative (DEC 18) Glucose Random H 108 (DEC 20) H 104 (DEC 20) H 110 (DEC 20) H 106 (DEC 20) Mg 1.8 (DEC 18) Ca 8.8 (DEC 20) 9.0 (DEC 20) 9.1 (DEC 20) 8.7 (DEC 20) . 62-year-old female with PMH significant for colon cancer status post resection with ileostomy, tobacco use, admitted for acute renal failure, hypertension, hyponatremia. Acute renal failure secondaryto volume depletion (high ostomy output) and ATN (hypotension). GN unlikely; bland urine sediments.Renal US is pending. Acute renal failure --Avoid NSAIDs, DARIO inhibitors, angiotensin receptor blockers, and IV contrast. Need Strict I???s and O???s; renal dose medications --Would not aggressively treat HTN so as not to reduce renal perfusion pressure. --Renal US without hydronephrosis. Ponce in place. Large UOP with 3.5 L in last 24 hrs and creatinine trending down. --Stop IVF. Follow labs Volume depletion: Sodium level stable. Continue current composition another 24 hrs. May start salt tab and increase PO intake Azotemia Hypotension: Add midodrine Hyponatremia: near goal and will stop q2 hr sodium checks Metabolic Acidosis: Resolved Anemia/colon cancer Presence of ileostomy Nephrology will sign off. Please call back if needed. Impression and Plan Orders Orders Pharmacy: sodium chloride 1 g oral tablet (Order): 1 g, TAB, By mouth, BID, Start Date: 12/20/2022 12:30 CDT, Duration: 2 Dose(s), Stop date 12/20/2022 21:00 CDT, Routine Laboratory: CBC-d (Order): Blood, Early AM, 12/21/2022 3:00 CDT, Unit Collect, Routine, 24, hr, 12/22/2022 2:59 CDT, [email or web address] CMP (Order): Blood, Early AM, 12/21/2022 3:00 CDT, Unit Collect, Routine, 24, hr, 12/22/2022 2:59 CDT, [email or web address]. Professional Services Critical Care time: > 35 mins Time spent providing direct care (systems and physical examinations review of laboratory data, review of imaging studies, review of medications, fluid and electrolytes management, hemodynamic monitoring, optimization of blood pressure, review of previous records, solar project coordination specialist rdination of care with other consulting services and assigned nurse) The patient???s history, exam findings, diagnostics, and a summary of any interventions or procedures were reviewed in detail with my Physician Physician Assistant Surgery. I have seen this patient and performed history and physical examination independently;?? I agree with HPI as documented. My personal exam reveals findings consistent with those documented. All diagnostic studies were reviewed and discussed. I confirm diagnosis as documented by the Physician Physician Assistant Surgery. The care plan articulated was made after review of all data and??consistent with our discussion of the patient???s care. Timi Katheryn ROMERO Electronically signed by:Giovanni Callahan 12/20/22 12:32 Electronically cosigned by: Giovanni Callahan 12/20/22 12:36 Electronically cosigned by: Timi Sammy Campa MD 12/20/22 15:33 History and physical note * oJel England NP I: PERFORM Event Display: History and Physicals Authored Date: [id number] Chief Complaint Syncope at home this am, low BP, seen at Oncology. sent for eval . Hx colon CA stage 3 Care Team Primary Care Physician??- Cookie ROMERO, Ant Admitting Physician - Bon Smith DO Attending Physician - Luis REYNA, Bon Bhatia Consulting Physician - El Middleton MD Arrival Date/Time??- 12/18/2022 09:49:00 History of Present Illness The patient is a??62-year-old female??with past??medical history significant??for colon cancer??status post partial resection with??ostomy placement??on??October 07??of 2022 (following up with?outpatient) who initially presented??to the??oncology office this morning for??chemotherapy??initiation.?? However, noted??to be??hypotensive systolic blood pressure??in 80 range, referred to ER??by her oncologist.?? The patient also reports??near-syncopal??episode earlier today.?? Reports she was changing??her ileostomy??back, got dizzy, sat down??on the commode.?She does not think??she passed??out.?? She??did not fall.? states??the patient was sitting??with her eyes closed??and he??found her in the bathroom.?? Reports??she was able??to respond??to his??questions, answered his questions appropriately.?However, reports??she did??have some right arm weakness??at that??time that slowly resolved over a few minutes.?Also, hyponatremia sodium level??122 and JURGEN-creatinine??1.75 GFR 29 BUN 42 noted??on ED labs.?Reportedly, her sodium??level was??at 117??at NMA earlier today??and she??was treated 1 L??normal saline prior??to arrival??to the ED.?? Received??another??0.5 L fluid??bolus in the emergency department.?? Hospitalist services requested??for admission.?? Nephrology services consulted by??the ED provider. ?? The patient??was examined??in the emergency department.?? She is resting in the hospital bed with out??distress??noted.?Admits??increased??liquid??ileostomy??output in the last??2-3 days, takes??Lomotil p.r.n.??at home.?? Reports??decreased urinary??output in the past couple days.?? Denies dysuria.?? She denies??dizziness??at this time.?? She denies fever, chills, cough, congestion, chest??pain, palpitations,??shortness??of breath,??any notable??blood in the stool. Review of Systems Twelve point system??review is complete and??negative unless??stated??otherwise in HPI above. ?? Physical Exam Vitals & Measurements T:??98.0?F?? HR:??67?? RR:??16?? BP:??104/62?? SpO2:??100%?? WT:??56.2??kg?? WT:??124??lb?? Physical Examination General: Alert and orientedx4, No acute distress. Eye: Pupils are equal, round and reactive to light, Extraocular movements are intact, Normal conjunctiva, Vision Unchanged. HENT: Normocephalic,??Normal hearing, Oral mucosa is moist, No Pharyngeal erythema Neck: Supple, Non-tender, No carotid bruit, No jugular venous distention, No lymphadenopathy, No thyromegaly. Respiratory: Lungs are clear to auscultation, Respirations are non-labored, Breath sounds are equal, Symmetrical chest wall expansion, No chest wall tenderness.?? On room air Cardiovascular: Normal rate, Regular rhythm, No murmur, No gallop, Good pulses equal in all extremities, Normal peripheral perfusion, No edema. Gastrointestinal: Soft, Non-tender, Non-distended, Normal bowel sounds, No organomegaly.?? Ileostomy bag??is intact with??dark??green??liquid??drainage. Musculoskeletal: Normal range of motion, Normal strength, No tenderness, No swelling, No deformity Integumentary: Warm, Dry, [place], Intact, No pallor, No rash. Neurologic: Alert, Oriented, Normal sensory, Normal motor function, No focal deficits, Cranial Nerves II-XII are grossly intact Psychiatric: Cooperative, Appropriate mood & affect, Normal judgment, Non-suicidal. Assessment/Plan 1.??JURGEN (acute kidney injury)(Acute kidney failure, unspecified: N17.9) -increased ostomy??output??in the past few days reported??by the patient -appreciate??Nephrology assistance.?? Dr.??Kane??has??seen patient in the emergency department already-await further recommendations. -received??total??1.5 L fluid bolus??so far -hyponatremia-add on??osmolality urine??serum, urine??sodium ?? 2.??Hypotension(Hypotension, unspecified: I95.9) -suspect secondary to??dehydration, GI loss -improved status post??IV fluid??bolus in the ED. -monitor in the step-down unit ?? 3.??Ileostomy status(Ileostomy status: Z93.2) -noted. functioning ?? 4.??Colon cancer(Malignant neoplasm of colon, unspecified: C18.9) -status post colon??resection??in??September of 2022.?? Following up outpatient??with DrStephanie??Escobar.?? Has not started??chemotherapy yet ?? 5.??Near syncope(Syncope and collapse: R55) -suspect secondary??to hypotension.?? However,? also reports??right arm weakness??at the near syncopal??event??earlier this morning-that??has resolved??shortly.?? No other neuro deficit. -will go ahead??and check CT head without??contrast -aspirin statin -check lipids -check??echo, ultrasound??carotid ?? 6.??Metabolic acidemia(Acidosis, unspecified: E87.20) Orders: CT Head wo Contrast Routine Osmolality Serum Osmolality Urine Sodium Random Urine Code status-discussed with the patient-full??code ?? DVT??prophylaxis-heparin subQ ?? Plan of care in collaboration??with ??Luis Problem List/Past Medical History Ongoing Colon cancer Dehydration Ex-smoker Ileostomy dysfunction Ileostomy dysfunction Ileostomy status Tobacco use Historical No qualifying data Procedure/Surgical History ???Ileostomy Revision with Small Bowel Resection - Cookie (11/06/2022)???Robotic Assisted Low Anterior w/ Ileostomy - Cookie (10/11/2022)???Flexible Sigmoidoscopy (10/07/2022)???COLONOSCOPY FLX W/ENDOSCOPIC MUCOSAL RESECTION Medications Home Medications (9) Active Cavilon Durable Barrier topical cream??See Instructions guar gum oral powder for reconstitution??4 g, By mouth, Daily Imodium A-D 2 mg oral tablet??2 mg, PRN, By mouth, Q6H Lomotil oral tablet??1 tab, PRN, By mouth, QID ostomy supplies??See Instructions Ostomy supplies??See Instructions oxyCODONE 5 mg oral tablet??5 mg = 1 tab, PRN, By mouth, Q6H pantoprazole 40 mg oral delayed release tablet??40 mg = 1 tab, By mouth, Daily Zofran ODT 4 mg oral tablet, disintegrating??4 mg = 1 tab, PRN, By mouth, Q6H Allergies codeine??(Kidney, Vomit) Social History Social History Alcohol ??Denies Tobacco ??Smoking Status: Former smoker. ??Smokeless tobacco use: Never. ??Former smoker last 30 days: Former smoker > 30 days. Family History Family history is negative Lab Results Labs??(Last two charted values on this encounter) WBC 8.9 ??(DEC 18) ?? Hgb 11.1 ??(DEC 18) ?? Hct 32.0 ??(DEC 18) ?? Platelets 209 ??(DEC 18) ?? Na 122 ??(DEC 18) ?? K 3.8 ??(DEC 18) ?? Cl 94 ??(DEC 18) ?? CO2 18 ??(DEC 18) ?? BUN 42 ??(DEC 18) ?? Cr 1.75 ??(DEC 18) ?? Ca ?8.5 ??(DEC 18) ?? ProteinT ?6.7 ??(DEC 18) ?? Albumin ?3.5 ??(DEC 18) ?? Bilirubin ,Total ??0.5 ??(DEC 18) ?? Alk Phos ?67 ??(DEC 18) ?? ALT ?20 ??(DEC 18) ?? AST ?15 ??(DEC 18) ?? Mag ?1.8 ??(DEC 18) ?? Glucose,Plasma 107 ??(DEC 18) ?? Diagnostic Results Radiology Results:?? XR Chest 1 View - ??Auth (Verified) - 12/18/22 10:41 ( Remy ROMERO, Cindy Ortega )?? IMPRESSION: No acute cardiopulmonary abnormality. ??Electronically signed by: Cindy Alberto MD, ??[facility], 12/18/2022 11:33 Electronically signed by:Joel England NP, I 12/18/22 13:58 * Luis REYNA, Bon W: PERFORM Event Display: History and Physicals Authored Date: [id number] Patient seen independently of Diane England NP. Case and plan discussed and agreed upon. ??Patient resting in bed, currently??eating.?? Does have??intermittent high output ostomy.?? Notes output of around??2 L were greater over??the past??1-2 days.?? Notes??this improved with??p.r.n. Imodium.?? Has also??had issues with motility so p.r.n.??antidiarrheals are??used sparingly.?? Reviewed labs, plan??of treatment, and??interventions at bedside in detail??with patient and family at bedside.?? Upon further discussion??they note??that??the patient did??have some intermittent??unilateral??arm weakness??with her presyncopal??episode.?? Discussed further??workup for this as??well. ?? On exam:?? Patient alert oriented.?? No focal??deficits.?? No focal weakness??noted.?? Heart regular??rate and rhythm.?? Ostomy with output??noted.?? Lungs largely clear to auscultation bilaterally. ? Plan:?Appreciate??nephrology consultation.?? Plan??sodium??check every 2 hours.?? Blood pressureis still soft??so will upgrade to ICU??admission.?Repeat??sodium??has again risen.?? May need??to give??D5W.?? Maintain map??of 60 or above.?? If??not??will need to titrate Levophed.?? P.r.n. as??needed??for high output ostomy.?? Output thus??far today??has been okay.?? Agree with??CT??of the head and echocardiogram due??to syncopal episode??and possible focal??weakness. ? >50% of time spent??in patient care, counseling??at bedside,??chart review, and direction??of care??as above. ?? No changes to above. ?? Electronically signed by:Bon Smith DO 12/18/22 14:36 Discharge summary * Lexi Olmos DO: PERFORM Event Display: Discharge Summary Authored Date: [id number] Discharge Information Admit date:12/18/2022 Discharge date:12/22/2022 Primary Care Physician:Ant Gary MD Attending Physician:Lexi Olmos DO Admitting Physician:Bon Smith DO Discharge Diagnosis Acute renal failure Hypotension Ileostomy status Colon cancer Near syncope Metabolic acidemia Hyponatremia Hyponatremia Acute renal failure Acute hyponatremia Volume depletion Hypoalbuminemia Increased stool volume Procedures During Visit No qualifying data available Admission History Patient is a??62-year-old??female with??medical history??of??stage III colon status post resection with ileostomy??that was??admitted to the hospital due??to concern??for??near syncopal episode, hypotension, acute??renal failure and hyponatremia.?? Hospital Course Patient is a??62-year-old??female with??medical history??of??stage III colon status post resection with ileostomy??that was??admitted to the hospital due??to concern??for??near syncopal episode, hypotension, acute??renal failure and hyponatremia.?? Patient??admitted to ICU started on Levophed, nephr ology??consult due to concern??for acute??kidney??injury and hyponatremia.?? Patient was started??on scheduled??loperamide??and her ostomy output??continued to decrease.?? Renal function??improved and sodium??level improved.?? Nephrology signed off and??patient was transferred??out of the ICU.?? Patient continued??on midodrine??and??blood pressures remained stable.?? Patient??had improvement??in renal function??did have mild??decrease in her??sodium level but??reported??decreased??p.o. intake but denies??any??nausea or vomiting, patient reported??that??she would continue to??work??on p.o. intake, stated that??she??was feeling??significantly better,??blood pressure stable,??renal function??improved and??patient discharged to home with recommendation??for??close outpatient??follow-up with??Oncology, Colorectal??surgery and primary care provider.?? Repeat??blood work in 2-3 days. Vitals & Measurements ??Vital Signs (last 24 hrs)?Last Charted?Minimum?Maximum?Temp?97.9 (APR 07:11)?97.6 (DEC 21 19:57)?98.4 (DEC 21 11:30)?Heart Rate?61 (DEC 22 07:11)?59 (DEC 22 03:25)?78 (DEC 21 13:00)?Resp Rate?16 (APR 07:11)?13 (APR 15:00)?C??25(APR 12:00)?SBP?100 (DEC 22 07:11)?C??84(APR 14:00)?119 (APR 16:56)?DBP?64 (DEC 22 07:11)?50 (DEC 21 11:00)?75 (DEC 21 19:57)?SpO2?100 (DEC 22 07:11)?95 (DEC 21 12:30)?100 (DEC 21 10:00)?O2?Room a (DEC 22 07:11)?Room a (DEC 21 11:30)?Room a (DEC 21 11:30)?? Physical Exam General:?? Awake??and alert HEENT:?? Head??normocephalic, atraumatic Cardiovascular:?? Regular rate??and rhythm, no appreciable??murmur Respiratory:?? On room air, lungs??clear??auscultation without??wheezing or??rhonchi Abdomen:?? Soft, nontender, ostomy??in place with thickened stool Neurologic:?? Cranial nerves 2-12 grossly intact??without??focal deficit Psychiatric:?? Calm, cooperative Patient Discharge Condition stable General Results as noted Discharge Orders Discharge 12/22/22 7:23:00 CDT, Home/Self Care Discharge Follow Up 12/22/22 7:23:00 CDT, Provider/Time: PCP in 3-5 days. Oncology follow up with [facility] in 1-2 days, repeat BMP at that time to recheck sodium and kidney function Discharge Diet 12/22/22 7:23:00 CDT, Discharge Diet: Regular, encourage adequate hydration and sodium intake Discharge Activity 12/22/22 7:23:00 CDT, As tolerated ?? Discharge time??greater than 35 minutes spent discussing??with??patient,??placing orders??and providing??documentation.?? Long discussion with??patient about??monitoring??of ostomy??output, urine??output, nutritional intake? Medications Home Medications (12) Active atorvastatin 40 mg oral tablet??40 mg = 1 tab, By mouth, QPM (every evening) Cavilon Durable Barrier topical cream??See Instructions guar gum oral powder for reconstitution??4 g, By mouth, Daily Lomotil oral tablet??1 tab, PRN, By mouth, QID loperamide 2 mg oral capsule??2 mg = 1 cap, By mouth, Q6H midodrine 5 mg oral tablet??10 mg = 2 tab, By mouth, TID ostomy supplies??See Instructions Ostomy supplies??See Instructions oxyCODONE 5 mg oral tablet??5 mg = 1 tab, PRN, By mouth, Q6H pantoprazole 40 mg oral delayed release tablet??40 mg = 1 tab, By mouth, Daily sodium chloride 1 g oral tablet??1 g = 1 tab, By mouth, Daily Zofran ODT 4 mg oral tablet, disintegrating??4 mg = 1 tab, PRN, By mouth, Q6H Medication reconciliation completed on this patient today Pending Labs PENDING LABS No Laboratory Orders Pending ? Lab Results Labs??(Last two charted values on this encounter) WBC 8.7 ??(DEC 21) 8.9 ??(DEC 18) Hgb 10.7 ??(DEC 21) 11.1 ??(DEC 18) Hct 32.0 ??(DEC 21) 32.0 ??(DEC 18) Platelets 293 ??(DEC 21) 209 ??(DEC 18) Na 128 ??(DEC 22) 133 ??(DEC 21) K 4.3 ??(DEC 22) 4.2 ??(DEC 21) Cl 100 ??(DEC 22) 102 ??(DEC 21) CO2 23 ??(DEC 22) 23 ??(DEC 21) BUN 16 ??(DEC 22) 16 ??(DEC 21) Cr 1.15 ??(DEC 22) 1.32 ??(DEC 21) Ca ?9.1 ??(DEC 22) ?9.5 ??(DEC 21) ProteinT ?6.5 ??(DEC 21) ?6.1 ??(DEC 20) Albumin ?3.2 ??(DEC 21) ?3.0 ??(DEC 20) Bilirubin ,Total ??0.3 ??(DEC 21) ??0.3 ??(DEC 20) Alk Phos ?65 ??(DEC 21) ?65 ??(DEC 20) ALT ?18 ??(DEC 21) ?21 ??(DEC 20) AST ?13 ??(DEC 21) ?16 ??(DEC 20) Mag ?1.8 ??(DEC 18) ?? Bedside Glucose 144 ??(DEC 18) ?? Glucose,Plasma 96 ??(DEC 22) 92 ??(DEC 21) Diagnostic Results Radiology Results:?? US VL Carotid Duplex Doppler Bilateral - 12/19/22 09:39 ( Carlitos ROMERO, Gaurang )?? IMPRESSION:1. No hemodynamically significant stenosis in either carotid artery system. ?? The velocities and ratios probably correspond to a NASCET stenosis below 40%. ??2. Antegrade flow in both vertebral arteries. ??3. Minimal atherosclerosis as described above. ??Electronically signed by: Dr Gaurang Urbina ??12/19/2022 9:39 AM ?? CT Head wo Contrast - 12/19/22 09:16 ( Cris ROMERO, Vishal )?? IMPRESSION:1. ??No acute intracranial process identified. Radiologist: Dr Vishal Lynch , 12/18/2022 4:24 PM / Edited by: ??Maribel [id number] [facility]_F[facility]enc[facility] , 12/18/2022 4:30 PMElectronically signed by: Dr Vishal Lynch ??12/19/2022 9:16 AM ?? ECHO Adult Complete - 12/18/22 18:17 ( Gregory ROMERO, Robby Christianson )?? Conclusions:- The left ventricular systolic function is normal. ??The visually estimated ?? ejection fraction is >50%. ??The calculated ejection fraction is 55% by biplane method. ??Unable to assess diastolic function on the basis of ?? available data. ??- There is trace tricuspid valve regurgitation. ?? FindingsLeft VentricleNormal left ventricular cavity size. ??There is normal left ventricular wallthickness. ??The left ventricular systolic function is normal. ??The visuallyestimated ejection fraction is >50%. ??The calculated ejection fraction is55% by biplane method. ??Unable to assess diastolic function on the basis ofavailable data. ?? Right VentricleNormal right ventricular cavity size and systolic function. ?? AtriaThe left atrium is normal in size. ??The right atrium is normal in size. ?? Aortic ValveNormal aortic valve structure and function. ?? Mitral ValveNormal mitralvalve structure and function. ?? Pulmonic ValveThe pulmonic valve is likely normal. ?? Tricuspid ValveThere is trace tricuspid valve regurgitation. ??Tricuspid regurgitationenvelope is inadequate forcalculation of right ventricular systolicpressure. ?? Great VesselsNo dilatation of the aortic rootmeasuring 2. ?? 80 cm and no dilatation of theascending aorta measuring 3. ?? 00 cm. ?? VenousThe inferior vena cava was not well visualized. ?? Pericardium/PleuralThere is no evidence of pericardial effusion. ? Measurements ??2D Linear MeasurementsRVIDd: ?? 2. ?? 70RVIDd Mid: ??1. ?? 60RVIDd Index: ?? 1. ?? 70IVSd: 0. ?? 80 0. ?? 6-0. ?? 9/0. ?? 6-1. ?? 0 cmLVIDd: ?? 4. ?? 70 3. ?? 9-5. ?? 3/4. ?? 2-5. ?? 9 cmLVIDd Index: ?? 2. ?? 96 2. ?? 4-3. ?? 2/2. ?? 2-3. ?? 1 cm/y1DXPXh: ?? 2. ?? 70 2. ?? 0-3. ?? 6 cmLVPWd: ?? 0. ?? 80 0. ?? 7-1. ?? 1 cmAo Root: 2. ?? 80 2. ?? 1-3. ?? 5 cmLA Diam: 2. ?? 60 2. ?? 7-3. ?? 8/3. ?? 0-4. ?? 0 cmLAIDs Index: ?? 1. ?? 64 1. ?? 5-2. ?? 3 cm/i0GOBcqv: 152. ?? 07 ??67-162/88-224 gLV Mass Index: 95. ?? 64 ?? 43-95/49-115 g/m2LVOT Diam: ??2. ?? 00 3. ?? 0+(-)1. ?? 3 cmRA Area,s: ??11. ?? 80LA Area,s: ??10. ?? 60 ?? 2D VolumesLA ESV BP: ??23. ??40LA ESV BP Index: ??14. ?? 70LA ESV MOD A2C: ?? 23. ?? 40LA ESV MOD A2C Index: ?? 14. ?? 70LA ESV MOD A4C: ?? 20. ?? 70LA ESV MOD A4C Index: ?? 13. ?? 00 ?? 2D Systolic FunctionEF 4C: ?? 56. ?? 80 ?? >55%EF 2C: ?? 52. ?? 90 ?? >55%EF BiP: ??55. ?? 30 ?? >55% ? Mitral ValveMV VTI: ??0.?? 24MV Mn Ishaan: ??0. ?? 40MV Mn Grad: 0. ?? 80MV Pk E: 0. ?? 74MV PK A: 0. ?? 92MV Decel Time: 262.?? 00E/A: ??0. ?? 80E'Lateral: ??9. ?? 20E/E' Lat: ?? 8. ?? 00PHT: ??77. ?? 00MVA PHT: 2. ?? 86MVA Continuity: ?? 3. ?? 08Decel Greene: ?? 2. ?? 81 ?? Aortic ValveAoV Pk Ishaan: 1. ?? 62AoV Mn Ishaan: 1. ??02AoV VTI: 0. ?? 30AoV Pk Grad: ?? 11. ?? 00Aov Mn Grad: ?? 5. ?? 00AVA Cont. ?? VTI: ??2. ?? 40Dimensionless Index: 0. ?? 67 ??LVOTLVOT Pk Ishaan: ?? 1. ?? 13LVOT Mn Ishaan: ?? 0. ?? 73LVOT VTI: ?? 0. ?? 24LVOT Pk Grad: ??5. ?? 00LVOT Mn Grad: ??2. ?? 00LVOT Diam: ??2. ?? 00LVOT Area: ??3. ?? 14 ??Diasto lic FunctionMV Pk E: 0. ?? 74MV Pk A: 0. ?? 92E/A: ??0. ?? 80E' Laterial: ?? 9. ?? 20E/E' Lat: ?? 8. ?? 00 ??Tricuspid ValveTR Pk Ishaan: ??2. ?? 34TR Pk Grad: 24. ?? 00 ?? Great VesselsAortaAo Root-2D:2. ?? 80 2. ?? 0-3. ?? 7 cmAo Asc: ??3. ?? 00 2. ?? 1-3. ?? 4 cm ?Pulmonary ValvePV Pk Ishaan: ??0. ?? 89Peak PV Grad: ??3. ?? 00 ? Updated by Robby Jenkins MD on 9:09 PM with Status of Fin al ??[id number] electronically signed on 12/18/2022 9:09:19 PM with status ofFinal ?? US Kidney Bilateral - 12/18/22 15:15 ( Rosy ROMERO, Concepcion West )?? IMPRESSION:1. Small amount of fluid within the central collecting system/central renal pelvis. ?? No hydronephrosis. ?? Ponce catheter within the decompressed bladder. ??Electronically signed by: Dr Concepcion Gallegos ??12/18/2022 3:15 PM ?? XR Chest 1 View - 12/18/22 10:41 ( Remy ROMERO, Cindy Ortega )?? IMPRESSION: No acute cardiopulmonary abnormality. ??Electronically signed by: Cindy Alberto MD, ??[facility], 12/18/2022 11:33 Other No qualifying data available. Airway Management No Data Available Electronically signed by:Lexi Olmos DO 12/22/22 09:59 Note * Carlitos ROMERO, Gaurang: PERFORM, TRANSCRIBE, VERIFY, VERIFY Event Display: [employer] Read Authored Date: [id number] READING LOCATION: [place], [place] REASON FOR EXAM: near syncope. Diagnosis Codes: E87.1 Hypo-osmolality and hyponatremia E87.1 Hypo-osmolality and hyponatremia N17.9 Acute kidney failure, unspecified E86.9 Volume depletion, unspecified E87.1 Hypo-osmolality and hyponatremia COMPARISON: None TECHNIQUE: Color Doppler and spectral waveform analysis were performed of the carotid and vertebralvasculature. FINDINGS: Minimal atherosclerotic plaque visualized within the right and left common carotid bulbs and the proximal left internal carotid artery. MEASUREMENTS: (Absolute values should be used; +/- relates to transducer position relative to vessel flow. Every field may not be reported on all exams.) RIGHT Vertebral artery flow: antegrade flow Subclavian PSV: cm/s ECA Prox PSV: -112.0 cm/s ECA Prox EDV: -17.1 cm/s CCA Prox PSV: 80.2 cm/s CCA Prox EDV: 18.3 cm/s CCA Mid PSV: cm/s CCA Mid EDV: cm/s CCA Distal PSV: 66.6 cm/s CCA Distal EDV: 14.3 cm/s ICA Prox PSV: -74.1 cm/s ICA Prox EDV: -21.1 cm/s ICA Mid PSV: -76.8 cm/s ICA Mid EDV: -20.4 cm/s ICA Distal PSV: -94.4 cm/s ICA Distal EDV: -27.9 cm/s ICA/CCA Ratio: -1.2 LEFT Vertebral artery flow: antegrade flow Subclavian PSV: cm/s ECA Prox PSV: -90.0 cm/s ECA Prox EDV: 0.0 cm/s CCA Prox PSV: 87.6 cm/s CCA Prox EDV: 18.6 cm/s CCA Mid PSV: cm/s CCA Mid EDV: cm/s CCA Distal PSV: 78.0 cm/s CCA Distal EDV: 19.8 cm/s ICA Prox PSV: -63.0 cm/s ICA Prox EDV: -22.2 cm/s ICA Mid PSV: -79.2 cm/s ICA Mid EDV: -26.4 cm/s ICA Distal PSV: -114.0 cm/s ICA Distal EDV: -36.0 cm/s ICA/CCA Ratio: -1.3 NOTE: Report of measurements also part of image record for this exam. PEAK SYSTOLIC END DIASTOLIC ICA/CCA VELOCITY cm/sec VELOCITY cm/sec RATIO < 125 <45 <2 No hemodynamically significant stenosis NASCET stenosis below 40% 125-170 45-65 2-2.5 No hemodynamically significant stenosis NASCETstenosis is likely in the 40-60% range 170-300 65-90 2.5-4 Suspicious for hemodynamically significant stenosis over 60% > 300 > 90 > 4 Hemodynamically significant stenosis over 60% suggestive of the most severe stenosis over 80% >140 Suggestive of severe stenosis over 80% Estimates of carotid stenosis in this report are determined by the NASCET method. Percentage diameter NASCET stenosis equals (1-A/B) x 100%, where A is the diameter of the residual lumen and B isthe diameter of the normal distal internal carotid artery lumen. IMPRESSION: 1. No hemodynamically significant stenosis in either carotid artery system. The velocities and ratios probably correspond to a NASCET stenosis below 40%. 2. Antegrade flow in both vertebral arteries. 3. Minimal atherosclerosis as described above. Electronically signed by: Dr Gaurang Urbina 12/19/2022 9:39 AM Radiologist Gaurang Urbina MD Signed 12/19/22 09:39:18 (Electronic Signature) Automotive Alignment Specialist KB Technologist RW * Gaurang Urbina MD: PERFORM, TRANSCRIBE, VERIFY, VERIFY Event Display: Report Authored Date: [id number] * Vishal Lynch MD: PERFORM, VERIFY Vishal Lynch MD: VERIFY, VERIFY Vishal Lynch MD: VERIFY Maribel Nicolas: TRANSCRIBE Event Display: Powerscribe Read Authored Date: [id number] Clinical indication: near syncope, right-sided weakness transient. Syncopal low blood pressure, right-sided weakness. Diagnosis Codes: E87.1 Hypo-osmolality and hyponatremia E87.1 Hypo-osmolality and hyponatremia N17.9 Acute kidney failure, unspecified I95.9 Hypotension, unspecified Z93.2 Ileostomy status READING LOCATION: [address] [address] Comparison:None. Technique:This CT study used one or more of the following dose reduction techniques: Automated exposure control, Adjustment of the mA and/or kV according to patient size, Use of iterative reconstruction technique. Patient radiation dose is recorded for each exam using dose tracking software. Findings: The brain is normal in volume and morphology. Ventricles, sulci, and cisterns are unremarkable. There is no intracranial area of abnormal increased attenuation or mass effect. There is no loss of naylor-white differentiation.. White matter attenuation is homogeneous. Orbits are unremarkable. The paranasal sinuses are unremarkable. Extracranial soft tissues are unremarkable. IMPRESSION: 1. No acute intracranial process identified. Radiologist: Dr Vishal Lynch , 12/18/2022 4:24 PM / Edited by: Maribel [id number] [facility]id[facility] , 12/18/2022 4:30 PM Electronically signed by: Dr Vishal Lynch 12/19/2022 9:16 AM Vishal Lynch MD Signed 12/19/22 09:16:16 (Electronic Signature) Automotive Alignment Specialist LM Technologist GRETCHEN Alberto MD, Cindy Ortega: PERFORM, VERIFY, VERIFY Event Display: [employer] Read Authored Date: [id number] PROCEDURE INFORMATION: Exam: XR Chest Exam date and time: 12/18/2022 10:41 AM Age: 62 years old Clinical indication: Other: Hypotension; Patient HX: Syncope TECHNIQUE: Imaging protocol: Radiologic exam of the chest. Views: 1 view. COMPARISON: CR XR Abd AP and Up and or Decub and PA Chest 10/27/2022 2:28 PM FINDINGS: Tubes, catheters and devices: Left-sided Port-A-Cath terminates in the region of the superior cavoatrial junction. Lungs: Unremarkable. No consolidation. Pleural spaces: Unremarkable. No pleural effusion. No pneumothorax. Heart/Mediastinum: Unremarkable. No cardiomegaly. Bones/joints: Unremarkable. IMPRESSION: No acute cardiopulmonary abnormality. Electronically signed by: Cindy Alberto MD, [facility], 12/18/2022 11:33 Cindy Alberto MD Signed 12/18/22 11:33:15 (Electronic Signature) Technologist BRENDA,Concepcion Riggins MD: PERFORM, TRANSCRIBE, VERIFY, VERIFY Event Display: [employer] Read Authored Date: [id number] Diagnosis Codes:E87.1 Hypo-osmolality and hyponatremia,E87.1 Hypo-osmolality and hyponatremia Reading location: [place], [place]. +++++++++++ US Kidney Bilateral Clinical history: ARF COMPARISON: CT exam 11/03/2022Findings: Right kidney: Right renal length 10.0 x width 5.2 x height 5.4 cm. There is a small amount of fluid within the central collecting system/central renal pelvis. Left kidney: Left renal length 9.8 x width 5.2 x 6.8 height cm. There is a small amount of fluid within the central collecting system/central renal pelvis. Urinary bladder: A Ponce catheter is in the bladder which is collapsed and not well evaluated. IMPRESSION: 1. Small amount of fluid within the central collecting system/central renal pelvis. No hydronephrosis. Ponce catheter within the decompressed bladder. Electronically signed by: Dr Concepcion Gallegos 12/18/2022 3:15 PM Concepcion Gallegos MD Signed 12/18/22 15:15:46 (Electronic Signature) Automotive Alignment Specialist CEW Technologist BP XR Chest Single view * Remy ROMERO, Cindy S: PERFORM, VERIFY, VERIFY Event Display: Report Authored Date: US Kidney - bilateral * Concepcion Gallegos MD: PERFORM, TRANSCRIBE, VERIFY, VERIFY Event Display: Report Authored Date: CT Head WO contrast * Vishal Lynch MD: PERFORM, VERIFY Vishal Lynch MD: VERIFY, VERIFY Vishal Lynch MD: VERIFY Maribel Nicolas: TRANSCRIBE Event Display: Report Authored Date: [id number] US Heart * Robby Jenkins MD: VERIFY, VERIFY, PERFORM Event Display: Powerscribe Read Authored Date: [id number] [place] [address] Transthoracic Echocardiogram Patient (Last, First, Middle): MELVA CROUCH Akin Gender: Female CMRN: [id number] Date of : 1960 [age] Procedure Date: 12/18/2022 Location: Height: 162.00 cm Weight: 56.00 kg BSA: 1.59 m2 Heart Rate: bpm Emt I/85: SHELL Referring MD: Joel England ASSET PROTECTION OFFICER [employer] Packer: Robby Jenkins MD Indications: Near sycope Conclusions: - The left ventricular systolic function is normal. The visually estimated ejection fraction is >50%. The calculated ejection fraction is 55% by biplane method. Unable to assess diastolic function on the basis of available data. - There is trace tricuspid valve regurgitation. Findings Left Ventricle Normal left ventricular cavity size. There is normal left ventricular wall thickness. The left ventricular systolic function is normal. The visually estimated ejection fraction is >50%. The calculated ejection fraction is 55% by biplane method. Unable to assess diastolic function on the basis of available data. Right Ventricle Normal right ventricular cavity size and systolic function. Atria The left atrium is normal in size. The right atrium is normal in size. Aortic Valve Normal aortic valve structure and function. Mitral Valve Normal mitral valve structure and function. Pulmonic Valve The pulmonic valve is likely normal. Tricuspid Valve There is trace tricuspid valve regurgitation. Tricuspid regurgitation envelope is inadequate for calculation of right ventricular systolic pressure. Great Vessels No dilatation of the aortic root measuring 2.80 cm and no dilatation of the ascending aorta measuring 3.00 cm. Venous The inferior vena cava was not well visualized. Pericardium/Pleural There is no evidence of pericardial effusion. Measurements 2D Linear Measurements RVIDd: 2.70 RVIDd Mid: 1.60 RVIDd Index: 1.70 IVSd: 0.80 0.6-0.9/0.6-1.0 cm LVIDd: 4.70 3.9-5.3/4.2-5.9 cm LVIDd Index: 2.96 2.4-3.2/2.2-3.1 cm/m2 LVIDs: 2.70 2.0-3.6 cm LVPWd: 0.80 0.7-1.1 cm Ao Root: 2.80 2.1-3.5 cm LA Diam: 2.60 2.7-3.8/3.0-4.0 cm LAIDs Index: 1.64 1.5-2.3 cm/m2 LV Mass: 152.07 67-162/88-224 g LV Mass Index: 95.64 43-95/49-115 g/m2 LVOT Diam: 2.00 3.0+(-)1.3 cm RA Area,s: 11.80 LA Area,s: 10.60 2D Volumes LA ESV BP: 23.40 LA ESV BP Index: 14.70 LA ESV MOD A2C: 23.40 LA ESV MOD A2C Index: 14.70 LA ESV MOD A4C: 20.70 LA ESV MOD A4C Index: 13.00 2D Systolic Function EF 4C: 56.80 >55% EF 2C: 52.90 >55% EF BiP: 55.30 >55% Mitral Valve MV VTI: 0.24 MV Mn Ishaan: 0.40 MV Mn Grad: 0.80 MV Pk E: 0.74 MV PK A: 0.92 MV Decel Time: 262.00 E/A: 0.80 E'Lateral: 9.20 E/E' Lat: 8.00 PHT: 77.00 MVA PHT: 2.86 MVA Continuity: 3.08 Decel Greene: 2.81 Aortic Valve AoV Pk Ishaan: 1.62 AoV Mn Ishaan: 1.02 AoV VTI: 0.30 AoV Pk Grad: 11.00 Aov Mn Grad: 5.00 MARISSA Cont.VTI: 2.40 Dimensionless Index: 0.67 LVOT LVOT Pk Ishaan: 1.13 LVOT Mn Ishaan: 0.73 LVOT VTI: 0.24 LVOT Pk Grad: 5.00 LVOT Mn Grad: 2.00 LVOT Diam: 2.00 LVOT Area: 3.14 Diastolic Function MV Pk E: 0.74 MV Pk A: 0.92 E/A: 0.80 E' Laterial: 9.20 E/E' Lat: 8.00 Tricuspid Valve TR Pk Ishaan: 2.34 TR Pk Grad: 24.00 Great Vessels Aorta Ao Root-2D: 2.80 2.0-3.7 cm Ao Asc: 3.00 2.1-3.4 cm Pulmonary Valve PV Pk Ishaan: 0.89 Peak PV Grad: 3.00 Updated by Robby Jenkins MD on 9:09 PM with Status of Final [id number] electronically signed on 12/18/2022 9:09:19 PM with status of Final Patient Care team information Care Team Personnel Name: Joel England NP, I Position: Inpatient-Midlevel Member Role: Nurse Practitioner Address: Address: [address] [place] [address]- [place] Name: Cookie ROMERO, Ant Position: PX Physician - Colorectal Surgery Member Role: Primary Care Physician Address: Address: [address] [place] [address]- Name: Tiffanie Mcintyre RN Position: ED-Clinical LP Member Role: Emergency Room Nurse Name: Ketan Amanda MD Position: Physician-Emergency LP Member Role: Ordering Physician Address: Address: [address] [place] [address]- Care Team Related Persons Name: PRIMO CROUCH Name: Gary Ba Name: MATILDE SCOTT Name: MATILDE NAVARRO Address: home [address] [place] [phone] [facility] Address: mailing [address] [place] [phone] [place]
--- OUTSIDE RECORDS SUMMARY | 2023-04-30 14:31 | XMS_ITS | Continuity of Care Document ---
Author Name Unknown Organization [facility] Address [address] [place] [address]- Care Team Providers Care [employer] Manager Name Role Phone Ant Gary MD Primary Care Physician Encounter 12/12/22 - 12/13/22 [facility] [address] [place] [address]- [place] Encounter Diagnosis Cancer of rectosigmoid junction(Discharge Diagnosis) - 12/12/22 Tobacco use(Discharge Diagnosis) - 12/12/22 Encounter for screening for other disorder(Discharge Diagnosis) - 12/12/22 Attending Physician: Ant Gary MD Allergies, Adverse Reactions, Alerts Substance Reaction Severity Status codeine Kidney Vomit Moderate Active Medications Cavilon Durable Barrier topical cream See Instructions, Topical, apply 2 - 3 times a week with appliance changes, # 30 g, Refill(s) 0, Route to Pharmacy Electronically, Pharmacy: [facility], [id number],Instructions Replace Required Details, Topical, reinaldo... 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, kg, Weight Start Date: 10/16/22 Status: Ordered Imodium A-D 2 mg oral tablet 2 mg, By mouth, Q6H, PRN Diarrhea/Loose Stool, # 100 tab, Refill(s) 0, Pharmacy: [facility], [id number], TAB, 2 mg By mouth Q6H,PRN:Diarrhea/Loose Stool, 68.1, 10/11/22 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, in, 68.1, Weight, 10/11/22 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, kg Start Date: 10/16/22 Status: Ordered pantoprazole 40 mg oral delayed release tablet 40 mg = 1 tab, By mouth, Daily, # 30 tab, Refill(s) 0, Pharmacy: [facility], [id number], TAB, 1 tab By mouth Daily, 63.4, 10/20/22 1:44:00 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, kg, Weight Start Date: 10/21/22 Status: Ordered Zofran ODT 4 mg oral tablet, disintegrating 4 mg = 1 tab, By mouth, Q6H, PRN for nausea & vomiting, # 20 tab, Refill(s) 0, Pharmacy: [facility], [id number], 1 tab By mouth Q6H,PRN:for nausea & vomiting, 68.1, 10/11/22 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, kg, Weight Start Date: 10/18/22 Status: Ordered [...] 1auto-populated from documented surgical case 2Done 09/05/2022 Vital Signs Most recent to oldest [Reference Range]: 1 Height (inches) (Clinical) 64 in (12/12/22 10:57 AM) Weight (kg) (Clinical) 57.73 kg (12/12/22 10:57 AM) BMI (Clinical) 21.8 kg/m2 (12/12/22 10:57 AM) Social History Social History Type Response [...] Code MRI Safety Implantable Status 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 [id number] 214 Unknown [id number] Unknown 07/08/25 Unknown Unknown Active GS1 [id number] 214 Unknown [id number] Unknown 07/29/25 Unknown Unknown Active GS1 Hospital Discharge Instructions Patient Education 12/12/2022 12:53:25 Ileostomy, Care After Ileostomy, Care After This sheet gives you information about how to care for yourself after your procedure. Your health care provider may also give you more specific instructions. If you have problems or questions, contact your health care provider. What can I expect after the procedure? After the procedure, it is common to have: ??? A small amount of blood or clear fluid leaking from your stoma. ??? Pain and discomfort in your abdomen, especially around your stoma. ??? Irregular bowel movements for several days. ??? Loose stool. Follow these instructions at home: Medicines ??? Take nkhr-oib-qzgwqqw and prescription medicines only as told by your health care provider. ??? If you were prescribed an antibiotic medicine, take it as told by your health care provider. Donot stop taking the antibiotic even if you start to feel better. Stoma and incision care ??? Keep the skin that surrounds your stoma clean and dry. ??? Follow instructions from your health care provider about how to take care of your incision. Make sure you: ??? Wash your hands with soap and water before and after you change your bandage (dressing). If soap and water are not available, use hand electromechanical engineer. ??? Change your dressing as told by your health care provider. ??? Leave stitches (sutures), skin glue, or adhesive strips in place. These skin closures may need to stay in place for 2 weeks or longer. If adhesive strip edges start to loosen and curl up, you maytrim the loose edges. Do not remove adhesive strips completely unless your health care provider tells you to do that. ??? Check your stoma area every day for signs of infection. Check for: ??? More redness, swelling, or pain. ??? More fluid or blood. ??? Warmth. ??? Pus or a bad smell. ??? Follow your health care provider's instructions about changing and cleaning your ostomy pouch. ??? Keep supplies with you at all times to care for your stoma and ostomy pouch. Also keep extra clothing with you. Eating and drinking ??? Follow instructions from your health care provider about eating or drinking restrictions. ??? Pay attention to which foods and drinks cause problems with digestion, such as gas, constipation, or diarrhea. ??? Avoid spicy foods and caffeine while your stoma heals. ??? Eat meals and snacks at regular intervals. ??? Drink enough fluid to keep your urine pale yellow. Activity ??? Return to your normal activities as told by your health care provider. Ask your health care provider what activities are safe for you. ??? Rest as much as possible while your stoma heals. ??? Avoid intense physical activity for as long as you are told by your health care provider. ??? Do not lift anything that is heavier than 10 lb (4.5 kg), or the limit that you are told, for 6weeks or until your health care provider says that it is safe. General instructions ??? Do not drive or use heavy machinery while taking prescription pain medicine. ??? Wear compression stockings as told by your health care provider. These stockings help to prevent blood clots and reduce swelling in your legs. ??? Do not take baths, swim, or use a hot tub until your health care provider approves. Ask your health care provider if you may take showers. ??? Do not use any products that contain nicotine or tobacco, such as cigarettes, e-cigarettes, andchewing tobacco. These can delay incision healing after surgery. If you need help quitting, ask your health care provider. ??? (Women) Talk with your health care provider if you plan to become or if you take birthcontrol pills. ??? Keep all follow-up visits as told by your health care provider. This is important. Contact a health care provider if: ??? You have more redness, swelling, or pain at or around your stoma. ??? You have more fluid or blood coming from your stoma. ??? Your stoma feels warm to the touch. ??? You have pus or a bad smell coming from your stoma. ??? You have a fever. ??? You have loose stools that do not become thicker after several weeks. ??? You have bowel movements more often or less often than your health care provider tells you to expect. ??? You feel nauseous. ??? You vomit. ??? You have abdominal pain, bloating, pressure, or cramping. ??? You have problems with sexual activity. ??? You have an unusual lack of energy (fatigue). ??? You are unusually thirsty or you always have a dry mouth. Get help right away if: ??? You feel dizzy or lightheaded. ??? You have pain or cramps in your abdomen that get worse or do not go away with medicine. ??? Your stoma suddenly changes size or color. ??? You have shortness of breath. ??? You have bleeding from your stoma that does not stop. ??? You vomit more than one time. ??? You faint. ??? You have internal tissue coming out of your stoma (prolapse). ??? You have an irregular heartbeat. ??? You have chest pain. Summary ??? Take bdin-jbu-hrvcblz and prescription medicines only as told by your health care provider. ??? Follow your health care provider's instructions about how to take care of your incision and stoma. ??? Follow instructions from your health care provider about eating or drinking restrictions. ??? Do not take baths, swim, or use a hot tub until your health care provider approves. Ask your health care provider if you may take showers. ??? Contact a health care provider if you have more redness, swelling, or pain at or around your stoma. This information is not intended to replace advice given to you by your health care provider. Make sure you discuss any questions you have with your health care provider. Document Revised: 03/06/2022 Document Reviewed: 03/06/2022 Elsevier Patient Education ?? 2021 [employer] Colon and rectal surgery Note * Radha Gary MDh: PERFORM Event Display: Colorectal Surgery Office/Clinic Note Authored Date: [id number] Chief Complaint Follow up General Information Information Given By: Patient (12/12/22 10:57:00) Nurse Intake Nursing Intake?? General Information?? Pain Information?? 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 ??Required ileostomy??revision for ileostomy??dysfunction??on 11/06/2022 comes for follow-up visit. ??She underwent??chemo port??placement??at [facility]??currently??seeing Dr. Escobar for oncology. ??She is doing very??well denies??any abdominal pain nausea??or??emesis.?? She is tolerating diet??has good??ileostomy function.?? Sh e denies any fever chills. Review of Systems General Statement:Denies significant change in weight, fever, chills & fatigue Eye Statement:Denies changes in vision. ENT Statement:Denies changes in hearing, sinus headaches or ENT symptoms. Cardiovascular Statement:Denies chest pain, palpitations, and edema Respiratory Statement:Denies cough, wheezing, and dyspnea GI Statement:Denies nausea, vomiting, food intolerance, abdominal pain, & change in bowel pattern Statement:Denies dysuria, urinary frequency, urinary hesitancy & urethral discharge Musculoskeletal Statement:Denies muscle pain, joint pain, back pain & weakness Skin Statement:Denies rashes, lesions & pruritus Neurologic Statement:Denies memory problems, vertigo, headaches, and seizures Psychiatric Statement:Denies symptoms of anxiety, depression, & insomnia Endocrine Statement:Denies excessive thirst, excessive urination, and changes in skin or hair texture Heme/Lymph Statement:Denies easy bleeding and bruising Allergy/Immunology Statement:Denies seasonal allergies and persistent infections Sleep Statement:Denies sleep problems GENERAL: Patient denies significant change in weight, fever, chills, or fatigue. EYE: Patient denies changes in vision. ENT: Patient denies changes in hearing, sinus headaches or ENT symptoms. CV: Patient denies chest pain, palpitations, and edema. RESP: Patient denies cough, wheezing, or dyspnea. GI: As noted in HPI -: Patient denies dysuria, urinary frequency, urinary hesitancy, or urethral discharge. Gynec- Denies vaginal discharge, dysmenorrhea, menorrhagia MS: Patient denies muscle pain, joint pain, back pain or weakness. SKIN: Patient denies rashes, lesions, or pruritus. NEURO: Patient denies memory problems, vertigo, headaches, or seizures. ENDO: Patient denies excessive thirst, excessive urination, and changes in skin or hair texture. HEME/LYMPH: Patient denies easy bleeding or bruising. PSYCH: Patient denies symptoms of anxiety, depression, or insomnia. Physical Exam Vitals & Measurements HT:??64??in?? WT:??127??lb?? WT:??57.73??kg?? BMI:??21.8?? GENRL: Well-developed, well-nourished, pleasant patient who appears stated age, in no apparent distress. ABD: Incisions are clean, dry and intact. No erythema, edema or exudate. No signs or symptoms of infection. No signs of herniation.?? Ileostomy healthy viable semi-solid??stool in bag Assessment/Plan 1.??Cancer of rectosigmoid junction(Malignant neoplasm of rectosigmoid junction: C19) 62-year-old??female with??rectosigmoid??junction??cancer??status??post robotic??assisted??low anterior??resection??with diverting??loop ileostomy??by me??on 10/11/2022, required??ileostomy revision??on 11/04/2022 for ileostomy dysfunction, currently undergoing chemotherapy with??with Dr. Escobar??medical oncology. ??She is doing very well denies??any abdominal pain??nausea or??emesis.?? She is tolerating diet??has good ileostomy function. ??On examination??abdomen??is soft, nondistended nontender, ileostomy healthy viable??semi-solid stool in bag. ??Extensive discussion??with the patient and her spouse regarding??her condition.?? I advised??her to??complete her chemotherapy??follow up with me??for possible??ileostomy closure??once chemotherapy is done. ??Questions answered??to their satisfaction. 2.??Tobacco use(Tobacco use: Z72.0) Problem List/Past Medical History Dehydration: ?? Ileostomy dysfunction: ?? Ileostomy dysfunction: ?? Tobacco use: ?? Procedure/Surgical History ???Robotic Assisted Low Anterior w/ Ileostomy - Cookie (10/11/2022)???Flexible Sigmoidoscopy (10/07/2022)???COLONOSCOPY FLX W/ENDOSCOPIC MUCOSAL RESECTION . ??Ileostomy revision (11/06/2022) Medications Home Medications (9) Active Cavilon Durable Barrier topical cream??See Instructions:Topical, apply 2 - 3 times a week with appliance changes,Start_date: 11/22/22,Refills: 0 guar gum oral powder for reconstitution??4 g,Start_date: 10/16/22,Refills: 0, By mouth, Daily Imodium A-D 2 mg oral tablet??2 mg,Start_date: 10/16/22,Refills: 0, PRN, By mouth, Q6H Lomotil oral tablet??1 tab,Start_date: 11/11/22,Refills: 0, PRN, By mouth, QID ostomy supplies??See Instructions:[place]:barrier ring 8815Pouch ??[id number] HollisterWafer ?? 05100 odor drops 7850adapt no sting wipes 7917adhesive remover wipes 7760,Start_date: 10/16/22,Refills: 99 Ostomy supplies??See Instructions:Soft convex barrier wafer 39173, [id number], Adapt rings 7815, stoma powder 7906, 3M Cavilon skin barrier wipes. Adhesive remover 7737.,Start_date: 11/26/22,Refills:99 oxyCODONE 5 mg oral tablet??5 mg = 1 tab,Start_date: 10/16/22,Refills: 0, PRN, By mouth, Q6H pantoprazole 40 mg oral delayed release tablet??40 mg = 1 tab,Start_date: 10/21/22,Refills: 0, By mouth, Daily Zofran ODT 4 mg oral tablet, disintegrating??4 mg = 1 tab,Start_date: 10/18/22,Refills: 0, PRN, By mouth, Q6H Allergies codeine??(Kidney, Vomit) Social History Tobacco Smoking Status: Former smoker. Smokeless tobacco use: Never. Former smoker last 30 days: Former smoker < 30 days. Has the patient smoked in the last 365 days, even once? No. Electronically signed by:Ant Gary MD 12/12/22 12:58 Patient Care team information Care Team Personnel Name: Ant Gary MD Position: PX Physician - Colorectal Surgery Member Role: Primary Care Physician Address: Address: [address] [place] [address]- Care Team Related Persons Name: PRIMO CROUCH Name: Gary Ba Name: MATILDE SCOTT Name: MATILDE NAVARRO Address: home [address] [place] [phone] [facility] Address: mailing [facility] [address] [place] [address] [phone] [facility]
[2023-04-30] MEDS: filgrastim-sndz 300 mcg/0.5 mL Syringe SUBCUT (15:10)
[2023-04-30 15:15] VITALS: BP 111/59; PULSE 49; RESP 16; TEMP 36.8; O2SAT 98
[2023-05-01 14:22] VITALS: BP 101/62; PULSE 65; RESP 16; TEMP 36.7; O2SAT 97; BMI 21.9
[2023-05-01] MEDS: filgrastim-sndz 300 mcg/0.5 mL Syringe SUBCUT (14:24)
[2023-05-02 10:10] VITALS: BP 113/65; PULSE 61; RESP 17; TEMP 36.4; O2SAT 97; BMI 21.8
[2023-05-02] MEDS: sodium chloride 0.9% 1,000 ML 999 ML IV (10:16)
[2023-05-02] MEDS: filgrastim-sndz 300 mcg/0.5 mL Syringe SUBCUT (10:16)
[2023-05-02 11:30] VITALS: BP 132/63; PULSE 59; RESP 16; TEMP 36.6; O2SAT 93
[2023-05-12 09:22] LABS: Basophils % 0.4 %; Eosinophils # 0.2 10^3/uL (0.0-0.8); Eosinophils % 6.3 %; Hematocrit 35.8 % (36-47); Lymphocytes % 35.6 %; Mean Corpuscular HGB Conc 33.5 g/dL (30-55); Mean Corpuscular Hemoglobin 31.9 pg (27-33); Mean Corpuscular Volume 95.2 fl (85-98); Mean Platelet Volume 10.7 fL (7.4-10.4); Monocytes # 0.3 10^3/uL (0.2-0.9); Monocytes % 11.1 %; Neutrophils # 1.24 10^3/uL (1.8-7.7); Neutrophils % 45.9 %; Nucleated Red Blood Cells % 0 %; Platelet Count 141 10^3/cmm (157-399); Red Blood Count 3.76 10^6/uL (3.85-5.65); Red Cell Distribution Width 14.5 % (12.1-15.1)
[2023-05-12 10:04] LABS: Carcinoembryonic Antigen 1.1 ng/mL (0.0-4.7)
[2023-05-12 10:15] LABS: Alanine Aminotransferase 89 U/L (0-33); Albumin Level 4.4 g/dL (3.5-5.2); Alkaline Phosphatase 121 U/L (35-105); Anion Gap 11.4 (5-19); Aspartate Amino Transferase 60 U/L (0-32); Blood Urea Nitrogen 19 mg/dL (8-23); Calcium 9.3 mg/dL (8.5-10.5); Carbon Dioxide 28 mmol/L (22-29); Chloride 103 mmol/L (98-107); Globulin 2.5 g/dL (1.3-4.6); Glomerular Filtration Rate 50.2 mL/min (90-130); Glucose 79 mg/dL (65-115); Osmolality Calculated 287 mOsm/kg (285-295); Potassium 4.4 mmol/L (3.5-5.1); Sodium 138 mmol/L (136-145); Total Bilirubin 0.2 mg/dL (0.15-1.2); Total Protein 6.9 g/dL (6.6-8.7)
[2023-05-12] MEDS: filgrastim-sndz 300 mcg/0.5 mL Syringe SUBCUT (13:00)
[2023-05-13] MEDS: filgrastim-sndz 300 mcg/0.5 mL Syringe SUBCUT (09:22)
[2023-05-13 09:27] VITALS: BP 114/60; PULSE 73; RESP 16; TEMP 36.7; O2SAT 97
[2023-05-14] MEDS: filgrastim-sndz 300 mcg/0.5 mL Syringe SUBCUT (09:52)
[2023-05-14 09:55] VITALS: BP 114/65; PULSE 63; RESP 16; TEMP 36.6; O2SAT 98; BMI 21.3
== END 2023-05-15 23:59 | disposition home or self-care (01) ==
PROVIDERS: Internal Medicine Hematology & Oncology; Nurse Practitioner Family; PCP Family Medicine; Visit Provider Internal Medicine Medical Oncology
DX: C18.7 Malignant neoplasm of sigmoid colon (principal); E86.0 Dehydration; C77.8 Secondary and unspecified malignant neoplasm of lymph nodes of multiple regions; Z79.899 Other long term (current) drug therapy
CPT/HCPCS: 80053; 82378; 85025; 96360; 96361; 96367; 96368; 96372; 96375; 96411; 96413; 96415; 96416; 96523; 99214; 99215; J0640; J1100; J1453; J1642; J2469; J7030; J7060; J9190; J9263; Q5101

== ENCOUNTER 2023-05-27 09:30 | Oncology outpatient (recurring) (ONCR) | payer OTHER, SELFPAY ==
[2023-05-20] VITALS (9 sets, daily range): BP systolic 94–143; BP diastolic 57–77; PULSE 55–123; RESP 17–18; TEMP 36.2–36.9; O2SAT 94–98; BMI 22.0
[2023-05-20 08:25] LABS: Basophils # 0.1 10^3/uL (0.0-0.1); Basophils % 0.8 %; Eosinophils # 0.3 10^3/uL (0.0-0.8); Eosinophils % 4.5 %; Hematocrit 38.8 % (36-47); Lymphocytes # 1.5 10^3/uL (0.8-4.8); Lymphocytes % 25.5 %; Mean Corpuscular HGB Conc 32.5 g/dL (30-55); Mean Corpuscular Hemoglobin 31.3 pg (27-33); Mean Corpuscular Volume 96.3 fl (85-98); Mean Platelet Volume 10.6 fL (7.4-10.4); Monocytes # 0.7 10^3/uL (0.2-0.9); Monocytes % 12.2 %; Neutrophils # 3.34 10^3/uL (1.8-7.7); Neutrophils % 55.2 %; Nucleated Red Blood Cells % 0 %; Platelet Count 142 10^3/cmm (157-399); Red Blood Count 4.03 10^6/uL (3.85-5.65); Red Cell Distribution Width 14.6 % (12.1-15.1); White Blood Count 6.05 10^3/uL (3.29-11.43)
[2023-05-20 08:39] LABS: Alanine Aminotransferase 129 U/L (0-33); Albumin Level 3.9 g/dL (3.5-5.2); Alkaline Phosphatase 127 U/L (35-105); Anion Gap 12.7 (5-19); Aspartate Amino Transferase 112 U/L (0-32); Blood Urea Nitrogen 19 mg/dL (8-23); Calcium 9.1 mg/dL (8.5-10.5); Carbon Dioxide 26 mmol/L (22-29); Chloride 104 mmol/L (98-107); Globulin 2.8 g/dL (1.3-4.6); Glomerular Filtration Rate 45.4 mL/min (90-130); Glucose 84 mg/dL (65-115); Osmolality Calculated 287 mOsm/kg (285-295); Potassium 4.7 mmol/L (3.5-5.1); Sodium 138 mmol/L (136-145); Total Bilirubin 0.2 mg/dL (0.15-1.2); Total Protein 6.7 g/dL (6.6-8.7)
[2023-05-20] MEDS: dextrose 5% 250 ML 75 ML IV (10:57)
[2023-05-20] MEDS: fosaprepitant 150 MG in sodium chloride 0.9% 50 ML, sodium chloride 0.9% (100 ml) 100 ML 300 MG IV (10:57)
[2023-05-20] MEDS: palonosetron 0.25 mg/5 mL SDV IVP (11:36)
[2023-05-20] MEDS: leucovorin 650 MG in dextrose 5% 250 ML 62.5 MG IV (11:53)
[2023-05-20] MEDS: sodium chloride 0.9% 500 ML IV (12:45)
[2023-05-20] MEDS: famotidine 20 mg/2 mL INJ 40 MG IVP (12:51)
[2023-05-20] MEDS: diphenhydrAMINE 50 mg/mL SDV 1mL 25 MG IVP (12:51)
[2023-05-20] MEDS: dexamethasone 10 mg/mL INJ 12 MG IV (12:56)
[2023-05-20] MEDS: sodium chloride 0.9% 50 mL Bag IV (12:57)
[2023-05-27 08:15] VITALS: BP 114/70; PULSE 66; RESP 16; TEMP 36.9; O2SAT 97
[2023-05-27 08:21] LABS: Basophils % 0.6 %; Eosinophils # 0.3 10^3/uL (0.0-0.8); Eosinophils % 6.8 %; Hematocrit 36.4 % (36-47); Lymphocytes # 1.2 10^3/uL (0.8-4.8); Lymphocytes % 25.4 %; Mean Corpuscular HGB Conc 32.7 g/dL (30-55); Mean Corpuscular Hemoglobin 31.2 pg (27-33); Mean Corpuscular Volume 95.5 fl (85-98); Mean Platelet Volume 11.3 fL (7.4-10.4); Monocytes # 0.4 10^3/uL (0.2-0.9); Monocytes % 8.1 %; Neutrophils # 2.75 10^3/uL (1.8-7.7); Neutrophils % 58.9 %; Nucleated Red Blood Cells % 0 %; Platelet Count 154 10^3/cmm (157-399); Red Blood Count 3.81 10^6/uL (3.85-5.65); Red Cell Distribution Width 14.3 % (12.1-15.1); White Blood Count 4.68 10^3/uL (3.29-11.43)
[2023-05-27 08:42] LABS: Alanine Aminotransferase 143 U/L (0-33); Albumin Level 4.2 g/dL (3.5-5.2); Alkaline Phosphatase 114 U/L (35-105); Anion Gap 10.5 (5-19); Aspartate Amino Transferase 90 U/L (0-32); Blood Urea Nitrogen 24 mg/dL (8-23); Calcium 9.2 mg/dL (8.5-10.5); Carbon Dioxide 28 mmol/L (22-29); Chloride 106 mmol/L (98-107); Globulin 2.6 g/dL (1.3-4.6); Glomerular Filtration Rate 50.2 mL/min (90-130); Glucose 85 mg/dL (65-115); Osmolality Calculated 293 mOsm/kg (285-295); Potassium 4.5 mmol/L (3.5-5.1); Sodium 140 mmol/L (136-145); Total Bilirubin 0.3 mg/dL (0.15-1.2); Total Protein 6.8 g/dL (6.6-8.7)
== END 2023-06-14 23:59 | disposition home or self-care (01) ==
PROVIDERS: Nurse Practitioner Family; PCP Family Medicine; Visit Provider Internal Medicine Medical Oncology
DX: E86.0 Dehydration (principal); C18.9 Malignant neoplasm of colon, unspecified; D70.1 Agranulocytosis secondary to cancer chemotherapy; C18.7 Malignant neoplasm of sigmoid colon; Z85.038 Personal history of other malignant neoplasm of large intestine; Z53.9 Procedure and treatment not carried out, unspecified reason
CPT/HCPCS: 80053; 85025; 96367; 96368; 96375; 96413; 99214; 99215; J0640; J1100; J1200; J1453; J1642; J2469; J3490; J7040; J7060; J9263

== ENCOUNTER 2023-06-16 07:11 | Outpatient (CLI) | payer OTHER, SELFPAY ==
--- NOTE | 2023-06-16 08:00 | CT_ITS ---
WS: [id number] CT CHEST, ABDOMEN AND PELVIS WITH CONTRAST. HISTORY: Restaging scan after 8 cycles of m- FOLFOX. History of colon cancer. TECHNIQUE: Contiguous 5 mm axial imaging performed through the chest, abdomen and pelvis with IV cont rast, oral contrast has been provided. Coronal and sagittal reformats chest. Coronal and sagittal ref ormats through the abdomen and pelvis. All CT scans at [facility] use at least one of these d ose optimization techniques: automated exposure control; mA and/or kV adjustment per patient size (in cludes targeted exams where dose is matched to clinical indication); or iterative reconstruction. CONTRAST: Omnipaque 350; 100 mL IV. DLP: 511.15 mGy.cm COMPARISON: 10/07/2022 and 10/23/[address]: Lungs are mildly hyperinflated. There are a few tiny micronodules throughout the lungs. No enlarging or new nodules. There is no pneumonia or mass. Heart is normal size. No pericardial or pleu ral effusions. LEFT subclavian Mediport. No enlarging mediastinal or hilar lymph nodes. Normal sized pulmonary arter y. Mild atherosclerosis aorta. Abdomen CT: Normal size liver. There are several subcentimeter low-attenuation nodules within the migel er. These are similar to the prior exam with no significant increase in size. These lesions are sligh tly more conspicuous today. The largest is approximately 5 mm in the posterior RIGHT lobe of the live r. Gallbladder is contracted with mild wall thickening. Normal spleen with granulomata. Normal pancre as and adrenal glands. No renal mass or obstruction. 5 mm cyst upper pole LEFT kidney. Reidentified are small lymph nodes in the gastrohepatic ligament, retrocrural and retroperitoneal. No ne of these lymph nodes are increasing in size. These lymph nodes are less than a centimeter. Stomach is moderately well distended with oral contrast. No small bowel obstruction. Prior partial co lectomy. There is an ileostomy in the RIGHT lower quadrant. Previously described small bowel obstruct ion has resolved. Postsurgical sutures at the rectum. High rectal mass is no longer evident. There is no obstruction or abnormal enhancement within the soft tissues of the colon. The appendix is normal. No omental carcinomatosis. Pelvic CT: Well-distended urinary bladder. There is a small cyst in the LEFT adnexa which was also pr esent on the prior study and probably an ovarian cyst. Mild degenerative changes at L5-S1. No osteoblastic or osteolytic bone lesions. IMPRESSION: 1. No evidence for metastatic disease to the chest, abdomen or pelvis. 2. RIGHT lower quadrant ileostomy. 3. Partial colectomy with surgical anastomotic sutures near the rectum. 4. There are tiny low-attenuation nodules in the liver. These are stable. Too small to characterize b ut have not increased in size since 10/23/2022 or 10/07/2022. 5. Slightly contracted gallbladder. 6. No GI tract obstruction.
[2023-06-16] MEDS: iohexol 350 mg/mL 500 mL Btl (per mL) PO (08:11)
[2023-06-16] MEDS: iohexol 350 mg/mL 500 mL Btl (per mL) IV (08:48)
== END 2023-06-16 07:12 | disposition home or self-care (01) ==
LOC: RAD 07:12
PROVIDERS: PCP Family Medicine; Visit Provider Internal Medicine Medical Oncology
DX: C18.7 Malignant neoplasm of sigmoid colon (principal); Z93.2 Ileostomy status; Z90.49 Acquired absence of other specified parts of digestive tract
CPT/HCPCS: 71260; 74177; Q9967

== ENCOUNTER 2023-07-15 14:00 | Oncology outpatient (recurring) (ONCR) | payer OTHER, SELFPAY ==
[2023-06-17 10:06] VITALS: BP 127/83; PULSE 82; RESP 16; TEMP 36.5; O2SAT 99
[2023-06-17 10:25] LABS: Basophils % 0.7 %; Eosinophils # 0.1 10^3/uL (0.0-0.8); Eosinophils % 2.7 %; Hematocrit 36.7 % (36-47); Lymphocytes % 24.6 %; Mean Corpuscular HGB Conc 34.1 g/dL (30-55); Mean Corpuscular Hemoglobin 31.6 pg (27-33); Mean Corpuscular Volume 92.7 fl (85-98); Mean Platelet Volume 10.7 fL (7.4-10.4); Monocytes # 0.2 10^3/uL (0.2-0.9); Monocytes % 5.8 %; Neutrophils # 2.71 10^3/uL (1.8-7.7); Nucleated Red Blood Cells % 0 %; Platelet Count 153 10^3/cmm (157-399); Red Blood Count 3.96 10^6/uL (3.85-5.65); Red Cell Distribution Width 12.1 % (12.1-15.1); White Blood Count 4.11 10^3/uL (3.29-11.43)
[2023-06-17 10:57] LABS: Carcinoembryonic Antigen 0.8 ng/mL (0.0-4.7)
[2023-06-17 11:10] LABS: Alanine Aminotransferase 20 U/L (0-33); Albumin Level 4.3 g/dL (3.5-5.2); Alkaline Phosphatase 86 U/L (35-105); Anion Gap 14.2 (5-19); Aspartate Amino Transferase 22 U/L (0-32); Blood Urea Nitrogen 24 mg/dL (8-23); Calcium 9.2 mg/dL (8.5-10.5); Carbon Dioxide 24 mmol/L (22-29); Chloride 105 mmol/L (98-107); Globulin 2.8 g/dL (1.3-4.6); Glucose 86 mg/dL (65-115); Osmolality Calculated 291 mOsm/kg (285-295); Potassium 4.2 mmol/L (3.5-5.1); Sodium 139 mmol/L (136-145); Total Bilirubin 0.3 mg/dL (0.15-1.2); Total Protein 7.1 g/dL (6.6-8.7)
[2023-07-15 14:35] VITALS: BP 99/71; PULSE 75; RESP 16; TEMP 37.1; O2SAT 98
[2023-07-15 14:42] LABS: Basophils % 0.4 %; Eosinophils # 0.1 10^3/uL (0.0-0.8); Hematocrit 37.6 % (36-47); Lymphocytes # 1.2 10^3/uL (0.8-4.8); Lymphocytes % 24.9 %; Mean Corpuscular HGB Conc 33.8 g/dL (30-55); Mean Corpuscular Volume 91.7 fl (85-98); Mean Platelet Volume 10.2 fL (7.4-10.4); Monocytes # 0.3 10^3/uL (0.2-0.9); Monocytes % 6.5 %; Neutrophils # 3.27 10^3/uL (1.8-7.7); Neutrophils % 66.2 %; Nucleated Red Blood Cells % 0 %; Platelet Count 190 10^3/cmm (157-399); Red Cell Distribution Width 11.8 % (12.1-15.1); White Blood Count 4.94 10^3/uL (3.29-11.43)
[2023-07-15 15:03] LABS: Alanine Aminotransferase 16 U/L (0-33); Albumin Level 4.2 g/dL (3.5-5.2); Alkaline Phosphatase 84 U/L (35-105); Anion Gap 12.2 (5-19); Aspartate Amino Transferase 20 U/L (0-32); Blood Urea Nitrogen 20 mg/dL (8-23); Calcium 9.4 mg/dL (8.5-10.5); Carbon Dioxide 25 mmol/L (22-29); Chloride 104 mmol/L (98-107); Globulin 2.8 g/dL (1.3-4.6); Glomerular Filtration Rate 50.2 mL/min (90-130); Glucose 100 mg/dL (65-115); Osmolality Calculated 287 mOsm/kg (285-295); Potassium 4.2 mmol/L (3.5-5.1); Sodium 137 mmol/L (136-145); Total Bilirubin 0.2 mg/dL (0.15-1.2)
== END 2023-07-15 23:59 | disposition home or self-care (01) ==
PROVIDERS: PCP Family Medicine; Visit Provider Internal Medicine Medical Oncology
DX: C18.7 Malignant neoplasm of sigmoid colon
CPT/HCPCS: 36591; 80053; 82378; 85025; 99215; J1642

== ENCOUNTER → 2023-08-27 15:14 | Outpatient (BNVA) | payer OTHER, SELFPAY | PROVIDERS: PCP Family Medicine; Visit Provider Surgery | DX: Z95.828 Presence of other vascular implants and grafts (principal) | CPT/HCPCS: 99213 ==

== ENCOUNTER → 2023-09-16 14:47 | Outpatient (BNVA) | payer OTHER, SELFPAY | PROVIDERS: PCP Family Medicine; Visit Provider Surgery | DX: Z95.828 Presence of other vascular implants and grafts (principal) | CPT/HCPCS: 36590; 99214 ==

== ENCOUNTER 2023-10-01 11:06 | Outpatient (CLI) | payer OTHER, SELFPAY ==
[2023-10-01 11:43] LABS: Basophils % 0.6 %; Eosinophils # 0.2 10^3/uL (0.0-0.8); Hematocrit 37.6 % (36-47); Lymphocytes # 1.3 10^3/uL (0.8-4.8); Lymphocytes % 28.3 %; Mean Corpuscular HGB Conc 32.7 g/dL (30-55); Mean Corpuscular Hemoglobin 29.6 pg (27-33); Mean Corpuscular Volume 90.6 fl (85-98); Mean Platelet Volume 10.7 fL (7.4-10.4); Monocytes # 0.3 10^3/uL (0.2-0.9); Neutrophils # 2.84 10^3/uL (1.8-7.7); Neutrophils % 59.9 %; Nucleated Red Blood Cells % 0 %; Platelet Count 236 10^3/cmm (157-399); Red Blood Count 4.15 10^6/uL (3.85-5.65); Red Cell Distribution Width 12.4 % (12.1-15.1); White Blood Count 4.74 10^3/uL (3.29-11.43)
[2023-10-01 12:13] LABS: Carcinoembryonic Antigen 1.5 ng/mL (0.0-4.7)
[2023-10-01 12:25] LABS: Alanine Aminotransferase 35 U/L (0-33); Albumin Level 4.1 g/dL (3.5-5.2); Alkaline Phosphatase 81 U/L (35-105); Anion Gap 13.6 (5-19); Aspartate Amino Transferase 30 U/L (0-32); Blood Urea Nitrogen 17 mg/dL (8-23); Calcium 9.5 mg/dL (8.5-10.5); Carbon Dioxide 30 mmol/L (22-29); Chloride 101 mmol/L (98-107); Globulin 2.9 g/dL (1.3-4.6); Glucose 83 mg/dL (65-115); Osmolality Calculated 291 mOsm/kg (285-295); Potassium 4.6 mmol/L (3.5-5.1); Sodium 140 mmol/L (136-145); Total Bilirubin 0.2 mg/dL (0.15-1.2)
--- NOTE | 2023-10-01 12:30 | CT_ITS ---
WS: [id number] CT CHEST, ABDOMEN AND PELVIS WITH CONTRAST HISTORY: restaging colon cancer. TECHNIQUE: Contiguous 5 mm axial imaging performed through the chest, abdomen and pelvis with IV cont rast, oral contrast has been provided. Coronal and sagittal reformats chest. Coronal and sagittal ref ormats through the abdomen and pelvis. All CT scans at [facility] use at least one of these d ose optimization techniques: automated exposure control; mA and/or kV adjustment per patient size (in cludes targeted exams where dose is matched to clinical indication); or iterative reconstruction. CONTRAST: Omnipaque 350; 100 mL IV. DLP: 571.88 mGy.cm COMPARISON: 10/23/2022, 06/16/[address]: Lungs are clear. No pulmonary mass or nodule. No pneumonia. No pericardial or pleural effus ions. No mediastinal or hilar adenopathy. Mild atherosclerosis aorta. Small hiatal hernia. Abdomen CT: Normal size liver. Too small to characterize peripheral hypodensities within the liver ar e identified without interval change manager several prior exams. Normal gallbladder and spleen. Normal pancreas and adrenal glands. Normal kidneys. Mild atherosclerosis aorta. Stomach is well distended with oral contrast. No small bowel obstruction. Mild diffuse constipation. Previously described ileostomy has been reversed. There is no obstruction or recurrent mass at the smith rgical anastomotic site towards the rectum. No adjacent adenopathy or ascites. Normal appendix. Pelvic CT: No free fluid or adenopathy in the pelvis. Urinary bladder is well distended. No destructive bone lesions. IMPRESSION: 1. No metastatic disease within the chest, abdomen or pelvis. 2. Interval reversal of the previously described ileostomy. Anastomotic site towards the rectum is i ntact. No obstruction or soft tissue mass/adenopathy. 3. No ascites.
[2023-10-01] MEDS: iohexol 350 mg/mL 500 mL Btl (per mL) IV (12:41)
[2023-10-01] MEDS: iohexol 350 mg/mL 500 mL Btl (per mL) PO (12:41)
== END 2023-10-01 11:07 | disposition home or self-care (01) ==
PROVIDERS: PCP Family Medicine; Visit Provider Nurse Practitioner Family
DX: C18.7 Malignant neoplasm of sigmoid colon (principal); Z98.0 Intestinal bypass and anastomosis status
CPT/HCPCS: 71260; 74177; 80053; 82378; 85025; Q9967

== ENCOUNTER → 2023-10-03 09:51 | Outpatient (BNVA) | payer OTHER, SELFPAY | PROVIDERS: PCP Family Medicine; Visit Provider Nurse Practitioner Family | DX: C18.7 Malignant neoplasm of sigmoid colon (principal); D70.1 Agranulocytosis secondary to cancer chemotherapy; R74.01 Elevation of levels of liver transaminase levels; Z86.718 Personal history of other venous thrombosis and embolism | CPT/HCPCS: 99213 ==

== ENCOUNTER 2023-12-30 12:40 | Oncology outpatient (recurring) (ONCR) | payer OTHER, SELFPAY ==
[2023-12-30 13:07] LABS: Basophils % 0.4 %; Eosinophils # 0.1 10^3/uL (0.0-0.8); Eosinophils % 2.9 %; Hematocrit 36.5 % (36-47); Lymphocytes # 1.3 10^3/uL (0.8-4.8); Lymphocytes % 27.7 %; Mean Corpuscular HGB Conc 32.1 g/dL (30-55); Mean Corpuscular Hemoglobin 29.7 pg (27-33); Mean Corpuscular Volume 92.6 fl (85-98); Mean Platelet Volume 10.3 fL (7.4-10.4); Monocytes # 0.3 10^3/uL (0.2-0.9); Monocytes % 6.2 %; Neutrophils # 3.02 10^3/uL (1.8-7.7); Neutrophils % 62.6 %; Nucleated Red Blood Cells % 0 %; Platelet Count 191 10^3/cmm (157-399); Red Blood Count 3.94 10^6/uL (3.85-5.65); Red Cell Distribution Width 13.2 % (12.1-15.1); White Blood Count 4.83 10^3/uL (3.29-11.43)
[2023-12-30 13:33] LABS: Carcinoembryonic Antigen 1.5 ng/mL (0.0-4.7)
[2023-12-30 13:45] LABS: Alanine Aminotransferase 21 U/L (0-33); Albumin Level 4.1 g/dL (3.5-5.2); Alkaline Phosphatase 84 U/L (35-105); Anion Gap 15.9 (5-19); Aspartate Amino Transferase 27 U/L (0-32); Blood Urea Nitrogen 29 mg/dL (8-23); Calcium 9.1 mg/dL (8.5-10.5); Carbon Dioxide 25 mmol/L (22-29); Chloride 104 mmol/L (98-107); Creatinine Clr Calc Pharmacy 52.9247; Globulin 3.1 g/dL (1.3-4.6); Glucose 84 mg/dL (65-115); Osmolality Calculated 295 mOsm/kg (285-295); Potassium 4.9 mmol/L (3.5-5.1); Sodium 140 mmol/L (136-145); Total Bilirubin 0.4 mg/dL (0.15-1.2); Total Protein 7.2 g/dL (6.6-8.7)
== END 2024-01-13 23:59 | disposition home or self-care (01) ==
PROVIDERS: PCP Family Medicine; Visit Provider Internal Medicine
DX: E86.0 Dehydration (principal); C18.9 Malignant neoplasm of colon, unspecified; D70.1 Agranulocytosis secondary to cancer chemotherapy; C18.7 Malignant neoplasm of sigmoid colon; Z85.038 Personal history of other malignant neoplasm of large intestine; Z51.11 Encounter for antineoplastic chemotherapy; Z45.2 Encounter for adjustment and management of vascular access device; Z90.49 Acquired absence of other specified parts of digestive tract; C77.8 Secondary and unspecified malignant neoplasm of lymph nodes of multiple regions; I82.432 Acute embolism and thrombosis of left popliteal vein; Z79.01 Long term (current) use of anticoagulants; R11.2 Nausea with vomiting, unspecified; T45.1X5A Adverse effect of antineoplastic and immunosuppressive drugs, initial encounter; R74.01 Elevation of levels of liver transaminase levels; Z79.899 Other long term (current) drug therapy; Z95.828 Presence of other vascular implants and grafts
CPT/HCPCS: 36415; 80053; 82378; 85025; 99214

== ENCOUNTER 2024-03-02 10:30 | Oncology outpatient (recurring) (ONCR) | payer OTHER, SELFPAY ==
[2024-02-25 10:29] LABS: Basophils % 0.9 %; Eosinophils # 0.2 10^3/uL (0.0-0.8); Eosinophils % 4.6 %; Hematocrit 40.5 % (36-47); Lymphocytes # 1.4 10^3/uL (0.8-4.8); Lymphocytes % 32.6 %; Mean Corpuscular HGB Conc 32.3 g/dL (30-55); Mean Corpuscular Hemoglobin 29.5 pg (27-33); Mean Corpuscular Volume 91.2 fl (85-98); Monocytes # 0.4 10^3/uL (0.2-0.9); Monocytes % 8.5 %; Neutrophils # 2.32 10^3/uL (1.8-7.7); Neutrophils % 53.2 %; Nucleated Red Blood Cells % 0 %; Platelet Count 212 10^3/cmm (157-399); Red Blood Count 4.44 10^6/uL (3.85-5.65); Red Cell Distribution Width 12.6 % (12.1-15.1); White Blood Count 4.36 10^3/uL (3.29-11.43)
[2024-02-25 10:56] LABS: Alanine Aminotransferase 48 U/L (0-33); Albumin Level 4.4 g/dL (3.5-5.2); Alkaline Phosphatase 81 U/L (35-105); Anion Gap 13.9 (5-19); Aspartate Amino Transferase 39 U/L (0-32); Blood Urea Nitrogen 17 mg/dL (8-23); Calcium 9.7 mg/dL (8.5-10.5); Carbon Dioxide 28 mmol/L (22-29); Chloride 100 mmol/L (98-107); Globulin 3.1 g/dL (1.3-4.6); Glomerular Filtration Rate 50.2 mL/min (90-130); Glucose 93 mg/dL (65-115); Osmolality Calculated 285 mOsm/kg (285-295); Potassium 4.9 mmol/L (3.5-5.1); Sodium 137 mmol/L (136-145); Total Bilirubin 0.3 mg/dL (0.15-1.2); Total Protein 7.5 g/dL (6.6-8.7)
--- NOTE | 2024-02-25 13:17 | PC.NURSE ---
11:30 Pt lost consciousness during lab draw. O2 @ 3 liters/ns administered. Pt regained consciousness on her own without further measures required. Pt states she has had similar responses in the past. VS T98.2 P74 R16 BP107/68. Pt observed for 20 minutes. Pt was escorted to the front office for departure. Pt states she is feeling good.
[2024-02-25 15:35] LABS: Carcinoembryonic Antigen 3.2 ng/mL (0.0-4.7)
[2024-03-10] MEDS: iohexol 350 mg/mL 500 mL Btl (per mL) PO (14:25)
--- NOTE | 2024-03-10 15:00 | CTR_ITS ---
PROCEDURE INFORMATION: Exam: CT Abdomen And Pelvis With Contrast Exam date and time: 03/10/2024 3:18 PM Age: 63 years old Clinical indication: Condition or disease; Cancer; Other: Colon; Prior surgery; Surgery date: 6+ months; Additional info: Cancer colon TECHNIQUE: Imaging protocol: Computed tomography of the abdomen and pelvis with contrast. Radiation optimization: All CT scans at this facility use at least one of these dose optimization techniques: automated exposure control; mA and/or kV adjustment per patient size (includes targeted exams where dose is matched to clinical indication); or iterative reconstruction. Contrast material: OMNI 350; Contrast volume: 100 ml; Contrast route: INTRAVENOUS (IV); COMPARISON: CT chest abdpel w/*[id number] 10/01/2023 12:37 PM RADIATION DOSE METRICS: Total DLP (mGy-cm): 338.75 FINDINGS: Lungs: Lung bases are clear as visualized. Heart: Base of heart is unremarkable as visualized. Liver: Stable right hepatic lobe subcapsular hypodensity. Gallbladder and biliary ducts: Normal. No calcified stones. No ductal dilation. Pancreas: Normal. No ductal dilation. Spleen: Splenic granulomas. Adrenal glands: Normal. No mass. Kidneys and ureters: Few scattered left renal cortical hypodensities too small to characterize by modality, statistically likely to represent benign renal cysts, stable from prior comparisons. Stomach and bowel: Postsurgical change of the sigmoid/rectum without evidence for acute surgical complication. Mild colonic stool burden. Appendix: No evidence of appendicitis. Intraperitoneal space: Unremarkable. No free air. No significant fluid collection. Vasculature: Minimal calcified atherosclerotic disease. Lymph nodes: Unremarkable. No enlarged lymph nodes. Urinary bladder: Unremarkable as visualized. Reproductive: Unremarkable as visualized. Bones/joints: Diffuse degenerative change of the visualized osseous structures. Soft tissues: New from prior comparison is a soft tissue somewhat ill-defined border hepatic hypodensity measuring 1.5 x 1.3 x 0.5 cm (series 3, image 17; series 5 image 29). CT/CT abdomen pelvis w con* [id number] IMPRESSION: 1. Interval development of ill-defined hepatic hypodensity within the right central hepatic lobe as detailed above. Given patient history, concerning for interval development of hepatic metastasis. MRI of the liver with contrast should be obtained for further definitive characterization. 2. Additional nonacute findings as above.
[2024-03-10] MEDS: iohexol 350 mg/mL 500 mL Btl (per mL) IV (15:23)
== END 2024-03-14 23:59 | disposition home or self-care (01) ==
LOC: RAD 03-10 14:00 → ONCMED 03-10 14:00
PROVIDERS: PCP Family Medicine; Visit Provider Internal Medicine
DX: C18.7 Malignant neoplasm of sigmoid colon (principal); I82.402 Acute embolism and thrombosis of unspecified deep veins of left lower extremity; R93.2 Abnormal findings on diagnostic imaging of liver and biliary tract
CPT/HCPCS: 36415; 74177; 80053; 82378; 85025; Q9967

== ENCOUNTER 2024-04-01 15:05 | Oncology outpatient (recurring) (ONCR) | payer OTHER, SELFPAY | END 2024-04-14 23:59 | disposition home or self-care (01) | PROVIDERS: PCP Family Medicine; Visit Provider Internal Medicine | DX: C18.7 Malignant neoplasm of sigmoid colon (principal); I82.402 Acute embolism and thrombosis of unspecified deep veins of left lower extremity; R93.2 Abnormal findings on diagnostic imaging of liver and biliary tract; Z53.9 Procedure and treatment not carried out, unspecified reason ==

== ENCOUNTER 2024-06-03 13:27 | Oncology outpatient (recurring) (ONCR) | payer OTHER, SELFPAY ==
[2024-06-03 13:55] LABS: Basophils % 0.4 %; Eosinophils # 0.2 10^3/uL (0.0-0.8); Eosinophils % 3.4 %; Hematocrit 34.1 % (36-47); Lymphocytes # 1.6 10^3/uL (0.8-4.8); Lymphocytes % 33.6 %; Mean Corpuscular HGB Conc 32.3 g/dL (30-55); Mean Corpuscular Volume 92.9 fl (85-98); Mean Platelet Volume 11.1 fL (7.4-10.4); Monocytes # 0.4 10^3/uL (0.2-0.9); Monocytes % 9.4 %; Neutrophils # 2.47 10^3/uL (1.8-7.7); Nucleated Red Blood Cells % 0 %; Platelet Count 187 10^3/cmm (157-399); Red Blood Count 3.67 10^6/uL (3.85-5.65); Red Cell Distribution Width 13.3 % (12.1-15.1); White Blood Count 4.67 10^3/uL (3.29-11.43)
[2024-06-03 14:30] LABS: Carcinoembryonic Antigen 8.3 ng/mL (0.0-4.7)
[2024-06-03 14:41] LABS: Alanine Aminotransferase 55 U/L (0-33); Alkaline Phosphatase 70 U/L (35-105); Anion Gap 15.2 (5-19); Aspartate Amino Transferase 43 U/L (0-32); Blood Urea Nitrogen 21 mg/dL (8-23); Calcium 8.8 mg/dL (8.5-10.5); Carbon Dioxide 25 mmol/L (22-29); Chloride 99 mmol/L (98-107); Globulin 2.8 g/dL (1.3-4.6); Glomerular Filtration Rate 41.2 mL/min (90-130); Glucose 88 mg/dL (65-115); Osmolality Calculated 282 mOsm/kg (285-295); Potassium 4.2 mmol/L (3.5-5.1); Sodium 135 mmol/L (136-145); Total Bilirubin 0.4 mg/dL (0.15-1.2); Total Protein 6.8 g/dL (6.6-8.7)
== END 2024-06-14 23:59 | disposition home or self-care (01) ==
PROVIDERS: PCP Family Medicine; Visit Provider Nurse Practitioner Family
DX: C18.7 Malignant neoplasm of sigmoid colon (principal); I82.402 Acute embolism and thrombosis of unspecified deep veins of left lower extremity; R93.2 Abnormal findings on diagnostic imaging of liver and biliary tract
CPT/HCPCS: 36415; 80053; 82378; 85025

== ENCOUNTER 2024-08-02 16:15 | Oncology outpatient (recurring) (ONCR) | payer OTHER, SELFPAY ==
[2024-07-22 13:11] LABS: Basophils % 0.6 %; Eosinophils # 0.2 10^3/uL (0.0-0.8); Eosinophils % 4.7 %; Hematocrit 39.1 % (36-47); Lymphocytes # 1.6 10^3/uL (0.8-4.8); Lymphocytes % 30.4 %; Mean Corpuscular HGB Conc 30.4 g/dL (30-55); Mean Corpuscular Hemoglobin 29.1 pg (27-33); Mean Corpuscular Volume 95.6 fl (85-98); Mean Platelet Volume 11.2 fL (7.4-10.4); Monocytes # 0.4 10^3/uL (0.2-0.9); Monocytes % 7.8 %; Neutrophils # 2.89 10^3/uL (1.8-7.7); Neutrophils % 56.3 %; Nucleated Red Blood Cells % 0 %; Platelet Count 197 10^3/cmm (157-399); Red Blood Count 4.09 10^6/uL (3.85-5.65); Red Cell Distribution Width 12.3 % (12.1-15.1); White Blood Count 5.13 10^3/uL (3.29-11.43)
[2024-07-22 13:30] LABS: Carcinoembryonic Antigen 1.6 ng/mL (0.0-4.7)
[2024-07-22 13:42] LABS: Alanine Aminotransferase 86 U/L (0-33); Albumin Level 4.1 g/dL (3.5-5.2); Alkaline Phosphatase 78 U/L (35-105); Anion Gap 17.4 (5-19); Aspartate Amino Transferase 53 U/L (0-32); Blood Urea Nitrogen 16 mg/dL (8-23); Calcium 8.7 mg/dL (8.5-10.5); Carbon Dioxide 25 mmol/L (22-29); Chloride 101 mmol/L (98-107); Creatinine Clr Calc Pharmacy 50.1524; Globulin 2.7 g/dL (1.3-4.6); Glucose 97 mg/dL (65-115); Osmolality Calculated 289 mOsm/kg (285-295); Potassium 4.4 mmol/L (3.5-5.1); Sodium 139 mmol/L (136-145); Total Bilirubin 0.2 mg/dL (0.15-1.2); Total Protein 6.8 g/dL (6.6-8.7)
== END 2024-08-14 23:59 | disposition home or self-care (01) ==
PROVIDERS: Internal Medicine Hematology & Oncology; PCP Family Medicine; Visit Provider Nurse Practitioner Family
DX: Z53.9 Procedure and treatment not carried out, unspecified reason; C18.7 Malignant neoplasm of sigmoid colon; Z79.899 Other long term (current) drug therapy
CPT/HCPCS: 36415; 80053; 82378; 85025

== ENCOUNTER 2024-09-09 10:00 | Oncology outpatient (recurring) (ONCR) | payer OTHER, SELFPAY ==
[2024-08-19] MEDS: iohexol 350 mg/mL 500 mL Btl (per mL) PO (08:39)
--- NOTE | 2024-08-19 09:00 | CTR_ITS ---
PROCEDURE INFORMATION: Exam: CT Chest With Contrast; Diagnostic Exam date and time: 08/19/2024 9:05 AM Age: 64 years old Clinical indication: Condition or disease; Other: Colon cancer; Prior surgery; Surgery date: 6+ months TECHNIQUE: Imaging protocol: Diagnostic computed tomography of the chest with contrast. Radiation optimization: All CT scans at this facility use at least one of these dose optimization techniques: automated exposure control; mA and/or kV adjustment per patient size (includes targeted exams where dose is matched to clinical indication); or iterative reconstruction. Contrast material: OMNI 350; Contrast volume: 100 ml; Contrast route: INTRAVENOUS (IV); COMPARISON: PT PET skull to thigh INIT [id number] 03/30/2024 11:44 AM RADIATION DOSE METRICS: Total DLP (mGy-cm): 785.61 FINDINGS: Lungs: The lungs are clear. Pleural spaces: No pneumothorax or pleural effusion. Heart: Normal heart size. No pericardial fluid. Lymph nodes: Small mediastinal and bilateral hilar lymph nodes are present with mild calcifications. Possibly related to prior granulomatous infection. Right hilar lymph node measures 12 x 19 mm. Vasculature: No PE. No evidence of cardiac strain. Bones/joints: See Soft tissues finding. Soft tissues: No acute osseous or soft tissue abnormality. PROCEDURE INFORMATION: Exam: CT Abdomen And Pelvis With Contrast Exam date and time: 08/19/2024 9:05 AM Age: 64 years old Clinical indication: Condition or disease; Other: Colon cancer; Prior surgery; Surgery date: 6+ months TECHNIQUE: Imaging protocol: Computed tomography of the abdomen and pelvis with contrast. Radiation optimization: All CT scans at this facility use at least one of these dose optimization techniques: automated exposure control; mA and/or kV adjustment per patient size (includes targeted exams where dose is matched to clinical indication); or iterative reconstruction. Contrast material: OMNI 350; Contrast volume: 100 ml; Contrast route: INTRAVENOUS (IV); COMPARISON: PT PET skull to thigh INIT [id number] 03/30/2024 11:44 AM RADIATION DOSE METRICS: Total DLP (mGy-cm): 785.61 FINDINGS: Lungs: Lung bases are clear as visualized. Liver: Postsurgical change of tumor resection in hepatic segment 8. No evidence of recurrence at the margins. Interval increase in size of a subcapsular hypodense lesion in segment 7 measuring approximately 12 x 16 mm, previously 6 x 7 mm. New/prominent hypodense lesion at the inferior tip of the liver measuring 13 x 17 mm axial. Mild capsular retraction associated with these lesions. Gallbladder and biliary ducts: Normal. No calcified stones. No ductal dilation. Pancreas: Unremarkable pancreas. Spleen: Punctate calcified granulomas in the spleen. Adrenal glands: Unremarkable adrenal glands. Kidneys and ureters: Too small to characterize hypodensities in the left kidney statistically represent simple cysts. No further follow-up needed. No renal or ureteral calculi or obstruction bilaterally. Stomach and bowel: Enhancing 15 x 19 mm nodule in the left paramedian presacral soft tissues, adjacent to the rectosigmoid surgical carrie is worrisome for soft tissue implants/metastatic disease. Possible residual disease at the colorectal anastomosis. Recommend correlation. No bowel obstruction or acute inflammation. Administered enteric contrast transits up to distal transverse colon. Appendix: No evidence of appendicitis. Intraperitoneal space: See Soft tissues finding. Vasculature: Small linear filling defect in the right portal vein and distal branches, most consistent with nonocclusive thrombus. Lymph nodes: Several mildly prominent retroperitoneal/aortocaval lymph nodes as well as soy hepatis lymph nodes are unchanged, likely reactive. Urinary bladder: Unremarkable as visualized. Reproductive: Unremarkable as visualized. Bones/joints: Small bone island in the left femoral head. Small bone island in the left sacrum. Soft tissues: There is mild subcutaneous stranding midline ventral abdominal wall, extending laterally across the right ventral abdominal wall . Mild heterogeneous enhancement of the right anterior oblique muscles (images [id number] series 5). Nonspecific finding. May represent normal post interventional healing. However, metastatic disease is not excluded. Recommend correlation. There is minimal peritoneal nodularity underlying the right ventral abdominal wall musculature as seen on image 38 series 5. Peritoneal metastatic disease is not excluded. May also represent inflammatory change related to overlying myositis. Recommend correlation. CT/CT chest abdpel w/*[id number] IMPRESSION: 1. No evidence of metastatic disease. No acute abnormality. 2. No PE. No evidence of cardiac strain. IMPRESSION: 1. Small linear filling defect in the right portal vein and distal branches, most consistent with nonocclusive thrombus. 2. Interval increase in size of a subcapsular hypodense lesion in segment 7 measuring approximately 12 x 16 mm, previously 6 x 7 mm. New/prominent hypodense lesion at the inferior tip of the liver measuring 13 x 17 mm axial. Mild capsular retraction associated with these lesions. Worrisome for new/progressive metastatic disease. Postsurgical change of tumor resection in hepatic segment 8. No evidence of recurrence at the margins. 3. Enhancing 15 x 19 mm nodule in the left paramedian presacral soft tissues, adjacent to the rectosigmoid surgical carrie is worrisome for soft tissue implants/metastatic disease. Possible residual disease at the colorectal anastomosis. Recommend correlation. 4. There is mild subcutaneous stranding midline ventral abdominal wall, extending laterally across the right ventral abdominal wall . Mild heterogeneous enhancement of the right anterior oblique muscles. Nonspecific finding. May represent normal post interventional healing. However, metastatic disease is not excluded. Recommend correlation. Can be evaluated with PET-CT or biopsy according to clinical discretion. 5. There is minimal peritoneal nodularity underlying the right ventral abdominal wall musculature. Early metastatic disease is not excluded. May also represent inflammatory change related to overlying myositis. Recommend correlation. Attention to be paid on future imaging. COMMENTS: Consistent with the [employer]'s Incidental Findings Committee white paper (J Am Al Radiol 2018): Any incidental renal lesion less than 1 cm or classified as too small to characterize, or any incidental cystic renal lesion characterized as simple-appearing, is likely benign. No follow-up imaging is recommended for these lesions per consensus recommendations based on imaging criteria.
[2024-08-19] MEDS: iohexol 350 mg/mL 500 mL Btl (per mL) IV (09:13)
[2024-09-09 10:06] LABS: Basophils % 0.4 %; Eosinophils # 0.2 10^3/uL (0.0-0.8); Eosinophils % 3.2 %; Hematocrit 37.2 % (36-47); Lymphocytes # 1.5 10^3/uL (0.8-4.8); Lymphocytes % 32.2 %; Mean Corpuscular HGB Conc 34.4 g/dL (30-55); Mean Corpuscular Hemoglobin 30.3 pg (27-33); Mean Corpuscular Volume 87.9 fl (85-98); Monocytes # 0.4 10^3/uL (0.2-0.9); Monocytes % 7.9 %; Neutrophils # 2.61 10^3/uL (1.8-7.7); Neutrophils % 56.1 %; Nucleated Red Blood Cells % 0 %; Platelet Count 221 10^3/cmm (157-399); Red Blood Count 4.23 10^6/uL (3.85-5.65); Red Cell Distribution Width 12.3 % (12.1-15.1); White Blood Count 4.66 10^3/uL (3.29-11.43)
[2024-09-09 10:34] LABS: Carcinoembryonic Antigen 1.7 ng/mL (0.0-4.7)
[2024-09-09 10:45] LABS: Alanine Aminotransferase 35 U/L (0-33); Albumin Level 3.9 g/dL (3.5-5.2); Alkaline Phosphatase 72 U/L (35-105); Anion Gap 18.1 (5-19); Aspartate Amino Transferase 38 U/L (0-32); Blood Urea Nitrogen 11 mg/dL (8-23); Calcium 9.2 mg/dL (8.5-10.5); Carbon Dioxide 22 mmol/L (22-29); Chloride 95 mmol/L (98-107); Creatinine Clr Calc Pharmacy 53.5254; Globulin 2.9 g/dL (1.3-4.6); Glomerular Filtration Rate 55.8 mL/min (90-130); Glucose 86 mg/dL (65-115); Osmolality Calculated 271 mOsm/kg (285-295); Potassium 4.1 mmol/L (3.5-5.1); Sodium 131 mmol/L (136-145); Total Bilirubin 0.7 mg/dL (0.15-1.2); Total Protein 6.8 g/dL (6.6-8.7)
== END 2024-09-14 23:59 | disposition home or self-care (01) ==
PROVIDERS: Internal Medicine Medical Oncology; PCP Family Medicine; Visit Provider Nurse Practitioner Family
DX: Z53.9 Procedure and treatment not carried out, unspecified reason (principal); C18.7 Malignant neoplasm of sigmoid colon
CPT/HCPCS: 36415; 71260; 74177; 80053; 82378; 85025

== ENCOUNTER 2024-10-28 11:11 | Oncology outpatient (recurring) (ONCR) | payer OTHER, SELFPAY ==
[2024-10-26 15:47] LABS: Basophils % 0.7 %; Eosinophils # 0.1 10^3/uL (0.0-0.8); Eosinophils % 2.4 %; Hematocrit 32.9 % (36-47); Lymphocytes # 1.5 10^3/uL (0.8-4.8); Lymphocytes % 34.4 %; Mean Corpuscular HGB Conc 32.8 g/dL (30-55); Mean Corpuscular Hemoglobin 34.2 pg (27-33); Mean Corpuscular Volume 104.1 fl (85-98); Mean Platelet Volume 11.4 fL (7.4-10.4); Monocytes # 0.3 10^3/uL (0.2-0.9); Monocytes % 6.8 %; Neutrophils # 2.35 10^3/uL (1.8-7.7); Neutrophils % 55.5 %; Nucleated Red Blood Cells % 0 %; Platelet Count 219 10^3/cmm (157-399); Red Blood Count 3.16 10^6/uL (3.85-5.65); Red Cell Distribution Width 11.9 % (12.1-15.1); White Blood Count 4.24 10^3/uL (3.29-11.43)
[2024-10-26] MEDS: iohexol 350 mg/mL 500 mL Btl (per mL) PO (15:59)
--- NOTE | 2024-10-26 16:00 | CT_ITS ---
WS: [id number] CT CHEST, ABDOMEN AND PELVIS WITH CONTRAST HISTORY: Colon cancer TECHNIQUE: Contiguous 5 mm axial imaging performed through the chest, abdomen and pelvis with IV contrast, oral contrast has been provided. Coronal and sagittal reformats chest. Coronal and sagittal reformats through the abdomen and pelvis. All CT scans at [facility] use at least one of these dose optimization techniques: automated exposure control; mA and/or kV adjustment per patient size (includes targeted exams where dose is matched to clinical indication); or iterative reconstruction. CONTRAST: Omnipaque 350; 100 mL IV. DLP: 653.67 mGy.cm COMPARISON: 08/19/2024, 03/10/2024, PET/CT 03/30/[address]: No RIGHT lower lobe pulmonary nodule is identified. There are no new nodules or enlarging nodules. Mild pulmonary hyperexpansion. No mediastinal or hilar adenopathy. Lymph node size and distribution unchanged since 08/19/2024. Heart is normal size. Normal pulmonary artery. Normal soft tissues. Abdomen CT: Hepatic resection site along the RIGHT lateral lobe. Decreased soft tissue in the resection bed is similar to 08/19/2024. No displacement of the surgical clips. 2 subcapsular RIGHT hepatic lesions are identified. The more inferior lesion measures 9 x 10 mm and has not increased in size. There is slight's capsular contraction. The slightly more superior subcapsular lesion measures 10 x 13 mm and is also unchanged in size. Normal portal vein. No filling defect persisting in the distal RIGHT portal vein. Normal SMV. Normal size spleen normal gallbladder. No adrenal mass. Normal pancreas. No renal obstruction or mass. Mild atherosclerosis aorta. Normal stomach. No small bowel obstruction. Diffuse constipation. Normal appendix. Pelvic CT: RIGHT adnexal soft tissue mass measuring 1.9 x 1.9 cm is reidentified. This is been present on multiple prior examinations and likely an ovarian cyst. This is just lateral to the rectosigmoid anastomosis. No omental carcinomatosis identified. Sclerotic focus RIGHT femoral head is likely a bone island. No destructive bone process identified. CT/CT chest abdpel w/*[id number] IMPRESSION: 1. No metastatic disease to the lungs identified. Previously described nodule by PET/CT is not identified. 2. No mediastinal or hilar adenopathy. 3. Stable postsurgical hepatic resection site. 4. Metastatic RIGHT hepatic lesions are stable since 08/19/2024. No new lesions identified in the liver. 5. No adrenal metastasis. 6. Stable rectosigmoid anastomosis. 7. Previously described possible metastatic implant in the LEFT pelvis is prob ably an ovary with a small cyst which has been previously described on multiple prior studies.
[2024-10-26] MEDS: iohexol 350 mg/mL 500 mL Btl (per mL) IV (16:11)
[2024-10-26 16:47] VITALS: BP 124/78; PULSE 78; RESP 18; TEMP 36.6; O2SAT 98
[2024-10-26 18:01] LABS: Alanine Aminotransferase 31 U/L (0-33); Albumin Level 4.1 g/dL (3.5-5.2); Alkaline Phosphatase 71 U/L (35-105); Aspartate Amino Transferase 26 U/L (0-32); Blood Urea Nitrogen 13 mg/dL (8-23); Carbon Dioxide 23 mmol/L (22-29); Chloride 93 mmol/L (98-107); Globulin 2.3 g/dL (1.3-4.6); Glucose 69 mg/dL (65-115); Lactate Dehydrogenase 110 U/L (135-214); Osmolality Calculated 268 mOsm/kg (285-295); Sodium 130 mmol/L (136-145); Total Protein 6.4 g/dL (6.6-8.7)
[2024-10-26 20:25] LABS: Carcinoembryonic Antigen 1.2 ng/mL (0.0-4.7)
== END 2024-11-12 23:59 | disposition home or self-care (01) ==
PROVIDERS: PCP Family Medicine; Visit Provider Internal Medicine
DX: C18.7 Malignant neoplasm of sigmoid colon (principal); D64.9 Anemia, unspecified
CPT/HCPCS: 36415; 71260; 74177; 80053; 82378; 82607; 82728; 82746; 83010; 83540; 83550; 83615; 85025; 85045

== ENCOUNTER 2025-01-27 09:30 | Oncology outpatient (recurring) (ONCR) | payer OTHER, SELFPAY ==
[2025-01-24] MEDS: iohexol 350 mg/mL 500 mL Btl (per mL) PO (16:41)
--- NOTE | 2025-01-24 16:45 | CTR_ITS ---
PROCEDURE INFORMATION: Exam: CT Chest With Contrast; Diagnostic Exam date and time: 01/24/2025 4:52 PM Age: 64 years old Clinical indication: Condition or disease; Other: Cancer sigmoid colon; Prior surgery; Surgery date: 6+ months TECHNIQUE: Imaging protocol: Diagnostic computed tomography of the chest with contrast. Radiation optimization: All CT scans at this facility use at least one of these dose optimization techniques: automated exposure control; mA and/or kV adjustment per patient size (includes targeted exams where dose is matched to clinical indication); or iterative reconstruction. Contrast material: OMNI 350; Contrast volume: 100 ml; Contrast route: INTRAVENOUS (IV); COMPARISON: CT chest abdpel w/*[id number] 10/26/2024 4:00 PM RADIATION DOSE METRICS: Total DLP (mGy-cm): 578.69 FINDINGS: Lungs: Unremarkable. No consolidation. No masses. Pleural spaces: Unremarkable. No pneumothorax. No pleural effusion. Heart: Unremarkable. No cardiomegaly. No pericardial effusion. Lymph nodes: Unremarkable. No enlarged lymph nodes. Vasculature: Unremarkable. No aortic aneurysm. Bones/joints: Unremarkable. No acute fracture. Soft tissues: Unremarkable. PROCEDURE INFORMATION: Exam: CT Abdomen And Pelvis With Contrast Exam date and time: 01/24/2025 4:52 PM Age: 64 years old Clinical indication: Condition or disease; Other: Cancer sigmoid colon; Prior surgery; Surgery date: 6+ months TECHNIQUE: Imaging protocol: Computed tomography of the abdomen and pelvis with contrast. Radiation optimization: All CT scans at this facility use at least one of these dose optimization techniques: automated exposure control; mA and/or kV adjustment per patient size (includes targeted exams where dose is matched to clinical indication); or iterative reconstruction. Contrast material: OMNI 350; Contrast volume: 100 ml; Contrast route: INTRAVENOUS (IV); COMPARISON: CT chest abdpel w/*[id number] 10/26/2024 4:00 PM RADIATION DOSE METRICS: Total DLP (mGy-cm): 578.69 FINDINGS: Liver: Small partial resection of the liver. Small subcapsular defects in the right lobe is stable. Gallbladder and biliary ducts: Normal. No calcified stones. No ductal dilation. Pancreas: Normal. No ductal dilation. Spleen: Small calcified splenic granulomata. Adrenal glands: Normal. No mass. Kidneys and ureters: Normal. No hydronephrosis. Stomach and bowel: Unremarkable. No obstruction. No mucosal thickening. Appendix: No evidence of appendicitis. Intraperitoneal space: Unremarkable. No free air. No significant fluid collection. Vasculature: Unremarkable. No abdominal aortic aneurysm. Lymph nodes: Unremarkable. No enlarged lymph nodes. Urinary bladder: Unremarkable as visualized. Reproductive: Unremarkable as visualized. Small stable 19 mm left ovarian cyst. Bones/joints: Unremarkable. No acute fracture. Soft tissues: Unremarkable. CT/CT chest abdpel w/*[id number] IMPRESSION: No acute findings. IMPRESSION: No acute findings.
[2025-01-24 16:50] LABS: Blood Urea Nitrogen 12 mg/dL (8-23); Glomerular Filtration Rate 55.8 mL/min (90-130)
[2025-01-24] MEDS: iohexol 350 mg/mL 500 mL Btl (per mL) IV (16:54)
[2025-01-27 10:06] LABS: Basophils % 0.8 %; Eosinophils # 0.1 10^3/uL (0.0-0.8); Eosinophils % 2.3 %; Hematocrit 37.2 % (36-47); Lymphocytes # 1.2 10^3/uL (0.8-4.8); Lymphocytes % 31.5 %; Mean Corpuscular Hemoglobin 32.9 pg (27-33); Mean Corpuscular Volume 102.8 fl (85-98); Mean Platelet Volume 10.9 fL (7.4-10.4); Monocytes # 0.3 10^3/uL (0.2-0.9); Neutrophils # 2.21 10^3/uL (1.8-7.7); Neutrophils % 57.1 %; Nucleated Red Blood Cells % 0 %; Platelet Count 190 10^3/cmm (157-399); Red Blood Count 3.62 10^6/uL (3.85-5.65); Red Cell Distribution Width 11.3 % (12.1-15.1); Reticulocyte % 1.6 % (0.5-2.0); White Blood Count 3.87 10^3/uL (3.29-11.43)
[2025-01-27 10:46] LABS: Alanine Aminotransferase 107 U/L (0-33); Albumin Level 4.2 g/dL (3.5-5.2); Alkaline Phosphatase 77 U/L (35-105); Anion Gap 16.7 (5-19); Aspartate Amino Transferase 63 U/L (0-32); Blood Urea Nitrogen 11 mg/dL (8-23); Calcium 9.4 mg/dL (8.5-10.5); Carbon Dioxide 24 mmol/L (22-29); Chloride 104 mmol/L (98-107); Ferritin 188 ng/mL (15-150); Globulin 2.8 g/dL (1.3-4.6); Glucose 81 mg/dL (65-115); Iron 126 ug/dL (37-145); Lactate Dehydrogenase 131 U/L (135-214); Osmolality Calculated 288 mOsm/kg (285-295); Percent Saturation 40.9 % (20-50); Potassium 4.7 mmol/L (3.5-5.1); Sodium 140 mmol/L (136-145); Total Bilirubin 0.8 mg/dL (0.15-1.2); Total Iron Binding Capacity 308 mcg/dl; Unsaturated Iron Binding 182 ug/dL (112-347); Vitamin B12 1522 pg/mL (232-1245)
[2025-01-27 10:56] LABS: Folate Level > 20.0 ng/mL (4.8-37.3)
[2025-01-27 11:42] LABS: Carcinoembryonic Antigen 1.8 ng/mL (0.0-4.7)
== END 2025-02-12 23:59 | disposition home or self-care (01) ==
PROVIDERS: PCP Family Medicine; Visit Provider Internal Medicine
DX: Z53.9 Procedure and treatment not carried out, unspecified reason (principal); C18.7 Malignant neoplasm of sigmoid colon
CPT/HCPCS: 36415; 71260; 74177; 80053; 82378; 82565; 82607; 82728; 82746; 83010; 83540; 83550; 83615; 84520; 85025; 85045

== ENCOUNTER 2025-03-04 08:52 | Oncology outpatient (recurring) (ONCR) | payer OTHER, SELFPAY ==
[2025-03-04 09:13] LABS: Basophils % 0.7 %; Eosinophils # 0.1 10^3/uL (0.0-0.8); Eosinophils % 3.3 %; Hematocrit 39.7 % (36-47); Lymphocytes # 1.1 10^3/uL (0.8-4.8); Lymphocytes % 26.6 %; Mean Corpuscular HGB Conc 32.5 g/dL (30-55); Mean Corpuscular Hemoglobin 31.2 pg (27-33); Mean Corpuscular Volume 96.1 fl (85-98); Mean Platelet Volume 10.9 fL (7.4-10.4); Monocytes # 0.3 10^3/uL (0.2-0.9); Monocytes % 6.8 %; Neutrophils # 2.69 10^3/uL (1.8-7.7); Neutrophils % 62.6 %; Nucleated Red Blood Cells % 0 %; Platelet Count 195 10^3/cmm (157-399); Red Blood Count 4.13 10^6/uL (3.85-5.65); Red Cell Distribution Width 11.8 % (12.1-15.1); White Blood Count 4.29 10^3/uL (3.29-11.43)
[2025-03-04 09:39] LABS: Carcinoembryonic Antigen 2.2 ng/mL (0.0-4.7)
[2025-03-04 09:51] LABS: Alanine Aminotransferase 57 U/L (0-33); Albumin Level 4.3 g/dL (3.5-5.2); Alkaline Phosphatase 88 U/L (35-105); Anion Gap 17.1 (5-19); Aspartate Amino Transferase 44 U/L (0-32); Blood Urea Nitrogen 20 mg/dL (8-23); Calcium 9.7 mg/dL (8.5-10.5); Carbon Dioxide 23 mmol/L (22-29); Chloride 102 mmol/L (98-107); Globulin 3.2 g/dL (1.3-4.6); Glucose 80 mg/dL (65-115); Osmolality Calculated 288 mOsm/kg (285-295); Potassium 4.1 mmol/L (3.5-5.1); Sodium 138 mmol/L (136-145); Total Bilirubin 0.9 mg/dL (0.15-1.2); Total Protein 7.5 g/dL (6.6-8.7)
== END 2025-03-14 23:59 | disposition home or self-care (01) ==
PROVIDERS: Internal Medicine Medical Oncology; PCP Family Medicine; Visit Provider Internal Medicine
DX: C18.7 Malignant neoplasm of sigmoid colon (principal)
CPT/HCPCS: 36415; 80053; 82378; 85025

== ENCOUNTER 2025-05-03 11:00 | Oncology outpatient (recurring) (ONCR) | payer MEDICARE, SELFPAY ==
[2025-04-28 14:37] LABS: Blood Urea Nitrogen 24 mg/dL (8-23)
[2025-04-29 10:34] LABS: Hematocrit 36.2 % (36-47); Hemoglobin 11.60 g/dL (11.27-16.99); Mean Corpuscular HGB Conc 32.0 g/dL (30-55); Mean Corpuscular Hemoglobin 31.4 pg (27-33); Mean Corpuscular Volume 98.1 fl (85-98); Nucleated Red Blood Cells % 0 %; Platelet Count 183 10^3/cmm (157-399); Red Blood Count 3.69 10^6/uL (3.85-5.65); White Blood Count 4.35 10^3/uL (3.29-11.43)
[2025-04-29 10:53] LABS: Alanine Aminotransferase 39 U/L (0-33); Albumin Level 4.3 g/dL (3.5-5.2); Alkaline Phosphatase 71 U/L (35-105); Anion Gap 14.6 (5-19); Aspartate Amino Transferase 33 U/L (0-32); Blood Urea Nitrogen 21 mg/dL (8-23); Calcium 9.2 mg/dL (8.5-10.5); Carbon Dioxide 24 mmol/L (22-29); Chloride 102 mmol/L (98-107); Ferritin 163 ng/mL (15-150); Globulin 2.8 g/dL (1.3-4.6); Glucose 95 mg/dL (65-115); Iron 151 ug/dL (37-145); Osmolality Calculated 285 mOsm/kg (285-295); Potassium 4.6 mmol/L (3.5-5.1); Sodium 136 mmol/L (136-145); Total Iron Binding Capacity 282 mcg/dl; Total Protein 7.1 g/dL (6.6-8.7); Unsaturated Iron Binding 131 ug/dL (112-347)
[2025-04-29] MEDS: iohexol 350 mg/mL 500 mL Btl (per mL) PO (11:02)
[2025-04-29 11:19] LABS: Carcinoembryonic Antigen 2.4 ng/mL (0.0-4.7)
--- NOTE | 2025-04-29 12:00 | CTR_ITS ---
PROCEDURE INFORMATION: Exam: CT Chest With Contrast; Diagnostic Exam date and time: 04/29/2025 12:01 PM Age: 65 years old Clinical indication: Condition or disease; Cancer; Other: --colon 02/2025; Prior surgery; Surgery date: 6+ months; Surgery type: Colon, ileostomy and reversal, liver; Additional info: --colon 02/2025 TECHNIQUE: Imaging protocol: Diagnostic computed tomography of the chest with contrast. Radiation optimization: All CT scans at this facility use at least one of these dose optimization techniques: automated exposure control; mA and/or kV adjustment per patient size (includes targeted exams where dose is matched to clinical indication); or iterative reconstruction. Contrast material: OMNI 350; Contrast volume: 100 ml; Contrast route: INTRAVENOUS (IV); COMPARISON: CT chest abdpel w/*[id number] 01/24/2025 4:52 PM RADIATION DOSE METRICS: Total DLP (mGy-cm): 687.76 FINDINGS: Thyroid: Subcentimeter nodules within the thyroid, as well as bilateral coarse thyroid calcifications. Trachea: The central airways are patent. Lungs: No focal consolidation. Pleural spaces: No significant pleural effusion. No pneumothorax. No significant pleural effusion. No pneumothorax. Heart: The heart is normal in size. No pericardial effusion. Lymph nodes: Hilar and mediastinal calcified lymph nodes, suggestive of prior granulomatous organism exposure. No enlarged lymph nodes by CT size criteria. Vasculature: Unremarkable. No aortic aneurysm. Bones/joints: The spine demonstrates mild degenerative changes at multiple levels. Soft tissues: Unremarkable. COMMENTS: Consistent with the [employer]'s Incidental Findings Committee white paper (J Am Al Radiol 2015): In patients aged 35 years and older with an incidental thyroid nodule equal to or greater than 1.[address], MRI or extrathyroidal US, further evaluation with dedicated thyroid US is recommended for patients with normal life expectancy and without comorbidities. For smaller nodules without suspicious features, no further evaluation or follow up is recommended. PROCEDURE INFORMATION: Exam: CT Abdomen And Pelvis With Contrast Exam date and time: 04/29/2025 12:01 PM Age: 65 years old Clinical indication: Condition or disease; Cancer; Other: --colon 02/2025; Prior surgery; Surgery date: 6+ months; Surgery type: Colon, ileostomy and reversal, liver; Additional info: --colon 02/2025 TECHNIQUE: Imaging protocol: Computed tomography of the abdomen and pelvis with contrast. Radiation optimization: All CT scans at this facility use at least one of these dose optimization techniques: automated exposure control; mA and/or kV adjustment per patient size (includes targeted exams where dose is matched to clinical indication); or iterative reconstruction. Contrast material: OMNI 350; Contrast volume: 100 ml; Contrast route: INTRAVENOUS (IV); COMPARISON: 1. CT abdomen pelvis w con* [id number] 03/10/2024 3:[address] abdomen/pelvis dated 01/24/2025. RADIATION DOSE METRICS: Total DLP (mGy-cm): 687.76 FINDINGS: Liver: Postsurgical/posttreatment changes along the right hepatic lobe. Overall unchanged appearance of the treatment cavity. There is a 1.2 cm indeterminate hypodensity within the periphery of hepatic segment (series 11, image 23). This is unchanged in size and appearance compared to the prior study but is increased in size when compared to a prior study from 03/10/2024. Gallbladder and biliary ducts: The gallbladder is unremarkable. No biliary dilation. Pancreas: The pancreas is unremarkable. Spleen: The spleen demonstrates punctate calcifications, consistent with remote granulomatous organism exposure. Adrenal glands: The adrenal glands are unremarkable. Kidneys and ureters: There is contrast excretion into the collecting systems and ureters. No filling defect. There are bilateral subcentimeter renal hypodensities, too small to properly characterize. Stomach and bowel: There is no bowel wall thickening. No bowel obstruction. Status post distal colon resection with patent anastomosis and prior ileostomy takedown. No evidence of local recurrence. Appendix: A normal appendix is identified. Intraperitoneal space: No significant peritoneal free fluid. No free peritoneal air. Vasculature: The vasculature demonstrates diffuse mild atherosclerotic calcification. No aneurysm. Lymph nodes: No enlarged lymph nodes by size criteria. Urinary bladder: The bladder is unremarkable. Bilateral urinary jets were visualized. Reproductive: Uterus is unremarkable. No suspicious adnexal lesion seen. 1.9 cm left ovarian cyst. Bones/joints: The spine demonstrates mild degenerative changes at multiple levels. Soft tissues: Postsurgical changes of the anterior abdominal wall. Other findings: There is an additional 1.1 cm lesion within the inferior aspect of segment V/ (series 11, image 29), also unchanged from the prior study but increased since 2023. CT/CT chest abdpel w/*[id number] IMPRESSION: No evidence of metastatic disease within the chest. IMPRESSION: 1. Indeterminate hepatic hypodensities noted within the periphery of segment (1.2 cm) and along the inferior aspect of segment V/, as described above. These are unchanged compared to the prior study but increased since 03/10/2024. As such, metastases are not excluded. Recommend dedicated liver protocol MRI for further characterization. 2. Postsurgical/posttreatment changes along the right hepatic lobe. Overall unchanged appearance of the treatment cavity. 3. Status post partial colonic resection and ileostomy takedown. No evidence of local recurrence. COMMENTS: Consistent with the [employer] [place] [employer]'s Incidental Findings Committee white paper (J Am Al Radiol 2018): Any incidental renal lesion less than 1 cm or classified as too small to characterize, or any incidental cystic renal lesion characterized as simple-appearing, is likely benign. No follow-up imaging is recommended for these lesions per consensus recommendations based on imaging criteria.
[2025-04-29] MEDS: iohexol 350 mg/mL 500 mL Btl (per mL) IV (12:09)
== END 2025-05-15 23:59 | disposition home or self-care (01) ==
PROVIDERS: Internal Medicine Medical Oncology; PCP Family Medicine; Visit Provider Internal Medicine
DX: C18.7 Malignant neoplasm of sigmoid colon (principal); C78.7 Secondary malignant neoplasm of liver and intrahepatic bile duct; R03.0 Elevated blood-pressure reading, without diagnosis of hypertension; R25.2 Cramp and spasm; Z87.891 Personal history of nicotine dependence; Z92.21 Personal history of antineoplastic chemotherapy
CPT/HCPCS: 36415; 71260; 74177; 80053; 82378; 82565; 82728; 82746; 83010; 83540; 83550; 83615; 84520; 85025; 85045; 99214

== ENCOUNTER 2025-08-02 10:23 | Oncology outpatient (recurring) (ONCR) | payer MEDICARE, SELFPAY ==
[2025-08-02 10:39] LABS: Hematocrit 40.3 % (36-47); Hemoglobin 13.00 g/dL (11.27-16.99); Mean Corpuscular HGB Conc 32.3 g/dL (30-55); Mean Corpuscular Hemoglobin 31.0 pg (27-33); Mean Corpuscular Volume 96.2 fl (85-98); Nucleated Red Blood Cells % 0 %; Platelet Count 224 10^3/cmm (157-399); Red Blood Count 4.19 10^6/uL (3.85-5.65); White Blood Count 4.93 10^3/uL (3.29-11.43)
[2025-08-02 11:13] LABS: Carcinoembryonic Antigen 3.5 ng/mL (0.0-4.7)
[2025-08-02 11:24] LABS: Alanine Aminotransferase 88 U/L (0-33); Albumin Level 4.6 g/dL (3.5-5.2); Alkaline Phosphatase 71 U/L (35-105); Anion Gap 18.6 (5-19); Aspartate Amino Transferase 59 U/L (0-32); Blood Urea Nitrogen 20 mg/dL (8-23); Calcium 9.7 mg/dL (8.5-10.5); Carbon Dioxide 23 mmol/L (22-29); Chloride 101 mmol/L (98-107); Creatinine Clr Calc Pharmacy 47.9184; Globulin 2.9 g/dL (1.3-4.6); Glucose 89 mg/dL (65-115); Osmolality Calculated 288 mOsm/kg (285-295); Potassium 4.6 mmol/L (3.5-5.1); Sodium 138 mmol/L (136-145); Total Protein 7.5 g/dL (6.6-8.7)
== END 2025-08-14 23:59 | disposition home or self-care (01) ==
LOC: ONCMED 10:23
PROVIDERS: Internal Medicine Medical Oncology; PCP Family Medicine; Visit Provider Internal Medicine
DX: C18.7 Malignant neoplasm of sigmoid colon (principal); C78.7 Secondary malignant neoplasm of liver and intrahepatic bile duct; R03.0 Elevated blood-pressure reading, without diagnosis of hypertension; Z95.828 Presence of other vascular implants and grafts; Z87.891 Personal history of nicotine dependence
CPT/HCPCS: 36415; 80053; 82378; 85025; 99214